=== PATIENT | female | born 1945 | race Caucasian/White ===

== ENCOUNTER → 2017-06-11 09:31 | Outpatient (CLI) | payer MEDICARE, MEDICAID, SELFPAY ==
--- NOTE | 2017-06-11 09:42 | MM_ITS ---
MM Dig screening mamm BI w/CAD CAD Screening COMPARISON: Digital mammograms 06/07/2016 and 05/14/2015 INDICATION: There is no personal or family history of breast cancer. This been previous biopsy left breast for benign disease. TECHNIQUE: Standard CC and MLO images were obtained. R2 CAD reviewed. FINDINGS: The breasts are composed primarily of fat with minimal scattered fibroglandular densities throughout each breast. There is very minimal stable post biopsy scarring left breast. There is a mole marker right breast and there are couple benign-appearing calcination is in each breast. There is no suspicious lesion and there are no suspicious microcalcifications. IMPRESSION: Fatty type breast parenchyma with no suspicious lesion seen BI-RADS Category: 2 Benign Finding(s) RECOMMENDED FOLLOW-UP: 1YR - 1 YEAR FOLLOW-UP (A letter has been sent to the patient regarding results of the study.)
== END ==
PROVIDERS: Family Provider Family Medicine; PCP Family Medicine; Visit Provider Nurse Practitioner Obstetrics & Gynecology
DX: Z12.31 Encounter for screening mammogram for malignant neoplasm of breast (principal)
CPT/HCPCS: 77067

== ENCOUNTER → 2018-05-10 11:13 | Outpatient (CLI) | payer MEDICARE, MEDICAID, SELFPAY ==
[2018-05-10 11:51] LABS: Basophils % 0.5 % (0.1-2.0); Eosinophils # 0.1 K/mm3 (0.0-0.4); Eosinophils % 1.2 % (0.1-12.0); Hematocrit 40.8 % (37.0-47.0); Hemoglobin 13.5 g/dL (12.2-16.2); Lymphocytes # 2.5 K/mm3 (0.7-4.5); Lymphocytes % 35.5 % (10-50); Mean Corpuscular Hemoglobin 30.2 pg (27.0-31.2); Mean Corpuscular Volume 91.6 fl (81-99); Mean Platelet Volume 8.4 fl (7.4-10.4); Monocytes # 0.5 K/mm3 (0.1-1.0); Monocytes % 6.4 % (1.7-9.3); Neutrophils % 56.4 % (37.0-80.0); Platelet Count 302 K/mm3 (142-424); Red Blood Count 4.45 M/mm3 (4.20-5.40); Red Cell Distribution Width 13.4 % (11.5-17.5); White Blood Count 7.1 K/mm3 (4.8-10.8)
== END ==
PROVIDERS: Visit Provider Otolaryngology
DX: Z01.818 Encounter for other preprocedural examination (principal); D49.2 Neoplasm of unspecified behavior of bone, soft tissue, and skin
CPT/HCPCS: 36415; 85025; 93005

== ENCOUNTER 2018-05-16 09:44 | Day surgery (SDC) | payer MEDICARE, MEDICAID, SELFPAY ==
[2018-05-16 10:22] VITALS: BP 182/59; PULSE 46; RESP 18; TEMP 36.6; O2SAT 100; BMI 39.4
[2018-05-16 12:15] VITALS: BP 134/83; PULSE 48; RESP 18; TEMP 36.1; O2SAT 96
[2018-05-16 12:30] VITALS: BP 141/77; PULSE 45; RESP 18; TEMP 36.1; O2SAT 97
[2018-05-16 12:45] VITALS: BP 137/79; PULSE 44; RESP 18; TEMP 36.1; O2SAT 98
[2018-05-16 12:54] VITALS: BP 154/76; PULSE 46; RESP 18; TEMP 36.1; O2SAT 98
--- NOTE | 2018-05-16 14:27 | P.PN_ITS ---
[facility] Anesthesia Checklist - Patient Identification Patient Identification: Arm Band - Structural Data Admitted From: Home Planned Operative Procedure/s: excision lesion x2 forehead Consent for Planned Operative Procedure(s) Verified: Yes Verified Documents: Surgical Consent, History and Physical - NPO Status Verified Time NPO: 00:00 - Additional verifications Anesthesia Reactions: No - Airway Assessment C-Spine Mobility Assessed: Yes (mp2) TMJ Mobility Assessed: Yes Dentition: Good Dentition - Neurological Assessment Level of Consciousness: Awake, Alert - Anesthesia Plan Anesthesia Risk discussed: Yes Anesthesia Plan: Verified ASA Class: II Anesthesia Type: MAC [facility] History I have reviewed the patient's past medical history: Yes Medical History: Reports:: Hyperlipidemia, Hypertension Denies:: Cancer, Diabetes Mellitus Type 1, Diabetes Mellitus Type 2, Internal Pacemaker, MRSA, Seizures *Have you ever received a pneumonia vaccine?: Yes *Have you received a flu vaccine this season?: Yes Other Medical History: Reports: Hypothyroidism. Denies: Blood Transfusion Reaction Other Surgeries: Yes: No Previous Surgery. No: Pacemaker Amputation: No Fractures: No - *Social History Educational Level: Completed High School Smoking Status: Never smoker Alcohol Intake: never *Occupational Status:: retired Housing: house Household Members: spouse *Travel in the last 8 weeks: None - Psychiatric History Expresses thoughts of harming self/others: None Suicide Plan Description: No Plan Family Hx:: Stroke, Thyroid Disorder, Hypertension
--- NOTE | 2018-05-16 15:39 | HMH.OPNOTE ---
Date of procedure: 05/16/18 Pre-op Diagnosis:: 1. 2.8 cm lesion anterior forehead 2. 1.5 cm lesion posterior forehead Post-op Diagnosis:: same Procedure performed:: 1. Excision 2.8 cm lesion anterior forehead with tissue rearrangement geometric plastic repair 2. Excision of posterior lesion forehead 1.5 cm with simple repair Surgeon:: Chuy Castro MD AWNING ERECTOR:: Reg Nickerson Anesthesia: MAC Estimated blood loss (mL): 4 Operative findings:: same Operative note:: The forehead was prepped and draped the perilesional areas were infiltrated with a total of 6 cc of 2% lidocaine containing epinephrine. The anterior forehead lesion was marked out on the markup measured 2.8 cm. The markup was incised and the lesion was excised and submitted. Bleeding was stopped with bipolar cautery. A superior and inferior incision was made and a tissue rearrangement geometric plastic repair was done with interrupted 4-0 nylon sutures. A Dermabond dressing was applied. The lesion on the posterior forehead was marked out it measured 1.5 cm. The markup was incised and the lesion was excised and submitted. Bleeding was stopped with bipolar cautery and a simple repair was done with interrupted 4-0 nylon sutures. A Dermabond dressing was applied. Pt was sent to recovery in good general condition. Condition: stable Disposition: PACU Complications:: none
--- NOTE | 2018-05-16 15:44 | P.OP_ITS ---
Date of procedure: 05/16/18 Pre-op Diagnosis:: 1. 2.8 cm lesion anterior forehead 2. 1.5 cm lesion posterior forehead Post-op Diagnosis:: same Procedure performed:: 1. Excision 2.8 cm lesion anterior forehead with tissue rearrangement geometric plastic repair 2. Excision of posterior lesion forehead 1.5 cm with simple repair Surgeon:: Chuy Castro MD MEDICAL TECHNOLOGIST PRN:: Reg Nickerson Anesthesia: MAC Estimated blood loss (mL): 4 Operative findings:: same Operative note:: The forehead was prepped and draped the perilesional areas were infiltrated with a total of 6 cc of 2% lidocaine containing epinephrine. The anterior forehead lesion was marked out on the markup measured 2.8 cm. The markup was incised and the lesion was excised and submitted. Bleeding was stopped with bipolar cautery. A superior and inferior incision was made and a tissue rearrangement geometric plastic repair was done with interrupted 4-0 nylon sutures. A Dermabond dressing was applied. The lesion on the posterior forehead was marked out it measured 1.5 cm. The markup was incised and the lesion was excised and submitted. Bleeding was stopped with bipolar cautery and a simple repair was done with interrupted 4-0 nylon sutures. A Dermabond dressing was applied. Pt was sent to recovery in good general condition. Condition: stable Disposition: PACU Complications:: none
== END 2018-05-16 12:54 | disposition home or self-care (01) ==
LOC: OR 09:46
PROVIDERS: PCP Family Medicine; Visit Provider Otolaryngology
DX: L57.0 Actinic keratosis; L98.8 Other specified disorders of the skin and subcutaneous tissue
CPT/HCPCS: 14040 ×2; 88305; 96374; 96375

== ENCOUNTER → 2018-12-12 10:15 | Outpatient (CLI) | payer MEDICARE, MEDICAID, SELFPAY ==
--- NOTE | 2018-12-12 10:19 | MM_ITS ---
PROCEDURE: MM DIG SCREENING MAMM BI W/CAD Patient Age:73Y CLINICAL INDICATION: SCREENING 73-year-old female.. No hormones. No new complaints. Previous benign stereotactic biopsy left breast Family history. Unremarkable COMPARISON: SBWCL STEREOTATIC BX-W/CLIP-LT from 10/05/2010 DMDB DIGITAL MAMM-DX BILATERAL from 03/10/2011 DMDXUL DIG MAMM-DX UNILATERAL-LT from 09/21/2011 DMSB DIGITAL MAMM-SCREEN BILATERAL from 04/03/2012 DMSB DIG MAMM-SCREEN MONICA from 05/02/2013 DMSB DIG MAMM-SCREEN MONICA from 05/07/2014 DMSB DIG MAMM-SCREEN MONICA W/CAD from 05/14/2015 DMSB DIG MAMM-SCREEN MONICA W/CAD from 06/07/2016 [facility] MM Dig screening mamm BI w/CAD from 06/11/2017 TECHNIQUE: Standard CC and MLO images were obtained. R2 CAD reviewed. FINDINGS: The low-density breast with generalized fatty replacement Right breast there is an area of focal density lateral upper outer quadrant which is been seen on previous studies and stable since prior studies dating back to 2014 on CC view; and although it is slightly more evident on today's MLO view I believe it is minimal focal density is variably evident on MLO view from [id number] the.. Therefore follow-up 1 year on the right would be adequate Left breast: Metallic marker from previous percutaneous biopsy noted medial breast with mild residual scarring near this area. Remainder of the left breast stable and unremarkable with no new areas of concern but the IMPRESSION: Stable mild asymmetry.. Stable minimal area density on the right right breast, with No new areas of significant concern Bilateral follow-up 1 year recommended, and should be encouraged/emphasized Thank you for the referral BI-RAD Category: 2 Benign Finding(s) FOLLOW-UP: 1YR 1 Year Follow-up (A letter has been sent to the patient regarding results of the study.) Dictated by: Silas Pinzon MD 12/16/2018 14:49 Electronically signed by Silas Pinzon MD in [place] 12/16/2018 14:54
== END ==
PROVIDERS: PCP Family Medicine; Visit Provider Family Medicine
DX: Z12.31 Encounter for screening mammogram for malignant neoplasm of breast (principal)
CPT/HCPCS: 77067

== ENCOUNTER → 2019-08-20 11:03 | Outpatient (CLI) | payer MEDICARE, SELFPAY ==
--- NOTE | 2019-08-20 11:08 | XR_ITS ---
PROCEDURE: XR FOOT WT BEARING LT 3V CLINICAL INDICATION: foot pain COMPARISON: FTL3 FOOT-LT-3 VIEWS from 06/24/2015 FINDINGS: There is mild hallux valgus with osteoarthritis of the 1st MTP joint and bunion formation. The joint spaces are well-preserved. No significant degenerative/arthritic changes. No erosive changes evident. Other findings:None. IMPRESSION: Hallux valgus with osteoarthritis 1st MTP joint and bunion formation Dictated by: Naman Merrill MD 08/20/2019 12:41 Electronically signed by Naman Merrill MD in [place] 08/20/2019 12:41
--- NOTE | 2019-08-20 11:08 | XR_ITS ---
PROCEDURE: XR FOOT RT MIN 3V CLINICAL INDICATION: foot pain COMPARISON: FTL3 FOOT-LT-3 VIEWS from 06/24/2015 FINDINGS: Moderate hallux valgus with mild osteoarthritis of the 1st MTP joint and bunion formation the . no fracture or dislocation. There are osteoarthritic changes of the 1st metatarsal sesamoid junction. Other findings:None. IMPRESSION: Degenerative changes with hallux valgus Dictated by: Naman Merrill MD 08/20/2019 12:39 Electronically signed by Naman Merrill MD in [place] 08/20/2019 12:39
== END ==
PROVIDERS: PCP Family Medicine; Visit Provider Nurse Practitioner
DX: B35.1 Tinea unguium (principal)
CPT/HCPCS: 73630

== ENCOUNTER → 2019-08-25 09:58 | Outpatient (CLI) | payer MEDICARE, MEDICAID, SELFPAY ==
[2019-08-25 10:30] LABS: Basophils # 0.1 K/mm3 (0-0.2); Basophils % 0.6 % (0.1-2.0); Eosinophils # 0.2 K/mm3 (0.0-0.4); Eosinophils % 2.6 % (0.1-12.0); Hematocrit 41.4 % (37.0-47.0); Hemoglobin 13.7 g/dL (12.2-16.2); Lymphocytes # 2.8 K/mm3 (0.7-4.5); Lymphocytes % 38.9 % (10-50); Mean Corpuscular HGB Conc 33.2 g/dL (31.8-35.4); Mean Corpuscular Hemoglobin 30.4 pg (27.0-31.2); Mean Corpuscular Volume 91.7 fl (81-99); Mean Platelet Volume 8.8 fl (7.4-10.4); Monocytes # 0.4 K/mm3 (0.1-1.0); Monocytes % 5.4 % (1.7-9.3); Neutrophils # 3.8 K/mm3 (1.8-7.8); Neutrophils % 52.5 % (37.0-80.0); Platelet Count 282 K/mm3 (142-424); Red Blood Count 4.51 M/mm3 (4.20-5.40); Red Cell Distribution Width 13.3 % (11.5-17.5); White Blood Count 7.3 K/mm3 (4.8-10.8)
[2019-08-25 10:55] LABS: Erythrocyte Sedimentation Rate 8 mm/hr (0-30)
[2019-08-25 10:59] LABS: Chloride 102 mmol/L (98-107)
[2019-08-25 11:00] LABS: Sodium 140 mmol/L (136-145)
[2019-08-25 11:02] LABS: Alanine Aminotransferase 23 U/L (12-78); Alkaline Phosphatase 33 U/L (38-126); Aspartate Amino Transferase 36 U/L (14-36); Bilirubin,Total 0.5 mg/dl (0.2-1.3); Blood Urea Nitrogen 41 mg/dl (7-17); Estimated Glomerular Filt Rate 40 ml/min (>60); GFR (African American) 49 ML/MIN (>60)
[2019-08-25 11:03] LABS: Albumin/Globulin Ratio 1.5 (1.1-1.8); Calcium 9.9 mg/dl (8.4-10.2); Carbon Dioxide 32 mmol/L (22.0-30.0); Globulin 2.6 g/dL (1.3-3.2); Glucose 85 mg/dl (74-100); Total Protein,Serum 6.6 g/dl (6.3-8.2)
[2019-08-25 11:09] LABS: C-Reactive Protein 0.9 mg/L (0-4)
== END ==
PROVIDERS: Visit Provider Nurse Practitioner
DX: B35.1 Tinea unguium (principal)
CPT/HCPCS: 36415; 80053; 85025; 85651; 86140

== ENCOUNTER → 2019-12-12 08:59 | Outpatient (CLI) | payer MEDICARE, MEDICAID, SELFPAY ==
--- NOTE | 2019-12-12 09:04 | MM_ITS ---
PROCEDURE: MM DIG SCREENING MAMM BI W/CAD Referring Doctor: Toni Verdin Patient Age:74Y CLINICAL INDICATION: SCREENING a 74-year-old. No hormones no new complaints Previous benign stereotactic biopsy left breast Family history. Unremarkable COMPARISON: MG DMSB DIGITAL MAMM-SCREEN BILATERAL from 04/03/2012 MG DMSB DIG MAMM-SCREEN MONICA from 05/02/2013 MG DMSB DIG MAMM-SCREEN MONICA from 05/07/2014 MG DMSB DIG MAMM-SCREEN MONICA W/CAD from 05/14/2015 MG DMSB DIG MAMM-SCREEN MONICA W/CAD from 06/07/2016 MG [facility] MM Dig screening mamm BI w/CAD from 06/11/2017 MG MM DIG SCREENING MAMM BI W/CAD from 12/12/2018 TECHNIQUE: Standard CC and MLO images were obtained. R2 CAD reviewed. Bilateral digital breast tomosynthesis included. FINDINGS: Lower density breast with minimal fibroglandular elements. No new suspicious or dominant mass but no suspicious calcifications either breast but stable architecture. Right breast appear stable. No new areas of concern. Vague area nodularity lateral central breast unchanged on both projections; as the small nodular density at the deep breast seen on CC view Left breast: No new areas of significant concern. Subtle minimal nodularity at the inferior left breast similar to previous studies. Previous metallic micro marker with associated scant scarring from prior stereotactic biopsy unchanged medial left breast again noted a.. A tiny areas of nodularity towards intramammary fold inferiorly again noted and not of significant concern. Can be followed, but would recommend bilateral follow-up 1 year. IMPRESSION: No new areas of concern. Overall stable mammogram. Stable very minor areas of density bilaterally-with no significant change Previous stereotactic biopsy medial left breast Bilateral follow-up in 1 year recommended and should be encouraged BI-RAD Category: 2 Benign Finding(s) FOLLOW-UP: 1YR 1 Year Follow-up (A letter has been sent to the patient regarding results of the study.) Dictated by: Silas Pinzon MD 12/14/2019 09:38 Silas Pinzon MD in [place] 12/14/2019 09:38
== END ==
PROVIDERS: PCP Family Medicine; Visit Provider Family Medicine
DX: Z12.31 Encounter for screening mammogram for malignant neoplasm of breast (principal)
CPT/HCPCS: 77063; 77067

== ENCOUNTER → 2020-02-02 13:28 | Outpatient (CLI) | payer MEDICARE, MEDICAID, SELFPAY | PROVIDERS: PCP Family Medicine; Visit Provider Family Medicine | DX: R06.83 Snoring (principal); I10 Essential (primary) hypertension; E66.9 Obesity, unspecified; G47.30 Sleep apnea, unspecified | CPT/HCPCS: G0399 ==

== ENCOUNTER 2020-04-10 17:24 | Emergency (ER) | payer MEDICARE, MEDICAID, SELFPAY ==
[2020-04-10 17:25] VITALS: BP 185/70; BP 188/81; PULSE 60; PULSE 61; RESP 18; TEMP 36.9; O2SAT 98; BMI 34.2
--- NOTE | 2020-04-10 17:48 | XR_ITS ---
PROCEDURE: XR HIP LT 2-3V W/PELVIS CLINICAL INDICATION: LEFT HIP PAIN W/O INJURY Left hip pain COMPARISON: CR,DX BONE3 BONE DENSITOMETRY(HIP:LT SPINE from 08/31/2016 FINDINGS: No fracture or dislocation. No lytic blastic change. Minimal osteoarthritic changes noted of the hips. Mild osteoarthritic changes of the SI joints IMPRESSION: Degenerative changes otherwise negative Dictated by: Naman Merrill MD 04/11/2020 07:23 Naman Merrill MD in [place] 04/11/2020 07:23
[2020-04-10 18:12] VITALS: BP 196/52; PULSE 50; O2SAT 99
--- NOTE | 2020-04-10 18:15 | HMH.EDGENADL ---
ED Disposition Clinical Impression: Lumbar disc disease Low back pain with sciatica Qualifiers: Chronicity: acute Back pain laterality: left Sciatica laterality: sciatica of left side Qualified Code(s): M54.42 - Lumbago with sciatica, left side Disposition: Home, Self-Care Condition on Discharge: Good Instructions: DI for Back Pain With Sciatica Additional Instructions: Prednisone as prescribed. Randall as needed for pain. Additional instructions for BACK PAIN: See your physician as soon as possible for further evaluation. Return immediately if back pain becomes intolerable, or if fever, numbness or weakness of your legs, loss of control of your bowels or bladder. Additional instructions for CONTROLLED SUBSTANCES: You have been prescribed a medication that is a controlled substance. Controlled substances include pain medications known as opiates and sedative nerve medications known as benzodiazepines. Tramadol, fioricet, and gabapentin are also controlled substances. Some common opiates include: Codeine (such as Tylenol #3) Hydrocodone (Vicodin, Lortab, Lorcet, Randall) Oxycodone (Percocet, Percodan, Oxycodone, Oxy IR) Some common benzodiazepines include: Diazepam (Valium) Lorazepam (Ativan) Alprazolam (Xanax) Clonazepam (Klonopin) Oxazepam (Serax) All of these controlled substances are highly addictive and frequently abused. Misuse can and frequently does lead to addiction as well as overdose and . Medication should be stored in a locked cabinet or other secure storage unit. Do not store the medication in a motor vehicle. Short term supplies, 3 days or less, are prescribed because of the highly addictive nature of the medication. Any of the controlled substance medication NOT taken should be disposed of properly and NOT SAVED. The recommended method of disposing of unused medications is: Place the medicines in a sealable plastic bag. If the medicine is a solid, crush it or add water to dissolve it. Add something undesirable (cat litter, coffee grounds, etc.) Dispose of sealed bag in household trash Do not flush or pour unused medicines down a sink or drain. Controlled substances should not be shared, given away or sold. Because of the addictive nature and frequent abuse, these medications are sometimes stolen. These medications should be kept in a safe place where they cannot be stolen. Do not keep them in your car or purse. Lost or stolen prescriptions for controlled substances WILL NOT BE REFILLED in this emergency department, regardless of whether a police report was filed. Prescriptions: Hydrocod/Acet 5/325 mg [Randall 5/325mg tablet] 1 tab PO Q6HP PRN #10 tab PRN Reason: Pain Transmission Status: Received by [id number] predniSONE [Prednisone 20mg Tab] 20 mg PO BID #10 tab Transmission Status: Pending to [id number] Referrals: Toni Verdin MD [Primary Care Provider] - - Critical Care Critical Care Time: No Attestation: On 04/10/20, the high probability of a clinically significant, sudden or life threatening deterioration of the following system(s) required my full and direct attention, intervention and personal management. The time I documented below is in addition to time spent performing reported procedures but includes the following listed in this critical care notation. Medical Decision Making - Edgardo Inquiry Pt receiving controlled substance: Yes Edgardo was queried for this patient: Yes Risks and benefits of using a controlled substance: were discussed with pt by me Vital Signs: 04/10/20 17:25 04/10/20 18:12 04/10/20 18:30 Temperature 98.4 F Temperature Source Oral Pulse Rate [Left] 61 50 L 63 Respiratory Rate 18 18 Blood Pressure [Left Arm] 188/81 H 196/52 H 172/54 H Blood Pressure Mean [Left Arm] 116 100 93 Blood Pressure Source [Left Arm] Automatic Cuff Blood Pressure Position [Left Arm] Sitting Sitting 02 Sat by Pu
--- NOTE | 2020-04-10 18:20 | XR_ITS ---
PROCEDURE: XR LUMBAR SPINE 2-3V CLINICAL INDICATION: pain, radiculopathy COMPARISON: CR CXR CHEST(2 VIEWS-NOT PORTABLE) from 08/28/2016 FINDINGS: There is normal alignment. There are 6 non rib-bearing lumbar vertebra. Degenerative disc disease is present from L1-S1 at every level most pronounced at L1-L2. no acute fracture or dislocation. No lytic or blastic change. There is generalized vascular calcification. Prominent osteophytes are present along the right and anteriorly at L1-L2. IMPRESSION: Lumbar spondylosis as described above Dictated by: Naman Merrill MD 04/11/2020 07:20 Naman Merrill MD in [place] 04/11/2020 07:20
[2020-04-10 18:30] VITALS: BP 172/54; PULSE 63; RESP 18; O2SAT 99
[2020-04-10 19:00] VITALS: BP 164/59; PULSE 61; RESP 17; O2SAT 97
[2020-04-10 19:27] VITALS: BP 155/86; PULSE 60; RESP 16; TEMP 36.9; O2SAT 97
== END 2020-04-10 19:29 | disposition home or self-care (01) ==
PROVIDERS: Emergency Provider Emergency Medicine; PCP Family Medicine
DX: M51.9 Unspecified thoracic, thoracolumbar and lumbosacral intervertebral disc disorder (principal); M54.42 Lumbago with sciatica, left side; I10 Essential (primary) hypertension; E78.5 Hyperlipidemia, unspecified; E03.9 Hypothyroidism, unspecified; Z79.899 Other long term (current) drug therapy
CPT/HCPCS: 72100; 73502; 99283

== ENCOUNTER 2020-05-24 08:28 | Emergency (ER) | payer MEDICARE, MEDICAID, SELFPAY ==
--- NOTE | 2020-05-24 08:30 | HMH.EDGENADL ---
ED Disposition Clinical Impression: Needle stick injury Cellulitis Qualifiers: Site of cellulitis: extremity Site of cellulitis of extremity: upper extremity Laterality: right Qualified Code(s): L03.113 - Cellulitis of right upper limb Disposition: Home, Self-Care Condition on Discharge: Good Additional Instructions: Take antibiotics as prescribed. Use ice and Tylenol with elevation of your right hand to improve swelling. Follow-up with your primary care doctor within 24 to 48 hours to ensure hand pain is improved as well as the swelling. If there is worsening pain or swelling, numbness/tingling, color changes, decreased range of motion to right hand/fingers, or other new changes please immediately report back to our emergency department. Prescriptions: cephALEXin [cephALEXin 500mg capsule*] 500 mg PO Q6H 7 Days #28 cap Transmission Status: Pending to [id number] Clindamycin HCl 450 mg PO TID 7 Days #63 cap Transmission Status: Pending to [id number] Referrals: Toni Verdin MD [Primary Care Provider] - - Critical Care Critical Care Time: No Attestation: On , the high probability of a clinically significant, sudden or life threatening deterioration of the following system(s) required my full and direct attention, intervention and personal management. The time I documented below is in addition to time spent performing reported procedures but includes the following listed in this critical care notation. Medical Decision Making - Medical Records Medical records reviewed: Yes: I reviewed the patient's medical records. - Edgardo Inquiry Pt receiving controlled substance: No Vital Signs: 05/24/20 08:31 Temperature 97.7 F Temperature Source Oral Pulse Rate [Left Radial] 49 L Respiratory Rate 18 Blood Pressure [Left Arm] 142/54 H Blood Pressure Mean [Left Arm] 83 Blood Pressure Source [Left Arm] Automatic Cuff Blood Pressure Position [Left Arm] Sitting 02 Sat by Pulse Oximetry 100 Oxygen Delivery Method Room Air Orders (Tests/Meds): ED MEDICATIONS Discontinued Medications Generic Name Dose Route Start Last Admin Trade Name Freq PRN Reason Stop Dose Admin Tetanus/Reduced Diphtheria/Acell Pertussis 0.5 ml 05/24/20 08:50 05/24/20 09:17 Tet/Diphth/Pert-Adult 0.5ml Syringe IM 05/24/20 08:51 0.5 ml .ONCE ONE Administration Medical Decision Narrative: Patient presents to the emergency department after autoinoculation with cow vaccine to her right palm. This was not high injection injury. Her compartments are soft and her hand/forearm with full range of motion. No paresthesias. She does have some mild swelling and some tenderness to palpation of the right thenar eminence. Full range of motion of right thumb. She is unsure of her tetanus status so tetanus will be updated. I am concerned as this is a dirty wound so she will need to be placed on antibiotics. She is not allergic to medications. X-ray was also obtained to ensure no bony injury or retained needle underneath the skin. X-ray negative except for some osteoarthritic changes. Patient observed in the ER without any changes in exam. Tdap given. I am concerned this is rather dirty wound the patient needs to be on antibiotics. Clindamycin and Keflex prescribed. Did warn patient on chance of GI upset with clindamycin and instructed to drink plenty of clear fluids. She agrees. She will follow up with her primary care doctor within 24 to 48 hours for recheck to ensure no worsening hand pain/swelling. She will immediately return prior to that time if there is worsening swelling, pain, difficulty ranging her thumb or other digits or wrist, decreased sensation, paresthesias, or other new concerning symptoms. She agrees with the above listed plan. Assessment: Right hand needlestick Disposition: Home with antibiotics and 24 to 40-hour follow-up General Adult HPI - General Stated complaint: AO [id number] nee
[2020-05-24 08:31] VITALS: BP 142/54; PULSE 49; RESP 18; TEMP 36.5; O2SAT 100; BMI 34.2
--- NOTE | 2020-05-24 08:50 | XR_ITS ---
PROCEDURE: XR HAND RT 2V CLINICAL INDICATION: swelling, r/o foreign body COMPARISON: No exams were available for comparison FINDINGS: No fracture or dislocation. No lytic or blastic change. There is normal mineralization. Mild osteoarthritic changes at the 1st metacarpal-carpal joint and the DIP joints of the 2nd and 3rd digits as well as the radial ulnar joint with mild ulnar minus variant. No radiopaque foreign body apparent Other findings:None. IMPRESSION: Osteoarthritic changes Dictated by: Naman Merrill MD 05/24/2020 09:08 Naman Merrill MD in [place] 05/24/2020 09:08
[2020-05-24 09:00] VITALS: BP 139/68; RESP 18; O2SAT 100
[2020-05-24 09:32] VITALS: BP 143/56; PULSE 52; RESP 18; O2SAT 100
[2020-05-24 09:39] VITALS: BP 143/56; PULSE 47; RESP 18; TEMP 36.5; O2SAT 99
== END 2020-05-24 09:44 | disposition home or self-care (01) ==
PROVIDERS: Emergency Provider Emergency Medicine; PCP Family Medicine
DX: L03.113 Cellulitis of right upper limb (principal); S61.431A Puncture wound without foreign body of right hand, initial encounter; W26.8XXA Contact with other sharp object(s), not elsewhere classified, initial encounter; Y92.79 Other farm location as the place of occurrence of the external cause; I10 Essential (primary) hypertension; Z23 Encounter for immunization; E03.9 Hypothyroidism, unspecified; E78.5 Hyperlipidemia, unspecified; Z79.899 Other long term (current) drug therapy
CPT/HCPCS: 73120; 90471; 90715; 99282

== ENCOUNTER → 2020-06-21 11:30 | Outpatient (CLI) | payer MEDICARE, MEDICAID, SELFPAY ==
--- NOTE | 2020-06-21 11:37 | XR_ITS ---
PROCEDURE: XR SHOULDER RT MIN 2V CLINICAL INDICATION: ACUTE PAIN OF RT SHOULDER/IMPINGEMENT SYNDROME OF RT SHOULDE COMPARISON: CR CXR CHEST(2 VIEWS-NOT PORTABLE) from 08/28/2016 FINDINGS: No fracture or dislocation. No lytic or blastic change. There is normal mineralization. Mild osteoarthritic changes with bony hypertrophy is present at the acromioclavicular joint. Mild osteoarthritis also at the glenohumeral joint. No subacromial stenosis. Other findings:None. IMPRESSION: Mild osteoarthritis of the acromioclavicular and glenohumeral joint. Dictated by: Naman Merrill MD 06/21/2020 12:10 Naman Merrill MD in [place] 06/21/2020 12:10
== END ==
PROVIDERS: PCP Family Medicine; Visit Provider Family Medicine
DX: M25.511 Pain in right shoulder (principal); M75.41 Impingement syndrome of right shoulder
CPT/HCPCS: 73030

== ENCOUNTER → 2020-08-06 13:10 | Outpatient (CLI) | payer MEDICARE, MEDICAID, SELFPAY ==
--- NOTE | 2020-08-06 13:14 | XR_ITS ---
PROCEDURE: XR SHOULDER RT MIN 2V CLINICAL INDICATION: RT shoulder pain COMPARISON: CR XR SHOULDER RT MIN 2V from 06/21/2020 FINDINGS: There are osteoarthritic changes of the acromioclavicular and glenohumeral joint similar to the previous exam no significant subacromial stenosis or high-riding humeral head. No acute fracture or dislocation Other findings:None. IMPRESSION: Osteoarthritis of the AC joint and glenohumeral Dictated by: Naman Merrill MD 08/06/2020 13:26 Naman Merrill MD in [place] 08/06/2020 13:26
== END ==
PROVIDERS: PCP Family Medicine; Visit Provider Orthopaedic Surgery
DX: M25.511 Pain in right shoulder (principal)
CPT/HCPCS: 73030

== ENCOUNTER → 2020-12-02 14:39 | Outpatient (CLI) | payer MEDICARE, MEDICAID, SELFPAY ==
[2020-12-02 16:16] LABS: Anion Gap 11.7 mEq/L (5-15); Blood Urea Nitrogen 29 mg/dl (7-17); Calcium 9.6 mg/dl (8.4-10.2); Carbon Dioxide 31 mmol/L (22.0-30.0); Chloride 103 mmol/L (98-107); Estimated Glomerular Filt Rate 49 ml/min (>60); GFR (African American) 59 ML/MIN (>60); Glucose 93 mg/dl (74-100); Potassium 4.7 mmoL/L (3.5-5.1); Sodium 141 mmol/L (136-145)
== END ==
PROVIDERS: Visit Provider Family Medicine
DX: N18.31 Chronic kidney disease, stage 3a (principal)
CPT/HCPCS: 36415; 80048; 83970

== ENCOUNTER → 2020-12-31 13:54 | Outpatient (CLI) | payer MEDICARE, MEDICAID, SELFPAY ==
--- NOTE | 2020-12-31 13:57 | MM_ITS ---
PROCEDURE INFORMATION: Exam: MG Bilateral Screening 3D Mammography Exam date and time: 12/31/2020 1:57 PM Age: 75 years old Clinical indication: Screening mammogram. No personal or family HX of breast cancer TECHNIQUE: Imaging protocol: Bilateral screening tomosynthesis and 2D mammography including computer-aided detection (CAD) when performed. COMPARISON: 1. MG MM DIG SCREENING MAMM BI W/CAD 12/12/2019 9:21 AM 2. MG MM DIG SCREENING MAMM BI W/CAD 12/12/2018 10:34 AM 3. MG [facility] MM Dig screening mamm BI w/CAD 06/11/2017 9:51 AM 4. MG DMSB DIG MAMM-SCREEN MONICA W/CAD 06/07/2016 4:06 PM FINDINGS: MAMMOGRAPHY: Breast composition: There are scattered areas of fibroglandular density. Mass: Stable benign-appearing subcentimeter nodules are present in the right breast. No new or morphologically suspicious nodule has developed to suggest malignancy. Architectural distortion: No new or suspicious architectural distortion. Calcifications: No new or suspicious calcifications are present Asymmetric density: No new or suspicious asymmetric density is present Skin thickening: None. Axillary adenopathy: None. IMPRESSION: No mammographic evidence of malignancy. Recommend annual screening mammography unless otherwise clinically indicated. ASSESSMENT: BI-RADS category 2: Benign
== END ==
PROVIDERS: PCP Family Medicine; Visit Provider Family Medicine
DX: Z12.31 Encounter for screening mammogram for malignant neoplasm of breast (principal)
CPT/HCPCS: 77063; 77067

== ENCOUNTER → 2021-04-12 20:01 | Outpatient (CLI) | payer MEDICARE, MEDICAID, SELFPAY | PROVIDERS: PCP Family Medicine; Visit Provider Family Medicine | DX: I10 Essential (primary) hypertension (principal); R06.83 Snoring; E66.9 Obesity, unspecified; G47.30 Sleep apnea, unspecified; Z68.35 Body mass index [BMI] 35.0-35.9, adult | CPT/HCPCS: 95810 ==

== ENCOUNTER → 2021-07-27 14:25 | Outpatient (CLI) | payer MEDICARE, MEDICAID, SELFPAY ==
[2021-07-27 18:36] LABS: Vitamin B12 445 pg/mL (239-931)
== END ==
PROVIDERS: PCP Family Medicine; Visit Provider Specialist
DX: D51.0 Vitamin B12 deficiency anemia due to intrinsic factor deficiency (principal)
CPT/HCPCS: 36415; 82607

== ENCOUNTER → 2022-01-16 10:44 | Outpatient (CLI) | payer MEDICARE, MEDICAID, SELFPAY ==
--- NOTE | 2022-01-16 10:47 | MM_ITS ---
PROCEDURE INFORMATION: Exam: MG Bilateral Screening 3D Mammography Exam date and time: 01/16/2022 10:46 AM Age: 76 years old Clinical indication: Screening examination; No personal or family history of breast cancer TECHNIQUE: Imaging protocol: Bilateral Screening tomosynthesis and 2D mammography including computer-aided detection (CAD) when performed. COMPARISON: 1. MG MM DIG SCREENING MAMM BI W/CAD 12/31/2020 2:10 PM 2. MG MM DIG SCREENING MAMM BI W/CAD 12/12/2019 9:21 AM FINDINGS: MAMMOGRAPHY: Breast composition: There are scattered areas of fibroglandular density. Mass: None. Architectural distortion: None. Calcifications: No suspicious calcifications. Asymmetric density: None. Skin thickening: None. Axillary adenopathy: None. IMPRESSION: No mammographic evidence of malignancy. Annual screening is recommended unless otherwise clinically indicated. ASSESSMENT: BI-RADS Category 1: Negative
== END ==
PROVIDERS: PCP Family Medicine; Visit Provider Family Medicine
DX: Z12.31 Encounter for screening mammogram for malignant neoplasm of breast (principal)
CPT/HCPCS: 77063; 77067

== ENCOUNTER → 2022-09-26 14:04 | Outpatient (POV) | payer MEDICARE, MEDICAID, SELFPAY | PROVIDERS: Visit Provider Specialist/Technologist | DX: Z00.00 Encounter for general adult medical examination without abnormal findings (principal) ==

== ENCOUNTER → 2022-10-11 14:12 | Outpatient (CLI) | payer MEDICARE, MEDICAID, SELFPAY ==
--- NOTE | 2022-10-11 14:18 | XR_ITS ---
FINAL REPORT CLINICAL HISTORY: MONICA FOOT PAIN COMPARISON: 08/20/2019 FINDINGS: Right foot Three views were obtained. There is no acute fracture or dislocation. There is hallux valgus deformity. Mild and moderate degenerative changes are present. No soft tissue abnormality is identified. IMPRESSION: Degenerative changes without acute bony abnormality. Reviewed, Interpreted and Dictated by Luc North III, MD Transcribed by Evelyn Pearce Authenticated and [facility]
--- NOTE | 2022-10-11 14:18 | XR_ITS ---
FINAL REPORT CLINICAL HISTORY: MONICA FOOT PAIN COMPARISON: 08/20/2019 FINDINGS: Left foot Three views were obtained. There is no acute fracture or dislocation. There is hallux valgus deformity. Mild and moderate degenerative changes are present. No soft tissue abnormality is identified. IMPRESSION: Degenerative changes without acute bony abnormality. Reviewed, Interpreted and Dictated by Luc North III, MD Transcribed by Evelyn Pearce Authenticated and [facility]
== END ==
PROVIDERS: PCP Family Medicine; Visit Provider Family Medicine
DX: M79.671 Pain in right foot (principal); M79.672 Pain in left foot
CPT/HCPCS: 73630

== ENCOUNTER → 2022-11-29 11:20 | Outpatient (CLI) | payer MEDICARE, MEDICAID, SELFPAY ==
--- NOTE | 2022-11-29 11:31 | ECG_ITS ---
APPROVED REPORT Exam: Resting ECG HR:41 bpm ECG Measurements Heart Rate 41 AXES VA 143 P 62 QRSd 130 QRS -20 QT 471 T -23 QTc 406 Conclusion SINUS BRADYCARDIA RIGHT BUNDLE BRANCH BLOCK [120+ ms QRS DURATION, UPRIGHT V1, 40+ ms S IN I/aVL/V4/V5/V6] POSSIBLE LEFT VENTRICULAR HYPERTROPHY [VOLTAGE CRITERIA PLUS LAE OR QRS WIDENING] PROBABLE LATERAL MYOCARDIAL INFARCTION , OF INDETERMINATE AGE [35 ms Q WAVE IN I/aVL/V5/V6] MODERATE T-WAVE ABNORMALITY, CONSIDER INFERIOR ISCHEMIA [-0.1+ mV T-WAVE IN II/aVF] ABNORMAL ECG UNCONFIRMED REPORT Electronically signed by : Jasper Fernandez MD 11/30/2022 21:28:14
--- NOTE | 2022-11-29 11:40 | XR_ITS ---
FINAL REPORT CLINICAL HISTORY: pre-op testing sx on left foot pt has hypertension nonsmoker FINDINGS: Two views of the chest were obtained. The heart size and pulmonary vascularity are within normal limits. The mediastinum is normal. No acute pulmonary abnormality is identified. There is no pneumothorax. The bony thorax is intact. IMPRESSION: No active cardiopulmonary disease. Reviewed, Interpreted and Dictated by Luc North III, MD Transcribed by Evelyn Pearce Authenticated and [facility]
[2022-11-29 13:13] LABS: Alanine Aminotransferase 25 U/L (12-78); Albumin Level 4.4 g/dl (3.5-5.0); Albumin/Globulin Ratio 1.7 (1.1-1.8); Alkaline Phosphatase 46 U/L (38-126); Anion Gap 13.6 mEq/L (5-15); Aspartate Amino Transferase 43 U/L (14-36); Bilirubin,Total 0.2 mg/dl (0.2-1.3); Blood Urea Nitrogen 32 mg/dl (7-17); Calcium 9.7 mg/dl (8.4-10.2); Carbon Dioxide 27 mmol/L (22.0-30.0); Chloride 103 mmol/L (98-107); Estimated Glomerular Filt Rate 48 ml/min (>60); GFR (African American) 59 ML/MIN (>60); Globulin 2.6 g/dL (1.3-3.2); Glucose 86 mg/dl (74-100); Potassium 4.6 mmoL/L (3.5-5.1); Sodium 139 mmol/L (136-145)
[2022-11-29 13:21] LABS: Basophils % 0.4 % (0.1-2.0); Eosinophils # 0.1 K/mm3 (0.0-0.4); Eosinophils % 1.1 % (0.1-12.0); Hematocrit 44.6 % (37.0-47.0); Hemoglobin 14.7 g/dL (12.2-16.2); Lymphocytes # 2.4 K/mm3 (0.7-4.5); Lymphocytes % 38.7 % (10-50); Mean Corpuscular HGB Conc 32.9 g/dL (31.8-35.4); Mean Corpuscular Hemoglobin 30.1 pg (27.0-31.2); Mean Corpuscular Volume 91.4 fl (81-99); Mean Platelet Volume 8.2 fl (7.4-10.4); Monocytes # 0.4 K/mm3 (0.1-1.0); Monocytes % 6.8 % (1.7-9.3); Neutrophils # 3.3 K/mm3 (1.8-7.8); Neutrophils % 52.9 % (37.0-80.0); Platelet Count 253 K/mm3 (142-424); Red Blood Count 4.88 M/mm3 (4.20-5.40); Red Cell Distribution Width 13.5 % (11.5-17.5); White Blood Count 6.2 K/mm3 (4.8-10.8)
== END ==
PROVIDERS: PCP Family Medicine; Visit Provider Podiatrist
DX: M79.672 Pain in left foot; Z01.818 Encounter for other preprocedural examination
CPT/HCPCS: 36415; 71046; 80053; 85025; 93005

== ENCOUNTER → 2022-12-06 08:51 | Outpatient (CLI) | payer MEDICARE, MEDICAID, SELFPAY ==
--- NOTE | 2022-12-06 08:57 | XR_ITS ---
FINAL REPORT CLINICAL HISTORY: Osteoporosis screening, post menopausal COMPARISON: None FINDINGS: Using L1-4, the bone mineral density of the spine is 1.100 g/cm2, corresponding to T-score of 0.5, within normal limits. However, this is likely falsely elevated secondary to hypertrophic changes Using the left hip, the bone mineral density of the femoral neck is 0.736 g/cm2, corresponding to a T-score of -1.0, within normal limits. Using the right hip, the bone mineral density of the femoral neck is 0.712 g/cm2, corresponding to a T-score of -1.2, consistent with low bone density. FRAX 10 year fracture risk is 1.7% for a hip fracture and 10% for a major osteoporotic fracture. NOTE: T-score: Standard deviation compared with peak bone mass of young adult mean. *Following the recommendations of the International Society of Bone densitometry, classification of hip BMD is based on the lower of two T-scores; total hip or femoral neck. IMPRESSION: Diminished bone mineral density consistent with low bone density. Reviewed, Interpreted and Dictated by Luc North III, MD Transcribed by Hillary Costello Authenticated and [facility]
== END ==
PROVIDERS: PCP Family Medicine; Visit Provider Family Medicine
DX: Z78.0 Asymptomatic menopausal state (principal); Z13.820 Encounter for screening for osteoporosis
CPT/HCPCS: 77080

== ENCOUNTER 2022-12-15 06:05 | Day surgery (SDC) | payer MEDICARE, MEDICAID, SELFPAY ==
[2022-12-13 08:44] VITALS: BMI 33.2
[2022-12-15] VITALS (13 sets, daily range): BP systolic 153–176; BP diastolic 53–83; PULSE 43–61; RESP 12–18; TEMP 36.2–43; O2SAT 90–98
[2022-12-15] MEDS: LACTATED RINGERS 1000ML 1,000 ML 100 ML IV (06:19)
[2022-12-15] MEDS: CEFAZOLIN SODIUM 1 GM in 0.9 % SODIUM CHLORIDE 50 ML IV (07:37)
--- NOTE | 2022-12-15 07:59 | P.PNANES_ITS ---
[facility] Disclaimer: The information contained in this section may have been updated after the patient was seen, as this information can be updated by other users. Medical History Diverticulosis Hearing loss Hyperlipidemia Hypertension Hypertriglyceridemia Hypothyroidism Surgical History H/O colonoscopy H/O left breast biopsy History of right oophorectomy Family History Other No significant family history Social History Smoking Status: Never smoker second hand exposure: No alcohol intake: never substance use type: denies use current occupational status: retired Travel in the last 8 weeks: None household members: spouse housing: house current occupational exposures/hazards: No caffeine: No [facility] Anesthesia Checklist Patient Identification Patient Identification: Verbal (Name & ) Structural Data Planned Operative Procedure/s: orif l foot Consent for Planned Operative Procedure(s) Verified: Yes NPO Status Verified Time NPO: 00:00 Additional verifications Anesthesia Reactions: No (nausea) Hx Blood Transfusions: No Blood Transfusion Reaction: No Airway Assessment Mallampati Score:: Class II C-Spine Mobility Assessed: Yes TMJ Mobility Assessed: Yes Dentition: Good Dentition Neurological Assessment Level of Consciousness: Awake, Alert and Appropriate Anesthesia Plan Anesthesia Risk discussed: Yes Anesthesia Plan: Verified ASA Class: II Anesthesia Type: General w/block Preoperative Comments Pre-Operative Comments: pop block exp to pt incl risks,pt agrees to proceed
--- NOTE | 2022-12-15 09:04 | XR_ITS ---
FINAL REPORT CLINICAL HISTORY: HAMMERTOE IN OR FINDINGS: FLUORO TIME PROCEDURE: Fluoroscopy in the operating room. FINDINGS: Fluoroscopy time was provided by the radiology department for the clinical service. 1 film was obtained. Fluoroscopy exposure time: 0 seconds DAP: 0.07 mGy IMPRESSION: See operative report Reviewed, Interpreted and Dictated by Norma Christian MD Transcribed by Sujata Meléndez Authenticated and [facility]
--- NOTE | 2022-12-15 10:06 | EXP.ANES.I ---
[facility] Anesthesia Record Part I Anesthesia Record I Intake, IV Amount: 1,500 Hydration: Adequate Estimated blood loss (mL): 0 Urine output (mL): 0 Blood Pressure: 157/82 SaO2: 94 Pulse Rate: 48 Airway Patency: Patent Respiratory Rate: 12 Temperature: 97.5 F Patient is:: Awake and Stable Stable to PACU at:: 10:02
--- NOTE | 2022-12-15 10:15 | P.OP_ITS ---
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 Post-op Diagnosis:: Same Procedure performed:: Arthrodesis of left foot first metatarsophalangeal joint; hammertoe correction toes 2,3,4 left foot; fifth metatarsal head resection left foot. Surgeon:: Cali Diana DPM UNDER WATER ASSISTANT:: Juan Johnson Anesthesia: GETA and other (popliteal/saphenous block) Estimated blood loss (mL): 2 Operative findings:: expected Operative note:: On this date and time patient was deemed an appropriate surgical candidate. Discussed the procedures planned with patient and her in preoperative holding area; signed the foot. Answered all questions to patient satisfaction. With informed consent signed, the patient was taken to the operating room. The patient was positioned supine. General anesthesia was induced. Tourniquet was applied to the left ankle, above the malleoli. Left First Metatarsal Phalangeal Joint Arthrodesis: The left lower extremity was prepped and draped in normal sterile fashion. Attention was directed to the 1st metatarsophalangeal joint (MPJ), where a dorsal linear incision was mapped out extending proximal from the HIPJ to proximal on the met shaft. The tourniquet was inflated at 225 mmHg. Dissection was carried thru skin and subcutaneous tissue with care taken to maintain surgical hemostasis and safely retract neurovascular structures. Dissection was then carried through deep fascia linearly over the 1st MPJ, exposing the met head. There was severe arthritic changes noted with wearing down of the cartilage on both the metatarsal head and proximal phalanx. And there was a large joint osteophyte noted which was removed. Dorsal as well as medial, l ateral spurring noted. Sesamoids were also noted to be arthritic. Soft tissue surrounding the first MPJ was released. A McGlamry elevator was used to pass underneath the metatarsal heads releasing more of the contracture. Next utilizing reamers the base of the proximal phalanx and the metatarsal head were prepared. The remaining portion of the cartilage was removed. The subchondral plate was broken and then utilizing bone fenestration mold dumper down to the level of good healthy cancellous bleeding bone. At this point, the joint was reduced and temporary fixation inserted. Position was checked under intra-op fluoroscopy. Neosho system for arthrodesis, with compression screw across distal medial to proximal lateral fusion of first MPJ; plate fixation and screws for plate in rectus position. Good apposition and position was noted. X-ray confirmed position and hardware stable. The wound was flushed. Bone matrix across fusion site for arthrodesis. Screws: cannulated 3x22mm; Locking screws: 2.7x10mm, 2.7x11mm, 2.7x12mm, 2.7x14mm,; Non-locking screw 2.7x14mm. Bone matrix utilized to facilitate the fusion. 2-0 Vicryl was used to close deep tissue in a simple fashion. Subcutaneous tissues closed with 3-0 vicryl. Closure of skin with 3-0 Nylon in running interlocking suture technique. Hammertoe Corrections 2nd, 3rd, 4th toes, left foot. Left second Digit PIPJ: Attention was directed to the left second toe, where a dorsal linear incision was mapped out over the PIPJ extending distally over the DIPJ. Dissection was carried thru skin and sub q tissue, with care to maintain surgical hemostasis. Transverse tenotomy performed at the PIPJ, with release of the medial and lateral collateral ligaments. Freed collaterals at the second metatarsophalangeal joint level as well. The head of the proximal and base of the middle phalanx was removed, exposing good cancellous bone. Utilizing standard technique, the left second digit was fixed with a .045 smooth K-wire due to poor bone quality. The was flushed with copious amounts of normal sterile saline. The tendon was repaired with 3-0 Vicryl and 3-0 Nylon was used to close skin in an interrupted mattress and simple suture fashion. Left third Digit PIPJ: Attention was directed to the left second toe, where a dorsal linear incision was mapped out over the PIPJ extending distally over the DIPJ. Dissection was carried thru skin and sub q tissue, with care to maintain surgical hemostasis. Transverse tenotomy performed at the PIPJ, with release of the medial and lateral collateral ligaments. The head of the proximal and base of the middle phalanx was removed, exposing good cancellous bone. Utilizing standard technique, the left third digit was fixed with a .045 smooth K-wire due to poor bone quality. The was flushed with copious amounts of normal sterile saline. The tendon was repaired with 3-0 Vicryl and 3-0 Nylon was used to close skin in an interrupted mattress and simple suture fashion. Left fourth Digit PIPJ: Attention was directed to the left fourth toe, where a dorsal linear incision was mapped out over the PIPJ extending distally over the DIPJ. Dissection was carried thru skin and sub q tissue, with care to maintain surgical hemostasis. Transverse tenotomy performed at the PIPJ, with release of the medial and lateral collateral ligaments. The head of the proximal and base of the middle phalanx was removed, exposing good cancellous bone. Utilizing standard technique, the left second digit was fixed with a .045 smooth K-wire due to poor bone quality. The was flushed with copious amounts of normal sterile saline. The tendon was repaired with 3-0 Vicryl and 3-0 Nylon was used to close skin in an interrupted mattress and simple suture fashion. Attention directed to the left fifth metatarsal phalangeal joint where a dorsal linear longitudinal incision was made lateral and parallel with the extensor digitorum longus tendon. Subtenons tissues dissected and careful preservation of neurovascular structures was considered. Cautery with Bovie for bleeders. A capsulotomy was then performed and dissected down to the fifth metatarsal head. Resected with sagittal bone saw and removed in toto. Irrigated with saline and closed in layers with 2-0 Vicryl 3-0 Vicryl and 3-0 nylon. Good alignment was noted. The tourniquet was deflated after 111 minutes and immediate hyperemic response was noted to the digits. Xeroform, dry sterile dressing was then applied to the left foot. The patient was awoken from anesthesia and transferred to recovery with vital signs stable and neurovascular status intact. Specimen: None Discharge/Plan: D/C home today when ready and vital signs stable. Patient is to maintain dressing clean dry and intact. Ice medial/back of left ankle and elevate on two pillows. NWB to the left lower extremity with knee scooter or wheelchair (already has knee scooter and received some physical therapy training). Follow up with me in 1 week. Tourniquet time (min): 111 Condition: stable Disposition: PACU Specimens:: none Complications:: negative
[2022-12-15] MEDS: ONDANSETRON 4MG/2ML VIAL 4 MG IV (10:22)
[2022-12-15] MEDS: ALBUTEROL 0.083% 2.5 MG/3 ML NEB IH (10:25)
--- NOTE | 2022-12-20 10:33 | P.PNANES_ITS ---
[facility] Anesthesia Record Part II Anesthesia Record Part II Discharge Time: 10:52 Destination: Surgical Day Care (OP Surgery) PACU nurse assessment reviewed?: Yes Patient Condition:: Good Anesthesia Complications:: None Swallowing reflex intact?: Yes Airway Patency: Patent Cyanosis?: No Blood Pressure: 155/56 SaO2: 96 Respiratory Rate: 14 Pulse Rate: 49 Temperature: 97.2 F Mental Status: Alert & Oriented Pain level:: 0 Nausea and/or vomitting:: None Intake, IV Amount: 0 Hydration: Adequate
[2022-12-20 10:34] VITALS: BP 155/56; PULSE 49; RESP 14; TEMP 36.2; O2SAT 96
== END 2022-12-15 11:30 | disposition home or self-care (01) ==
PROVIDERS: PCP Family Medicine; Visit Provider Podiatrist
PROC: (CPT 28113; principal; 2022-12-15 07:30)
DX: M20.42 Other hammer toe(s) (acquired), left foot (principal); M20.12 Hallux valgus (acquired), left foot; M21.622 Bunionette of left foot; M79.672 Pain in left foot
CPT/HCPCS: 28113; 28285 ×3; 28750; 73620; 76000; 94640; 96374; C1713; C1776; J2405

== ENCOUNTER → 2022-12-27 08:33 | Outpatient (CLI) | payer MEDICARE, MEDICAID, SELFPAY ==
--- NOTE | 2022-12-27 08:37 | XR_ITS ---
FINAL REPORT CLINICAL HISTORY: Post Op COMPARISON: 10/11/2022 FINDINGS: LEFT FOOT: Three views of the left foot were obtained. Postoperative changes are present in the left foot when compared to the prior exam. There is been resection of the distal aspect of the fifth metatarsal and the distal aspects of the second third and fourth proximal phalanges. There are K wires extending through the second third and fourth toe phalanges. There is a plate and multiple orthopedic screws bridging the first metatarsal phalangeal joint. There is no acute fracture or dislocation. IMPRESSION: Postoperative changes are now present in the left foot as described. Reviewed, Interpreted and Dictated by Luc North III, MD Transcribed by Raine Luther Authenticated and [facility]
== END ==
PROVIDERS: PCP Family Medicine; Visit Provider Podiatrist
DX: M79.672 Pain in left foot (principal)
CPT/HCPCS: 73630

== ENCOUNTER → 2023-01-30 15:46 | Outpatient (CLI) | payer MEDICARE, MEDICAID, SELFPAY ==
--- NOTE | 2023-01-30 15:51 | MM_ITS ---
PROCEDURE INFORMATION: Exam: MG Bilateral Screening 3D Mammography Exam date and time: 01/30/2023 3:47 PM Age: 77 years old Clinical indication: Screening examination TECHNIQUE: Imaging protocol: Bilateral Screening tomosynthesis and 2D mammography including computer-aided detection (CAD) when performed. COMPARISON: 1. MG MM DIG SCREENING MAMM BI W/CAD 01/16/2022 10:46 AM 2. MG MM DIG SCREENING MAMM BI W/CAD 12/31/2020 2:10 PM FINDINGS: MAMMOGRAPHY: Breast composition: There are scattered areas of fibroglandular density. Mass: None. Architectural distortion: None. Calcifications: No suspicious calcifications. Asymmetric density: None. Skin thickening: None. Axillary adenopathy: None. IMPRESSION: No mammographic evidence of malignancy. Annual screening is recommended unless otherwise clinically indicated. ASSESSMENT: BI-RADS Category 1: Negative
== END ==
PROVIDERS: PCP Family Medicine; Visit Provider Family Medicine
DX: Z12.31 Encounter for screening mammogram for malignant neoplasm of breast (principal)
CPT/HCPCS: 77063; 77067

== ENCOUNTER 2023-06-04 12:52 | Outpatient (CLI) | payer MEDICARE, MEDICAID, SELFPAY ==
[2023-06-04 13:45] LABS: Chloride 107 mmol/L (98-107); Sodium 140 mmol/L (136-145)
[2023-06-04 13:48] LABS: Alanine Aminotransferase 23 U/L (12-78); Albumin/Globulin Ratio 1.6 (1.1-1.8); Alkaline Phosphatase 51 U/L (38-126); Aspartate Amino Transferase 37 U/L (14-36); Bilirubin,Total 0.5 mg/dl (0.2-1.3); Blood Urea Nitrogen 28 mg/dl (7-17); Carbon Dioxide 30 mmol/L (22.0-30.0); Chol/HDL Ratio 4.2 (1-3.5); Cholesterol 173 mg/dl (140-200); Estimated Glomerular Filt Rate 54 ml/min (>60); GFR (African American) 65 ML/MIN (>60); Globulin 2.5 g/dL (1.3-3.2); Glucose 82 mg/dl (74-100); HDL Cholesterol 41 mg/dl (40-60); Total Protein,Serum 6.5 g/dl (6.3-8.2); Triglycerides 116 mg/dl (30-150); VLDL Cholesterol 23 mg/dL (0-40)
[2023-06-04 14:16] LABS: Direct LDL Cholesterol 86.44 mg/dL (100-129)
[2023-06-04 14:36] LABS: Thyroid Stimulating Hormone 3.32 uIU/mL (0.465-4.68)
== END 2023-06-04 23:59 | disposition home or self-care (01) ==
LOC: LAB.DROPOF 12:53
PROVIDERS: PCP Nurse Practitioner Family; Visit Provider Nurse Practitioner Family
DX: I10 Essential (primary) hypertension (principal); E03.9 Hypothyroidism, unspecified; E78.5 Hyperlipidemia, unspecified
CPT/HCPCS: 80053; 80061; 84443

== ENCOUNTER 2023-09-11 13:38 | Outpatient (CLI) | payer MEDICARE, MEDICAID, SELFPAY ==
[2023-09-11 13:53] LABS: Alanine Aminotransferase 19 U/L (12-78); Albumin/Globulin Ratio 1.4 (1.1-1.8); Alkaline Phosphatase 47 U/L (38-126); Anion Gap 9.7 mEq/L (5-15); Aspartate Amino Transferase 30 U/L (14-36); Bilirubin,Total 0.5 mg/dl (0.2-1.3); Blood Urea Nitrogen 25 mg/dl (7-17); Calcium 9.7 mg/dl (8.4-10.2); Carbon Dioxide 30 mmol/L (22.0-30.0); Chloride 105 mmol/L (98-107); Chol/HDL Ratio 3.7 (1-3.5); Cholesterol 182 mg/dl (140-200); Estimated Glomerular Filt Rate 48 ml/min (>60); GFR (African American) 58 ML/MIN (>60); Globulin 2.8 g/dL (1.3-3.2); Glucose 79 mg/dl (74-100); HDL Cholesterol 49 mg/dl (40-60); Potassium 4.7 mmoL/L (3.5-5.1); Sodium 140 mmol/L (136-145); Total Protein,Serum 6.8 g/dl (6.3-8.2); Triglycerides 114 mg/dl (30-150); VLDL Cholesterol 23 mg/dL (0-40)
[2023-09-11 14:04] LABS: Direct LDL Cholesterol 98.66 mg/dL (100-129)
[2023-09-11 14:23] LABS: Thyroid Stimulating Hormone 2.53 uIU/mL (0.465-4.68)
[2023-09-13 07:30] LABS: Triiodothyronine (T3) Free 2.3 pg/mL (2.0-4.4)
== END 2023-09-11 23:59 | disposition home or self-care (01) ==
LOC: LAB.DROPOF 13:39
PROVIDERS: PCP Nurse Practitioner Family; Visit Provider Nurse Practitioner Family
DX: E78.5 Hyperlipidemia, unspecified (principal); E78.2 Mixed hyperlipidemia; I10 Essential (primary) hypertension; N18.31 Chronic kidney disease, stage 3a; E03.9 Hypothyroidism, unspecified
CPT/HCPCS: 80053; 80061; 84443; 84481

== ENCOUNTER 2023-12-11 15:07 | Outpatient (CLI) | payer MEDICARE, MEDICAID, SELFPAY ==
[2023-12-11 15:34] LABS: Basophils # 0.1 K/mm3 (0-0.2); Eosinophils # 0.1 K/mm3 (0.0-0.4); Eosinophils % 1.1 % (0.1-12.0); Hematocrit 44.6 % (37.0-47.0); Hemoglobin 14.4 g/dL (12.2-16.2); Lymphocytes # 2.7 K/mm3 (0.7-4.5); Lymphocytes % 33.8 % (10-50); Mean Corpuscular HGB Conc 32.4 g/dL (31.8-35.4); Mean Corpuscular Hemoglobin 29.1 pg (27.0-31.2); Mean Corpuscular Volume 89.8 fl (81-99); Mean Platelet Volume 8.4 fl (7.4-10.4); Monocytes # 0.5 K/mm3 (0.1-1.0); Monocytes % 5.9 % (1.7-9.3); Neutrophils # 4.6 K/mm3 (1.8-7.8); Neutrophils % 58.2 % (37.0-80.0); Platelet Count 290 K/mm3 (142-424); Red Blood Count 4.97 M/mm3 (4.20-5.40); Red Cell Distribution Width 13.9 % (11.5-17.5); White Blood Count 7.9 K/mm3 (4.8-10.8)
[2023-12-11 16:01] LABS: Alanine Aminotransferase 24 U/L (12-78); Albumin Level 4.3 g/dl (3.5-5.0); Albumin/Globulin Ratio 1.8 (1.1-1.8); Alkaline Phosphatase 44 U/L (38-126); Anion Gap 11.3 mEq/L (5-15); Aspartate Amino Transferase 44 U/L (14-36); Bilirubin,Total 0.5 mg/dl (0.2-1.3); Blood Urea Nitrogen 26 mg/dl (7-17); Calcium 9.9 mg/dl (8.4-10.2); Carbon Dioxide 29 mmol/L (22.0-30.0); Chloride 107 mmol/L (98-107); Chol/HDL Ratio 3.5 (1-3.5); Cholesterol 173 mg/dl (140-200); Estimated Glomerular Filt Rate 48 ml/min (>60); GFR (African American) 58 ML/MIN (>60); Globulin 2.4 g/dL (1.3-3.2); Glucose 81 mg/dl (74-100); HDL Cholesterol 49 mg/dl (40-60); Magnesium 2.1 mg/dl (1.6-2.3); Potassium 4.3 mmoL/L (3.5-5.1); Sodium 143 mmol/L (136-145); Total Protein,Serum 6.7 g/dl (6.3-8.2); Triglycerides 172 mg/dl (30-150); VLDL Cholesterol 34 mg/dL (0-40)
[2023-12-11 16:12] LABS: Direct LDL Cholesterol 88.76 mg/dL (100-129)
[2023-12-11 16:19] LABS: 25-OH Vitamin D, Total 35.1 ng/mL (30-100)
[2023-12-11 17:22] LABS: Thyroid Stimulating Hormone 5.35 uIU/mL (0.465-4.68)
[2023-12-11 17:27] LABS: Ferritin 31.1 ng/ml (11.1-264)
== END 2023-12-11 23:59 | disposition home or self-care (01) ==
LOC: LAB 15:08
PROVIDERS: PCP Internal Medicine; Visit Provider Nurse Practitioner Family
DX: N18.31 Chronic kidney disease, stage 3a (principal); E03.9 Hypothyroidism, unspecified; I10 Essential (primary) hypertension; E78.2 Mixed hyperlipidemia; E55.9 Vitamin D deficiency, unspecified; R25.1 Tremor, unspecified
CPT/HCPCS: 36415; 80053; 80061; 82306; 82728; 83735; 84425; 84443; 85025

== ENCOUNTER 2024-01-11 07:22 | Day surgery (SDC) | payer MEDICARE, MEDICAID, SELFPAY ==
[2024-01-11 07:40] VITALS: BP 170/67; PULSE 50; RESP 16; TEMP 36.6; O2SAT 98
[2024-01-11 07:45] VITALS: BMI 34.2
[2024-01-11] MEDS: LIDOCAINE 1% 20ML MDV 20 ML (08:40)
--- NOTE | 2024-01-11 08:46 | EXP.OP.NOTE ---
Date of procedure: 01/11/24 Pre-op Diagnosis:: Left lateral neck sebaceous cyst (1 cm) Post-op Diagnosis:: Same Procedure performed:: Excision of 1 cm left lateral neck sebaceous cyst Surgeon:: Mejia Rodriges MD Anesthesia: local Estimated blood loss (mL): 5 Operative findings:: Lesion excised in toto Operative note:: After informed consent was obtained the patient was taken to the procedure room. Her left lateral neck was prepped and draped in a sterile fashion. After infiltration with local anesthetic an elliptical incision was made around the lesion. The lesion was sharply excised in toto and passed off for pathologic evaluation. A combination of interrupted Vicryl suture and thermal cautery was utilized to achieve hemostasis. Skin was reapproximated with interrupted 6-0 nylon. Dressings were applied and the patient was discharged home in stable condition. Condition: stable Disposition: no change Specimens:: Left lateral neck cyst Complications:: No immediate
[2024-01-11 08:50] VITALS: BP 185/73; PULSE 46; RESP 18; TEMP 37; O2SAT 97
== END 2024-01-11 09:00 | disposition home or self-care (01) ==
PROVIDERS: PCP Internal Medicine; Visit Provider Surgery
PROC: (CPT 11421; principal; 2024-01-11 08:20)
DX: L72.3 Sebaceous cyst (principal); R20.8 Other disturbances of skin sensation
CPT/HCPCS: 11421; 88304

== ENCOUNTER 2024-02-13 12:46 | Outpatient (CLI) | payer MEDICARE, MEDICAID, SELFPAY ==
--- NOTE | 2024-02-13 12:46 | MM_ITS ---
PROCEDURE INFORMATION: Exam: MG Bilateral Screening 3D Mammography Exam date and time: 02/13/2024 12:49 PM Age: 79 years old Clinical indication: Screening examination TECHNIQUE: Imaging protocol: Bilateral Screening tomosynthesis and 2D mammography including computer-aided detection (CAD) when performed. COMPARISON: 1. MG MM DIG SCREENING MAMM BI W/CAD 01/30/2023 3:47 PM 2. MG MM DIG SCREENING MAMM BI W/CAD 01/16/2022 10:46 AM FINDINGS: MAMMOGRAPHY: Breast composition: There are scattered areas of fibroglandular density. Mass: None. Architectural distortion: None. Calcifications: No suspicious calcifications. Asymmetric density: None. Skin thickening: None. Axillary adenopathy: None. IMPRESSION: No mammographic evidence of malignancy. Annual screening is recommended unless otherwise clinically indicated. ASSESSMENT: BI-RADS Category 1: Negative.
== END 2024-02-13 23:59 | disposition home or self-care (01) ==
LOC: RAD 12:46
PROVIDERS: PCP Nurse Practitioner Family; Visit Provider Nurse Practitioner Family
DX: Z12.31 Encounter for screening mammogram for malignant neoplasm of breast (principal)
CPT/HCPCS: 77063; 77067

== ENCOUNTER 2024-03-10 14:26 | Outpatient (CLI) | payer MEDICARE, MEDICAID, SELFPAY ==
[2024-03-10 13:39] LABS: Free T4 (Free Thyroxine) 0.88 ng/dl (0.78-2.19)
[2024-03-10 18:05] LABS: T4 (Thyroxine) 6.1 ug/dl (5.53-11.0)
[2024-03-10 18:18] LABS: Thyroid Stimulating Hormone 7.55 uIU/mL (0.465-4.68)
== END 2024-03-10 23:59 | disposition home or self-care (01) ==
LOC: LAB.DROPOF 14:27
PROVIDERS: PCP Nurse Practitioner Family; Visit Provider Nurse Practitioner Family
DX: E03.9 Hypothyroidism, unspecified (principal)
CPT/HCPCS: 84436; 84439; 84443; 84481

== ENCOUNTER 2024-03-19 11:54 | Outpatient (CLI) | payer MEDICARE, MEDICAID, SELFPAY | END 2024-03-19 23:59 | disposition home or self-care (01) | LOC: RT 11:55 | PROVIDERS: PCP Internal Medicine; Visit Provider Physician Assistant | DX: R00.1 Bradycardia, unspecified (principal); R94.31 Abnormal electrocardiogram [ECG] [EKG]; R06.09 Other forms of dyspnea | CPT/HCPCS: 93225; 93227 ==

== ENCOUNTER 2024-03-27 08:32 | Outpatient (CLI) | payer MEDICARE, MEDICAID, SELFPAY ==
--- NOTE | 2024-03-27 08:34 | CA_ITS ---
APPROVED REPORT EXAM: Comprehensive 2D, Doppler, and color-flow Echocardiogram Appeals Court Associate Justice: Renetta Carrillo, RCS, RVS Ht: 5 ft 6 in Wt: 187lbs BSA: 1.94 BP: 176/60 mmHg Rhythm: Bradycardia Indications: Abn EKG, HOPPER, Bradycardia, HTN, HLD 2D Dimensions IVSd 1.35 cm F: 0.6-1.0 LVEF (Visual) 65.90 % PWd 1.06 cm F: 0.6 - 1.0 LA Volume 85.50 mL LVDd 4.82 cm F: 3.9 - 5.3 LA Volume Index 43.894113 mL/m2 (M/F) 16-34 LVDs 3.07 cm F: 2.2 - 3.5 EF AP4 68.20 % Aortic Root 2.56 cm F: 2.7 - 3.3 GL Strain -32.0 % Left Atrium 4.08 cm F: 2.7 - 3.8 RVID Base (AP4) 3.15 cm (M/F) 2.5-4.1 LVOT 1.71 cm (M/F) 1.5-2.5 M-Mode Dimensions LVDd 4.82 cm (3.5-5.7) Ao Diam 2.83 cm (2.0-3.7) LVDs 3.07 cm (3.5-5.7) IVSd 1.35 cm (0.6-1.1) PWd 1.06 cm (0.6-1.1) EPSs 0.86 cm FS 36.30% TAPSE 2.30 (<1.7) LV Diastology E Decel Time 137 (160-240 msec) E/A Ratio 2.67 MED E' 11.1 (>= 7 cm/sec) MED A' 5.10 cm/s E'/MED E' Ratio 9.33 (<= 14) LAT E' 11.8 (>= 10 cm/sec) LAT A' 5.20 cm/s E/LAT E' Ratio 8.78 (<= 14) Aortic Valve LVOT Max 92.0 (70-110 cm/s) VICKY Index 0.80 cm2/m2 LVOT VTI 22.32 cm AoV Peak Dimitri. 140.0 (50-130 cm/s) AO Peak GR. 8.10 mmHg AO Mean GR. 3.90 (<5 mmHg) AO VTI 33.1 (18-25 cm) VICKY (VTI) 1.55 (2.5-4.5 cm2) Mitral Valve MV E Max Dimitri. 104.0 (40-130 cm/s) MV A Velocity 39.0 (40-130 cm/s) E/A Ratio 2.67 MV Decel. Time 137 (160-240 ms) Tricuspid Valve TR P. Velocity 273.00 cm/s RAP Estimate 10.00 mmHg RVSP 39.80 mmHg Left Ventricle The left ventricle is normal size. The left ventricular systolic function is normal. The left ventricular ejection fraction is within the normal range. There is increased LV wall thickness. Diastolic function is indeterminate. There is normal LV segmental wall motion. LVEF is 60%. Right Ventricle Right ventricle is mildly dilated. The right ventricular systolic function is normal. Atria Left atrium is moderately dilated. Right atrium is mildly dilated. Aortic Valve The aortic valve is mildly thickened. There is no aortic valvular stenosis. Trace aortic regurgitation. Mitral Valve The mitral valve is normal in structure. No evidence of mitral valve stenosis. Mild mitral regurgitation. Tricuspid Valve Tricuspid valve is grossly normal in structure and function. Mild tricuspid regurgitation. RVSP is 20-25 mmHg. Pulmonic Valve The pulmonary valve is normal in structure. Mild pulmonic regurgitation. Great Vessels The aortic root is normal in size. IVC is normal in size and collapses >50% with inspiration. Pericardium There is no pericardial effusion. Other Information Study Quality: Fair Conclusion Normal biventricular systolic function. Mild RV dilation. Biatrial dilation. Mild MR, mild PI, mild TR. Electronically signed by : Farida Siddiqui MD 04/05/2024 23:45:29
== END 2024-03-27 23:59 | disposition home or self-care (01) ==
LOC: RT 08:33
PROVIDERS: PCP Internal Medicine; Visit Provider Physician Assistant
DX: I51.7 Cardiomegaly (principal); R94.31 Abnormal electrocardiogram [ECG] [EKG]; R06.09 Other forms of dyspnea
CPT/HCPCS: 93306

== ENCOUNTER 2024-04-22 11:40 | Outpatient (CLI) | payer MEDICARE, MEDICAID, SELFPAY ==
[2024-04-22 13:04] LABS: Anion Gap 9.5 mEq/L (5-15); Blood Urea Nitrogen 30 mg/dl (7-17); Calcium 10.2 mg/dl (8.4-10.2); Carbon Dioxide 31 mmol/L (22.0-30.0); Chloride 102 mmol/L (98-107); Estimated Glomerular Filt Rate 44 ml/min (>60); GFR (African American) 53 ML/MIN (>60); Glucose 85 mg/dl (74-100); Potassium 4.5 mmoL/L (3.5-5.1); Sodium 138 mmol/L (136-145)
== END 2024-04-22 23:59 | disposition home or self-care (01) ==
LOC: LAB 11:41
PROVIDERS: PCP Internal Medicine; Visit Provider Physician Assistant
DX: R06.09 Other forms of dyspnea (principal); I10 Essential (primary) hypertension; E78.1 Pure hyperglyceridemia; E03.9 Hypothyroidism, unspecified; E78.2 Mixed hyperlipidemia
CPT/HCPCS: 36415; 80048

== ENCOUNTER 2024-08-21 11:38 | Outpatient (CLI) | payer MEDICARE, MEDICAID, SELFPAY ==
[2024-08-21 13:17] LABS: Hematocrit 44.5 % (37.0-47.0); Hemoglobin 14.4 g/dL (12.2-16.2); Immature Granulocytes % 0.5 %; Mean Corpuscular HGB Conc 32.4 g/dL (31.8-35.4); Mean Corpuscular Hemoglobin 30.3 pg (27.0-31.2); Mean Corpuscular Volume 93.5 fl (81-99); Nucleated Red Blood Cells % 0 %; Platelet Count 302 K/mm3 (142-424); Red Blood Count 4.76 M/mm3 (4.20-5.40); Red Cell Distribution Width-SD 44.8 fL; White Blood Count 8.5 K/mm3 (4.8-10.8)
[2024-08-21 13:45] LABS: Albumin Level 4.6 g/dl (3.5-5.0); Chloride 101 mmol/L (98-107); Potassium 5.0 mmoL/L (3.5-5.1); Sodium 128 mmol/L (136-145)
[2024-08-21 13:48] LABS: Alanine Aminotransferase 19 U/L (12-78); Albumin/Globulin Ratio 1.7 (1.1-1.8); Alkaline Phosphatase 46 U/L (38-126); Anion Gap 3.0 mEq/L (5-15); Aspartate Amino Transferase 33 U/L (14-36); Bilirubin,Total 0.5 mg/dl (0.2-1.3); Blood Urea Nitrogen 41 mg/dl (7-17); Carbon Dioxide 29 mmol/L (22.0-30.0); Cholesterol 214 mg/dl (140-200); Creatinine,Serum 1.30 mg/dl (0.52-1.04); Estimated Glomerular Filt Rate 40 ml/min (>60); GFR (African American) 48 ML/MIN (>60); Globulin 2.7 g/dL (1.3-3.2); Total Protein,Serum 7.3 g/dl (6.3-8.2); Triglycerides 231 mg/dl (30-150)
[2024-08-21 13:49] LABS: Calcium 10.2 mg/dl (8.4-10.2); Glucose 84 mg/dl (74-100); HDL Cholesterol 46 mg/dl (40-60)
[2024-08-21 14:18] LABS: Thyroid Stimulating Hormone 5.17 uIU/mL (0.465-4.68)
== END 2024-08-21 23:59 | disposition home or self-care (01) ==
LOC: LAB.DROPOF 08-25 09:24
PROVIDERS: PCP Internal Medicine; Visit Provider Internal Medicine
DX: I12.9 Hypertensive chronic kidney disease with stage 1 through stage 4 chronic kidney disease, or unspecified chronic kidney disease (principal); E78.2 Mixed hyperlipidemia; N18.31 Chronic kidney disease, stage 3a; E03.9 Hypothyroidism, unspecified
CPT/HCPCS: 80053; 80061; 84443; 85025

== ENCOUNTER 2024-10-20 08:53 | Outpatient (CLI) | payer MEDICARE, MEDICAID, SELFPAY ==
--- OUTSIDE RECORDS SUMMARY | 2023-05-29 05:00 | XMS_ITS ---
Author Organization [facility] Address [address] [place] [id number] Care Team Providers Care Director Of Hotel Name Role Phone Toni Verdin Primary Care Provider [phone] REASON FOR VISIT 6 Month Check Up Encounters Encounter Location Date Provider Diagnosis [facility] [address] [place] [id number] 05/29/2023 Toni Verdin Plan Of Treatment No Information Progress Notes * Corinne LOMAXDOB: [birth year] (79 yo F)Acc No.[id number]:05/29/2023 Progress Notes Patient: Corinne HUNTER Provider: Kayley Verdin M.D. :1945 A ge:78 Y S ex:Female Date:05/29/2023 Address:[address], [id number] Subjective: * Chief Complaints: * 1 . 6 Month Check Up. * Medical History: Objective: * Vitals: Assessment: Plan: * Treatment: * Images: Billing Information: * Visit Code: * Procedure Codes: * Electronic signature of Sravani Verdin MD on 10/20/2024 at 09:22 AM EDT Sign off status: Pending * Provider: Kayley Vredin M.D. Date: 05/29/2023 Generated for Marva reyes/Iram/eTransmjamshid on: 0 10/20/2024 09:22 AM EDT
[2024-10-20 09:03] VITALS: BMI 28.2
[2024-10-20 09:10] VITALS: BP 153/64; PULSE 48; RESP 18; TEMP 36.2; O2SAT 100
--- OUTSIDE RECORDS SUMMARY | 2024-10-20 09:23 | XMS_ITS | Patient Health Record ---
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 Name Role Phone Toni Verdin Primary Care Provider Allergies No Known Allergies Medications Medication SIG (Take, Route, Frequency, Duration) Notes Start Date End Date Status Euthyrox 112 MCG 1 tablet in the morn ing on an empty stomach Orally Once a day; Duration: 90 days Active Pravastatin Sodium 40 MG 1 tab(s) orally once a day (at bedtime); Duration: 90 Active Multiple Vitamin - 1 cap(s) orally once a day; Duration: 30 day(s) Active Fenofibrate 160 MG 1 tab(s) orally once a day; Duration: 90 days Active amLODIPine Besylate 5 MG 1 tablet Orally Once a day; Duration: 90 days 04/04/2023 Active Farxiga 10 MG 1 tablet Orally Once a day; Duration: 90 days Active Mysoline 50 MG 2 tab(s) orally once daily; Duration: 90 days Active Lisinopril 30 MG 1 tablet Orally Once a day; Duration: 90 days Active Caltrate 600+D Plus Minerals 600-800 MG-UNIT 1 tab(s) orally once a day Active Zinc 50 MG 1 tab(s) orally once a day; Duration: 30 day(s) Active Immunizations Vaccine Route Administration Date Status Comme nts COVID 19 Moderna IM Intramuscular 03/17/2020 Administered COVID 19 Moderna IM Intramuscular 04/14/2020 Administered DT, 7 YEARS OR OLDER Unknown 12/29/2003 Administered Fluzone High Dose (65yr and older) IM Intramuscular 02/15/2012 Administered Fluzone High Dose (65yr and older) IM Intramuscular 10/24/2012 Administered Fluzone High Dose (65yr and older) IM Intramuscular 11/23/2014 Administered Fluzone High Dose (65yr and older) IM Intramuscular 11/02/2015 Administered Fluzone High Dose (65yr and older) IM Intramuscular 11/27/2016 Administered Fluzone High Dose (65yr and older) IM Intramuscular 10/11/2017 Administered Fluzone High Dose (65yr and older) IM Intramuscular 11/07/2018 Administered Fluzone High Dose (65yr and older) IM Intramuscular 11/13/2019 Administered Fluzone High Dose (65yr and older) IM Intramuscular 11/26/2020 Administered Fluzone High Dose (65yr and older) IM Intramuscular 11/28/2021 Administered Fluzone High Dose (65yr and older) IM Intramuscular 11/27/2022 Administered PNEUMOVAX 23 VACCINE IM Intramuscular 12/20/2015 Administe red PNEUMOVAX 23 VACCINE IM Intramuscular 11/26/2020 Administe red Prevnar (PCV13) IM Intramuscular 12/11/2013 Administered Prevnar (PCV20) IM Intramuscular 11/28/2021 Administered Tetanus Tdap-Adacel (over 7yrs) IM Intramuscular 04/22/2013 Administered Tetanus Tdap-Adacel (over 7yrs) Unknown 05/24/2020 Administered xFluzone High Dose-private (65yr&older) IM Intramuscular 12/11/2013 Administered xFluzone High Dose-private (65yr&older) Unknown 11/13/2019 Administered Problems Problem Type SNOMED Code ICD Code Onset Dates Problem Status W/U Status Risk Notes Problem Polyp of colon (disorder) (93960183) colon polyps (211.3) Active confirmed Problem Essential hypertension (38905218) Essential hypertension (I10) Active confirmed Problem Hypertriglyceridemia (730912406) Hypertriglyceridemia (E78.1) Active confirmed Problem Hyperlipidemia (75049279) Other hyperlipidemia (E78.4) Active confirmed Problem Degeneration of lumbar intervertebral disc (13002594) Lumbar degenerative disc disease (M51.36) Active confirmed Problem History of polyp of colon (situation) (948651193) History of colon polyps (Z86.010) Active confirmed Problem Gastroesophageal reflux disease without esophagitis (550529125) Gastroesophageal reflux disease without esophagitis (K21.9) Active confirmed Problem Hypothyroidism (50056221) Hypothyroidism (E03.9) Active confirmed Problem Hypothyroidism (95443626) Hypothyroidism, unspecified hypothyroidism type (E03.9) Active confirmed Problem Hyperlipidaemia (31756570) Hyperlipidemia, unspecified hyperlipidemia type (E78.5) Active confirmed Problem Atopic dermatitis (88121428) Atopic dermatitis, unspecified type (L20.9) Active confirmed Problem Cervical spondylosis without myelopathy (346049071) Osteoarthritis of spine with radiculopathy, cervical region (M47.22) Active confirmed Problem Essential hypertension (38800755) Essential hypertension, hypertension with unspecified goal (I10) Active confirmed Problem Sciatica (33854439) Acute right- sided low back pain with right-sided sciatica (M54.41) Active confirmed Problem Sciatica (81159433) Acute left-s ided low back pain with left-sided sciatica (M54.42) Active confirmed Problem Arthropathy of cervical spine facet joint (disorder) (682061671) Facet arthropathy, cervical (M12.88) Active confirmed Problem Hearing loss (03872090) Hearing loss, unspecified hearing loss type, unspecified laterality (H91.90) Active confirmed Problem Obesity (489321040) Non morbid o besity (E66.9) Active confirmed Problem Allergic rhinitis (69191924) Allergic rhinitis, unspecified seasonality, unspecified trigger (J30.9) Active confirmed Problem Chronic kidney disease stage 3 (disorder) (071352325) CKD (chronic kidney disease) stage 3, GFR 30-59 ml/min (N18.3) Active confirmed Problem Chronic kidney disease stage 3A (173125680) Stage 3a chronic kidney disease (N18.31) Active confirmed Problem Essential tremor (313367322) Benign head tremor (G25.0) Active confirmed Plan Of Treatment No Information Insurance Providers Payer Name Payer Address Payer Phone Subscriber Number Group Number Insured Name Patient Relationship to Insured Coverage Start Date Coverage End Date [employer] (MEDICARE) [address] [address] [place] [phone] [id number] Corinne Martin Self - patient is the insured [employer] [address] [place] [id number] Corinne Martin Self - patient is the insured Medical (General) History Medical History History ICD Code Hypertension Hyperlipidemia Hypertriglyceridemia Hypothyroidism 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
[2024-10-20 09:30] LABS: Anion Gap 7.4 mEq/L (5-15); Blood Urea Nitrogen 32 mg/dl (7-17); Calcium 9.3 mg/dl (8.4-10.2); Carbon Dioxide 30 mmol/L (22.0-30.0); Chloride 105 mmol/L (98-107); Creatinine Clearance Estimated 54 mL/min (50-200); Creatinine,Serum 1.10 mg/dl (0.52-1.04); Estimated Glomerular Filt Rate 48 ml/min (>60); GFR (African American) 58 ML/MIN (>60); Glucose 94 mg/dl (74-100); Potassium 4.4 mmoL/L (3.5-5.1); Sodium 138 mmol/L (136-145)
--- NOTE | 2024-10-20 10:00 | CT_ITS ---
APPROVED REPORT Nutrition Helper: CLINICAL INDICATION Chest Pain TECHNIQUE Image Acquisition: A 128 slice MDCT scanner ([employer] Discoursea View) was used for data acquisition. A noncontrast coronary calcium scan was performed. A CT attenuation threshold of 130 Hounsfield units (HU) was used for the detection of calcium in contiguous voxels of 1 sq mm in area to be counted as individual lesions. Bolus tracking in the ascending aorta with a threshold of 180 HU was performed. Immediately afterwards, ECG synchronized cardiac CT was then performed from the cardiac base to apex using retrospective gating with ECG tube current modulation. A total of 85 mL of Isovue 370 mg/mL contrast medium was administered at 5 mL/sec followed by a saline flush using a biphasic injection protocol. A tube voltage of 120 KVp was used. The average heart rate at the time of acquisition was 48 bpm and regular. Image Reconstruction Transaxial images were reconstructed at 0.67 mm slide thickness. Data was reviewed interactively on an advanced workstation capable of 2 and 3-dimensional displays in all conventional reconstruction formats, including multiplanar reformations, maximum intensity projections, curved multiplanar reformations, and volume rendered reconstructions. When applicable, selected routine images describing the relevant coronary anatomy and pathology were saved and sent to PACS. Complications None Technical Quality Overall image quality was good. Coronary artery opacification was adequate. Total DLP (Dose-Length Product) is 2031.1 mGy-cm. The reported value represents the total of one or more individual components during the CT acquisition of this date and at this time, and as such, the same value may appear in more than one CT report depending on the interpreting/reporting physicians. COMPARISON None FINDINGS CT Coronary Calcium Scoring LMA (Left Main Artery) = 28 LAD (Left Anterior Descending) = 882 LCX (Left Coronary Circumflex) = 16 RCA (Right Coronary Artery) = 746 Total Calcium Score = 1671 using the AJ-130 method. The observed calcium score of 1671 is at 96th percentile for subjects of the same age, sex, and race/ethnicity. The interpretation of the calcium heart score is based on the following continuum*: 0 = no calcified plaque detected (risk of coronary artery disease is very low ??? less than 5%) 1-10 = calcium detected in extremely minimal levels (risk of coronary diseases is still low ??? less than 10%) 11-100 = mild levels of plaque detected with certainty (mild or minimal narrowing of heart arteries is likely) 101-400 = definite,at least moderate levels of plaque detected (relatively high risk of a heart attack within 3-5 years) >401-999 = extensive levels of plaque detected (high risk of heart attack, high levels of vascular disease are present, high likelihood of at least one significant coronary narrowing) *The calcium heart score quantifies the burden of coronary calcification/plaque in the coronary arteries. The calcium heart score is not able to evaluate the presence or burden of non-calcified (i.e. soft) plaque. There is moderate calcification in the ascending and descending thoracic aorta. Coronary CT Angiography The coronary arterial system is right dominant. Quantitative Stenosis Grading: Left Main (LM): The left main originates normally from the left sinus of Valsalva. The LM bifurcates into the left anterior descending artery and left circumflex artery. The LM is patent with no evidence of atherosclerosis. Left Anterior Descending (LAD) and Diagonal Branches: The LAD gives off 3 diagonal branch(es). There is mixed calcified/noncalcified plaque in the proximal and mid LAD segments, with up to 70-90% luminal stenosis. There is no evidence of LAD-myocardial bridge. Left Circumflex (LCX) and Obtuse Marginals (OM): The LCX gives off 1 Obtuse Marginal (OM) branch(es). There is mixed calcified/noncalcified plaque in the proximal and mid LCx segments with up to 50-70% luminal stenosis. Right Coronary Artery (RCA): The RCA originates normally from the right sinus of Valsalva. The RCA gives off a posterior descending artery (PDA) and posterolateral (PL) branches. There is mixed calcified/noncalcified plaque in the proximal, mid, and distal RCA segments with up to 70-90% luminal stenosis. Non-Coronary Cardiac Findings: Analysis of the left ventricular (LV) structure and function was performed after 3-D reconstruction of the LV from axial images, with user-corrected automatic contouring for assessment of LV volumes and user-defined reconstruction from oblique planes for measurement of 3-D cardiac structure and function. -The left ventricle systolic function is normal. -There is no left atrial appendage filling defect. Two right pulmonary veins and two left pulmonary veins drain normally into the left atrium. -No pericardial thickening or calcification. -Central and branch pulmonary arteries in the [id number]-ml-ryew are unremarkable. -Thoracic aorta within the visualized thoracic aortic-branches in the [id number] is unremarkable. Extracardiac Structures No significant extra-cardiac findings. Note, however, that this study is focused on the cardiac findings. IMPRESSION -Presence of coronary calcification with an Agatston score = 1671 using the AJ-130 method. -The observed calcium score of 1671 is at 96th percentile for subjects of the same age, sex, and race/ethnicity. -Multivessel atherosclerotic coronary disease, with likely evidence of significant flow-limiting atherosclerosis of the LAD, RCA, and possibly the LCX. -CAD-RADS 4A. Management recommendations per ACC/AHA guidelines*, as clinically appropriate. -Moderate calcification in the ascending and descending thoracic aorta. *Recommendations: CAD RADS 0: Reassurance. Consider non-atherosclerotic causes of chest pain. CAD RADS 1: Consider non-atherosclerotic causes of chest pain. Consider preventive therapy and risk factor modification. CAD RADS 2: Consider non-atherosclerotic causes of chest pain. Consider preventive therapy and risk factor modification, particularly for patients with nonobstructive plaque in multiple segments. CAD RADS 3: Consider further functional testing. Consider symptom-guided anti-ischemic and preventive pharmacotherapy as well as risk factor modification per published guideline statements. CAD RADS 4A: Consider further functional testing or invasive coronary angiography with revascularization per published guideline statements. Consider symptom-guided anti-ischemic and preventive pharmacotherapy as well as risk factor modification per published guideline statements. CAD RADS 4B: Invasive coronary angiography recommended with revascularization per published guideline statements. Consider symptom-guided anti-ischemic and preventive pharmacotherapy as well as risk factor modification per published guideline statements. CAD RADS 5: Consider invasive angiography and/or viability assessment with revascularization per published guideline statements. Consider symptom-guided anti-ischemic and preventive pharmacotherapy as well as risk factor modification per published guideline statements. CRITICAL RESULT None COMMUNICATION Per this written report The coronary and cardiac findings of this CCTA were reviewed, reported, and signed by Antony Siddiqui MD (Systems Engineer) Conclusion Electronically signed by : Farida Siddiqui MD 10/21/2024 11:59:37
[2024-10-20 10:05] VITALS: BP 188/73; PULSE 53; RESP 18; O2SAT 97
[2024-10-20 10:10] VITALS: BP 135/61; PULSE 51; RESP 18; O2SAT 99
[2024-10-20] MEDS: SODIUM CHLORIDE 0.9% 10ML SYR (RAD ONLY) 10 ML IV (10:13)
[2024-10-20] MEDS: IOPAMIDOL-370 (76%);100ML BOTTLE 85 ML IV (10:13)
[2024-10-20] MEDS: 0.9 % SODIUM CHLORIDE 50 ML VIAL IV (10:13)
[2024-10-20 10:15] VITALS: BP 141/46; PULSE 54; RESP 18; TEMP 36.3; O2SAT 95
== END 2024-10-20 10:32 | disposition home or self-care (01) ==
PROVIDERS: PCP Internal Medicine; Visit Provider Physician Assistant
DX: I25.118 Atherosclerotic heart disease of native coronary artery with other forms of angina pectoris (principal); I70.0 Atherosclerosis of aorta; E78.5 Hyperlipidemia, unspecified; I12.9 Hypertensive chronic kidney disease with stage 1 through stage 4 chronic kidney disease, or unspecified chronic kidney disease; N18.30 Chronic kidney disease, stage 3 unspecified
CPT/HCPCS: 75574; 80048; Q9967

== ENCOUNTER 2024-11-14 07:54 | Day surgery (SDC) | payer MEDICARE, MEDICAID, SELFPAY ==
[2024-11-14] VITALS (13 sets, daily range): BP systolic 121–202; BP diastolic 45–82; PULSE 35–60; RESP 16–20; TEMP 36.9; O2SAT 91–100; BMI 28.2
--- NOTE | 2024-11-14 07:07 | IR_ITS ---
APPROVED REPORT Patient Location: Outpatient Manager Storage: NADIYA Figueroa RT (R) PROCEDURES Left heart catheterization Left ventriculogram Selective coronary angiogram Drug-eluting stent deployment to the proximal and mid LAD Drug-eluting stent deployment to the proximal circumflex artery INDICATION Coronary artery disease, Angina pectoris, Abnormal CCTA Informed consent was obtained prior to the procedure. COMPLICATIONS NONE Estimated Blood Loss: LESS THAN 10 ML TECHNIQUE One percent lidocaine used to anesthetize the right anterior aspect of the wrist. The right radial artery was accessed via the Seldinger technique. A 6 Hebrew sheath was placed in the right radial artery. 2.5 mg of Verapamil, 800 mcg of nitroglycerin, 1mg Lidocaine and 5000 U Heparin were given through the arterial sheath. The JL3 catheter was also used to perform left heart catheterization, left ventriculogram and selective coronary angiogram. At the end the diagnostic angiogram I broke scrub and talk to the patient's and her son and [id number]. There was a consensus amongst all 3 the patient would prefer stenting over her bypass surgery. This seems reasonable and given the focality of the LAD and circumflex lesions I felt stenting would be entirely appropriate. At this point I reprepped and therapeutic heparin was administered giving a therapeutic ACT. The JL 3 guide catheter was placed in left main artery followed by choice floppy wire placed distally into the LAD. A guide liner was required in order to deliver a 2 mm balloon which could only make it to the proximal lesion. This was deployed at 15 maddie. Following this an additional 1.5 x 15 mm compliant balloon was then delivered to the mid LAD and deployed at 18 maddie. This allowed placement of a 2.5 x 26 mm Azam frontier stent deployed in the mid LAD and deployed at 18 maddie. An additional 3 mm x 15 mm [place] frontier stent was placed proximal to the for stent yet still overlapping and deployed at 20 maddie to reduce the proximal LAD stenosis. Excellent angiograph results were obtained with GALEN-3 flow being present before and after the procedure. The same wire was placed in the circumflex artery where a 3 mm x 15 mm Azam frontier stent was deployed at 20 maddie in the proximal circumflex artery reducing the severe stenosis to 0%. GALEN-3 flow was present before and after the procedure. At the end the procedure the apparatus was removed the sheath was removed and hemostasis was achieved using TR banding patient was transferred to the postop putting in stable condition ANGIOGRAPHIC RESULTS The left main artery Normal The left anterior descending artery Has a proximal concentric 70% stenosis followed by mid vessel greater than 90% heavily calcified stenosis The circumflex artery Nondominant it still large with a proximal concentric 70% calcified stenosis The right coronary artery Dominant has proximal 60% with additional 50% and mid vessel concentric calcified 70% long stenoses. Distally there is additional 70% stenosis The LIVE ventriculogram reveals Normal 60% The left ventricular end-diastolic pressure 10 mmHg IMPRESSION Three-vessel coronary disease as described above Successful stenting of the proximal to mid LAD severe disease reduced to 0% with 2 contiguous drug-eluting stents Successful stenting the proximal circumflex artery severe disease reduced to 0% with 1 drug-eluting stent Persistent severe disease throughout the dominant right coronary as described above Normal ejection fraction Normal LVEDP Sick sinus syndrome accompanied by bradycardia PLAN 1. Dual antiplatelet therapy 2. Patient will be brought back to the [facility] in 2 to 3 weeks and will undergo stenting of the proximal mid and distal dominant right coronary 3. LDL less than 55 to be achieved with high intensity statin 4. Avoidance of tobacco products 5. Risk factor modification 6. Cardiac rehabilitation 7. Patient has a known diagnosis of sick sinus syndrome and during the cardiac catheterization and in recovery she bradycardia down into the 30s. It was recommended previously patient have a pacemaker placed however she had refused. A Holter monitor will again be placed today to monitor the degree of bradycardia and hopefully encourage patient to proceed with permanent pacemaker placement Electronically signed by : Del Chatterjee MD 11/14/2024 12:32:47
[2024-11-14 08:24] LABS: Hematocrit 48.5 % (37.0-47.0); Hemoglobin 15.9 g/dL (12.2-16.2); Immature Granulocytes % 0.6 %; Mean Corpuscular HGB Conc 32.8 g/dL (31.8-35.4); Mean Corpuscular Hemoglobin 30.2 pg (27.0-31.2); Mean Corpuscular Volume 92.0 fl (81-99); Nucleated Red Blood Cells % 0 %; Platelet Count 293 K/mm3 (142-424); Red Blood Count 5.27 M/mm3 (4.20-5.40); Red Cell Distribution Width-SD 45.5 fL; White Blood Count 7.3 K/mm3 (4.8-10.8)
[2024-11-14 08:57] LABS: Calcium 10.1 mg/dl (8.4-10.2); Carbon Dioxide 29 mmol/L (22.0-30.0); Glucose 97 mg/dl (74-100)
[2024-11-14 09:04] LABS: Anion Gap 16.3 mEq/L (5-15); Blood Urea Nitrogen 32 mg/dl (7-17); Chloride 100 mmol/L (98-107); Creatinine Clearance Estimated 54 mL/min (50-200); Creatinine,Serum 1.10 mg/dl (0.52-1.04); Estimated Glomerular Filt Rate 48 ml/min (>60); GFR (African American) 58 ML/MIN (>60); Potassium 4.3 mmoL/L (3.5-5.1); Sodium 139 mmol/L (136-145)
[2024-11-14] MEDS: ONDANSETRON 4MG/2ML VIAL 4 MG IV (09:35)
[2024-11-14] MEDS: HEPARIN 1,000 UNITS/500ML NS (CATH LAB) 3000 UNIT IV (09:36)
[2024-11-14] MEDS: VERAPAMIL 2.5MG/ML 2ML VIAL 2.5 MG IV (09:36)
[2024-11-14] MEDS: HEPARIN 1,000 UNITS/ML 10ML VIAL (CATH LAB) 5000 UNIT IV ×2 (09:36→10:47)
[2024-11-14] MEDS: NITROGLYCERIN 800MCG/8ML SYR (CATH LAB) 800 MCG IA (09:36)
[2024-11-14] MEDS: LIDOCAINE 1% 10ML MDV 10 ML IJ (09:36)
[2024-11-14] MEDS: 0.9 % SODIUM CHLORIDE 500 ML 25 ML IV (09:37)
[2024-11-14] MEDS: FENTANYL 100MCG/2ML VIAL 50 MCG IV (10:42)
[2024-11-14] MEDS: MIDAZOLAM HCL 1MG/ML 5ML VIAL 1 MG IV (10:42)
[2024-11-14] MEDS: ASPIRIN EC 325MG TABLET 325 MG PO (10:55)
[2024-11-14] MEDS: IOPAMIDOL-370 (76%);100ML BOTTLE 120 ML IV (13:01)
[2024-11-14 13:06] LABS: CATHL Activated Clotting Time 276 SEC (74-125)
== END 2024-11-14 14:07 | disposition home or self-care (01) ==
PROVIDERS: PCP Internal Medicine; Visit Provider Internal Medicine
PROC: 4A023N7 Measurement of Cardiac Sampling and Pressure, Left Heart, Percutaneous Approach (ICD-10-PCS; CPT 93452; principal; 2024-11-14 07:15)
DX: I25.118 Atherosclerotic heart disease of native coronary artery with other forms of angina pectoris (principal); R93.1 Abnormal findings on diagnostic imaging of heart and coronary circulation; R06.09 Other forms of dyspnea; I47.10 Supraventricular tachycardia, unspecified; I49.5 Sick sinus syndrome; R00.1 Bradycardia, unspecified; I12.9 Hypertensive chronic kidney disease with stage 1 through stage 4 chronic kidney disease, or unspecified chronic kidney disease; N18.30 Chronic kidney disease, stage 3 unspecified; E78.2 Mixed hyperlipidemia; E03.9 Hypothyroidism, unspecified; H91.90 Unspecified hearing loss, unspecified ear; Z79.82 Long term (current) use of aspirin; Z79.02 Long term (current) use of antithrombotics/antiplatelets; Z79.890 Hormone replacement therapy; Z79.899 Other long term (current) drug therapy; Z79.84 Long term (current) use of oral hypoglycemic drugs
CPT/HCPCS: 80048; 85025; 85347; 92928; 93225; 93227; 93458; 99152; 99153; C1725; C1769; C1874; C9600; J1200; J1644; J2003; J2405; J3010; J7040; Q9967

== ENCOUNTER 2024-11-17 09:09 | Outpatient (CLI) | payer MEDICARE, MEDICAID, SELFPAY ==
[2024-11-17 09:39] LABS: Hematocrit 42.1 % (37.0-47.0); Hemoglobin 13.6 g/dL (12.2-16.2); Immature Granulocytes % 0.4 %; Mean Corpuscular HGB Conc 32.3 g/dL (31.8-35.4); Mean Corpuscular Hemoglobin 30.3 pg (27.0-31.2); Mean Corpuscular Volume 93.8 fl (81-99); Nucleated Red Blood Cells % 0 %; Platelet Count 275 K/mm3 (142-424); Red Blood Count 4.49 M/mm3 (4.20-5.40); Red Cell Distribution Width-SD 46.3 fL; White Blood Count 6.9 K/mm3 (4.8-10.8)
[2024-11-17 10:13] LABS: Chloride 102 mmol/L (98-107); Potassium 4.2 mmoL/L (3.5-5.1); Sodium 141 mmol/L (136-145)
[2024-11-17 10:16] LABS: Anion Gap 13.2 mEq/L (5-15); Blood Urea Nitrogen 29 mg/dl (7-17); Calcium 9.3 mg/dl (8.4-10.2); Carbon Dioxide 30 mmol/L (22.0-30.0); Creatinine,Serum 1.00 mg/dl (0.52-1.04); Estimated Glomerular Filt Rate 54 ml/min (>60); GFR (African American) 65 ML/MIN (>60); Glucose 79 mg/dl (74-100)
== END 2024-11-17 23:59 | disposition home or self-care (01) ==
LOC: LAB 09:10
PROVIDERS: PCP Internal Medicine; Visit Provider Internal Medicine
DX: I25.10 Atherosclerotic heart disease of native coronary artery without angina pectoris (principal)
CPT/HCPCS: 36415; 80048; 85025

== ENCOUNTER 2024-12-05 12:56 | Inpatient (IN) | payer MEDICARE, MEDICAID, SELFPAY ==
--- NOTE | 2024-12-02 10:13 | PC.NURSE ---
CARDIAC REHAB NOTE: PT CONTACTED 11/18/2024 REGARDING CARDIAC REHAB AND SHE IS NOT INTERESTED AT THIS TIME.
[2024-12-05] VITALS (56 sets, daily range): BP systolic 84–164; BP diastolic 32–77; PULSE 17–100; RESP 14–24; TEMP 36.6–37; O2SAT 89–100; BMI 28.4; BMI 34.1
--- NOTE | 2024-12-05 | CA_ITS ---
APPROVED REPORT EXAM: Limited 2D Echocardiogram Business Database Analyst: RT Consuelo(R) Ht: 5 ft 6 in Wt: 176lbs BSA: 1.89 BP: 134/84 mmHg Indications: Heart cath today check for effusion Other Information Study Quality: Fair Conclusion This is a limited TTE to evaluate for pericardial effusion post-LHC. Limited windows are obtained. There is no evidence of pericardial effusion in the available images. Electronically signed by : Farida Siddiqui MD 12/05/2024 23:31:05
--- NOTE | 2024-12-05 07:17 | IR_ITS ---
APPROVED REPORT Patient Location: Outpatient PROCEDURES Attempted angioplasty of right coronary artery INDICATION Coronary artery disease, Angina pectoris, Plan staged intervention Informed consent was obtained prior to the procedure. COMPLICATIONS NONE Estimated Blood Loss: LESS THAN 10 ML TECHNIQUE One percent lidocaine used to anesthetize the right anterior aspect of the wrist. The right radial artery was accessed via the Seldinger technique. A 6 Polish sheath was placed in the right radial artery. 2.5 mg of Verapamil, 800 mcg of nitroglycerin, 1mg Lidocaine and 5000 U Heparin were given through the arterial sheath. The JR4 guide catheter was placed in the right coronary artery. Therapeutic heparin was administered giving a therapeutic ACT. A Choice PT extra-support wire was used to traverse the critical calcified stenosis in the right coronary artery. Immediately the wire went subintimal only and could not be redirected back into the true lumen. Another Choice PT floppy wire was placed also trying to cannulate the true lumen which was unsuccessful. The dissection was identified and GALEN-3 flow decreased to GALEN II flow. Patient transitive became bradycardic which responded quickly to dopamine. No chest compressions were obtained. At the end of the procedure there was presybeterian of flow in the right coronary artery. At this point it was decided to place patient on a heparin drip and dopamine drip and admit and observe. It is anticipated the dissection will heal and flow will be completely restored. IMPRESSION Unsuccessful attempt at angioplasty of the critically diseased right coronary PLAN 1. Admit to intensive care unit and continue on heparin drip and dopamine drip 2. Continue to wean dopamine starting tomorrow morning and continue with dual antiplatelet therapy 3. Supportive care Electronically signed by : Del Chatterjee MD 12/05/2024 14:11:39
[2024-12-05 10:15] LABS: Hematocrit 44.8 % (37.0-47.0); Hemoglobin 14.4 g/dL (12.2-16.2); Immature Granulocytes % 0.6 %; Mean Corpuscular HGB Conc 32.1 g/dL (31.8-35.4); Mean Corpuscular Hemoglobin 29.6 pg (27.0-31.2); Mean Corpuscular Volume 92.2 fl (81-99); Nucleated Red Blood Cells % 0 %; Platelet Count 332 K/mm3 (142-424); Red Blood Count 4.86 M/mm3 (4.20-5.40); Red Cell Distribution Width-SD 44.7 fL; White Blood Count 7.3 K/mm3 (4.8-10.8)
[2024-12-05 10:24] LABS: Chloride 100 mmol/L (98-107); Sodium 134 mmol/L (136-145)
[2024-12-05 10:25] LABS: Potassium 5.3 mmoL/L (3.5-5.1)
[2024-12-05 10:28] LABS: Anion Gap 13.3 mEq/L (5-15); Calcium 9.1 mg/dl (8.4-10.2); Carbon Dioxide 26 mmol/L (22.0-30.0); Glucose 94 mg/dl (74-100)
[2024-12-05] MEDS: HEPARIN 1,000 UNITS/500ML NS (CATH LAB) 3000 UNIT IV (10:39)
[2024-12-05] MEDS: LIDOCAINE 1% 10ML MDV 10 ML IJ (10:39)
[2024-12-05] MEDS: HEPARIN 1,000 UNITS/ML 10ML VIAL (CATH LAB) 5000 UNIT IV (10:39)
[2024-12-05] MEDS: NITROGLYCERIN 800MCG/8ML SYR (CATH LAB) 800 MCG IA (10:40)
[2024-12-05] MEDS: VERAPAMIL 2.5MG/ML 2ML VIAL 2.5 MG IV (10:40)
[2024-12-05] MEDS: MIDAZOLAM HCL 1MG/ML 5ML VIAL 1 MG IV (10:41)
[2024-12-05] MEDS: FENTANYL 100MCG/2ML VIAL 50 MCG IV (10:41)
[2024-12-05] MEDS: 0.9 % SODIUM CHLORIDE 500 ML 25 ML IV (10:41)
[2024-12-05 11:50] LABS: Blood Urea Nitrogen 40 mg/dl (7-17); Creatinine Clearance Estimated 54 mL/min (50-200); Creatinine,Serum 1.10 mg/dl (0.52-1.04); Estimated Glomerular Filt Rate 48 ml/min (>60); GFR (African American) 58 ML/MIN (>60)
[2024-12-05] MEDS: IOPAMIDOL-370 (76%);100ML BOTTLE 90 ML IV (12:23)
[2024-12-05] MEDS: DOPAMINE HCL/D5W 250 ML 5.99 MG IV (12:31)
[2024-12-05] MEDS: HEPARIN SODIUM,PORCINE/D5W 500 ML 20 UNIT IV (12:31)
--- NOTE | 2024-12-05 12:33 | SUR.OPER ---
Faimly at bedside
--- NOTE | 2024-12-05 12:42 | P.CONPHA_ITS ---
[facility] Pharmacy Heparin Dosing Demographic Data Admission date:: 12/05/24 Date: 12/05/24 Time: 12:43 Allergies Allergy/AdvReac Type Severity Reaction Status Date / Time No Known Allergies Allergy Verified 11/24/24 09:57 Height: 1.68 m Weight: 79.83 kg Indication Medication therapy:: Heparin Current Active Problems (Updated 12/06/24 @ 10:12 by Yvon Munoz MD) CLAUDIA (acute kidney injury) (Acute) NSTEMI (non-ST elevated myocardial infarction) (Acute) Coronary artery dissection (Acute) Cardiogenic shock (Acute) Coronary artery disease (Acute) Bradycardia (Acute) CKD (chronic kidney disease) stage 3, GFR 30-59 ml/min (Chronic) Hypertension (Chronic) Hypertriglyceridemia (Acute) Hypothyroidism (Chronic) Hyperlipidemia (Chronic) Obesity (BMI 30-39.9) (Acute) CVA?: No Bleeding problem?: No Kidney disease?: No [place]?: No Additional History:: CAD, POST HEART CATH Desired PTT range:: 50-75 seconds Labs Anticoagulation Lab Results:: 12/05/24 10:10 Hgb 14.4 Hct 44.8 Plt Count 332 Monitoring Dose Monitor 1: Date: 12/05/24 Time: 12:43 PTT Result:: NO BASE LINE DRAWN BEFORE DRIP STARTED. 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 Infusion Rate:: HEPARIN 1000 UNITS/HR (20 ML/HR) Dose Monitor 2: Date: 12/05/24 Time: 18:20 PTT Result:: 114.0 Infusion Rate:: HEPARIN 760 UNIT/HR (15.2 ML/HR) Dose Monitor 3: Date: 12/06/24 Time: 02:17 PTT Result:: 53.9 Infusion Rate:: HEPARIN 760 UNITS/HR (15.2 ML/HR) Dose Monitor 4: Date: 12/06/24 Time: 08:35 PTT Result:: 47.9 Infusion Rate:: HEPARIN 900 UNITS/HR (18 ML/HR) AND 3000 UNIT BOLUS Comment:: PLT 332K Core Measures Is INR > or = 2 at discharge?: No Most Recent Labs:: Laboratory Results - last 24 hr 12/05/24 10:10: WBC 7.3, RBC 4.86, Hgb 14.4, Hct 44.8, MCV 92.2, MCH 29.6, MCHC 32.1, RDW 13.2, Plt Count 332, MPV 10.1, Neut % (Auto) 58.0, Lymph % (Auto) 29.8, [place] % (Auto) 8.0, Eos % (Auto) 3.0, Baso % (Auto) 0.6, Neut # (Auto) 4.2, Lymph # (Auto) 2.2, [place] # (Auto) 0.6, Eos # (Auto) 0.2, Baso # (Auto) 0.0, Sodium 134 L, Potassium 5.3 H, Chloride 100, Carbon Dioxide 26, Anion Gap 13.3, BUN 40 H, Creatinine 1.10 H, Estimated Creat Clear 54, Estimated GFR 48 L, Est GFR ( Amer) 58 L, Glucose 94, Calcium 9.1 If INR was < than 2.0 why was therapy stopped?: HEPARIN SWITCHED TO LOVENOX Were Heparin and Warfarin started on the same day?: No If not, why?: LOVENOX STARTED
--- NOTE | 2024-12-05 13:05 | HMH.PHAINT1 ---
Pharmacy Intervention Comments: MEDICATION RECONCILIATION COMPLETED ON PATIENT USING EXTERNAL FILL HISTORY FROM PHARMACY AND LIST FROM CARDIOLOGY OFFICE. -STEPHEN BAILEY, NAEEMD
--- NOTE | 2024-12-05 13:12 | PC.NURSE ---
PT ARRIVED TO THE UNIT PER LIFE SCIENCES MANAGER SAFF AT THIS TIME
[2024-12-05 14:45] LABS: CATHL Activated Clotting Time > 400 SEC (74-125)
--- NOTE | 2024-12-05 15:51 | EXP.HP ---
History of Present Illness *Admission Date: 12/05/24 *Reason for visit:: Coronary dissection *History of present illness: Corinne Martin is a 79-year-old female with a history of triple-vessel coronary disease, hypothyroidism, bifascicular block with tachybradycardia syndrome, hypertension presented for an outpatient [facility]. Patient and family previously did not want to undergo CABG for triple-vessel coronary disease, and had been planned for outpatient staged PCI. Patient was undergoing revascularization of the RCA today, had severe calcification and guidewire went subintimal creating coronary dissection. Patient became bradycardic, hypotensive but responded really well to dopamine drip. Discussed case with Dr. Chatterjee, will admit to the ICU on dopamine drip for further monitoring. He did advise that patient will have focal infarction, ST wave changes, and will become intermittently bradycardic. On my evaluation of the patient, she was having an episode of bradycardia to 20s, hypotension, with emesis. No chest pain, shortness of breath. Increased dopamine drip rate to 10 with resolution of symptoms. EKG showed sinus bradycardia with mild acute ischemia not concerning for STEMI. Initial CBC, CMP relatively unremarkable. [facility] Disclaimer: The information contained in this section may have been updated after the patient was seen, as this information can be updated by other users. Medical History Impacted cerumen of both ears Abnormal ECG Sebaceous cyst 1 cm left lateral neck sebaceous cyst Hypothyroidism Diverticulosis Hypertriglyceridemia Hyperlipidemia Hypertension Hearing loss Surgical History History of right oophorectomy H/O colonoscopy H/O left breast biopsy Family History Other No significant family history Social History Smoking Status: Never smoker second hand exposure: No alcohol intake: never substance use type: denies use current occupational status: retired Travel in the last 8 weeks?: None household members: spouse housing: house current occupational exposures/hazards: No caffeine: No Have you lived/traveled outside [place] in past 30 days?: No Contact w/someone who lives/traveled outside [place] past 30 days?: No Exposure to someone with infectious disease in past 14 days?: No Do you have a fever (greater than 100.4 F or 38 C)?: No Have you tested positive for COVID-19?: No Exposed to someone with COVID-19 in past 14 days?: No Do you have a sore throat?: No Do you have a cough?: No Do you have any weakness?: No Do you have any diarrhea?: No Are you experiencing any unusual bleeding?: No Do you have any muscle aches/pain?: No Do you have any abdominal pain?: No Are you experiencing loss of taste or smell?: No Other Medical History Have you received the Flu Vaccine for this season: No Have you received the Pneumonia Vaccine: Yes Meds Home Medications and Allergies Home Medications ?Medication ?Instructions ?Recorded ?Confirmed ?Type hydrochlorothiazide 25 mg tablet 25 mg PO DAILY #30 tabs 04/08/24 12/05/24 Rx amlodipine 10 mg tablet 10 mg PO DAILY #90 tabs 07/15/24 12/05/24 Rx lisinopril 40 mg tablet 40 mg PO DAILY 30 days #30 tabs 09/04/24 12/05/24 Rx aspirin 81 mg tablet 81 mg PO DAILY 30 days #30 tabs 11/14/24 12/05/24 Rx clopidogrel 75 mg tablet (Plavix) 75 mg PO DAILY 30 days #30 tabs 11/14/24 12/05/24 Rx levothyroxine 137 mcg tablet 137 mcg PO DAILY #30 tabs 11/28/24 12/05/24 Rx (Levoxyl) dapagliflozin propanediol 10 mg 10 mg PO DAILY 12/05/24 12/05/24 History tablet (Farxiga) fenofibrate 160 mg tablet 160 mg PO DAILY 12/05/24 12/05/24 History pravastatin 40 mg tablet 40 mg PO DAILY 12/05/24 12/05/24 History primidone 50 mg tablet 100 mg PO DAILY 12/05/24 12/05/24 History New Prescriptions to Start Prescriptions: Allergies Allergy/AdvReac Type Severity Reaction Status Date / Time No Known Allergies Allergy Verified 11/24/24 09:57 Exam Data for Last 24 hours Vital signs and Labs for Last 24 Hours: Temp Pulse Resp BP Pulse Ox O2 Del Method O2 Flow Rate 97.9 F 43 L 18 99/48 L 92 L Room Air 4 12/05/24 13:39 12/05/24 13:39 12/05/24 13:39 12/05/24 13:39 12/05/24 13:39 12/05/24 13:39 12/05/24 13:05 Laboratory Results - last 24 hr 12/05/24 10:10: WBC 7.3, RBC 4.86, Hgb 14.4, Hct 44.8, MCV 92.2, MCH 29.6, MCHC 32.1, RDW 13.2, Plt Count 332, MPV 10.1, Neut % (Auto) 58.0, Lymph % (Auto) 29.8, Snyder % (Auto) 8.0, Eos % (Auto) 3.0, Baso % (Auto) 0.6, Neut # (Auto) 4.2, Lymph # (Auto) 2.2, Snyder # (Auto) 0.6, Eos # (Auto) 0.2, Baso # (Auto) 0.0, Sodium 134 L, Potassium 5.3 H, Chloride 100, Carbon Dioxide 26, Anion Gap 13.3, BUN 40 H, Creatinine 1.10 H, Estimated Creat Clear 54, Estimated GFR 48 L, Est GFR ( Amer) 58 L, Glucose 94, Calcium 9.1 12/05/24 11:15: Activated Clotting Time > 400 H* I & O for Last 24 hours: Intake & Output 12/02/24 12/03/24 12/04/24 12/05/24 23:59 23:59 23:59 23:59 Intake Total 500.1 / 500.1 Balance 500.1 / 500.1 Weight 79.3 kg Constitutional Constitutional: no acute distress *Routine HEENT Exam Head: Present normocephalic Eye: Present EOMI and PERRL ENT: Present mucous membranes moist *Routine Neck Exam Neck: Present supple; Absent lymphadenopathy *Routine Respiratory Exam Respiratory: Present CTA bilaterally *Routine Cardiovascular Exam Cardiovascular: Present RRR *Routine Abdominal Exam Abdominal: Present soft and normoactive bowel sounds; Absent tenderness *Routine Rectal Exam Rectal:: deferred *Routine Genitalia Exam Genitalia:: deferred *Routine Extremities Exam Extremities: Absent cyanosis, clubbing or edema *Routine Skin Exam Skin: Present warm; Absent rash *Routine Neurological Exam Neurological: Present alert and oriented X3 Assessment and Plan *Assessment and plan (1) Cardiogenic shock: Status: Acute Category: Medical Code(s): R57.0 - Cardiogenic shock (2) Coronary artery dissection: Status: Acute Category: Medical Code(s): I25.42 - Coronary artery dissection Plan Corinne Martin is a 79-year-old female with a history of triple-vessel coronary disease, hypothyroidism, bifascicular block with tachybradycardia syndrome, hypertension presented for an outpatient [facility]. Patient and family previously did not want to undergo CABG for triple-vessel coronary disease, and had been planned for outpatient staged PCI. Patient was undergoing revascularization of the RCA today, had severe calcification and guidewire went subintimal creating coronary dissection. Patient became bradycardic, hypotensive but responded really well to dopamine drip. Discussed case with Dr. Chatterjee, will admit to the ICU on dopamine drip for further monitoring. He did advise that patient will have focal infarction, ST wave changes, and will become intermittently bradycardic. On my evaluation of the patient, she was having an episode of bradycardia to 20s, hypotension, with emesis. No chest pain, shortness of breath. Increased dopamine drip rate to 10 with resolution of symptoms. EKG showed sinus bradycardia with mild acute ischemia not concerning for STEMI. Initial CBC, CMP relatively unremarkable. #Severe CAD, coronary calcification #Coronary dissection #Cardiogenic shock #Sinus bradycardia #Hypotension #NSTEMI type I ? History of triple coronary artery disease, patient is not agreeable to CABG. Plan for staged outpatient PCI. ? Patient was undergoing revascularization of the RCA on weight downstairs waiting for focality there is no valvular 5, had severe calcification and guidewire went subintimal creating coronary dissection. Patient became bradycardic, hypotensive but responded really well to dopamine drip. ? He did advise that patient will have focal infarction around dissection, ST wave changes, and will become intermittently bradycardic. ? Continue dopamine drip at 8 mcgs. Continue to wean as tolerated. Dr. Chatterjee recommends 48-hour monitoring. ? Continue heparin drip due to severe CAD, coronary dissection, focal infarction/NSTEMI. ? Continue home aspirin 81 mg, Plavix 75 mg, atorvastatin 40 mg. ? Follow-up TSH, A1c, lipid panel. ? Continuous cardiac telemetry. #Hypertension ? Hold home lisinopril, hydrochlorothiazide, amlodipine due to cardiogenic shock. Resume when appropriate. #Hypothyroidism ? Continue home levothyroxine 137 mcg. Follow-up TFTs. Full code DVT prophylaxis: Heparin drip Home medications: Reconciled. Hold home Farxiga due to cardiogenic shock.
[2024-12-05] MEDS: ONDANSETRON 4MG/2ML VIAL 4 MG IV (17:00)
--- NOTE | 2024-12-05 17:06 | ECG_ITS ---
APPROVED REPORT Exam: Resting ECG HR:86 bpm ECG Measurements Heart Rate 86 AXES CA 164 P 148 QRSd 132 QRS -29 QT 380 T -29 QTc 423 Conclusion ECTOPIC ATRIAL RHYTHM RIGHT BUNDLE BRANCH BLOCK [120+ ms QRS DURATION, UPRIGHT V1, 40+ ms S IN I/aVL/V4/V5/V6] VOLTAGE CRITERIA FOR LVH [MEETS CRITERIA IN ONE OF: R(aVL), S(V1), R(V5), R(V5/V6)+S(V1)] ANTEROLATERAL MYOCARDIAL INFARCTION , OF INDETERMINATE AGE [40+ ms Q WAVE IN I/aVL/V3-V6] ABNORMAL ECG UNCONFIRMED REPORT Electronically signed by : Jasper Fernandez MD 12/08/2024 08:42:30
--- NOTE | 2024-12-05 17:31 | PC.NURSE ---
AT APPROX. 1657 PATIENT'S HEART RATE DROPPED TO ZERO ON TELEMETRY, THIS RN AND CORRIE EDDY WENT TO BEDSIDE. MD MAO NOTIFIED TO COME TO BEDSIDE. PT STATED THAT SHE WAS NAUSEAS AND STARTED TO VOMIT. CRASH CART WAS TAKEN TO BEDSIDE AND PATIENT WAS PLACED ON THE ZOLL. WHEN MD GOT TO BEDSIDE AN EKG WAS OBTAINED. PATIENT REMAINED ALERT AND ORIENTED THROUGH THE EVENT.
[2024-12-05 20:02] LABS: PTT Heparin (inpatient only) 114.0 Seconds (50-75)
--- NOTE | 2024-12-05 20:19 | PC.NURSE ---
at 2014 Alfredito from [facility] pharmacy called to report a critical APPT for the heparin drip. The new titration level is 760 units, or 15.2 ml/hr, with a repeat lab draw at 0200. He informed me that the orders have been put in at this time.
--- NOTE | 2024-12-05 20:45 | PC.NURSE ---
1330 pt hr has remained in the 30's since arrival on unit. pt remains on dopamine @ 5mcg. [facility] spoke with Dr Valera who will be on unit to see pt 1350 Dr Valera on unit. reviewed pt hr r/t rhythm and art line reading on central monitor with RN at md side. pt interviewed by md with RN at md side. pt denies any soa, cp or discomfort and feels ok . md states that he is ok with pt hr as it is as long as she is stable with no complaints. 1410 tele strip appears different than what was reported by clinical laboratory aides teacher. [facility] also at bedside and reviewed strips. Chuck Hoskins took tele strips to Dr Valera for review. no new orders from md per clinical laboratory aides teacher rn [id number] called and reported to dr valera that pt hrhas frequently fluctuated from 60's to 28. pt did not maintain 28 for more that 5 seconds. vitals reviewed with md. pt denies any complaints or feeling bad. per dr valera call md back in 10minutes. if hr is still in 30's md would like drip increased to 10mcg 1646 -1650 pt hr began to fall into the upper to low 20's. Nursing staff reported to bedside, pt monitor showed extremely verena rate of 17. SRNA was at bedside when pt hr dropped to 17. SRNA noted that pt briefly appeared to pass out, but then awoke with verbal stimuli. monitor still showed verena rhythm. Dr Heaton was contacted and asked to come to pt beside as well. per dr heaton telephone order drip was increased to 10mcg. Dr heaton contacted Dr valera for recommendations as well. orders carried out by staff at bedside.
[2024-12-05] MEDS: DOPAMINE HCL/D5W 250 ML 23.95 MG IV (23:27)
[2024-12-06] VITALS (37 sets, daily range): BP systolic 92–155; BP diastolic 39–94; PULSE 38–90; RESP 11–24; TEMP 36.6–36.9; O2SAT 91–99; BMI 35.4
--- NOTE | 2024-12-06 01:03 | PC.NURSE ---
0100- Dr. Chatterjee called the unit, wanted to know the current titration rate for pt. I informed him that it is 10mcg, that she was turned up around 2330 because of sustaining heart rate of 35-45. He informed me that he wants the titration to be at 8mcg with a goal of 6mcg. Titration completed at 0105 to 8mcg, charted in the MAR. Pt stated that she has no discomfort, call light in reach.
--- NOTE | 2024-12-06 01:15 | PC.NURSE ---
0110- Called Dr. Chatterjee to let him know that within minutes of titrating to 8mcg heart rate dropped to 36. Dr. Chatterjee informed me that we are not going to titrate any lower than 10mcg overnight. Dr. Chatterjee asked if the pt was having any discomfort, or pain. Pt denies any pain other than the R wrist where the Art Line is. Dr. Chatterjee informed myself and Lupe ROBERTS that he wants the Art Line removed and a TR band placed over the site. 0115- Titration is now currently at 10mcg. Pt heart rate is currently 67.
--- NOTE | 2024-12-06 01:44 | PC.NURSE ---
Per Dr. Chatterjee verbal orders patient right radial arterial line was removed at 0140 and TR band was placed over insertion site. 15mL of air placed into band. Will continue to monitor site.
[2024-12-06 02:43] LABS: PTT Heparin (inpatient only) 53.9 Seconds (50-75)
[2024-12-06 06:46] LABS: Hematocrit 39.3 % (37.0-47.0); Immature Granulocytes % 0.5 %; Mean Corpuscular HGB Conc 32.1 g/dL (31.8-35.4); Mean Corpuscular Hemoglobin 29.1 pg (27.0-31.2); Mean Corpuscular Volume 90.8 fl (81-99); Nucleated Red Blood Cells % 0 %; Platelet Count 332 K/mm3 (142-424); Red Blood Count 4.33 M/mm3 (4.20-5.40); Red Cell Distribution Width-SD 42.6 fL; White Blood Count 13.3 K/mm3 (4.8-10.8)
[2024-12-06 06:51] LABS: Alanine Aminotransferase 35 U/L (12-78); Albumin Level 3.4 g/dl (3.5-5.0); Albumin/Globulin Ratio 0.9 (1.1-1.8); Alkaline Phosphatase 47 U/L (38-126); Anion Gap 11.3 mEq/L (5-15); Aspartate Amino Transferase 201 U/L (14-36); Bilirubin,Total 0.6 mg/dl (0.2-1.3); Blood Urea Nitrogen 43 mg/dl (7-17); Calcium 9.0 mg/dl (8.4-10.2); Carbon Dioxide 25 mmol/L (22.0-30.0); Chloride 101 mmol/L (98-107); Creatinine Clearance Estimated 38 mL/min (50-200); Creatinine,Serum 1.60 mg/dl (0.52-1.04); Estimated Glomerular Filt Rate 31 ml/min (>60); GFR (African American) 38 ML/MIN (>60); Globulin 3.9 g/dL (1.3-3.2); Glucose 151 mg/dl (74-100); Magnesium 1.8 mg/dl (1.6-2.3); Phosphorous 5.0 mg/dl (2.5-4.5); Potassium 4.3 mmoL/L (3.5-5.1); Sodium 133 mmol/L (136-145); Total Protein,Serum 7.3 g/dl (6.3-8.2)
[2024-12-06] MEDS: DOPAMINE HCL/D5W 250 ML 35.92 MG IV ×2 (07:15→12:57)
[2024-12-06 07:20] LABS: Thyroid Stimulating Hormone 0.35 uIU/mL (0.465-4.68)
[2024-12-06 07:26] LABS: Hemoglobin 13.0 g/dL (12.2-16.2)
--- NOTE | 2024-12-06 07:40 | P.PN_ITS ---
Subjective *Date: 12/06/24 *Time: 10:04 Interval history: Patient denies any chest pain. Stable on 2 L oxygen which is her baseline. No nausea or vomiting today. Alert and oriented x 3. Heart rate in the 40s during evaluation. Denies any symptoms from it at this time Medical Exam Vital signs and Labs for Last 24 Hours: Vital Signs Temp Pulse Pulse Resp BP BP Pulse Ox 12/06/24 07:28 12/06/24 06:00 75 21 135/60 97 12/06/24 05:00 49 L 16 125/57 L 97 12/06/24 05:00 12/06/24 04:18 95 12/06/24 04:15 51 L 18 109/49 L 12/06/24 04:01 46 L 21 108/48 L 95 12/06/24 04:00 54 L 12/06/24 03:30 75 17 143/64 H 96 12/06/24 03:15 77 17 138/67 96 12/06/24 03:00 41 L 20 114/53 L 96 12/06/24 03:00 12/06/24 02:30 49 L 21 120/49 L 94 L 12/06/24 02:00 79 21 117/60 96 12/06/24 01:30 80 22 115/58 L 96 12/06/24 01:13 38 L 20 92/42 L 94 L 12/06/24 01:00 76 20 116/58 L 94 L 12/06/24 01:00 12/06/24 00:00 72 12/06/24 00:00 98.4 F 70 21 125/60 95 12/05/24 23:00 64 20 108/53 L 96 12/05/24 23:00 12/05/24 22:01 82 24 129/61 94 L 12/05/24 22:00 80 24 110/59 L 96 12/05/24 21:00 12/05/24 21:00 75 19 109/56 L 92 L 12/05/24 20:45 75 19 110/56 L 92 L 12/05/24 20:00 72 12/05/24 20:00 98.6 F 81 21 111/55 L 92 L 12/05/24 19:55 91 L 12/05/24 19:45 76 19 103/55 L 92 L 12/05/24 19:15 81 18 91 L 10/31/25 19:00 110/56 L 12/05/24 19:00 12/05/24 18:30 83 19 116/56 L 92 L 12/05/24 18:15 85 21 112/55 L 91 L 12/05/24 18:00 101/50 L 12/05/24 18:00 86 16 111/57 L 93 L 12/05/24 17:59 88 16 114/59 L 93 L 12/05/24 17:58 88 17 95/56 L 12/05/24 17:45 89 20 121/59 L 93 L 12/05/24 17:30 89 22 119/60 91 L 12/05/24 17:15 100 H 20 128/64 95 12/05/24 17:05 65 20 121/59 L 92 L 12/05/24 17:00 30 L 21 95/47 L 94 L 12/05/24 17:00 12/05/24 16:58 17 L 14 88/41 L 100 12/05/24 16:57 29 L 18 84/38 L 98 12/05/24 16:50 40 L 14 92/42 L 89 L 12/05/24 16:48 34 L 16 97/40 L 94 L 12/05/24 16:45 43 L 20 108/46 L 95 12/05/24 16:30 58 L 18 114/51 L 93 L 12/05/24 16:15 40 L 22 103/44 L 91 L 12/05/24 16:00 40 L 12/05/24 15:45 43 L 16 109/47 L 93 L 12/05/24 15:30 54 L 19 120/50 L 91 L 12/05/24 15:05 12/05/24 15:00 57 L 20 107/53 L 12/05/24 15:00 57 L 20 129/54 L 91 L 12/05/24 14:45 46 L 19 118/49 L 94 L 12/05/24 14:25 59 L 17 136/54 L 91 L 12/05/24 14:20 64 16 139/55 L 93 L 12/05/24 14:05 129/51 L 12/05/24 14:05 51 L 17 108/56 L 91 L 12/05/24 13:55 58 L 18 128/52 L 90 L 12/05/24 13:40 119/49 L 12/05/24 13:40 43 L 21 99/48 L 91 L 12/05/24 13:40 12/05/24 13:39 97.9 F 43 L 18 99/48 L 92 L 12/05/24 13:30 43 L 20 108/46 L 93 L 12/05/24 13:25 51 L 93 L 12/05/24 13:05 56 L 18 111/53 L 100 12/05/24 12:55 55 L 18 112/53 L 100 12/05/24 12:50 59 L 18 112/53 L 100 12/05/24 12:45 55 L 18 113/53 L 100 12/05/24 12:40 55 L 18 113/53 L 100 12/05/24 12:35 56 L 18 108/55 L 99 12/05/24 12:30 62 18 110/49 L 100 12/05/24 12:25 59 L 18 107/51 L 100 12/05/24 12:20 60 18 102/47 L 98 12/05/24 12:15 57 L 18 102/43 L 100 12/05/24 12:10 43 L 18 109/38 L 95 12/05/24 12:05 42 L 18 94/41 L 95 12/05/24 12:00 43 L 18 87/32 L 94 L 12/05/24 11:55 50 L 18 90/39 L 95 12/05/24 11:45 50 L 54 L 18 91/39 L 92 L 12/05/24 10:07 50 L 20 164/77 H 100 12/05/24 10:07 66 O2 Del Method O2 Flow Rate 12/06/24 07:28 Nasal Cannula 2 12/06/24 06:00 Nasal Cannula 2 12/06/24 05:00 12/06/24 05:00 Nasal Cannula 2 12/06/24 04:18 Nasal Cannula 2 12/06/24 04:15 12/06/24 04:01 12/06/24 04:00 12/06/24 03:30 12/06/24 03:15 12/06/24 03:00 12/06/24 03:00 Nasal Cannula 2 12/06/24 02:30 12/06/24 02:00 Nasal Cannula 2 12/06/24 01:30 12/06/24 01:13 12/06/24 01:00 12/06/24 01:00 Nasal Cannula 2 12/06/24 00:00 12/06/24 00:00 Nasal Cannula 2 12/05/24 23:00 2 12/05/24 23:00 Nasal Cannula 2 12/05/24 22:01 Nasal Cannula 2 12/05/24 22:00 Nasal Cannula 2 12/05/24 21:00 Nasal Cannula 2 12/05/24 21:00 Room Air 12/05/24 20:45 Room Air 12/05/24 20:00 12/05/24 20:00 Room Air 12/05/24 19:55 Room Air 12/05/24 19:45 Room Air 12/05/24 19:15 12/05/24 19:00 12/05/24 19:00 Room Air 12/05/24 18:30 12/05/24 18:15 Room Air 12/05/24 18:00 12/05/24 18:00 Room Air 12/05/24 17:59 Room Air 12/05/24 17:58 12/05/24 17:45 Room Air 12/05/24 17:30 Room Air 12/05/24 17:15 Room Air 12/05/24 17:05 Room Air 12/05/24 17:00 Room Air 12/05/24 17:00 Room Air 12/05/24 16:58 Room Air 12/05/24 16:57 Room Air 12/05/24 16:50 Room Air 12/05/24 16:48 Room Air 12/05/24 16:45 Room Air 12/05/24 16:30 Room Air 12/05/24 16:15 Room Air 12/05/24 16:00 12/05/24 15:45 12/05/24 15:30 12/05/24 15:05 Room Air 12/05/24 15:00 12/05/24 15:00 12/05/24 14:45 12/05/24 14:25 12/05/24 14:20 Room Air 12/05/24 14:05 12/05/24 14:05 Room Air 12/05/24 13:55 Room Air 12/05/24 13:40 12/05/24 13:40 Room Air 12/05/24 13:40 Room Air 12/05/24 13:39 Room Air 12/05/24 13:30 Room Air 12/05/24 13:25 Room Air 12/05/24 13:05 Nasal Cannula 4 12/05/24 12:55 Nasal Cannula 4 12/05/24 12:50 Nasal Cannula 4 12/05/24 12:45 Nasal Cannula 4 12/05/24 12:40 Nasal Cannula 4 12/05/24 12:35 Nasal Cannula 4 12/05/24 12:30 Nasal Cannula 4 12/05/24 12:25 Nasal Cannula 4 12/05/24 12:20 Nasal Cannula 4 12/05/24 12:15 Nasal Cannula 4 12/05/24 12:10 Nasal Cannula 4 12/05/24 12:05 Nasal Cannula 4 12/05/24 12:00 Nasal Cannula 4 12/05/24 11:55 Nasal Cannula 4 12/05/24 11:45 Nasal Cannula 4 12/05/24 10:07 12/05/24 10:07 Intake and Output 12/05/24 12/05/24 12/06/24 15:59 23:59 07:59 Intake Total 500.1 / 989.045 488.945 / 989.045 246.807 / 246.807 Output Total 100 / 100 100 / 100 Balance 500.1 / 889.045 388.945 / 889.045 146.807 / 146.807 Intake: Intake, Oral Amount 105 / 105 Intake, Total IV Amount 500.1 / 884.045 383.945 / 884.045 246.807 / 246.807 0.9 % Sodium Chloride 500 ml @ 500 / 500 25 mls/hr IV .Q20H MELISSA Rx#: [id number] Dopamine HCl/D5w 250 ml @ 5 MCG 0.1 / 229.378 229.278 / 229.378 246.807 / 246.807 /KG/MIN 14.969 mls/hr IV . [id number] MELISSA Rx#:[id number] Heparin Sodium,Porcine/D5w 500 154.667 / 154.667 ml @ 1,000 UNITS/HR 20 mls/hr IV .Q25H MELISSA Rx#:[id number] Output: Output, Urine Amount 100 / 100 Output, Emesis Amount 100 / 100 Other: Number of Unmeasured Voids 0 Weight 79.3 kg 82 kg Patient Weight 12/06/24 23:59 Weight 82 kg Laboratory Results - last 24 hr 12/05/24 10:10: WBC 7.3, RBC 4.86, Hgb 14.4, Hct 44.8, MCV 92.2, MCH 29.6, MCHC 32.1, RDW 13.2, Plt Count 332, MPV 10.1, Neut % (Auto) 58.0, Lymph % (Auto) 29.8, [place] % (Auto) 8.0, Eos % (Auto) 3.0, Baso % (Auto) 0.6, Neut # (Auto) 4.2, Lymph # (Auto) 2.2, [place] # (Auto) 0.6, Eos # (Auto) 0.2, Baso # (Auto) 0.0, Sodium 134 L, Potassium 5.3 H, Chloride 100, Carbon Dioxide 26, Anion Gap 13.3, BUN 40 H, Creatinine 1.10 H, Estimated Creat Clear 54, Estimated GFR 48 L, Est GFR ( Amer) 58 L, Glucose 94, Calcium 9.1 12/05/24 11:15: Activated Clotting Time > 400 H* 12/05/24 18:20: APTT 114.0 H* 12/06/24 02:17: APTT 53.9 12/06/24 06:25: WBC 13.3 H D, RBC 4.33, Hgb 13.0, Hct 39.3, MCV 90.8, MCH 29.1, MCHC 32.1, RDW 13.0, Plt Count 332, MPV 10.0, Neut % (Auto) 78.6, Lymph % (Auto) 12.4, [place] % (Auto) 7.9, Eos % (Auto) 0.2, Baso % (Auto) 0.4, Neut # (Auto) 10.4 H, Lymph # (Auto) 1.7, [place] # (Auto) 1.1 H, Eos # (Auto) 0.0, Baso # (Auto) 0.1, Sodium 133 L, Potassium 4.3, Chloride 101, Carbon Dioxide 25, Anion Gap 11.3, BUN 43 H, Creatinine 1.60 H D, Estimated Creat Clear 38, Estimated GFR 31 L, Est GFR ( Amer) 38 L D, Glucose 151 H D, Calcium 9.0, Phosphorus 5.0 H, Magnesium 1.8, Total Bilirubin 0.6, AST 201 H, ALT 35, Alkaline Phosphatase 47, Total Protein 7.3, Albumin 3.4 L, Globulin 3.9 H, Albumin/Globulin Ratio 0.9 L, TSH 0.35 L I & O for Labs for Last 24 Hours: Intake & Output 12/03/24 12/04/24 12/05/24 12/06/24 23:59 23:59 23:59 23:59 Intake Total 989.045 / 989.045 246.807 / 246.807 Output Total 100 / 100 100 / 100 Balance 889.045 / 889.045 146.807 / 146.807 Weight 79.3 kg 82 kg Constitutional: Present no acute distress, obese and chronically ill appearing Head: Present atraumatic and normocephalic ENT: Present normal exam Respiratory: Present normal respiratory effort; Absent respiratory distress, stridor, wheezes or crackles Cardiac: Present Regular Rhythm and Bradycardia GI: Present soft and normal bowel sounds; Absent distention or tenderness Extremities: Present normal inspection and full ROM Comment:: Right wrist radial insertion site clean dry and intact. Skin: Present intact; Absent erythema Neuro: Present Grossly Intact, alert, awake, oriented x 3 and moves all extremities Assessment and Plan *Assessment and plan (1) Bradycardia: Status: Acute Category: Medical Code(s): R00.1 - Bradycardia, unspecified (2) Cardiogenic shock: Status: Acute Category: Medical Code(s): R57.0 - Cardiogenic shock (3) Coronary artery dissection: Status: Acute Category: Medical Code(s): I25.42 - Coronary artery dissection (4) Coronary artery disease: Status: Acute Qualifiers: Coronary Disease-Associated Artery/Lesion type: [place] artery [place] vs. transplanted heart: [place] heart Associated angina: without angina Qualified Code(s): I25.10 - Atherosclerotic heart disease of [place] coronary artery without angina pectoris Category: Medical Code(s): I25.10 - Atherosclerotic heart disease of [place] coronary artery without angina pectoris (5) CKD (chronic kidney disease) stage 3, GFR 30-59 ml/min: Status: Chronic Qualifiers: Chronic kidney disease stage 3 subtype: stage 3a (GFR 45-59) Qualified Code(s): N18.31 - Chronic kidney disease, stage 3a Category: Medical Code(s): N18.30 - Chronic kidney disease, stage 3 unspecified (6) Hypertension: Status: Chronic Qualifiers: Hypertension type: primary hypertension Qualified Code(s): I10 - Essential (primary) hypertension Category: Medical Code(s): I10 - Essential (primary) hypertension (7) Hypertriglyceridemia: Status: Acute Category: Medical Code(s): E78.1 - Pure hyperglyceridemia (8) Hypothyroidism: Status: Chronic Qualifiers: Hypothyroidism type: acquired Qualified Code(s): E03.9 - Hypothyroidism, unspecified Category: Medical Code(s): E03.9 - Hypothyroidism, unspecified (9) Hyperlipidemia: Status: Chronic Qualifiers: Hyperlipidemia type: mixed hyperlipidemia Qualified Code(s): E78.2 - Mixed hyperlipidemia Category: Medical Code(s): E78.5 - Hyperlipidemia, unspecified (10) Obesity (BMI 30-39.9): Status: Acute Category: Medical Code(s): E66.9 - Obesity, unspecified (11) NSTEMI (non-ST elevated myocardial infarction): Status: Acute Category: Medical Code(s): I21.4 - Non-ST elevation (NSTEMI) myocardial infarction (12) CLAUDIA (acute kidney injury): Status: Acute Category: Medical Code(s): N17.9 - Acute kidney failure, unspecified Plan Corinne Martin is a 79-year-old female with a history of triple-vessel coronary disease, hypothyroidism, bifascicular block with tachybradycardia syndrome, hypertension presented for an outpatient [facility]. Patient and family previously did not want to undergo CABG for triple-vessel coronary disease, and had been planned for outpatient staged PCI. Patient was undergoing revascularization of the RCA today, had severe calcification and guidewire went subintimal creating coronary dissection. Patient became bradycardic, hypotensive but responded really well to dopamine drip. Discussed case with Dr. Chatterjee, will admit to the ICU on dopamine drip for further monitoring. He did advise that patient will have focal infarction, ST wave changes, and will become intermittently bradycardic. On my evaluation of the patient, she was having an episode of bradycardia to 20s, hypotension, with emesis. No chest pain, shortness of breath. Dopamine increased to 12 zaire/kg/min. Heart rate goal above 50. Denies chest pain. Continues to require ICU level care due to drip. Problems addressed as follows: #Severe CAD, coronary calcification #Coronary dissection #Cardiogenic shock #Sinus bradycardia #Hypotension #NSTEMI type I ? History of triple coronary artery disease, patient is not agreeable to CABG. Plan for staged outpatient PCI. ? Patient was undergoing revascularization of the RCA on weight downstairs waiting for focality there is no valvular 5, had severe calcification and guidewire went subintimal creating coronary dissection. Patient became bradycardic, hypotensive but responded really well to dopamine drip. ? Continuing dopamine, goal heart rate greater than 50. Currently on 12 mcg/kg/min. Titrate as needed. Will hold on down titrating today. Reevaluate in the morning. Will need to be off dopamine for at least 24 hours prior to discharge home. - Cardiology consulted and assisting with care. Recommend at least 48 hours of monitoring. ? Continue heparin drip due to severe CAD, coronary dissection, focal infarction/NSTEMI. ? Continue home aspirin 81 mg, Plavix 75 mg, atorvastatin 40 mg. ? A1c obtained and pending. Lipid panel ordered for the morning. Repeat CBC, CMP, magnesium ordered for the morning. ? Continuous cardiac telemetry. - White count elevated at 13, suspect secondary to stress. CLAUDIA on CKD 3. Baseline creatinine 1-1.1. Elevated 1.6 this morning after contrast yesterday. BUN elevated at 43. Caution with nephrotoxins. #Hypertension ? Hold home lisinopril, hydrochlorothiazide, amlodipine due to cardiogenic shock. Resume when appropriate. Blood pressure still soft on dopamine drip. Showing improvement however. 121/47 this morning #Hypothyroidism ? Continue home levothyroxine 137 mcg. TSH 0.35 this morning. Full code DVT prophylaxis: Heparin drip Home medications: Reconciled. Hold home Farxiga due to cardiogenic shock. ICU/Critical care attestation This patient is critically ill with 35 minutes devoted solely to this patient managing life/organ supporting interventions that required physician assessment. This includes time spent making adjustments in ventilator settings, IV fluid administration, titration of pressors, adjustments of medications, discussion of patient with consultants and other care providers as well as updating patient and/or family (if patient by virtue of his/her condition is unable to partic ipate in decision making). This does not include time spent performing separately billed procedures. Time is not concurrent with that of other providers.
[2024-12-06] MEDS: ASPIRIN EC 81MG TABLET 81 MG PO (08:52)
[2024-12-06] MEDS: CLOPIDOGREL 75MG TAB 75 MG PO (08:52)
[2024-12-06] MEDS: LEVOTHYROXINE 137MCG (0.137MG) TAB 137 MCG PO (08:52)
[2024-12-06] MEDS: PRIMIDONE 50MG TABLET 100 MG PO (08:53)
[2024-12-06 09:00] LABS: PTT Heparin (inpatient only) 47.9 Seconds (50-75)
--- NOTE | 2024-12-06 09:01 | PC.NURSE ---
critical ptt called to pharmacist, pharmacy to make adjustment to heparin drip
[2024-12-06] MEDS: HEPARIN SODIUM 5,000 UNIT/ML VIAL 3000 UNIT IV (09:14)
[2024-12-06 09:43] LABS: Free T4 (Free Thyroxine) 1.08 ng/dl (0.78-2.19)
--- NOTE | 2024-12-06 11:00 | PC.NURSE ---
spoke to Dr. Sen MD ok with HR 47-48, only titrate if patient sustaining low heart rates or symptomatic
[2024-12-06 12:47] LABS: Hemoglobin A1C 5.6 % (4.0-6.0)
--- OUTSIDE RECORDS SUMMARY | 2024-12-06 14:26 | XMS_ITS | Patient Health Record ---
Author Organization [facility] Address [address] [facility] [address] [place] [id number] Care Team Providers Care Gynecologist Name Role Phone Toni Verdin Primary Care [...] Vaccine Route Administration Date Status Comme nts xFluzone High Dose-private (65yr&older) IM Intramuscular 12/11/2013 Administered xFluzone High Dose-private (65yr&older) Unknown 11/13/2019 Administered Tetanus Tdap-Adacel (over 7yrs) IM Intramuscular 04/22/2013 Administered Tetanus Tdap-Adacel (over 7yrs) Unknown 05/24/2020 Administered Prevnar (PCV20) IM Intramuscular 11/28/2021 Administered Prevnar (PCV13) IM Intramuscular 12/11/2013 Administered PNEUMOVAX 23 VACCINE IM Intramuscular 12/20/2015 Administe red PNEUMOVAX 23 VACCINE IM Intramuscular 11/26/2020 Administe red Fluzone High Dose (65yr and older) IM [...] (65yr and older) IM Intramuscular 11/27/2022 Administered DT, 7 YEARS OR OLDER Unknown 12/29/2003 Administered COVID 19 Moderna IM Intramuscular 03/17/2020 Administered COVID 19 Moderna IM Intramuscular 04/14/2020 Administered Problems Problem Type SNOMED Code ICD Code Onset Dates Problem Status W/U Status Risk Notes Problem Polyp of colon (disorder) (28260339) colon polyps (211.3) Active confirmed Problem Essential hypertension (61181961) Essential hypertension (I10) Active confirmed Problem Hypertriglyceridemia (360632772) Hypertriglyceridemia (E78.1) Active confirmed Problem Hyperlipidemia (95194151) Other hyperlipidemia (E78.4) Active confirmed Problem Degeneration of lumbar intervertebral disc (54420722) Lumbar degenerative disc disease (M51.36) Active confirmed Problem History of polyp of colon (situation) (887201030) History of colon polyps (Z86.010) Active confirmed Problem Gastroesophageal reflux disease without esophagitis (237130158) Gastroesophageal reflux disease without esophagitis (K21.9) Active confirmed Problem Hypothyroidism (69969209) Hypothyroidism (E03.9) Active confirmed Problem Hypothyroidism (19420263) Hypothyroidism, unspecified hypothyroidism type (E03.9) Active confirmed Problem Hyperlipidaemia (25334639) Hyperlipidemia, unspecified hyperlipidemia type (E78.5) Active confirmed Problem Atopic dermatitis (09329272) Atopic dermatitis, unspecified type (L20.9) Active confirmed Problem Cervical spondylosis without myelopathy (571606653) Osteoarthritis of spine with radiculopathy, cervical region (M47.22) Active confirmed Problem Essential hypertension (70204038) Essential hypertension, hypertension with unspecified goal (I10) Active confirmed Problem Sciatica (11221662) Acute right- sided low back pain with right-sided sciatica (M54.41) Active confirmed Problem Sciatica (80024808) Acute left-s ided low back pain with left-sided sciatica (M54.42) Active confirmed Problem Arthropathy of cervical spine facet joint (disorder) (593529308) Facet arthropathy, cervical (M12.88) Active confirmed Problem Hearing loss (78581863) Hearing loss, unspecified hearing loss type, unspecified laterality (H91.90) Active confirmed Problem Obesity (558119227) Non morbid o besity (E66.9) Active confirmed Problem Allergic rhinitis (65468067) Allergic rhinitis, unspecified seasonality, unspecified trigger (J30.9) Active confirmed Problem Chronic kidney disease stage 3 (disorder) (157508919) CKD (chronic kidney disease) stage 3, GFR 30-59 ml/min (N18.3) Active confirmed Problem Chronic kidney disease stage 3A (076452544) Stage 3a chronic kidney disease (N18.31) Active confirmed Problem Essential tremor (741918753) Benign head tremor (G25.0) Active confirmed Plan Of Treatment No Information Insurance Providers Payer Name Payer Address Payer Phone Subscriber Number Group Number Insured Name Patient Relationship to Insured Coverage Start Date Coverage End Date [employer] (MEDICARE) [address] [address] [place] [address] [id number] Corinne Martin Self - patient is the insured [employer] [address] [place] [address] [id number] Corinne Martin Self - patient is the insured Medical (General) History Medical History History ICD Code Hypertension Hyperlipidemia Hypertriglyceridemia Hypothyroidism [employer] - [facility] Diverticulosis Colon Polyps Surgical History Surgery Date(Month/Year) RT Oophorectomy 1996 LT Breast Biopsy 10/2010 Colon Biopsy 03/23/2012 Hospitalization History Reason Date(Month/Year) Hip and Leg Pain- [facility] 04/10/2020 RT Hand Needle Stick- [facility]
--- NOTE | 2024-12-06 14:51 | ECG_ITS ---
APPROVED REPORT Exam: Resting ECG HR:99 bpm ECG Measurements Heart Rate 99 AXES DE 156 P 68 QRSd 136 QRS -26 QT 304 T 0 QTc 360 Conclusion SINUS RHYTHM WITH FREQUENT VENTRICULAR PREMATURE COMPLEXES IN A BIGEMINAL PATTERN RIGHT BUNDLE BRANCH BLOCK [120+ ms QRS DURATION, UPRIGHT V1, 40+ ms S IN I/aVL/V4/V5/V6] LEFT VENTRICULAR HYPERTROPHY AND ST-T CHANGE [VOLTAGE CRITERIA PLUS ST/T ABNORMALITY] PROBABLE LATERAL MYOCARDIAL INFARCTION , PROBABLY OLD [35 ms Q WAVE IN I/aVL/V5/V6] ABNORMAL ECG UNCONFIRMED REPORT Electronically signed by : Jasper Fernandez MD 12/08/2024 08:42:24
[2024-12-06] MEDS: ONDANSETRON 4MG/2ML VIAL 4 MG IV (14:59)
--- NOTE | 2024-12-06 15:28 | PC.NURSE ---
Addendum entered by Brionna Triplett RN 12/06/24 15:36: Patient became unresponsive at 1430. Original Note: Patient became unresponsive, not responsive to sternal rubs and pulse not detected. Chest compressions started and code keaton called. 15 chest compressions completed and patient able to move her arms and answer questions correctly. Code blue cancelled. MD at bedside and dopamine titrated per md orders based on heart rate.
--- NOTE | 2024-12-06 15:38 | PC.NURSE ---
Per Dr. Munoz, Dr. Chatterjee recommended that if patient were to become bradycardic again and go unresponsive with no pulse, then we need to externally pace instead of chest compressions.
--- NOTE | 2024-12-06 18:14 | PC.NURSE ---
Measured right forearm, 35 cm. Measured left forearm, 33 cm. No pain reported by patient, pulses present, extremity warm. MD aware, ordered to elevate arms
[2024-12-06] MEDS: DOPAMINE HCL/D5W 250 ML 41.91 MG IV (19:19)
--- NOTE | 2024-12-06 20:35 | PC.NURSE ---
Dr. Chatterjee at bedside updated patient and family on pt condition and plan of care. During conversation Dr. Chatterjee encouraged myself to start titrate Dopamine gtt down 1mcg every 10 min. Patient currently on 14mcg at present. Gtt decreased to 13 mcg. HR remains at 82. 2044 Dopamine gtt titrated to 12mcg. HR 80 bpm. Patient denies nausea and does not voice any concern at present. [address] Chatterjee present, MD verbal order to decrease gtt to 10mcg. HR 72. Dr. Chatterjee informs myself to attempt to titrate gtt overnight down to 4-6mcg as patient heart rate tolerates and to not decrease further once at specified mcg. 2051 Patient HR decreased to 38, patient complains of nausea. Zoll in room at patient bedside. Pads currently on patient, and connected to Zoll. Dopamine gtt increased to 13mcg at this time. Dr. Chatterjee notified of event and verbal order was given to titrate patient back up to 13mcg and to leave at rate overnight to which day shift can attempt titrating medication down at that time. Patient remains alert and oriented at present. 2115 Patient HR increased to 77bpm. Patient remains alert and oriented but states that she is tired and would like to rest. Denies needs, and patient repositioned to comfort. states that he is going to remain at pt bedside overnight.
[2024-12-06] MEDS: PRAVASTATIN 40MG TAB 40 MG PO (20:45)
[2024-12-07] VITALS (31 sets, daily range): BP systolic 126–166; BP diastolic 45–80; PULSE 50–84; RESP 12–25; TEMP 36.6–37.2; O2SAT 2–100; BMI 35.6
[2024-12-07] MEDS: DOPAMINE HCL/D5W 250 ML 38.92 MG IV (01:57)
[2024-12-07 06:23] LABS: Hematocrit 39.2 % (37.0-47.0); Hemoglobin 13.0 g/dL (12.2-16.2); Immature Granulocytes % 0.4 %; Mean Corpuscular HGB Conc 33.2 g/dL (31.8-35.4); Mean Corpuscular Hemoglobin 29.8 pg (27.0-31.2); Mean Corpuscular Volume 89.9 fl (81-99); Nucleated Red Blood Cells % 0 %; Platelet Count 335 K/mm3 (142-424); Red Blood Count 4.36 M/mm3 (4.20-5.40); Red Cell Distribution Width-SD 41.1 fL; White Blood Count 9.8 K/mm3 (4.8-10.8)
[2024-12-07 06:39] LABS: Cholesterol 173 mg/dl (140-200); HDL Cholesterol 42 mg/dl (40-60); Triglycerides 287 mg/dl (30-150)
[2024-12-07 06:45] LABS: Alanine Aminotransferase 38 U/L (12-78); Albumin Level 3.5 g/dl (3.5-5.0); Albumin/Globulin Ratio 0.9 (1.1-1.8); Alkaline Phosphatase 49 U/L (38-126); Anion Gap 10.2 mEq/L (5-15); Aspartate Amino Transferase 184 U/L (14-36); Bilirubin,Total 0.5 mg/dl (0.2-1.3); Blood Urea Nitrogen 31 mg/dl (7-17); Calcium 9.0 mg/dl (8.4-10.2); Carbon Dioxide 26 mmol/L (22.0-30.0); Chloride 102 mmol/L (98-107); Creatinine Clearance Estimated 56 mL/min (50-200); Creatinine,Serum 1.10 mg/dl (0.52-1.04); Estimated Glomerular Filt Rate 48 ml/min (>60); GFR (African American) 58 ML/MIN (>60); Globulin 3.8 g/dL (1.3-3.2); Glucose 139 mg/dl (74-100); Magnesium 2.0 mg/dl (1.6-2.3); Potassium 4.2 mmoL/L (3.5-5.1); Sodium 134 mmol/L (136-145); Total Protein,Serum 7.3 g/dl (6.3-8.2)
[2024-12-07] MEDS: DOPAMINE HCL/D5W 250 ML 47.9 MG IV ×4 (06:58→22:36)
[2024-12-07] MEDS: LEVOTHYROXINE 137MCG (0.137MG) TAB 137 MCG PO (08:41)
[2024-12-07] MEDS: CLOPIDOGREL 75MG TAB 75 MG PO (08:41)
[2024-12-07] MEDS: ASPIRIN EC 81MG TABLET 81 MG PO (08:41)
[2024-12-07] MEDS: PRIMIDONE 50MG TABLET 100 MG PO (08:41)
--- NOTE | 2024-12-07 10:24 | PC.NURSE ---
right forearm 35 cm circumference , left forearm circumference 31 cm
[2024-12-07] MEDS: ONDANSETRON 4MG/2ML VIAL 4 MG IV ×2 (14:13→22:41)
--- NOTE | 2024-12-07 14:30 | P.PN_ITS ---
Subjective *Date: 12/07/24 *Time: 15:43 Interval history: No further events of bradycardia overnight. No further asystole. Did have an episode in the afternoon yesterday where she became asystolic briefly after bath. Had resumption of bradycardia within 20 to 30 seconds of CODE BLUE being called. Tolerating 16 mcg/kg/min of dopamine. Still having some intermittent vomiting but feeling better today. Stable on 2 L oxygen. No fevers overnight. Medical Exam Vital signs and Labs for Last 24 Hours: Vital Signs Temp Pulse Resp BP Pulse Ox O2 Del Method O2 Flow Rate 12/07/24 14:00 132/60 12/07/24 14:00 81 17 92 L Room Air 12/07/24 13:01 127/50 L 12/07/24 13:00 80 25 H 97 Nasal Cannula 2 12/07/24 13:00 Nasal Cannula 2 12/07/24 12:07 78 12/07/24 12:00 135/69 12/07/24 12:00 78 21 98 Nasal Cannula 2 12/07/24 11:00 140/45 L 12/07/24 11:00 51 L 17 100 Nasal Cannula 2 12/07/24 11:00 Nasal Cannula 2 12/07/24 10:00 140/46 L 12/07/24 10:00 53 L 21 99 Nasal Cannula 2 12/07/24 09:00 Nasal Cannula 2 12/07/24 09:00 71 22 135/55 L 97 Nasal Cannula 2 12/07/24 08:30 76 16 138/62 92 L Room Air 12/07/24 08:21 Nasal Cannula 2 12/07/24 08:00 98.8 F 80 16 128/59 L 92 L Room Air 12/07/24 08:00 79 12/07/24 07:00 74 17 150/60 H 98 Room Air 12/07/24 07:00 Nasal Cannula 2 12/07/24 06:00 50 L 19 130/48 L 97 Nasal Cannula 2 12/07/24 05:00 73 15 140/60 93 L Nasal Cannula 2 12/07/24 05:00 Nasal Cannula 2 12/07/24 04:00 98.7 F 12/07/24 04:00 73 18 139/62 96 Nasal Cannula 2 12/07/24 04:00 54 L 12/07/24 03:30 81 18 140/60 97 Nasal Cannula 2 12/07/24 03:00 77 16 145/67 H 97 Nasal Cannula 2 12/07/24 03:00 Nasal Cannula 12/07/24 02:00 82 16 134/63 97 Nasal Cannula 2 12/07/24 01:00 EST 78 18 126/60 97 Nasal Cannula 2 12/07/24 01:00 EST Nasal Cannula 2 12/07/24 00:30 83 21 131/67 97 Nasal Cannula 2 12/07/24 00:00 2 L Nasal Cannula 12/07/24 00:00 84 12/07/24 00:00 98.6 F 80 17 129/56 L 97 Nasal Cannula 2 12/06/24 23:00 78 20 130/63 97 Nasal Cannula 2 12/06/24 23:00 Nasal Cannula 2 12/06/24 22:00 80 18 148/69 H 97 Nasal Cannula 2 12/06/24 21:00 46 L 23 121/48 L 97 Nasal Cannula 2 12/06/24 21:00 Nasal Cannula 2 12/06/24 20:00 98.4 F 79 17 148/66 H 99 Nasal Cannula 2 12/06/24 20:00 Nasal Cannula 2 12/06/24 20:00 84 12/06/24 19:21 Nasal Cannula 2 12/06/24 19:00 150/67 H 12/06/24 19:00 82 21 98 Nasal Cannula 2 12/06/24 18:45 Nasal Cannula 2 12/06/24 18:00 143/60 H 12/06/24 18:00 97.9 F 81 11 L 98 Nasal Cannula 2 12/06/24 17:00 155/71 H 12/06/24 17:00 81 20 98 Nasal Cannula 2 12/06/24 17:00 Nasal Cannula 2 12/06/24 16:00 Nasal Cannula 2 12/06/24 16:00 153/74 H 12/06/24 16:00 80 17 98 Nasal Cannula 2 12/06/24 16:00 80 Intake and Output 12/06/24 12/07/24 12/07/24 23:59 06:59 15:59 Intake Total 238.528 / 1499.639 676.436 / 1129.583 453.147 / 1129.583 Output Total 1150 / 1750 600 / 1250 650 / 1250 Balance -911.472 / -250.361 76.436 / -120.417 -196.853 / -120.417 Intake: Intake, Oral Amount 240 / 476 236 / 476 Intake, Total IV Amount 238.528 / 1083.639 436.436 / 653.583 217.147 / 653.583 Dopamine HCl/D5w 250 ml @ 14 238.528 / 770.306 436.436 / 653.583 217.147 / 653.583 MCG/KG/MIN 41.912 mls/hr IV . Q5H58M [facility] Rx#:[id number] Output: Output, Urine Amount 1150 / 1450 600 / 1250 650 / 1250 Other: Weight 82.2 kg Patient Weight 12/07/24 22:59 Weight 82.2 kg Laboratory Results - last 24 hr 12/07/24 05:40: WBC 9.8 D, RBC 4.36, Hgb 13.0, Hct 39.2, MCV 89.9, MCH 29.8, MCHC 33.2, RDW 12.5, Plt Count 335, MPV 9.9, Neut % (Auto) 73.3, Lymph % (Auto) 16.9, [place] % (Auto) 8.5, Eos % (Auto) 0.6, Baso % (Auto) 0.3, Neut # (Auto) 7.2, Lymph # (Auto) 1.7, [place] # (Auto) 0.8, Eos # (Auto) 0.1, Baso # (Auto) 0.0, Sodium 134 L, Potassium 4.2, Chloride 102, Carbon Dioxide 26, Anion Gap 10.2, BUN 31 H D, Creatinine 1.10 H D, Estimated Creat Clear 56, Estimated GFR 48 L, Est GFR ( Amer) 58 L D, Glucose 139 H, Calcium 9.0, Magnesium 2.0 D, Total Bilirubin 0.5, AST 184 H, ALT 38, Alkaline Phosphatase 49, Total Protein 7.3, Albumin 3.5, Globulin 3.8 H, Albumin/Globulin Ratio 0.9 L, Triglycerides 287 H, Cholesterol 173, LDL Cholesterol Direct 84.51 L, VLDL Cholesterol 57 H, HDL Cholesterol 42, Cholesterol/HDL Ratio 4.1 H I & O for Labs for Last 24 Hours: Intake & Output 10/30/12/05/24 12/06/24 12/07/24 23:59 23:59 23:59 22:59 Intake Total 989.045 / 585.129 0749.639 / 5029.851 7412.583 / 1129.583 Output Total 100 / 100 1750 / 1750 1250 / 1250 Balance 889.045 / 889.045 -490.361 / -250.361 -120.417 / -120.417 Weight 79.3 kg 82 kg 82.2 kg Constitutional: Present no acute distress, obese and chronically ill appearing Head: Present atraumatic and normocephalic ENT: Present normal exam Respiratory: Present normal respiratory effort; Absent respiratory distress, stridor, wheezes or crackles Cardiac: Present Regular Rhythm and Bradycardia GI: Present soft and normal bowel sounds; Absent distention or tenderness Extremities: Present normal inspection and full ROM Comment:: Right wrist radial insertion site clean dry and intact. Skin: Present intact; Absent erythema Neuro: Present Grossly Intact, alert, awake, oriented x 3 and moves all extremities Assessment and Plan *Assessment and plan (1) Bradycardia: Status: Acute Category: Medical Code(s): R00.1 - Bradycardia, unspecified (2) Cardiogenic shock: Status: Acute Category: Medical Code(s): R57.0 - Cardiogenic shock (3) Coronary artery dissection: Status: Acute Category: Medical Code(s): I25.42 - Coronary artery dissection (4) Coronary artery disease: Status: Acute Qualifiers: Coronary Disease-Associated Artery/Lesion type: [place] artery [place] vs. transplanted heart: [place] heart Associated angina: without angina Qualified Code(s): I25.10 - Atherosclerotic heart disease of [place] coronary artery without angina pectoris Category: Medical Code(s): I25.10 - Atherosclerotic heart disease of [place] coronary artery without angina pectoris (5) CKD (chronic kidney disease) stage 3, GFR 30-59 ml/min: Status: Chronic Qualifiers: Chronic kidney disease stage 3 subtype: stage 3a (GFR 45-59) Qualified Code(s): N18.31 - Chronic kidney disease, stage 3a Category: Medical Code(s): N18.30 - Chronic kidney disease, stage 3 unspecified (6) Hypertension: Status: Chronic Qualifiers: Hypertension type: primary hypertension Qualified Code(s): I10 - Essential (primary) hypertension Category: Medical Code(s): I10 - Essential (primary) hypertension (7) Hypertriglyceridemia: Status: Acute Category: Medical Code(s): E78.1 - Pure hyperglyceridemia (8) Hypothyroidism: Status: Chronic Qualifiers: Hypothyroidism type: acquired Qualified Code(s): E03.9 - Hypothyroidism, unspecified Category: Medical Code(s): E03.9 - Hypothyroidism, unspecified (9) Hyperlipidemia: Status: Chronic Qualifiers: Hyperlipidemia type: mixed hyperlipidemia Qualified Code(s): E78.2 - Mixed hyperlipidemia Category: Medical Code(s): E78.5 - Hyperlipidemia, unspecified (10) Obesity (BMI 30-39.9): Status: Acute Category: Medical Code(s): E66.9 - Obesity, unspecified (11) NSTEMI (non-ST elevated myocardial infarction): Status: Acute Category: Medical Code(s): I21.4 - Non-ST elevation (NSTEMI) myocardial infarction (12) CLAUDIA (acute kidney injury): Status: Acute Category: Medical Code(s): N17.9 - Acute kidney failure, unspecified Plan Corinne Martin is a 79-year-old female with a history of triple-vessel coronary disease, hypothyroidism, bifascicular block with tachybradycardia syndrome, hypertension presented for an outpatient [facility]. Patient and family previously did not want to undergo CABG for triple-vessel coronary disease, and had been planned for outpatient staged PCI. Patient was undergoing revascularization of the RCA today, had severe calcification and guidewire went subintimal creating coronary dissection. Patient became bradycardic, hypotensive but responded really well to dopamine drip. Discussed case with Dr. Chatterjee, will admit to the ICU on dopamine drip for further monitoring. He did advise that patient will have focal infarction, ST wave changes, and will become intermittently bradycardic. On my evaluation of the patient, she was having an episode of bradycardia to 20s, hypotension, with emesis. No chest pain, shortness of breath. Dopamine increased to 16 mcg/kg/min. Heart rate goal above 50. Denies chest pain. Continues to require ICU level care due to drip. Problems addressed as follows: #Severe CAD, coronary calcification #Coronary dissection #Cardiogenic shock #Sinus bradycardia #Hypotension #NSTEMI type I ? History of triple coronary artery disease, patient is not agreeable to CABG. Plan for staged outpatient PCI. ? Patient was undergoing revascularization of the RCA on weight downstairs waiting for focality there is no valvular 5, had severe calcification and guidewire went subintimal creating coronary dissection. Patient became bradycardic, hypotensive but responded really well to dopamine drip. ? Continuing dopamine, goal heart rate greater than 50. Currently on 16 mcg/kg/min. Will hold at this rate today. Will not titrate down. Cardiology to reevaluate in the morning. - Will need to be off dopamine for at least 24 hours prior to discharge home. - Transitioned to Lovenox 1 mg/kg twice daily. - LDL 84, total cholesterol 173, triglycerides 287 ? Continue home aspirin 81 mg, Plavix 75 mg, atorvastatin 40 mg. ? A1c 5.6 Repeat CBC, CMP, magnesium ordered for the morning. ? Continuous cardiac telemetry. - white count improved to 9.8, hemoglobin stable at 13. CLAUDIA on CKD 3. Baseline creatinine 1-1.1. Baseline with creatinine 1.1, BUN 31. Caution with nephrotoxins. #Hypertension: Hold home lisinopril, hydrochlorothiazide, amlodipine due to cardiogenic shock. Resume when appropriate. Blood pressure still soft on dopamine drip. Showing improvement however. #Hypothyroidism: Continue home levothyroxine 137 mcg. TSH 0.35 this morning. Full code DVT prophylaxis: Heparin drip Home medications: Reconciled. Hold home Farxiga due to cardiogenic shock. ICU/Critical care attestation This patient is critically ill with 35 minutes devoted solely to this patient managing life/organ supporting interventions that required physician assessment. This includes time spent making adjustments in ventilator settings, IV fluid administration, titration of pressors, adjustments of medications, discussion of patient with consultants and other care providers as well as updating patient and/or family (if patient by virtue of his/her condition is unable to participate in decision making). This does not include time spent performing separately billed procedures. Time is not concurrent with that of other providers.
[2024-12-07] MEDS: PRAVASTATIN 40MG TAB 40 MG PO (20:00)
--- NOTE | 2024-12-07 22:44 | PC.NURSE ---
This RN went into patients room at 22:44 because patients monitor was reading 0 for heart rate. Upon entering patients room patient was sitting up in bed vomiting. patients heart rate was then at 32 on the monitor. patient states she started to feel nauseous and then started vomiting. Zofran was administered per PRN orders. patient states the nausea was starting to pass. Will continue to monitor.
[2024-12-08] VITALS (57 sets, daily range): BP systolic 73–201; BP diastolic 35–97; PULSE 43–90; RESP 12–33; TEMP 36.4–36.9; O2SAT 90–100; BMI 35.9
[2024-12-08] MEDS: DOPAMINE HCL/D5W 250 ML 47.9 MG IV ×2 (03:21→09:18)
[2024-12-08 06:37] LABS: Albumin Level 4.6 g/dl (3.5-5.0); Chloride 99 mmol/L (98-107)
[2024-12-08 06:38] LABS: Potassium 4.4 mmoL/L (3.5-5.1); Sodium 135 mmol/L (136-145)
[2024-12-08 06:39] LABS: Hematocrit 39.8 % (37.0-47.0); Hemoglobin 12.9 g/dL (12.2-16.2); Immature Granulocytes % 0.5 %; Mean Corpuscular HGB Conc 32.4 g/dL (31.8-35.4); Mean Corpuscular Hemoglobin 29.3 pg (27.0-31.2); Mean Corpuscular Volume 90.2 fl (81-99); Nucleated Red Blood Cells % 0 %; Platelet Count 339 K/mm3 (142-424); Red Blood Count 4.41 M/mm3 (4.20-5.40); Red Cell Distribution Width-SD 40.7 fL; White Blood Count 10.5 K/mm3 (4.8-10.8)
[2024-12-08 06:40] LABS: Alanine Aminotransferase 30 U/L (12-78); Alkaline Phosphatase 50 U/L (38-126); Anion Gap 12.4 mEq/L (5-15); Aspartate Amino Transferase 93 U/L (14-36); Bilirubin,Total 0.5 mg/dl (0.2-1.3); Carbon Dioxide 28 mmol/L (22.0-30.0)
[2024-12-08 06:41] LABS: Albumin/Globulin Ratio 1.9 (1.1-1.8); Calcium 8.8 mg/dl (8.4-10.2); Globulin 2.4 g/dL (1.3-3.2); Glucose 134 mg/dl (74-100); Magnesium 2.0 mg/dl (1.6-2.3); Total Protein,Serum 7.0 g/dl (6.3-8.2)
[2024-12-08] MEDS: LEVOTHYROXINE 137MCG (0.137MG) TAB 137 MCG PO (06:49)
--- NOTE | 2024-12-08 07:50 | PC.WOUNDNOTE ---
Addendum entered by Radha Yang RN 12/08/24 07:55: MD [facility] Original Note: Patient has significant new bruising to right forearm up to approx. 2 inches above the elbow. Area is soft. Saline locked IV was removed. Patient report it is only tender when fully extended.
[2024-12-08] MEDS: ASPIRIN EC 81MG TABLET 81 MG PO (08:41)
[2024-12-08] MEDS: CLOPIDOGREL 75MG TAB 75 MG PO (08:41)
[2024-12-08] MEDS: PRIMIDONE 50MG TABLET 100 MG PO (08:44)
[2024-12-08 09:03] LABS: Blood Urea Nitrogen 24 mg/dl (7-17); Creatinine Clearance Estimated 62 mL/min (50-200); Creatinine,Serum 1.00 mg/dl (0.52-1.04); Estimated Glomerular Filt Rate 54 ml/min (>60); GFR (African American) 65 ML/MIN (>60)
--- NOTE | 2024-12-08 09:08 | P.PN_ITS ---
Subjective *Date: 12/08/24 *Time: 11:53 Interval history: Had some brief episodes bradycardia overnight but did not require titration of dopamine. Feeling better this morning. Heart rate 80 on rounds. Tolerating p.o. intake. Noted bruising of right arm that appears to have progressed over the past 24 hours. Stable on 2 L. Medical Exam Vital signs and Labs for Last 24 Hours: Vital Signs Temp Pulse Resp BP Pulse Ox O2 Del Method O2 Flow Rate 12/08/24 08:54 97 Nasal Cannula 2 12/08/24 08:02 97.9 F 74 15 123/97 H 97 Nasal Cannula 2 12/08/24 08:00 50 L 12/08/24 07:00 58 L 19 130/46 L 97 Nasal Cannula 2 12/08/24 06:52 Nasal Cannula 2 12/08/24 06:30 53 L 16 131/48 L 99 12/08/24 05:30 82 21 134/70 98 12/08/24 05:00 Nasal Cannula 2 12/08/24 04:30 78 14 126/67 99 12/08/24 04:00 98 Nasal Cannula 2 12/08/24 04:00 79 12/08/24 04:00 98.5 F 76 14 144/67 H 98 Nasal Cannula 2 12/08/24 03:00 55 L 17 138/56 L 97 12/08/24 03:00 Nasal Cannula 2 12/08/24 02:00 52 L 14 127/50 L 98 Nasal Cannula 2 12/08/24 01:31 82 15 110/50 L 96 12/08/24 01:01 14 121/45 L 12/08/24 01:00 Nasal Cannula 2 12/08/24 00:30 80 21 146/60 H 99 12/08/24 00:00 78 12/08/24 00:00 99 Nasal Cannula 2 12/08/24 00:00 98.2 F 75 14 152/72 H 99 Nasal Cannula 2 12/07/24 23:00 Nasal Cannula 2 12/07/24 23:00 97.8 F 78 12 166/71 H 98 Nasal Cannula 2 12/07/24 22:00 54 L 20 142/57 H 98 12/07/24 21:31 71 19 133/64 97 12/07/24 21:00 Nasal Cannula 2 12/07/24 21:00 81 19 164/74 H 99 Nasal Cannula 2 12/07/24 20:00 98.3 F 81 20 166/74 H 98 Room Air 12/07/24 20:00 81 12/07/24 20:00 98 Nasal Cannula 2 12/07/24 19:01 83 19 97 Nasal Cannula 2 12/07/24 19:01 137/62 12/07/24 18:42 Nasal Cannula 2 12/07/24 17:56 82 17 97 Nasal Cannula 2 12/07/24 17:56 152/69 H 12/07/24 17:00 80 16 98 Nasal Cannula 2 12/07/24 17:00 157/80 H 12/07/24 17:00 Nasal Cannula 2 12/07/24 16:16 99.0 F 12/07/24 16:00 162/53 H 12/07/24 16:00 82 17 98 Nasal Cannula 2 12/07/24 16:00 81 12/07/24 15:59 Nasal Cannula 2 12/07/24 15:00 136/61 12/07/24 15:00 79 20 96 Nasal Cannula 2 12/07/24 15:00 Nasal Cannula 2 12/07/24 14:00 132/60 12/07/24 14:00 81 17 92 L Room Air 12/07/24 13:01 127/50 L 12/07/24 13:00 80 25 H 97 Nasal Cannula 2 12/07/24 13:00 Nasal Cannula 2 12/07/24 12:07 78 12/07/24 12:00 135/69 12/07/24 12:00 78 21 98 Nasal Cannula 2 12/07/24 11:00 140/45 L 12/07/24 11:00 51 L 17 100 Nasal Cannula 2 12/07/24 11:00 Nasal Cannula 2 12/07/24 10:00 140/46 L 12/07/24 10:00 53 L 21 99 Nasal Cannula 2 Intake and Output 12/07/24 12/08/24 12/08/24 23:59 07:59 15:59 Intake Total 500 / 1629.583 227.525 / 227.525 Output Total 1000 / 2550 1400 / 1400 Balance -500 / -920.417 -1172.475 / -1172.475 Intake: Intake, Total IV Amount 500 / 1153.583 227.525 / 227.525 Dopamine HCl/D5w 250 ml @ 16 500 / 1153.583 227.525 / 227.525 MCG/KG/MIN 47.899 mls/hr IV . Q5H14M [facility] Rx#:[id number] Output: Output, Urine Amount 1000 / 2250 1400 / 1400 Other: Number of Unmeasured Voids 1 0 0 Weight 82.9 kg Patient Weight 12/08/24 23:59 Weight 82.9 kg Laboratory Results - last 24 hr 12/08/24 06:19: WBC 10.5, RBC 4.41, Hgb 12.9, Hct 39.8, MCV 90.2, MCH 29.3, MCHC 32.4, RDW 12.3, Plt Count 339, MPV 9.8, Neut % (Auto) 70.7, Lymph % (Auto) 18.6, [place] % (Auto) 8.6, Eos % (Auto) 1.3, Baso % (Auto) 0.3, Neut # (Auto) 7.4, Lymph # (Auto) 2.0, [place] # (Auto) 0.9, Eos # (Auto) 0.1, Baso # (Auto) 0.0, Sodium 135 L, Potassium 4.4, Chloride 99, Carbon Dioxide 28, Anion Gap 12.4, BUN 24 H, Creatinine 1.00, Estimated Creat Clear 62, Estimated GFR 54 L, Est GFR ( Amer) 65, Glucose 134 H, Calcium 8.8, Magnesium 2.0, Total Bilirubin 0.5, AST 93 H D, ALT 30, Alkaline Phosphatase 50, Total Protein 7.0, Albumin 4.6 D, Globulin 2.4, Albumin/Globulin Ratio 1.9 H I & O for Labs for Last 24 Hours: Intake & Output 12/05/24 12/06/24 12/07/24 12/08/24 23:59 23:59 22:59 23:59 Intake Total 989.045 / 621.759 5095.639 / 4384.434 5628.583 / 1629.583 227.525 / 227.525 Output Total 100 / 100 1750 / 1750 2550 / 2550 1400 / 1400 Balance 889.045 / 889.045 -490.361 / -250.361 -920.417 / -920.417 -1172.475 / -1172.475 Weight 79.3 kg 82 kg 82.2 kg 82.9 kg Constitutional: Present no acute distress, obese and chronically ill appearing Head: Present atraumatic and normocephalic ENT: Present normal exam Respiratory: Present normal respiratory effort; Absent respiratory distress, stridor, wheezes or crackles Cardiac: Present Reg Rate and Rhythm and Bradycardia GI: Present soft and normal bowel sounds; Absent distention or tenderness Extremities: Present normal inspection and full ROM Comment:: Right wrist radial insertion site clean dry and intact. Does have bruising along right forearm up to her AC. Arm less swollen today than yesterday however. Skin: Present intact; Absent erythema Neuro: Present Grossly Intact, alert, awake, oriented x 3 and moves all extremities Assessment and Plan *Assessment and plan (1) Bradycardia: Status: Acute Category: Medical Code(s): R00.1 - Bradycardia, unspecified (2) Cardiogenic shock: Status: Acute Category: Medical Code(s): R57.0 - Cardiogenic shock (3) Coronary artery dissection: Status: Acute Category: Medical Code(s): I25.42 - Coronary artery dissection (4) Coronary artery disease: Status: Acute Qualifiers: Associated angina: without angina Coronary Disease-Associated Artery/Lesion type: [place] artery [place] vs. transplanted heart: [place] heart Qualified Code(s): I25.10 - Atherosclerotic heart disease of [place] coronary artery without angina pectoris Category: Medical Code(s): I25.10 - Atherosclerotic heart disease of [place] coronary artery without angina pectoris (5) CKD (chronic kidney disease) stage 3, GFR 30-59 ml/min: Status: Chronic Qualifiers: Chronic kidney disease stage 3 subtype: stage 3a (GFR 45-59) Qualified Code(s): N18.31 - Chronic kidney disease, stage 3a Category: Medical Code(s): N18.30 - Chronic kidney disease, stage 3 unspecified (6) Hypertension: Status: Chronic Qualifiers: Hypertension type: primary hypertension Qualified Code(s): I10 - Essential (primary) hypertension Category: Medical Code(s): I10 - Essential (primary) hypertension (7) Hypertriglyceridemia: Status: Acute Category: Medical Code(s): E78.1 - Pure hyperglyceridemia (8) Hypothyroidism: Status: Chronic Qualifiers: Hypothyroidism type: acquired Qualified Code(s): E03.9 - Hypothyroidi sm, unspecified Category: Medical Code(s): E03.9 - Hypothyroidism, unspecified (9) Hyperlipidemia: Status: Chronic Qualifiers: Hyperlipidemia type: mixed hyperlipidemia Qualified Code(s): E78.2 - Mixed hyperlipidemia Category: Medical Code(s): E78.5 - Hyperlipidemia, unspecified (10) Obesity (BMI 30-39.9): Status: Acute Category: Medical Code(s): E66.9 - Obesity, unspecified (11) NSTEMI (non-ST elevated myocardial infarction): Status: Acute Category: Medical Code(s): I21.4 - Non-ST elevation (NSTEMI) myocardial infarction (12) CLAUDIA (acute kidney injury): Status: Acute Category: Medical Code(s): N17.9 - Acute kidney failure, unspecified Plan Corinne Martin is a 79-year-old female with a history of triple-vessel coronary disease, hypothyroidism, bifascicular block with tachybradycardia syndrome, hypertension presented for an outpatient [facility]. Patient and family previously did not want to undergo CABG for triple-vessel coronary disease, and had been planned for outpatient staged PCI. Patient was undergoing revascularization of the RCA today, had severe calcification and guidewire went subintimal creating coronary dissection. Patient became bradycardic, hypotensive but responded really well to dopamine drip. Discussed case with Dr. Chatterjee, will admit to the ICU on dopamine drip for further monitoring. He did advise that patient will have focal infarction, ST wave changes, and will become intermittently bradycardic. On my evaluation of the patient, she was having an episode of bradycardia to 20s, hypotension, with emesis. No chest pain, shortness of breath. Attempting to wean dopamine today. Heart rate goal above 50. Denies chest pain. Continues to require ICU level care due to drip. Problems addressed as follows: #Severe CAD, coronary calcification #Coronary dissection #Cardiogenic shock #Sinus bradycardia #Hypotension #NSTEMI type I ? History of triple coronary artery disease, patient is not agreeable to CABG. Plan for staged outpatient PCI. ? Patient was undergoing revascularization of the RCA on 12/05/24, had severe calcification and guidewire went subintimal creating coronary dissection. Patient became bradycardic, hypotensive but responded really well to dopamine drip. ? Continuing dopamine, goal heart rate greater than 50. Currently on 16 mcg/kg/min. Weaning dopamine today, discussed case with cardiology, if continues to have bradycardia in the setting of bifascicular block, may necessitate pacemaker. Further management pending tolerance of weaning dopamine. - Has had negative volume status over the past 24 hours. Down at least 2 L. Wean oxygen as tolerated. Goal sats greater 90%, currently on 2 L, will wean to room air as she is not on oxygen at baseline. - White count normal at 10.5, hemoglobin 12.9. Kidney function stable with BUN 24, creatinine 1.0. - continue Lovenox 1 mg/kg twice daily. - Continue home aspirin 81 mg, Plavix 75 mg, atorvastatin 40 mg. ? A1c 5.6 Repeat CBC, CMP, magnesium ordered for the morning. ? Continuous cardiac telemetry. CLAUDIA on CKD 3. CLAUDIA resolved. Kidney function at baseline with creatinine 1.0, BUN 24. Caution with nephrotoxins. #Hypertension: Hold home lisinopril, hydrochlorothiazide, amlodipine due to cardiogenic shock. Resume when appropriate. Blood pressure still soft on dopamine drip. Showing improvement however. #Hypothyroidism: Continue home levothyroxine 137 mcg. TSH 0.35 this morning. Full code DVT prophylaxis: Lovenox 1 mg/kg twice daily Home medications: Reconciled. Hold home Farxiga due to cardiogenic shock. ICU/Critical care attestation This patient is critically ill with 35 minutes devoted solely to this patient managing life/organ supporting interventions that required physician assessment. This includes time spent making adjustments in ventilator settings, IV fluid administration, titration of pressors, adjustments of medications, discussion of patient with consultants and other care providers as well as updating patient and/or family (if patient by virtue of his/her condition is unable to participate in decision making). This does not include time spent performing separately billed procedures. Time is not concurrent with that of other providers.
--- NOTE | 2024-12-08 10:11 | PC.NURSE ---
SPOKE WITH MICHAEL FROM CARDIOLOGY, HE STATED TO TRIAL WEANING DOPAMINE GTT 1MCG EVERY 15 MINUTES TO TRY TO GET HER OFF AND IF SHE FAILS POSSIBLE PACEMAKER.
--- NOTE | 2024-12-08 10:28 | EXP.CARD.CON ---
History of Present Illness History of Present Illness Consult date: 12/08/24 Requesting physician: Yvon Munoz Chief complaint: Bradycardia, hypotension postprocedure Additional Medical History:: 1. CAD (offered CABG but patient declined) A. 2 SHANNON to proximal to mid LAD, 1 SHANNON to proximal circumflex with persistent severe RCA disease, 11/14/2024 B. Cardiac cath, 12/05/2024, attempted RCA stenting with subsequent dissection, bradycardia and hypotension 2. Hypothyroidism A. TSH 0.35, December 06, 2024 B. On levothyroxine 3. History of bifascicular block with tachybradycardia syndrome A. Holter monitor 03/2024, average heart rate 44 bpm with frequent SVT B. Bradycardia dating back to 2019 4. Hypertension A. Echocardiogram, normal BiV systolic function, mild RV dilation, biatrial dilation, mild MR/PI/TR 5. Hyperlipidemia with statin therapy A. LDL, 84, December 2024 6. CKD, stage III A. Baseline creatinine around 1.1-1.3 with GFR around 40-44 History of present illness: 79-year-old white female who underwent outpatient cardiac cath on 12/05/2024 for anticipated RCA stenting had subsequent complication of RCA dissection, bradycardia and hypotension requiring dopamine for support. Patient subsequently admitted with additional trial of weaning off of dopamine over the weekend that resulted in recurrent bradycardia and hypotension. She has been stable on current dose of dopamine at 16 mcg/kg/min. She denies any chest pain, pressure or tightness this a.m. [facility] Disclaimer: The information contained in this section may have been updated after the patient was seen, as this information can be updated by other users. Medical History Impacted cerumen of both ears Abnormal ECG Sebaceous cyst 1 cm left lateral neck sebaceous cyst Hypothyroidism Diverticulosis Hypertriglyceridemia Hyperlipidemia Hypertension Hearing loss Surgical History History of right oophorectomy H/O colonoscopy H/O left breast biopsy Family History Other No significant family history Social History Smoking Status: Never smoker second hand exposure: No alcohol intake: never substance use type: denies use current occupational status: retired Travel in the last 8 weeks?: None household members: spouse housing: house current occupational exposures/hazards: No caffeine: No Have you lived/traveled outside US in past 30 days?: No Contact w/someone who lives/traveled outside US past 30 days?: No Exposure to someone with infectious disease in past 14 days?: No Do you have a fever (greater than 100.4 F or 38 C)?: No Have you tested positive for COVID-19?: No Exposed to someone with COVID-19 in past 14 days?: No Do you have a sore throat?: No Do you have a cough?: No Do you have any weakness?: No Do you have any diarrhea?: No Are you experiencing any unusual bleeding?: No Do you have any muscle aches/pain?: No Do you have any abdominal pain?: No Are you experiencing loss of taste or smell?: No Review of Systems Review of Systems Review of systems:: pertinent systems reviewed and negative unless documented below *Cardiovascular Cardiovascular: Denies chest pain and Denies dyspnea *Respiratory Respiratory: Denies dyspnea Exam Data for Last 24 hours Vital signs and Labs for Last 24 Hours: Temp Pulse Resp BP Pulse Ox O2 Del Method O2 Flow Rate 97.9 F 56 L 18 114/52 L 97 Nasal Cannula 2 12/08/24 08:02 12/08/24 10:05 12/08/24 10:05 12/08/24 10:05 12/08/24 10:05 12/08/24 10:05 12/08/24 10:05 Laboratory Results - last 24 hr 12/08/24 06:19: WBC 10.5, RBC 4.41, Hgb 12.9, Hct 39.8, MCV 90.2, MCH 29.3, MCHC 32.4, RDW 12.3, Plt Count 339, MPV 9.8, Neut % (Auto) 70.7, Lymph % (Auto) 18.6, [place] % (Auto) 8.6, Eos % (Auto) 1.3, Baso % (Auto) 0.3, Neut # (Auto) 7.4, Lymph # (Auto) 2.0, [place] # (Auto) 0.9, Eos # (Auto) 0.1, Baso # (Auto) 0.0, Sodium 135 L, Potassium 4.4, Chloride 99, Carbon Dioxide 28, Anion Gap 12.4, BUN 24 H, Creatinine 1.00, Estimated Creat Clear 62, Estimated GFR 54 L, Est GFR ( Amer) 65, Glucose 134 H, Calcium 8.8, Magnesium 2.0, Total Bilirubin 0.5, AST 93 H D, ALT 30, Alkaline Phosphatase 50, Total Protein 7.0, Albumin 4.6 D, Globulin 2.4, Albumin/Globulin Ratio 1.9 H I & O for Last 24 hours: Intake & Output 12/05/24 12/06/24 12/07/24 12/08/24 11:59 11:59 10:59 11:59 Intake Total 1671.383 / 6461.169 6524.884 / 5334.694 5124.433 / 1141.433 Output Total 400 / 400 2049 / 2049 3350 / 3350 Balance 1271.383 / 1271.383 -463.116 / -463.116 -2208.567 / -2208.567 Weight 176 lb 180 lb 12.465 oz 181 lb 3.52 oz 182 lb 12.211 oz Constitutional Constitutional: no acute distress *Routine Respiratory Exam Respiratory: Present CTA bilaterally; Absent wheezes or crackles *Routine Cardiovascular Exam Cardiovascular: Present RRR; Absent murmur, gallop or rubs *Routine Neurological Exam Neurological: Present alert, oriented X3 and CN II-XII intact Meds Home Medications and Allergies Home Medications ?Medication ?Instructions ?Recorded ?Confirmed ?Type hydrochlorothiazide 25 mg tablet 25 mg PO DAILY #30 tabs 04/08/24 12/05/24 Rx amlodipine 10 mg tablet 10 mg PO DAILY #90 tabs 07/15/24 12/05/24 Rx lisinopril 40 mg tablet 40 mg PO DAILY 30 days #30 tabs 09/04/24 12/05/24 Rx aspirin 81 mg tablet 81 mg PO DAILY 30 days #30 tabs 11/14/24 12/05/24 Rx clopidogrel 75 mg tablet (Plavix) 75 mg PO DAILY 30 days #30 tabs 11/14/24 12/05/24 Rx levothyroxine 137 mcg tablet 137 mcg PO DAILY #30 tabs 11/28/24 12/05/24 Rx (Levoxyl) dapagliflozin propanediol 10 mg 10 mg PO DAILY 12/05/24 12/05/24 History tablet (Farxiga) fenofibrate 160 mg tablet 160 mg PO DAILY 12/05/24 12/05/24 History pravastatin 40 mg tablet 40 mg PO DAILY 12/05/24 12/05/24 History primidone 50 mg tablet 100 mg PO DAILY 12/05/24 12/05/24 History New Prescriptions to Start Prescriptions: Allergies Allergy/AdvReac Type Severity Reaction Status Date / Time No Known Allergies Allergy Verified 11/24/24 09:57 Assessment and Plan *Assessment and plan (1) Coronary artery dissection: Status: Acute Category: Medical Code(s): I25.42 - Coronary artery dissection (2) Cardiogenic shock: Status: Acute Category: Medical Code(s): R57.0 - Cardiogenic shock (3) Coronary artery disease: Status: Acute Qualifiers: Associated angina: without angina Coronary Disease-Associated Artery/Lesion type: [place] artery [place] vs. transplanted heart: [place] heart Qualified Code(s): I25.10 - Atherosclerotic heart disease of [place] coronary artery without angina pectoris Category: Medical Code(s): I25.10 - Atherosclerotic heart disease of [place] coronary artery without angina pectoris (4) CKD (chronic kidney disease) stage 3, GFR 30-59 ml/min: Status: Chronic Qualifiers: Chronic kidney disease stage 3 subtype: stage 3a (GFR 45-59) Qualified Code(s): N18.31 - Chronic kidney disease, stage 3a Category: Medical Code(s): N18.30 - Chronic kidney disease, stage 3 unspecified (5) Hypertension: Status: Chronic Qualifiers: Hypertension type: primary hypertension Qualified Code(s): I10 - Essential (primary) hypertension Category: Medical Code(s): I10 - Essential (primary) hypertension (6) Hypothyroidism: Status: Chronic Qualifiers: Hypothyroidism type: acquired Qualified Code(s): E03.9 - Hypothyroidism, unspecified Category: Medical Code(s): E03.9 - Hypothyroidism, unspecified Plan 1. 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 Bifascicular block on EKG with asystole/bradycardia -history of tachybradycardia syndrome -May need a pacemaker 3. CAD with recent LAD and circumflex stenting, 11/2024 -Continue DAPT with aspirin and Plavix 4. Hypothyroidism -On replacement there 5. History of hypertension -Previously controlled on lisinopril and amlodipine 6. Hyperlipidemia -On statin therapy with LDL 84 this admission 7. CKD, stage III -Baseline creatinine 1.1-1.3 with GFR 40-44 Attempt to wean off dopamine today and if the patient again becomes bradycardic with hypotension we will proceed with pacemaker insertion today. Pt had another episode of bradycardia and then asystole with vomiting that responded to increase in dopamine. Telemetry now appears to be complete heart block with ventricular rates now in the 50's. Plan to proceed with LEATHER LACER-P due to anticipation that she will pace all the time.
--- NOTE | 2024-12-08 14:21 | CA_ITS ---
APPROVED REPORT EXAM: Limited 2D and color flow Echocardiogram Freezer Operator: Hannah Silva RT(R) Ht: 4 ft 11 in Wt: 182lbs BSA: 1.77 BP: 185/92 mmHg Indications: post rapid response, awaiting pacemaker placement, recent echo and cath. Echo Enhancing Agent Indication: Endocardial border delineation Agent(s) / Amount(s) Used: Definity 2 cc 2D Dimensions EF AP4 40.00 % GL Strain -9.9 % M-Mode Dimensions RVDd 2.78 cm (0.9-2.6) LVDd 5.19 cm (3.5-5.7) LVDs 3.94 cm (3.5-5.7) IVSd 1.29 cm (0.6-1.1) PWd 1.09 cm (0.6-1.1) EF (Teich) 47.60% FS 24.10% EDV (Teich) 128.90 mL ESV (Teich) 67.50 mL LV Diastology E Decel Time 114 (160-240 msec) E/A Ratio 0.6 MED E' 3.9 (>= 7 cm/sec) E'/MED E' Ratio 18.03 (<= 14) LAT E' 6.8 (>= 10 cm/sec) E/LAT E' Ratio 10.34 (<= 14) Mitral Valve MV E Max Dimitri. 70.0 (40-130 cm/s) MV A Velocity 109.0 (40-130 cm/s) E/A Ratio 0.64 MV Decel. Time 114 (160-240 ms) Other Information Study Quality: Fair Conclusion This is a limited TTE to evaluate for LV systolic function and pericardial effusion in the setting of recent profound bradycardia. The left ventricle is normal in size. There is increased LV wall thickness. There is normal global LV systolic function. LVEF is 60%. There is no pericardial effusion. Electronically signed by : Farida Siddiqui MD 12/08/2024 15:56:32
[2024-12-08] MEDS: ONDANSETRON 4MG/2ML VIAL 4 MG IV (14:25)
--- NOTE | 2024-12-08 15:04 | IR_ITS ---
APPROVED REPORT Patient Location: Inpatient Neuroradiologist: RT María (R) PROCEDURES 1. Pocket formation for Permanent Pacemaker Placement. 2. Placement of an atrial sensing and pacing coil into the right atrial appendage. 3. Placement of a ventricular sensing and pacing coil in the right ventricular apex. 4. Permanent Pacemaker Placement. INDICATION Sick Sinus Syndrome, Symptomatic bradycardia Informed consent was obtained prior to the procedure. COMPLICATIONS NONE Estimated Blood Loss: LESS THAN 10 ML TECHNIQUE 1% Lidocaine with epinephrine used to anesthetized the left anterior aspect of the chest. Scalpel was used to make the initial cutaneous incision while electrocautery was used to dissect down tinto the fascia. The fascia was lifted off the pectoralis muscle and digitally manipulated creating a pocket for the pacemaker. The patient was then placed in Trendelenburg position and the subclavian vein was accessed twice via the Selinger technique, there are two wires in the vein. A 6 Romanian sheath was placed under fluoroscopic guidance into the subclavian vein over one of the wires while keeping the other wire in place within the subclavian vein. The dilator was removed from the sheath. Using fluoroscopic guidance, the ventricular lead was placed into the right ventricular apex, screwed and secured into place. Electronic interrogation proved acceptable thresholds and voltage within the lead. Using 3-0 silk, the ventricular lead was then secured into place. Lead was secured to the facia using the 3-0 silk. Following this, the sheath was pealed away. An additional 6 Romanian fresh sheath and dilator was placed over the existing wire. Using fluoroscopic guidance, the atrial lead was the placed into the right atrial appendage and screwed and secured in place. Electrical interrogation demonstrated acceptable thresholds and voltage number. The atrial lead was then secured into place using 3-0 silk. 1 gram of Ancef was used to flush the pocket. Following the pacemaker generator being secured to the fascia and in place, Monocryl was used to close the subcutaneous layers while nirmala were used to close the cutaneous layer. A pressure dressing was placed and the patient was transferred to the postop holding area in stable condition for postoperative care. INTERROGATION Generator Model number: [id number] Generator Serial number: [id number] Atrial lead model number: [id number] Atrial lead serial number: [id number] P-wave: 2.5-3.0mV Impedance: 540ohms Threshold: 1.0V@4ms Right Ventricular lead model number: [id number] Right Ventricular lead serial number: [id number] R-wave: 9mV Impedance: 553ohms Threshold: 1.0V@4ms Pacing Parameters: Mode: DDDR Base/Max Track:60 ppm / 130 ppm No diaphragmatic stimulation at 10 volts. IMPRESSION 1. Successful pocket formation for Permanent Pacemaker Placement. 2. Successful placement of an atrial sensing and pacing coil into the right atrial appendage. 3. Successful placement of a ventricular sensing and pacing coil in the right ventricular apex. 4. Successful permanent Pacemaker Placement. PLAN 1. Post op wound care Electronically signed by : Del Chatterjee MD 12/10/2024 10:08:05
--- NOTE | 2024-12-08 15:26 | PC.NURSE ---
1412- PT ASYSTOLE ON SHOP AND ALTERATION TAILOR, PRIMARY NURSE IN ROOM 1414- RAPID PAGED OVERHEAD, PATIENT PLACED ON ZOLL, DOPAMINE TITRATED UP TO 15MCG (SEE MAR) 1415 'S MARIBEL AND HECTOR WELL RAPID RESPONSE TEAM AT BEDSIDE 1416- MANUAL BP OF 110/70, PULSES PALPATED AND DOPPLERED CAROTID AND GROIN 1418-MD LÓPEZ CALLED COURTNEY THE PACEMAKER REP 1421- ECHO CALLED, AND REACHED OUT TO ANESTHESIA 1424- ECHO AT BEDSIDE, DOPAMINE TITRATED UP TO 20MCG PER MARIBEL (SEE MAR)
[2024-12-08] MEDS: DEFINITY US ECHO CONTRAST 2ML INJ 2 MG IV (15:37)
[2024-12-08] MEDS: DOPAMINE HCL/D5W 250 ML 59.87 MG IV (15:49)
--- NOTE | 2024-12-08 16:12 | ECG_ITS ---
APPROVED REPORT Exam: Resting ECG HR:87 bpm ECG Measurements Heart Rate 87 AXES RI 119 P 62 QRSd 122 QRS -33 QT 351 T -71 QTc 396 Conclusion SINUS RHYTHM WITH SHORT RI INTERVAL LEFT AXIS DEVIATION [QRS AXIS < -30] RIGHT BUNDLE BRANCH BLOCK [120+ ms QRS DURATION, UPRIGHT V1, 40+ ms S IN I/aVL/V4/V5/V6] LEFT VENTRICULAR HYPERTROPHY AND ST-T CHANGE [VOLTAGE CRITERIA PLUS ST/T ABNORMALITY] LATERAL MYOCARDIAL INFARCTION , OF INDETERMINATE AGE [40+ ms Q WAVE AND/OR ST/T ABNORMALITY IN I/aVL/V5/V6] ABNORMAL ECG UNCONFIRMED REPORT Electronically signed by : Jasper Fernandez MD 12/09/2024 08:47:59
--- NOTE | 2024-12-08 16:28 | P.PNANES_ITS ---
[facility] Disclaimer: The information contained in this section may have been updated after the patient was seen, as this information can be updated by other users. Medical History Impacted cerumen of both ears Abnormal ECG Sebaceous cyst Hypothyroidism Diverticulosis Hypertriglyceridemia Hyperlipidemia Hypertension Hearing loss Surgical History History of right oophorectomy H/O colonoscopy H/O left breast biopsy Family History Other No significant family history Social History Smoking Status: Never smoker second hand exposure: No alcohol intake: never substance use type: denies use current occupational status: retired Travel in the last 8 weeks?: None household members: spouse housing: house current occupational exposures/hazards: No caffeine: No Have you lived/traveled outside US in past 30 days?: No Contact w/someone who lives/traveled outside US past 30 days?: No Exposure to someone with infectious disease in past 14 days?: No Do you have a fever (greater than 100.4 F or 38 C)?: No Have you tested positive for COVID-19?: No Exposed to someone with COVID-19 in past 14 days?: No Do you have a sore throat?: No Do you have a cough?: No Do you have any weakness?: No Do you have any diarrhea?: No Are you experiencing any unusual bleeding?: No Do you have any muscle aches/pain?: No Do you have any abdominal pain?: No Are you experiencing loss of taste or smell?: No [facility] Anesthesia Checklist Patient Identification Patient Identification: Arm Band and Verbal (Name & ) Structural Data Admitted From: Home Planned Operative Procedure/s: Pacemaker Consent for Planned Operative Procedure(s) Verified: Yes Verified Documents: Surgical Consent, History and Physical and Cardiac Clearance NPO Status Verified Time NPO: 00:00 Additional verifications Anesthesia Reactions: No (nausea) Hx Blood Transfusions: No Blood Transfusion Reaction: No Airway Assessment Mallampati Score:: Class II Dentition: Good Dentition Neurological Assessment Level of Consciousness: Awake, Alert and Appropriate Hx Seizures: No Numbness or tingling in extremities: No Anesthesia Plan Anesthesia Risk discussed: Yes Anesthesia Plan: Verified ASA Class: III Anesthesia Type: General
[2024-12-08] MEDS: LIDOCAINE 1% W/EPI 1:100,000 20ML VIAL 20 ML SQ (17:52)
[2024-12-08] MEDS: 0.9 % SODIUM CHLORIDE 500 ML 999 ML IV (17:53)
--- NOTE | 2024-12-08 19:25 | XR_ITS ---
PROCEDURE INFORMATION: Exam: XR Chest Exam date and time: 12/08/2024 7:35 PM Age: 79 years old Clinical indication: Device placement; Cardiac pacemaker lead placement or adjustment; Prior surgery; Surgery date: Post-operative (0-2 days); Surgery type: Pacemaker today; Additional info: Post pacemaker insertion TECHNIQUE: Imaging protocol: Radiologic exam of the chest. Views: 1 view. Total images: 1 COMPARISON: CR XR CHEST 2V 11/29/2022 11:42 AM FINDINGS: Tubes, catheters and devices: Left subclavian cardiac pacemaker. Appropriately positioning. EKG leads and extrinsic cardiac pacer pads. Lungs: Poor lung expansion with crowding. No airspace consolidation, vascular congestion, or pulmonary edema. Densely calcified right basilar granuloma. Pleural spaces: Unremarkable. No pleural effusion. No pneumothorax. Heart/Mediastinum: Unremarkable. No cardiomegaly. No mediastinal widening or hilar enlargement. Vasculature: Atherosclerotic aortic arch. Bones/joints: Osteopenia. Stable chest wall structures. IMPRESSION: 1. No radiographically acute cardiopulmonary process. 2. Status post left subclavian cardiac pacer. Appropriately positioned. 3. No pneumothorax. 4. Poor lung expansion with bibasilar crowding.
[2024-12-08] MEDS: LACTATED RINGERS 1000ML 1,000 ML 999 ML IV (19:30)
[2024-12-08] MEDS: DOPAMINE HCL/D5W 250 ML 29.94 MG IV (20:25)
--- NOTE | 2024-12-08 20:34 | PC.NURSE ---
Patient arrived back from clinical laboratory service teacher to ICU unit via clinical laboratory service teacher stretcher @19:56
--- NOTE | 2024-12-08 21:18 | PC.NURSE ---
Addendum entered by Lupe Ingram RN 12/08/24 21:27: Dr. Chatterjee also stated to titrate dopamine drip if possible. Original Note: Dr. Chatterjee called the unit to ask status of patient at 21:19. Patient has remained stable since coming back to unit from pacemaker procedure. received orders from Dr. Chatterjee for morning labs and IV fluids.
[2024-12-08] MEDS: 0.9 % SODIUM CHLORIDE 1000ML 1,000 ML 150 ML IV (22:38)
[2024-12-09] VITALS (93 sets, daily range): BP systolic 59–200; BP diastolic 31–165; PULSE 70–104; RESP 11–36; TEMP 36.3–37; O2SAT 91–100; BMI 36.0
[2024-12-09] MEDS: DOPAMINE HCL/D5W 250 ML 29.94 MG IV (04:49)
[2024-12-09] MEDS: 0.9 % SODIUM CHLORIDE 1000ML 1,000 ML 150 ML IV ×2 (05:03→16:52)
[2024-12-09 06:08] LABS: Hematocrit 28.6 % (37.0-47.0); Immature Granulocytes % 0.6 %; Mean Corpuscular HGB Conc 32.5 g/dL (31.8-35.4); Mean Corpuscular Hemoglobin 29.7 pg (27.0-31.2); Mean Corpuscular Volume 91.4 fl (81-99); Nucleated Red Blood Cells % 0 %; Platelet Count 268 K/mm3 (142-424); Red Blood Count 3.13 M/mm3 (4.20-5.40); Red Cell Distribution Width-SD 41.9 fL; White Blood Count 15.6 K/mm3 (4.8-10.8)
[2024-12-09 06:17] LABS: Albumin Level 3.3 g/dl (3.5-5.0); Chloride 101 mmol/L (98-107); Potassium 4.6 mmoL/L (3.5-5.1); Sodium 132 mmol/L (136-145)
[2024-12-09 06:19] LABS: Hemoglobin 9.2 g/dL (12.2-16.2)
[2024-12-09 06:20] LABS: Alanine Aminotransferase 22 U/L (12-78); Albumin/Globulin Ratio 1.6 (1.1-1.8); Alkaline Phosphatase 45 U/L (38-126); Anion Gap 8.6 mEq/L (5-15); Aspartate Amino Transferase 47 U/L (14-36); Bilirubin,Total 0.4 mg/dl (0.2-1.3); Blood Urea Nitrogen 20 mg/dl (7-17); Calcium 7.5 mg/dl (8.4-10.2); Carbon Dioxide 27 mmol/L (22.0-30.0); Creatinine Clearance Estimated 62 mL/min (50-200); Creatinine,Serum 1.00 mg/dl (0.52-1.04); Estimated Glomerular Filt Rate 54 ml/min (>60); GFR (African American) 65 ML/MIN (>60); Globulin 2.1 g/dL (1.3-3.2); Glucose 131 mg/dl (74-100); Total Protein,Serum 5.4 g/dl (6.3-8.2)
[2024-12-09 06:21] LABS: Magnesium 1.7 mg/dl (1.6-2.3)
[2024-12-09] MEDS: LEVOTHYROXINE 137MCG (0.137MG) TAB 137 MCG PO (06:41)
[2024-12-09 07:20] LABS: POC Glucose,Bedside 163 gm/dL (70-110)
--- NOTE | 2024-12-09 07:37 | PC.NURSE ---
patient blood pressure had declined and this nurse went into patients room to check on her at 0655. When entering the room patient had agonal respirations and was not responsive to nurse. This nurse then called for a second nurse to come into the room with her and a rapid response was intiated at 0658. After the rapid response was called it was discovered that the patients IV in her wrist where the dopamine drip was running had been pulled out. Dopamine drip was then connected to a different IV site. Manual blood pressure was checked as well and was 80/42. At 0710 the dopamine drip was increased to 20mcg/kg/min. Patient was slightly diaphoretic at this time but had become more responsive. Blood sugar was checked as a precaution and was 163. Carine WATSON called Dr. Chatterjee and spoke to him about patients condition and received orders from him for blood transfusion and placement of central line. Bonnie ROBERTS called patients but was unable to reach him but did make contact with patients daughter to update her on patient status and receive consent for blood transfusion and central line. Daughter said she would make contact with patients to update him as well.
--- NOTE | 2024-12-09 07:39 | EXP.PHA.CONS ---
Pharmacy Consult Date: 12/09/24 Time: 07:39 Referring provider: DR. MAO Reason for Consult:: VANCOMYCIN DOSING Allergies Allergy/AdvReac Type Severity Reaction Status Date / Time No Known Allergies Allergy Verified 11/24/24 09:57 Home Medications ?Medication ?Instructions ?Recorded ?Confirmed ?Type hydrochlorothiazide 25 mg tablet 25 mg PO DAILY #30 tabs 04/08/24 12/05/24 Rx amlodipine 10 mg tablet 10 mg PO DAILY #90 tabs 07/15/24 12/05/24 Rx lisinopril 40 mg tablet 40 mg PO DAILY 30 days #30 tabs 09/04/24 12/05/24 Rx aspirin 81 mg tablet 81 mg PO DAILY 30 days #30 tabs 11/14/24 12/05/24 Rx clopidogrel 75 mg tablet (Plavix) 75 mg PO DAILY 30 days #30 tabs 11/14/24 12/05/24 Rx levothyroxine 137 mcg tablet 137 mcg PO DAILY #30 tabs 11/28/24 12/05/24 Rx (Levoxyl) dapagliflozin propanediol 10 mg 10 mg PO DAILY 12/05/24 12/05/24 History tablet (Farxiga) fenofibrate 160 mg tablet 160 mg PO DAILY 12/05/24 12/05/24 History pravastatin 40 mg tablet 40 mg PO DAILY 12/05/24 12/05/24 History primidone 50 mg tablet 100 mg PO DAILY 12/05/24 12/05/24 History New Prescriptions to Start Prescriptions: Height: 1.52 m Weight: 83.24 kg Laboratory Results:: Laboratory Results - last 24 hr 12/08/24 06:19: BUN 24 H, Creatinine 1.00, Estimated Creat Clear 62, Estimated GFR 54 L, Est GFR ( Amer) 65 12/09/24 05:23: WBC 15.6 H D, RBC 3.13 L D, Hgb 9.2 L D, Hct 28.6 L, MCV 91.4, MCH 29.7, MCHC 32.5, RDW 12.6, Plt Count 268, MPV 10.1, Neut % (Auto) 85.6 H, Lymph % (Auto) 7.9 L, [place] % (Auto) 5.7, Eos % (Auto) 0.0 L, Baso % (Auto) 0.2, Neut # (Auto) 13.4 H, Lymph # (Auto) 1.2, [place] # (Auto) 0.9, Eos # (Auto) 0.0, Baso # (Auto) 0.0, Sodium 132 L, Potassium 4.6, Chloride 101, Carbon Dioxide 27, Anion Gap 8.6, BUN 20 H, Creatinine 1.00, Estimated Creat Clear 62, Estimated GFR 54 L, Est GFR ( Amer) 65, Glucose 131 H, Calcium 7.5 L, Magnesium 1.7 D, Total Bilirubin 0.4, AST 47 H D, ALT 22 D, Alkaline Phosphatase 45, Total Protein 5.4 L, Albumin 3.3 L D, Globulin 2.1, Albumin/Globulin Ratio 1.6 12/09/24 07:10: POC Glucose 163 H 12/09/24 07:30: Crossmatch (AHG) See Detail Medical History: Medical History (Updated 12/06/24 @ 10:12 by Yvon Munoz MD) Impacted cerumen of both ears Abnormal ECG Sebaceous cyst Hypothyroidism Diverticulosis Hypertriglyceridemia Hyperlipidemia Hypertension Hearing loss Assessment and Plan Assessment and plan all Dx Assessment and Plan for all problems:: Pharmacokinetic dosing service Patient: Floor: Age: 79 yo Serum creatinine: 1 mg/dL Height: 59.8 Inches Weight (kg): 83.24 Assessment: IBW (kg): 45.35 Dosing wt(kg): 83.24 Estimated Creatinine clearance (ml/min): 33.7 CRCL method: Cockcroft and Gault using ibw(default). Drug selected: Vancomycin Loading dose (mg): 0 Vd (liters): 66.6 (factor used: 0.8 L/kg) Adilson (hr-1): 0.032 Half life (hrs): 21.66 Recommended dose: 1250 mg Interval: 24 hrs Infusion time (hrs): 2.0 Predicted peak (mcg/mL): 33.9 Predicted trough (mcg/mL): 16.77 Total body weight is being used for vancomycin dosing. Recommendations: Give Vancomycin 1250 mg q 24 hrs with an expected Cpeak of 33.9 mcg/ml and an expected Ctrough of 16.77 mcg/ml ----Flaviao only - ignore for aminoglycosides----- CLvanco= 2.13 L/hr AUC 0-24 /TESFAYE Data: TESFAYE 0.5 mcg/mL: AUC/TESFAYE: 1173.7 TESFAYE 1.0 mcg/mL: AUC/TESFAYE: 586.9 --------- TESFAYE 1.5 mcg/mL: AUC/TESFAYE: 391.2 TESFAYE 2.0 mcg/mL: AUC/TESFAYE: 293.4
[2024-12-09 08:08] LABS: Procalcitonin 0.118 ng/mL (0.0-2.0)
[2024-12-09 08:13] LABS: Phosphorous 3.6 mg/dl (2.5-4.5)
--- NOTE | 2024-12-09 08:52 | XR_ITS ---
FINAL REPORT CLINICAL HISTORY: PICC line placement COMPARISON: 12/08/2024 FINDINGS: A portable view of the chest was obtained. There has been interval placement of a left sided PICC line with the tip partially obscured by pacer wires but appears to terminate in the SVC. Left-sided pacer is unchanged. The heart is normal in size. There has been interval development of left lung opacity and moderate to large left pleural effusion. Etiology is unclear particularly given development in 1 day's time. There is no pleural effusion or pneumothorax. IMPRESSION: PICC line in appropriate position. New left lung opacity and left pleural effusion, etiology unclear. Recommend close follow-up. Reviewed, Interpreted and Dictated by Norma Christian MD Transcribed by Hillary Costello Authenticated and . [facility]
[2024-12-09 08:59] LABS: C-Reactive Protein 31.2 mg/L (0-4)
--- NOTE | 2024-12-09 09:06 | ECG_ITS ---
APPROVED REPORT Exam: Resting ECG HR:77 bpm ECG Measurements Heart Rate 77 AXES NC 141 P 69 QRSd 119 QRS -39 QT 371 T -22 QTc 402 Conclusion ELECTRONIC ATRIAL PACEMAKER RBBB Diffuse STTW changes - unchanged from yesterday's tracing ABNORMAL ECG UNCONFIRMED REPORT Electronically signed by : Jasper Fernandez MD 12/10/2024 08:01:01
--- NOTE | 2024-12-09 09:21 | CA_ITS ---
APPROVED REPORT EXAM: Comprehensive 2D, Doppler, and color-flow Echocardiogram Architectural Project Captain: DORENE Pruitt, RVS Ht: 4 ft 11 in Wt: 183lbs BSA: 1.78 BP: 115/60 mmHg Indications: CAD, Post pacer with EF=40%, RV infarct, Left pleural effusion Echo Enhancing Agent Comments: Extremely limited windows patient scanned supine while receiving treatmennt and Blood 2D Dimensions IVSd 1.25 cm LVEF (Visual) 50.60 % PWd 0.99 cm LVEF (Jose's) 49.00 % LVDd 4.57 cm LV Volume 53.50 mL LVDs 3.40 cm LV Volume Index 30.459903 mL/m2 F: 29 - 61 Aortic Root 3.35 cm LA Volume 57.50 mL Left Atrium 4.01 cm LA Volume Index 32.905362 mL/m2 (M/F) 16-34 LVOT 1.94 cm (M/F) 1.5-2.5 EF AP4 47.00 % EF AP2 51.2 % EF BP 49.0 % GL Strain -18.7 % M-Mode Dimensions LVDd 4.57 cm (3.5-5.7) Ao Diam 2.80 cm (2.0-3.7) LVDs 4.45 cm (3.5-5.7) IVSd 1.26 cm (0.6-1.1) PWd 1.26 cm (0.6-1.1) EF (Teich) 48.40% FS 25.07% EDV (Teich) 174.60 mL ESV (Teich) 90.10 mL LV Diastology E Decel Time 247 (160-240 msec) E/A Ratio 0.62 MED E' 3.9 (>= 7 cm/sec) MED A' 6.10 cm/s E'/MED E' Ratio 11.51 (<= 14) LAT E' 4.6 (>= 10 cm/sec) LAT A' 6.60 cm/s E/LAT E' Ratio 9.76 (<= 14) Aortic Valve LVOT Max 127.0 (70-110 cm/s) VICKY Index 1.05 cm2/m2 LVOT VTI 17.68 cm AoV Peak Dimitri. 165.0 (50-130 cm/s) AO Mean GR. 5.30 (<5 mmHg) AO VTI 27.9 (18-25 cm) VICKY (VTI) 1.87 (2.5-4.5 cm2) Mitral Valve MV E Max Dimitri. 45.0 (40-130 cm/s) MV A Velocity 73.0 (40-130 cm/s) E/A Ratio 0.62 MV Decel. Time 247 (160-240 ms) MV Mean Gr. 0.90 (<2mmHg) MV PHT 117.0 ms Left Ventricle The left ventricle is normal size. Left ventricular systolic function is normal. The left ventricular ejection fraction is within the normal range. There is increased left ventricular wall thickness. There is normal LV segmental wall motion. The left ventricular diastolic function is indeterminate. LVEF is 55% Right Ventricle The right ventricle is not very well visualized, but grossly appears normal in size and function. Atria The left atrium is mildly dilated. The right atrium is mildly dilated. There is no color Doppler evidence of interatrial shunt. Aortic Valve The aortic valve is mildly thickened. There is no hemodynamically significant aortic valvular stenosis. Trace aortic regurgitation is present. Mitral Valve The mitral valve is normal in structure. No evidence of mitral valve stenosis. Trace mitral regurgitation is present. Tricuspid Valve The tricuspid valve leaflets are thin and pliable. Trace tricuspid regurgitation. There is insufficient TR jet to estimate RVSP. Pulmonic Valve The pulmonary valve is grossly normal in structure. Trace pulmonic valve regurgitation is present. Great Vessels The aortic root is normal in size. IVC is normal in size and collapses >50% with inspiration. Pericardium There is no pericardial effusion. Large pleural effusion is present. Other Information Study Quality: Technically Difficult Conclusion Technically difficult study. Grossly, normal biventricular systolic function. Mild biatrial dilation. No significant valvular stenosis or regurgitation. Large pleural effusion. Electronically signed by : Farida Siddiqui MD 12/09/2024 13:33:53
[2024-12-09] MEDS: ONDANSETRON 4MG/2ML VIAL 4 MG IV ×2 (09:22→16:13)
[2024-12-09] MEDS: PIPERCILLIN/TAZO 3.375 GM in 0.9 % SODIUM CHLORIDE 50 ML IV ×3 (09:29→21:03)
[2024-12-09] MEDS: 0.9 % SODIUM CHLORIDE 250 ML 25 ML IV ×2 (09:54→18:05)
--- NOTE | 2024-12-09 09:59 | PC.NURSE ---
0830 - First attempt made for PICC line in right upper arm r/t recent pacemaker placement on left side. Access was gained successfully, but PICC was unable to be threaded past 15 cm. Pt was repositioned and multiple attempts made to get catheter to thread. Spoke w/ Dr. Chatterjee via phone and was made aware of difficulty threading PICC. Dr. Chatterjee states to attempt placement on left side. MD is okay w/ going on the same side that pacemaker was recently placed. Sterile technique used on left upper arm to gain access for dual lumen PICC usign US guidance - catheter was successfully threaded. Blood return noted. CXR obtained per protocol. Dr. Chatterjee @ bedside - CXR personally reviewed by him. Awaiting official read - pt left in stable condition, call morris w/in reach, bed alarm in pkace. Spoke w/ primary nurse and updated on POC.
[2024-12-09] MEDS: DOPAMINE HCL/D5W 250 ML 59.87 MG IV (10:14)
--- NOTE | 2024-12-09 10:26 | XR_ITS ---
FINAL REPORT CLINICAL HISTORY: lack of bm today FINDINGS: A single supine view the abdomen was obtained. The bowel gas pattern is nonspecific but nonobstructive. There is a moderate amount of stool in the proximal colon. There are no pathologic calcifications. Osseous structures are within normal limits. IMPRESSION: Moderate stool burden. Reviewed, Interpreted and Dictated by Norma Christian MD Transcribed by Evelyn Pearce Authenticated and [facility]
--- NOTE | 2024-12-09 10:29 | PC.NURSE ---
Primary staff made aware that pt's PICC line is in good position and is okay to use.
[2024-12-09] MEDS: VANCOMYCIN/WATER FOR INJ (PEG) 1.25 GM/250 ML PIGGYBACK IV (11:09)
[2024-12-09] MEDS: ASPIRIN EC 81MG TABLET 81 MG PO (11:26)
[2024-12-09] MEDS: PRIMIDONE 50MG TABLET 100 MG PO (11:26)
[2024-12-09] MEDS: CLOPIDOGREL 75MG TAB 75 MG PO (11:27)
--- NOTE | 2024-12-09 11:48 | US_ITS ---
FINAL REPORT TECHNIQUE: Sonographic images of the right upper quadrant were obtained. CLINICAL HISTORY: recurrent nausea/vomiting FINDINGS: PANCREAS: Unremarkable. LIVER: Homogeneous. No focal hepatic lesion. No intrahepatic biliary ductal dilatation. The portal vein is normal. GALLBLADDER: No gallstones. No gallbladder wall thickening or pericholecystic fluid. COMMON DUCT: 3 mm. Normal for age. RIGHT KIDNEY: The right kidney measures 9.3 cm. There is no hydronephrosis, mass, or stone. FREE FLUID: None. In the mid abdomen is a cystic lesion measuring 7 cm of uncertain origin near the pancreas, could represent a pseudocyst. IMPRESSION: No gallstones. Cystic lesion near the pancreas about an etiology, could represent a pseudocyst. Consider CT Reviewed, Interpreted and Dictated by Norma Christian MD Transcribed by Evelyn Pearce Authenticated and [facility]
[2024-12-09 12:05] LABS: Adenovirus,PCR Not Detected (NotDetected); Chlamydophila Pneumoniae, PCR Not Detected (NotDetected); Coronavirus 19, PCR Not Detected (NotDetected); Coronovirus HKU1,PCR Not Detected (NotDetected); Influenza A, PCR Not Detected (NotDetected); Influenza AH1, 2009 Not Detected (NotDetected); Influenza AH1, PCR Not Detected (NotDetected); Influenza AH3,PCR Not Detected (NotDetected); Influenza B, PCR Not Detected (NotDetected); Mycoplasma Pneumoniae, PCR Not Detected (NotDetected); Parainfluenza 1, PCR Not Detected (NotDetected); Parainfluenza 2, PCR Not Detected (NotDetected); Parainfluenza 3, PCR Not Detected (NotDetected); Parainfluenza 4, PCR Not Detected (NotDetected)
[2024-12-09 12:17] LABS: Amylase 206 U/L (30-110); Lipase 153 U/L (23-300)
[2024-12-09] MEDS: MAGNESIUM SULFATE IN WATER 2 GM/50 ML PIGGYBACK IV ×2 (12:59→13:45)
[2024-12-09] MEDS: PROMETHAZINE HCL 25MG/ML 1ML VIAL 25 MG IV (13:23)
[2024-12-09] MEDS: SODIUM CHLORIDE 0.9% 25ML BAG 25 ML IV (13:24)
[2024-12-09] MEDS: PANTOPRAZOLE 40MG VIAL 40 MG IV (13:49)
--- NOTE | 2024-12-09 13:57 | EXP.CARD.PN ---
Subjective Subjective Date: 12/09/24 Time: 13:58 Principal diagnosis: bradycardia, hypotension Interval history: 79 yo WF in bed Appears worn out and exhausted after rapid response this AM and again later in the morning. Denies chest pain, pressure or tightness. No complaints of abdominal pain. Concern for RV infarct related to RCA dissection but echo this AM shows normal biventricular size and function. DIRECTOR OF LABOR RELATIONS-P implanted yesterday with rate set at 75 bpm. But still having episodes of nausea/vomiting and hypotension that seemingly responds to higher doses of dopamine. Hemoglobin has decreased to 9.2 with plans for transfusion today. Amylase mildly elevated at 206 with lipase normal. Procalcitonin normal at 0.118 Bowel sounds are hyperactive but KUB shows evidence of moderate stool burden. Exam Data for Last 24 hours Vital signs and Labs for Last 24 Hours: Temp Pulse Resp BP Pulse Ox O2 Del Method O2 Flow Rate 97.9 F 75 18 125/50 L 98 Nasal Cannula 3 12/09/24 12:51 12/09/24 12:51 12/09/24 12:51 12/09/24 12:51 12/09/24 12:51 12/09/24 13:00 12/09/24 11:00 Laboratory Results - last 24 hr 12/09/24 05:23: WBC 15.6 H D, RBC 3.13 L D, Hgb 9.2 L D, Hct 28.6 L, MCV 91.4, MCH 29.7, MCHC 32.5, RDW 12.6, Plt Count 268, MPV 10.1, Neut % (Auto) 85.6 H, Lymph % (Auto) 7.9 L, [place] % (Auto) 5.7, Eos % (Auto) 0.0 L, Baso % (Auto) 0.2, Neut # (Auto) 13.4 H, Lymph # (Auto) 1.2, [place] # (Auto) 0.9, Eos # (Auto) 0.0, Baso # (Auto) 0.0, Sodium 132 L, Potassium 4.6, Chloride 101, Carbon Dioxide 27, Anion Gap 8.6, BUN 20 H, Creatinine 1.00, Estimated Creat Clear 62, Estimated GFR 54 L, Est GFR ( Amer) 65, Glucose 131 H, Calcium 7.5 L, Phosphorus 3.6 D, Magnesium 1.7 D, Total Bilirubin 0.4, AST 47 H D, ALT 22 D, Alkaline Phosphatase 45, C-Reactive Protein 31.2 H, Total Protein 5.4 L, Albumin 3.3 L D, Globulin 2.1, Albumin/Globulin Ratio 1.6, Amylase 206 H, Lipase 153, Procalcitonin 0.118, Blood Type Confirm O Positive 12/09/24 07:10: POC Glucose 163 H 12/09/24 07:30: Blood Type O Positive, Antibody Screen Negative, Crossmatch (AHG) See Detail I & O for Last 24 hours: Intake & Output 12/07/24 12/08/24 12/09/24 12/10/24 10:59 11:59 11:59 11:59 Intake Total 1586.884 / 2313.297 9341.044 / 6028.212 4631.659 / 2561.659 635.000 / 635.000 Output Total 2049 / 2049 3625 / 3625 600 / 600 200 / 200 Balance -463.116 / -463.116 -2396.956 / -2396.956 1961.659 / 1961.659 435.000 / 435.000 Weight 181 lb 3.52 oz 182 lb 12.211 oz 183 lb 8.204 oz Constitutional Constitutional: mild distress and moderate distress *Routine Respiratory Exam Respiratory: Present decreased breath sounds and diminished air movement; Absent wheezes *Routine Cardiovascular Exam Cardiovascular: Absent murmur, gallop or rubs Comments: Paced rhythm *Routine Extremities Exam Extremities: Present edema Comments: Bruising of the right upper extremity again noted today slightly more swelling. PICC line has been placed in the left upper extremity Progress Note: A&P Assessment and plan (1) Coronary artery dissection: Status: Acute (2) Cardiogenic shock: Status: Acute (3) Coronary artery disease: Status: Acute (4) CKD (chronic kidney disease) stage 3, GFR 30-59 ml/min: Status: Chronic (5) Hypertension: Status: Chronic (6) Hypothyroidism: Status: Chronic Assessment and Plan Assessment and Plan for All Diagnoses:: 1. 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 Bifascicular block on EKG with asystole/bradycardia -history of tachybradycardia syndrome - DIRECTOR OF LABOR RELATIONS-P implantation on 12/08/2024 3. CAD with recent LAD and circumflex stenting, 11/2024 -Continue DAPT with aspirin and Plavix 4. Hypothyroidism -On replacement there 5. History of hypertension, now with intermittent nausea/vomiting/hypotensive episodes requiring vasopressor support -Previously controlled on lisinopril and amlodipine 6. Hyperlipidemia -On statin therapy with LDL 84 this admission 7. CKD, stage III -Baseline creatinine 1.1-1.3 with GFR 40-44 8. Anemia with hemoglobin 9.2 this a.m. -Transfuse to greater than 10 due to recent coronary issues 7. New left pleural effusion post pacemaker implantation -concern for hemothorax due to subclavian artery stick in attempt to find the vein, per Dr. Chatterjee -will get CT of chest -consult Dr. Juarez for possible thoracentesis Unable to find the etiology for the patient's nausea/vomiting/hypotension (possibly due to dopamine) Will try to wean off dopamine and use phenylephrine for vasopressor support if needed Will ask GI to consult for possible abdominal issues causing hypotension Pulmonary consult for possible hemothorax/thoracentesis
[2024-12-09 14:10] LABS: Hematocrit 28.8 % (37.0-47.0); Hemoglobin 9.6 g/dL (12.2-16.2)
[2024-12-09] MEDS: PHENYLEPHRINE HCL 10 MG in 0.9 % SODIUM CHLORIDE 250 ML 15.06 MG IV (14:10)
--- NOTE | 2024-12-09 14:44 | CT_ITS ---
FINAL REPORT TECHNIQUE: Thin section axial images were obtained from the lung apices through the upper abdomen without contrast. This study was performed with techniques to keep radiation doses as low as reasonably achievable (ALARA). Individualized dose reduction techniques using automated exposure control or adjustment of mA and/or kV according to the patient's size were employed. CLINICAL HISTORY: Concern for left hemothorax COMPARISON: None FINDINGS: Left pacemaker with subcutaneous air and surrounding abnormal attenuation, presumed very recent placement. No axillary, mediastinal, or right hilar lymphadenopathy. Left hilar lymphadenopathy not excluded.. Large left pleural collection with high density most consistent with large hemothorax. Shift of the mediastinal structures to the right. There is significant collapse of both the left upper and left lower lobes. Small left anterior pneumothorax. Nodular opacities in the right lung favored to be infectious or inflammatory. Aspiration not excluded. There is no acute osseous abnormality. IMPRESSION: Large left hemothorax, essentially developed since chest x-ray yesterday. Active hemorrhage difficult to exclude. This is associated with shift of the mediastinal structures to the right. Subcutaneous air and abnormal attenuation surrounding pacemaker in the left chest wall, presumed recently placed. Small left apical pneumothorax. Right lung opacities, aspiration not excluded. Reviewed, Interpreted and Dictated by Norma Christian MD Transcribed by Hillary Costello Authenticated and [facility]
--- NOTE | 2024-12-09 14:46 | CT_ITS ---
FINAL REPORT TECHNIQUE: Thin section axial images are obtained through the abdomen and pelvis after intravenous contrast. Reconstruction images were obtained from the axial data. Exam was performed using dose reduction techniques. CLINICAL HISTORY: intractable N/V COMPARISON: None FINDINGS: LIVER: Small hypodense lesion medial left lobe of the liver is likely a cyst. The remainder of the liver is homogeneous. GALLBLADDER/BILIARY SYSTEM: Gallbladder is present. No gallstones. No biliary dilatation. SPLEEN: Unremarkable. PANCREAS: Unremarkable. ADRENALS: Unremarkable. KIDNEYS/URETERS/BLADDER: Bilateral renal cysts. No hydronephrosis. Unremarkable urinary bladder. GI TRACT: No small bowel obstruction or dilatation. Normal appendix. No acute colon abnormality. Diverticulosis without diverticulitis. PELVIC ORGANS: Uterus is present. LYMPH NODES/RETROPERITONEUM/MESENTERY: No lymphadenopathy. No abdominal aortic aneurysm. ABDOMINAL WALL: Right paramidline hernia along the lower anterior abdominal wall containing small bowel.. FREE FLUID: No ascites. BONES: No acute osseous abnormality. IMPRESSION: No evidence bowel obstruction or acute GI tract abnormality. Ventral hernia lower anterior abdominal wall. Reviewed, Interpreted and Dictated by Norma Christian MD Transcribed by Hillary Costello Authenticated and [facility]
--- NOTE | 2024-12-09 14:52 | HMH.ITSTN ---
I spoke with nurse Edward and she will call radiology when patient is ready to come down for CT. One tech will need to help transport patient to CT.
--- NOTE | 2024-12-09 15:02 | PC.NURSE ---
to radiology with Boo ROBERTS and Tricia Hoskins RN
[2024-12-09] MEDS: DOPAMINE HCL/D5W 250 ML 56.88 MG IV (15:10)
[2024-12-09 15:25] LABS: Microscopic, Urine URINE MICROSCOPIC (MICROSCOPIC)
[2024-12-09 15:28] LABS: Bilirubin,Urine Negative (Negative); Color,Urine YELLOW (Yellow); Glucose,Urine (UA) 1+ (Negative); Ketones,Urine Negative (Negative); Leukocyte Esterase,Urine Negative (Negative); PH,Urine 6.0 (5.0-8.5); Protein,Urine Negative (Negative); Specific Gravity, Urine 1.020 (1.005-1.030); Urobilinogen,Urine 0.2 EU/dl (0.2)
[2024-12-09] MEDS: IOPAMIDOL-370 (76%);100ML BOTTLE 75 ML IV (15:28)
--- NOTE | 2024-12-09 15:37 | P.CONS_ITS ---
History of Present Illness History of present illness: Ms. Martin is a 79-year-old female with complicated medical history severe CAD however refused bypass status post SHANNON to LAD, RCA stenting status post dissection resulting in bradycardia hypotension followed by pacemaker placement now noted to have worsening left-sided pleural effusion concerning for left- sided hemothorax and pulmonary was called for further evaluation and management. [facility] Disclaimer: The information contained in this section may have been updated after the patient was seen, as this information can be updated by other users. Medical History (Updated 12/09/24 @ 16:50 by Candie Juarez MD) Acute respiratory failure with hypoxia Pleural effusion, left Impacted cerumen of both ears Abnormal ECG Sebaceous cyst Hypothyroidism Diverticulosis Hypertriglyceridemia Hyperlipidemia Hypertension Hearing loss Surgical History History of right oophorectomy H/O colonoscopy H/O left breast biopsy Family History Other No significant family history Social History Smoking Status: Never smoker second hand exposure: No alcohol intake: never substance use type: denies use current occupational status: retired Travel in the last 8 weeks?: None household members: spouse housing: house current occupational exposures/hazards: No caffeine: No Have you lived/traveled outside [place] in past 30 days?: No Contact w/someone who lives/traveled outside US past 30 days?: No Exposure to someone with infectious disease in past 14 days?: No Do you have a fever (greater than 100.4 F or 38 C)?: No Have you tested positive for COVID-19?: No Exposed to someone with COVID-19 in past 14 days?: No Do you have a sore throat?: No Do you have a cough?: No Do you have any weakness?: No Do you have any diarrhea?: No Are you experiencing any unusual bleeding?: No Do you have any muscle aches/pain?: No Do you have any abdominal pain?: No Are you experiencing loss of taste or smell?: No Review of Systems Review of Systems Review of systems:: unable to obtain Review of systems (narrative): Patient currently is lethargic, barely responding to verbal command Pulmonology Exam Inpatient Vital signs and Labs for Last 24 Hours: Temp Pulse Resp BP Pulse Ox O2 Del Method O2 Flow Rate 97.6 F 75 14 112/40 L 100 Nasal Cannula 3 12/09/24 13:51 12/09/24 13:51 12/09/24 13:51 12/09/24 13:51 12/09/24 13:51 12/09/24 13:00 12/09/24 11:00 Laboratory Results - last 24 hr 12/09/24 05:23: WBC 15.6 H D, RBC 3.13 L D, Hgb 9.2 L D, Hct 28.6 L, MCV 91.4, MCH 29.7, MCHC 32.5, RDW 12.6, Plt Count 268, MPV 10.1, Neut % (Auto) 85.6 H, L ymph % (Auto) 7.9 L, [place] % (Auto) 5.7, Eos % (Auto) 0.0 L, Baso % (Auto) 0.2, N eut # (Auto) 13.4 H, Lymph # (Auto) 1.2, [place] # (Auto) 0.9, Eos # (Auto) 0.0, Baso # (Auto) 0.0, Sodium 132 L, Potassium 4.6, Chloride 101, Carbon Dioxide 27, Anion Gap 8.6, BUN 20 H, Creatinine 1.00, Estimated Creat Clear 62, Estimated GFR 54 L, Est GFR ( Amer) 65, Glucose 131 H, Calcium 7.5 L, Phosphorus 3.6 D, Magnesium 1.7 D, Total Bilirubin 0.4, AST 47 H D, ALT 22 D, Alkaline Phosphatase 45, C-Reactive Protein 31.2 H, Total Protein 5.4 L, Albumin 3.3 L D, Globulin 2.1, Albumin/Globulin Ratio 1.6, Amylase 206 H, Lipase 153, Procalcitonin 0.118, Blood Type Confirm O Positive 12/09/24 07:10: POC Glucose 163 H 12/09/24 07:30: Blood Type O Positive, Antibody Screen Negative, Crossmatch (AHG) See Detail 12/09/24 11:58: Chlamy pneumoniae PCR Not detected, Adenovirus (PCR) Not detected, B. pertussis DNA (PCR) Not detected, Coronavirus OC43 (PCR) Not detected, Coronavirus HKU1 (PCR) Not detected, Coronavirus 229E (PCR) Not detected, SARS-CoV-2 (PCR) Not detected, Coronavirus NL63 (PCR) Not detected, Human Metapneumovir PCR Not detected, Influenza A (H1) PCR Not detected, Influ A (H1N1/09) PCR Not detected, Influenza A (H3) PCR Not detected, Influenza Type A (PCR) Not detected, Influenza Type B (PCR) Not detected, M. pneumoniae (PCR) Not detected, Parainfluenza 1 (PCR) Not detected, Parainfluenza 2 (PCR) Not detected, Parainfluenza 3 (PCR) Not detected, Parainfluenza 4 (PCR) Not detected, RSV (PCR) Not detected, Entero/Rhino (PCR) Not detected 12/09/24 13:58: Hgb 9.6 L, Hct 28.8 L 12/09/24 15:07: Urine Color Yellow, Urine Appearance Clear, Urine pH 6.0, Ur Specific [place] 1.020, Urine Protein Negative, Urine Glucose (UA) 1+, Urine Ketones Negative, Urine Blood Negative, Urine Nitrate Negative, Urine Bilirubin Negative, Urine Urobilinogen 0.2, Ur Leukocyte Esterase Negative I & O for Labs for Last 24 Hours: Intake & Output 12/06/24 12/07/24 12/08/24 12/09/24 23:59 22:59 23:59 23:59 Intake Total 1259.639 / 3304.595 2105.583 / 1398.798 9520.444 / 6574.239 9067.283 / 2323.283 Output Total 1750 / 1750 2550 / 2550 1675 / 1675 800 / 800 Balance -490.361 / -250.361 -920.417 / -920.417 112.444 / 862.161 7132.283 / 1523.283 Weight 180 lb 12.465 oz 181 lb 3.52 oz 182 lb 12.211 oz 183 lb 8.204 oz Constitutional: Present severe distress Head: Present normocephalic and atraumatic ENT: Present normal exam, normal oropharynx and mucous membranes moist Neck: Present full ROM Respiratory: Present respiratory distress, distant breath sounds and diminished air movement; Absent normal respiratory effort or able to speak in complete sentences Cardiac: Present Tachycardia; Absent S1/S2 GI: Present soft and distention; Absent tenderness or guarding Rectal (female): Present deferred (female): Present deferred Skin: Present intact; Absent cyanosis or jaundice Neuro: Absent alert, awake or oriented x 3 Extremities: Present normal inspection; Absent clubbing or cyanosis Psychiatric: Present unable to assess Meds Home Medications and Allergies Home Medications ?Medication ?Instructions ?Recorded ?Confirmed ?Type hydrochlorothiazide 25 mg tablet 25 mg PO DAILY #30 ta bs 04/08/24 12/05/24 Rx amlodipine 10 mg tablet 10 mg PO DAILY #90 tabs 07/0612/05/24 Rx lisinopril 40 mg tablet 40 mg PO DAILY 30 days #30 t abs 09/04/24 12/05/24 Rx aspirin 81 mg tablet 81 mg PO DAILY 30 days #30 t abs 11/14/24 12/05/24 Rx clopidogrel 75 mg tablet (Plavix) 75 mg PO DAILY 30 da ys #30 tabs 11/14/24 12/05/24 Rx levothyroxine 137 mcg tablet 137 mcg PO DAILY #30 tabs 11/28/24 12/05/24 Rx (Levoxyl) dapagliflozin propanediol 10 mg 10 mg PO DAILY 5 12/05/24 History tablet (Farxiga) fenofibrate 160 mg tablet 160 mg PO DAILY 12/05/24 History pravastatin 40 mg tablet 40 mg PO DAILY 12/05/2411/07 History primidone 50 mg tablet 100 mg PO DAILY 12/05/24 History New Prescriptions to Start Prescriptions: Allergies Allergy/AdvReac Type Severity Reaction Status Date / Time No Known Allergies Allergy Verified 11/24/24 09:57 Results Laboratory Findings 12/09/24 13:58 12/09/24 05:23 Abnormal lab findings: Abnormal Labs 12/05/24 12/05/24 12/05/24 10:10 11:15 18:20 WBC RBC Hgb Hct Neut % (Auto) Lymph % (Auto) Eos % (Auto) Neut # (Auto) [place] # (Auto) APTT 114.0 H* Activated Clotting Time > 400 H* Sodium 134 L Potassium 5.3 H BUN 40 H Creatinine 1.10 H Estimated GFR 48 L Est GFR ( Amer) 58 L Glucose POC Glucose Calcium Phosphorus AST C-Reactive Protein Total Protein Albumin Globulin Albumin/Globulin Ratio Triglycerides LDL Cholesterol Direct VLDL Cholesterol Cholesterol/HDL Ratio Amylase TSH Crossmatch ([facility]) 12/06/24 12/06/24 12/07/24 06:25 08:35 05:40 WBC 13.3 H D RBC Hgb Hct Neut % (Auto) Lymph % (Auto) Eos % (Auto) Neut # (Auto) 10.4 H [place] # (Auto) 1.1 H APTT 47.9 L Activated Clotting Time Sodium 133 L 134 L Potassium BUN 43 H 31 H D Creatinine 1.60 H D 1.10 H D Estimated GFR 31 L 48 L Est GFR ( Amer) 38 L D 58 L D Glucose 151 H D 139 H POC Glucose Calcium Phosphorus 5.0 H AST 201 H 184 H C-Reactive Protein Total Protein Albumin 3.4 L Globulin 3.9 H 3.8 H Albumin/Globulin Ratio 0.9 L 0.9 L Triglycerides 287 H LDL Cholesterol Direct 84.51 L VLDL Cholesterol 57 H Cholesterol/HDL Ratio 4.1 H Amylase TSH 0.35 L Crossmatch ([facility]) 12/08/24 12/09/24 12/09/24 06:19 05:23 07:10 WBC 15.6 H D RBC 3.13 L D Hgb 9.2 L D Hct 28.6 L Neut % (Auto) 85.6 H Lymph % (Auto) 7.9 L Eos % (Auto) 0.0 L Neut # (Auto) 13.4 H [place] # (Auto) APTT Activated Clotting Time Sodium 135 L 132 L Potassium BUN 24 H 20 H Creatinine Estimated GFR 54 L 54 L Est GFR ( Amer) Glucose 134 H 131 H POC Glucose 163 H Calcium 7.5 L Phosphorus AST 93 H D 47 H D C-Reactive Protein 31.2 H Total Protein 5.4 L Albumin 3.3 L D Globulin Albumin/Globulin Ratio 1.9 H Triglycerides LDL Cholesterol Direct VLDL Cholesterol Cholesterol/HDL Ratio Amylase 206 H TSH Crossmatch ([facility]) 12/09/24 12/09/24 07:30 13:58 WBC RBC Hgb 9.6 L Hct 28.8 L Neut % (Auto) Lymph % (Auto) Eos % (Auto) Neut # (Auto) [place] # (Auto) APTT Activated Clotting Time Sodium Potassium BUN Creatinine Estimated GFR Est GFR ( Amer) Glucose POC Glucose Calcium Phosphorus AST C-Reactive Protein Total Protein Albumin Globulin Albumin/Globulin Ratio Triglycerides LDL Cholesterol Direct VLDL Cholesterol Cholesterol/HDL Ratio Amylase TSH Crossmatch (AHG) See Detail Assessment and Plan *Assessment and plan (1) Pleural effusion, left: Status: Acute Category: Medical Code(s): J90 - Pleural effusion, not elsewhere classified (2) Acute respiratory failure with hypoxia: Status: Acute Category: Medical Code(s): J96.01 - Acute respiratory failure with hypoxia Plan Ms. Martin is a 79-year-old female with complicated medical history severe CAD however refused bypass status post SHANNON to LAD, RCA stenting status post dissection resulting in bradycardia hypotension followed by pacemaker placement now noted to have worsening left-sided pleural effusion concerning for left- sided hemothorax and pulmonary was called for further evaluation and management. CT chest reviewed, the noted left effusion is concerning for hemothorax at this point of time. She continue to receive full dose Lovenox along with Plavix and aspirin 81 mg. She continued to receive vancomycin and Zosyn. Blood cultures pending so far. Plan: Status post thoracentesis and 16 Martiniquais chest tube placement. Blood-tinged pleural fluid output. Results pending. Chest tube to suction, will change to waterseal pending output. Continue oxygen supplementation to maintain O2 saturation goal of 90% and above Follow-up with chest x-ray to evaluate for possible continued bleeding as highly concerning for hemothorax # Thank you for involving pulmonary in this patient care. Will continue to follow.
--- NOTE | 2024-12-09 15:56 | US_ITS ---
FINAL REPORT CLINICAL HISTORY: lt plural effusion -- 50 ml removed -- dr. spence FINDINGS: ULTRASOUND GUIDANCE FOR THORACENTESIS: Ultrasound guidance was performed prior to thoracentesis. A region of pleural fluid identified as being located in the left chest was localized under ultrasound guidance. The thoracentesis was performed by Dr. Juarez, and 50 mL of pleural fluid was withdrawn. IMPRESSION: Region of pleural fluid localized under ultrasound guidance prior to Dr. Juarez performing thoracentesis. Reviewed, Interpreted and Dictated by Norma Christian MD Transcribed by Hillary Costello Authenticated and [facility]
--- NOTE | 2024-12-09 16:51 | XR_ITS ---
PROCEDURE INFORMATION: Exam: XR Chest Exam date and time: 12/09/2024 4:58 PM Age: 79 years old Clinical indication: Other: Effusion TECHNIQUE: Imaging protocol: Radiologic exam of the chest. Views: 1 view. COMPARISON: CT CHEST WO CON 12/09/2024 3:16 PM FINDINGS: Tubes, catheters and devices: Left chest tube in place with loculated left pleural effusion. Left subclavian pacemaker leads overlie the right atrium and right ventricle. Lungs: Unremarkable. No consolidation. Pleural spaces: Unremarkable. No pleural effusion. No pneumothorax. Heart/Mediastinum: Mediastinal shift from left to right. Bones/joints: Unremarkable. IMPRESSION: 1. Left chest tube in place with loculated left pleural effusion. Mediastinal shift from left to right. 2. Left subclavian pacemaker leads overlie the right atrium and right ventricle.
--- NOTE | 2024-12-09 16:54 | HMH.PROCNOTE ---
[facility] Procedure Note Date: 12/09/24 Time: 16:55 Procedure Note:: Procedure: Left chest Tube Plscement Indication for procedure: Pleural effusion/concerning Hemothorax A time out was performed, and the chest x-ray was reviewed, the appropriate side was confirmed and marked. My hands were washed immediately prior to the procedure. I wore a surgical cap, mask with protective eyewear, sterile gown, and sterile gloves throughout the procedure. The patient was prepped and draped in a sterile manner using chlorhexidine scrub after the appropriate level was percussed and confirmed by ultrasound. 1% lidocaine was used to anesthetize the skin, subcutaneous tissue, superior aspect of the rib periosteum and parietal pleura. A finder needle was then introduced at the seventh intercoastal space posteriorly to locate the pleural fluid and blood-tinged fluid was aspirated. The syringe was removed and a guidewire was advanced into the introducer needle. A small incision was made at the skin surface with a scalpel and the introducer needle was exchanged for a dilator over the guidewire. After appropriate dilation was obtained, the dilator was exchanged over the wire for chest tube. Total of 60 ml of fluid was removed without difficulty was sent for routine pleural studies, cultures along with cytopathology. Chest tube in a sterile fashion was connected to atrium and suction at negative 20 cm water No immediate complications were noted during the procedure. A post-procedure chest X-ray is pending at the time of this note. Patient tolerated the procedure well Estimated blood loss is 2cc.
--- NOTE | 2024-12-09 17:19 | PC.NURSE ---
pt tolerated chest tube placement well
[2024-12-09 18:14] LABS: Appearance,Body Fld. Bloody; Source, Body Fld. Thoracentesis Fluid; Volume,Body Fld. 67 mL
[2024-12-09] MEDS: GLYCERIN ADULT 3GM SUPP 3 GM RC (18:15)
[2024-12-09 18:20] LABS: RBC,Body Fluid 2336 cells/uL (< 10 X 10^3); TNC,Body Fluid 4856 cells/uL (< 1000)
--- NOTE | 2024-12-09 18:52 | EXP.PN ---
Subjective *Date: 12/09/24 *Time: 18:52 Interval history: Patient continues to have intermittent nausea/vomiting, weaning off dopamine as possible culprit and starting phenylephrine. Chest tube in place for left-sided hemothorax, follow-up output. Follow-up CXR in the morning. Exam Data for Last 24 hours Vital signs and Labs for Last 24 Hours: Temp Pulse Resp BP Pulse Ox O2 Del Method O2 Flow Rate 97.4 F L 78 18 152/62 H 95 Nasal Cannula 3 12/09/24 18:35 12/09/24 18:35 12/09/24 18:35 12/09/24 18:35 12/09/24 18:35 12/09/24 17:00 12/09/24 17:00 Laboratory Results - last 24 hr 12/09/24 05:23: WBC 15.6 H D, RBC 3.13 L D, Hgb 9.2 L D, Hct 28.6 L, MCV 91.4, MCH 29.7, MCHC 32.5, RDW 12.6, Plt Count 268, MPV 10.1, Neut % (Auto) 85.6 H, Lymph % (Auto) 7.9 L, [place] % (Auto) 5.7, Eos % (Auto) 0.0 L, Baso % (Auto) 0.2, Neut # (Auto) 13.4 H, Lymph # (Auto) 1.2, [place] # (Auto) 0.9, Eos # (Auto) 0.0, Baso # (Auto) 0.0, Sodium 132 L, Potassium 4.6, Chloride 101, Carbon Dioxide 27, Anion Gap 8.6, BUN 20 H, Creatinine 1.00, Estimated Creat Clear 62, Estimated GFR 54 L, Est GFR ( Amer) 65, Glucose 131 H, Calcium 7.5 L, Phosphorus 3.6 D, Magnesium 1.7 D, Total Bilirubin 0.4, AST 47 H D, ALT 22 D, Alkaline Phosphatase 45, C-Reactive Protein 31.2 H, Total Protein 5.4 L, Albumin 3.3 L D, Globulin 2.1, Albumin/Globulin Ratio 1.6, Amylase 206 H, Lipase 153, Procalcitonin 0.118, Blood Type Confirm O Positive 12/09/24 07:10: POC Glucose 163 H 12/09/24 07:30: Blood Type O Positive, Antibody Screen Negative, Crossmatch (AHG) See Detail 12/09/24 11:58: Chlamy pneumoniae PCR Not detected, Adenovirus (PCR) Not detected, B. pertussis DNA (PCR) Not detected, Coronavirus OC43 (PCR) Not detected, Coronavirus HKU1 (PCR) Not detected, Coronavirus 229E (PCR) Not detected, SARS-CoV-2 (PCR) Not detected, Coronavirus NL63 (PCR) Not detected, Human Metapneumovir PCR Not detected, Influenza A (H1) PCR Not detected, Influ A (H1N1/09) PCR Not detected, Influenza A (H3) PCR Not detected, Influenza Type A (PCR) Not detected, Influenza Type B (PCR) Not detected, M. pneumoniae (PCR) Not detected, Parainfluenza 1 (PCR) Not detected, Parainfluenza 2 (PCR) Not detected, Parainfluenza 3 (PCR) Not detected, Parainfluenza 4 (PCR) Not detected, RSV (PCR) Not detected, Entero/Rhino (PCR) Not detected 12/09/24 13:58: Hgb 9.6 L, Hct 28.8 L 12/09/24 15:07: Urine Color Yellow, Urine Appearance Clear, Urine pH 6.0, Ur Specific [place] 1.020, Urine Protein Negative, Urine Glucose (UA) 1+, Urine Ketones Negative, Urine Blood Negative, Urine Nitrate Negative, Urine Bilirubin Negative, Urine Urobilinogen 0.2, Ur Leukocyte Esterase Negative 12/09/24 16:28: Fluid Source Thoracentesis fluid, Fluid Volume 67, Fluid Appearance Bloody I & O for Last 24 hours: Intake & Output 12/06/24 12/07/24 12/08/24 12/09/24 23:59 22:59 23:59 23:59 Intake Total 1259.639 / 3784.746 6633.583 / 1061.279 6087.444 / 3980.518 5299.159 / 3698.159 Output Total 1750 / 1750 2550 / 2550 1675 / 1675 800 / 800 Balance -490.361 / -250.361 -920.417 / -920.417 112.444 / 230.167 5151.159 / 2898.159 Weight 82 kg 82.2 kg 82.9 kg 83.24 kg Constitutional Constitutional: mild distress and chronically ill appearing *Routine HEENT Exam Head: Present normocephalic Eye: Present EOMI and PERRL ENT: Present mucous membranes moist *Routine Neck Exam Neck: Present supple; Absent lymphadenopathy *Routine Respiratory Exam Respiratory: Present CTA bilaterally *Routine Cardiovascular Exam Cardiovascular: Present RRR *Routine Abdominal Exam Abdominal: Present soft and normoactive bowel sounds; Absent tenderness *Routine Extremities Exam Extremities: Present edema; Absent cyanosis or clubbing *Routine Skin Exam Skin: Present warm; Absent rash *Routine Neurological Exam Neurological: Present alert and oriented X3 Assessment and Plan *Assessment and plan (1) Bradycardia: Status: Acute Category: Medical Code(s): R00.1 - Bradycardia, unspecified (2) Cardiogenic shock: Status: Acute Category: Medical Code(s): R57.0 - Cardiogenic shock (3) Coronary artery dissection: Status: Acute Category: Medical Code(s): I25.42 - Coronary artery dissection (4) Coronary artery disease: Status: Acute Qualifiers: Coronary Disease-Associated Artery/Lesion type: pala artery [place] vs. transplanted heart: pala heart Associated angina: without angina Qualified Code(s): I25.10 - Atherosclerotic heart disease of pala coronary artery without angina pectoris Category: Medical Code(s): I25.10 - Atherosclerotic heart disease of pala coronary artery without angina pectoris (5) CKD (chronic kidney disease) stage 3, GFR 30-59 ml/min: Status: Chronic Qualifiers: Chronic kidney disease stage 3 subtype: stage 3a (GFR 45-59) Qualified Code(s): N18.31 - Chronic kidney disease, stage 3a Category: Medical Code(s): N18.30 - Chronic kidney disease, stage 3 unspecified (6) Hypertension: Status: Chronic Qualifiers: Hypertension type: primary hypertension Qualified Code(s): I10 - Essential (primary) hypertension Category: Medical Code(s): I10 - Essential (primary) hypertension (7) Hypertriglyceridemia: Status: Acute Category: Medical Code(s): E78.1 - Pure hyperglyceridemia (8) Hypothyroidism: Status: Chronic Qualifiers: Hypothyroidism type: acquired Qualified Code(s): E03.9 - Hypothyroidism, unspecified Category: Medical Code(s): E03.9 - Hypothyroidism, unspecified (9) Hyperlipidemia: Status: Chronic Qualifiers: Hyperlipidemia type: mixed hyperlipidemia Qualified Code(s): E78.2 - Mixed hyperlipidemia Category: Medical Code(s): E78.5 - Hyperlipidemia, unspecified (10) Obesity (BMI 30-39.9): Status: Acute Category: Medical Code(s): E66.9 - Obesity, unspecified (11) NSTEMI (non-ST elevated myocardial infarction): Status: Acute Category: Medical Code(s): I21.4 - Non-ST elevation (NSTEMI) myocardial infarction (12) CLAUDIA (acute kidney injury): Status: Acute Category: Medical Code(s): N17.9 - Acute kidney failure, unspecified Plan Corinne Martin is a 79-year-old female with a history of triple-vessel coronary disease, hypothyroidism, bifascicular block with tachybradycardia syndrome, hypertension presented for an outpatient [facility]. Patient and family previously did not want to undergo CABG for triple-vessel coronary disease, and had been planned for outpatient staged PCI. Patient was undergoing revascularization of the RCA today, had severe calcification and guidewire went subintimal creating coronary dissection. Patient became bradycardic, hypotensive but responded really well to dopamine drip. Discussed case with Dr. Chatterjee, will admit to the ICU on dopamine drip for further monitoring. He did advise that patient will have focal infarction, ST wave changes, and will become intermittently bradycardic. On my evaluation of the patient, she was having an episode of bradycardia to 20s, hypotension, with emesis. No chest pain, shortness of breath. Admitted to ICU for further care. #Severe CAD, coronary calcification #Coronary dissection #Cardiogenic shock #Sinus bradycardia, bifascicular block, resolved #Hypotension #NSTEMI type I ? History of triple coronary artery disease, patient is not agreeable to CABG. Plan for staged outpatient PCI. ? Patient was undergoing revascularization of the RCA on 12/05/24, had severe calcification and guidewire went subintimal creating coronary dissection. Patient became bradycardic, hypotensive but responded really well to dopamine drip. ? For persistent intermittent bradycardia and bifascicular block/asystole, s/p [employer]-P implantation on 12/08/2024. Bradycardia resolved. ? Patient has been having intractable nausea/vomiting, possibly from high doses of dopamine. Weaning off dopamine, transitioning to phenylephrine drip for afterload support. CT abdomen/pelvis shows moderate stool burden, but otherwise no acute findings. ? Currently seems to be fluid overloaded, in the setting of IV fluids. Discontinue maintenance fluids. Will hold off on diuresis in the setting of intermittent hypotension. - WBC bumped to 15.6 today, hemoglobin down to 9.2. ? Started vancomycin, Zosyn 3.375 g every 6 hours due to intermittent hypotension. Follow-up blood cultures. - Continue home aspirin 81 mg, Plavix 75 mg, atorvastatin 40 mg. ? A1c 5.6 Repeat CBC, CMP, magnesium ordered for the morning. ? Continuous cardiac telemetry. #Large left hemothorax ? Patient was noticed to have a left-sided pleural effusion today, and acute on chronic anemia. Hemoglobin 9.2, improved to 9.6 after 1 unit PRBC transfusion. ? Possible subclavian artery puncture during pacemaker placement, CT chest shows large left-sided hemothorax. ? Pulmonology consulted, s/p chest tube with bloody output, on continuous suction for now. Hemodynamically stable at this time. ? Ordered second unit PRBC in the setting of blood loss. ? Follow-up morning CXR. CLAUDIA on CKD 3. CLAUDIA resolved. Kidney function at baseline with creatinine 1.0, BUN 24. Caution with nephrotoxins. #Hypertension: Hold home lisinopril, hydrochlorothiazide, amlodipine due to cardiogenic shock. Resume when appropriate. Blood pressure still soft on dopamine drip. Showing improvement however. #Hypothyroidism: Continue home levothyroxine 137 mcg. TSH 0.35 this morning. Full code DVT prophylaxis: IPC's Home medications: Reconciled. Hold home Farxiga due to cardiogenic shock. ICU/Critical care attestation This patient is critically ill with 40 minutes devoted solely to this patient managing life/organ supporting interventions that required physician assessment. This includes time spent making adjustments in ventilator settings, IV fluid administration, titration of pressors, adjustments of medications, discussion of patient with consultants and other care providers as well as updating patient and/or family (if patient by virtue of his/her condition is unable to participate in decision making). This does not include time spent performing separately billed procedures. Time is not concurrent with that of other providers.
--- NOTE | 2024-12-09 19:00 | XR_ITS ---
PROCEDURE INFORMATION: Exam: XR Chest Exam date and time: 12/09/2024 7:37 PM Age: 79 years old Clinical indication: Other: Effusion; Prior surgery; Surgery date: Post-operative (0-2 days); Surgery type: Pacemaker TECHNIQUE: Imaging protocol: Radiologic exam of the chest. Views: 1 view. COMPARISON: CR XR CHEST PORTABLE 12/09/2024 4:58 PM FINDINGS: Tubes, catheters and devices: Left-sided PICC catheter over the SVC. Pacemaker in place. Lungs: Unremarkable. No consolidation. Pleural spaces: Hemothorax with left chest tube in place. No significant interval change since comparison. Heart/Mediastinum: Unremarkable. No cardiomegaly. Bones/joints: Unremarkable. IMPRESSION: Hemothorax with left chest tube in place. No significant interval change since comparison.
[2024-12-09] MEDS: DOPAMINE HCL/D5W 250 ML 50.89 MG IV (19:17)
[2024-12-09] MEDS: PHENYLEPHRINE HCL 10 MG in 0.9 % SODIUM CHLORIDE 250 ML 60.24 MG IV (19:42)
--- NOTE | 2024-12-09 20:00 | PC.NURSE ---
Spoke with Dr. Chatterjee who gives verbal order to dc patient maintenance fluids at this time.
[2024-12-09 20:05] LABS: RBC,Urine Occasional #/hpf (0-3); Squamous Epithelial Cell,Urine Occasional #/hpf (0-5)
--- NOTE | 2024-12-09 21:14 | PC.NURSE ---
During assessment, it was noted that patient chest tube output was approx 900ml in. Phone call made to Dr. Juarez to provide patient update. Verbal orders to turn suction off to atrium/chest tube, and to flush tube at this time. Orders repeated back and confirmed. Patient remain lethargic, resting with eyes closed. Lungs sounds severely diminished on left side, patient taking shallow even breaths. Clear yet diminished lungs sounds on right.
--- NOTE | 2024-12-09 21:32 | PC.NURSE ---
Spoke with Dr. Juarez and provided patient update per provider request. Informed that patient had 100ml out in past hour into atrium. New verbal orders to flush chest tube catheter at 0000 and 0600 and to keep low wall suction off until new orders are received. Orders repeated back to provider and verified.
[2024-12-09] MEDS: PHENYLEPHRINE HCL 10 MG in 0.9 % SODIUM CHLORIDE 250 ML 120.48 MG IV (22:16)
[2024-12-09 22:43] LABS: Mononuclear WBCs,Body Fluid 33 %; Polynuclear WBC,Body Fluid 67 %
[2024-12-09 23:58] LABS: Hematocrit 23.5 % (37.0-47.0)
[2024-12-10] VITALS (101 sets, daily range): BP systolic 86–162; BP diastolic 38–68; PULSE 71–82; RESP 15–30; TEMP 36.4–37.2; O2SAT 76–100
[2024-12-10 00:07] LABS: Hemoglobin 8.0 g/dL (12.2-16.2)
[2024-12-10 00:13] LABS: Chloride 105 mmol/L (98-107)
[2024-12-10 00:14] LABS: Albumin Level 2.3 g/dl (3.5-5.0); Potassium 4.1 mmoL/L (3.5-5.1); Sodium 131 mmol/L (136-145)
[2024-12-10 00:16] LABS: Alanine Aminotransferase 17 U/L (12-78); Anion Gap 8.1 mEq/L (5-15); Aspartate Amino Transferase 33 U/L (14-36); Blood Urea Nitrogen 26 mg/dl (7-17); Carbon Dioxide 22 mmol/L (22.0-30.0); Creatinine Clearance Estimated 62 mL/min (50-200); Creatinine,Serum 1.00 mg/dl (0.52-1.04); Estimated Glomerular Filt Rate 54 ml/min (>60); GFR (African American) 65 ML/MIN (>60)
[2024-12-10 00:17] LABS: Albumin/Globulin Ratio 1.2 (1.1-1.8); Alkaline Phosphatase 38 U/L (38-126); Bilirubin,Total 0.8 mg/dl (0.2-1.3); Calcium 6.4 mg/dl (8.4-10.2); Globulin 1.9 g/dL (1.3-3.2); Glucose 167 mg/dl (74-100); Total Protein,Serum 4.2 g/dl (6.3-8.2)
--- NOTE | 2024-12-10 00:30 | PC.NURSE ---
Spoke with Dr. Valera to update on cirilo administration, and edema. Requested double concentration Cirilo due to increased amount currently infusing. Patient is edematous and has anasarca at present. verbal order to obtain h/h and cmp. keep cirilo concentration at current concentration at this time. [address] Valera and updated on patient lab values. H/H dropped to 8. Verbal order received to transfuse [address] valera informed as well that patient is not tolerating dopamine titration to off. Patient with significant hypotension when attempt made to decrease dopamine rate even after increasing cirilo rate. He verbalized to attempt to turn dopamine off as soon as possible, informed that I would try to do so safely with patient unstable blood pressure.
[2024-12-10] MEDS: PHENYLEPHRINE HCL 10 MG in 0.9 % SODIUM CHLORIDE 250 ML 135.54 MG IV (00:40)
[2024-12-10] MEDS: PHENYLEPHRINE HCL 10 MG in 0.9 % SODIUM CHLORIDE 250 ML 180.72 MG IV ×3 (02:04→11:49)
[2024-12-10] MEDS: PROMETHAZINE HCL 25MG/ML 1ML VIAL 25 MG IV (02:12)
[2024-12-10] MEDS: SODIUM CHLORIDE 0.9% 25ML BAG 25 ML IV (02:17)
[2024-12-10] MEDS: PIPERCILLIN/TAZO 3.375 GM in 0.9 % SODIUM CHLORIDE 50 ML IV ×4 (02:38→20:43)
[2024-12-10] MEDS: DOPAMINE HCL/D5W 250 ML 23.95 MG IV (04:37)
[2024-12-10] MEDS: PHENYLEPHRINE HCL 10 MG in 0.9 % SODIUM CHLORIDE 250 ML 225.9 MG IV ×3 (05:56→09:28)
--- NOTE | 2024-12-10 07:00 | XR_ITS ---
FINAL REPORT TECHNIQUE: Single view chest CLINICAL HISTORY: Effusion COMPARISON: 12/10/2024 FINDINGS: A single view of the chest was obtained. Support devices are unchanged. Heart size is stable. Again seen is a large left pleural effusion (hemothorax) with shift of the mediastinal structures to the right. There is significant collapse of the left lung. There is worsening right base opacity, likely atelectasis. There is no pneumothorax. IMPRESSION: Large left hemothorax with shift of the mediastinal structures to the right. Collapse of the left lung. Worsening right base opacity, likely atelectasis. No pneumothorax. Reviewed, Interpreted and Dictated by Norma Christian MD Transcribed by Jordyn Forrester Authenticated and . [facility]
[2024-12-10] MEDS: VANCOMYCIN/WATER FOR INJ (PEG) 1.25 GM/250 ML PIGGYBACK IV (08:46)
--- NOTE | 2024-12-10 09:11 | EXP.CARD.PN ---
Subjective Subjective Date: 12/10/24 Time: 09:11 Principal diagnosis: bradycardia, hypotension Interval history: 79-year-old white female in ICU still looks exhausted. Chest tube placed yesterday with 1.5 L of serosanguineous fluid drained since placement. Dopamine has now been weaned off with no apparent sudden vomiting/hypotensive episodes overnight Cirilo-Synephrine is currently going at near max level with blood pressures in the 90-115 mmHg range systolic Heart rate on telemetry is paced at 75 bpm Patient received 4 units of blood in the last 24 hours with posttransfusion hemoglobin pending this morning Creatinine stable at 1.0 with BUN of 26 Exam Data for Last 24 hours Vital signs and Labs for Last 24 Hours: Temp Pulse Resp BP Pulse Ox O2 Del Method O2 Flow Rate 98.1 F 78 16 97/52 L 93 L Nasal Cannula 2 12/10/24 08:24 12/10/24 08:24 12/10/24 08:24 12/10/24 08:24 12/10/24 08:24 12/10/24 07:30 12/10/24 07:30 Laboratory Results - last 24 hr 12/09/24 05:23: Amylase 206 H, Lipase 153 12/09/24 07:30: Blood Type O Positive, Antibody Screen Negative, Crossmatch (AHG) See Detail 12/09/24 11:58: Chlamy pneumoniae PCR Not detected, Adenovirus (PCR) Not detected, B. pertussis DNA (PCR) Not detected, Coronavirus OC43 (PCR) Not detected, Coronavirus HKU1 (PCR) Not detected, Coronavirus 229E (PCR) Not detected, SARS-CoV-2 (PCR) Not detected, Coronavirus NL63 (PCR) Not detected, Human Metapneumovir PCR Not detected, Influenza A (H1) PCR Not detected, Influ A (H1N1/09) PCR Not detected, Influenza A (H3) PCR Not detected, Influenza Type A (PCR) Not detected, Influenza Type B (PCR) Not detected, M. pneumoniae (PCR) Not detected, Parainfluenza 1 (PCR) Not detected, Parainfluenza 2 (PCR) Not detected, Parainfluenza 3 (PCR) Not detected, Parainfluenza 4 (PCR) Not detected, RSV (PCR) Not detected, Entero/Rhino (PCR) Not detected 12/09/24 13:58: Hgb 9.6 L, Hct 28.8 L 12/09/24 15:07: Urine Color Yellow, Urine Appearance Clear, Urine pH 6.0, Ur Specific [place] 1.020, Urine Protein Negative, Urine Glucose (UA) 1+, Urine Ketones Negative, Urine Blood Negative, Urine Nitrate Negative, Urine Bilirubin Negative, Urine Urobilinogen 0.2, Ur Leukocyte Esterase Negative, Urine RBC Occasional, Urine WBC 3-5, Ur Squamous Epith Cells Occasional 12/09/24 16:28: Fluid Source Thoracentesis fluid, Fluid Volume 67, Fluid Appearance Bloody, Fluid RBC (Auto) 2336, Fld Tot Nucleated Cell 4856, Fld Polynuclear WBCs % 67, Fld Mononuclear WBCs % 33 12/09/24 23:46: Hgb 8.0 L D, Hct 23.5 L, Sodium 131 L, Potassium 4.1, Chloride 105, Carbon Dioxide 22, Anion Gap 8.1, BUN 26 H D, Creatinine 1.00, Estimated Creat Clear 62, Estimated GFR 54 L, Est GFR ( Amer) 65, Glucose 167 H D, Calcium 6.4 L, Total Bilirubin 0.8, AST 33 D, ALT 17, Alkaline Phosphatase 38, Total Protein 4.2 L, Albumin 2.3 L D, Globulin 1.9, Albumin/Globulin Ratio 1.2 I & O for Last 24 hours: Intake & Output 12/07/24 12/08/24 12/09/24 12/10/24 10:59 11:59 11:59 11:59 Intake Total 1586.884 / 9123.422 1641.044 / 8230.585 0252.659 / 3561.659 4401.782 / 4401.782 Output Total 2049 / 2049 3625 / 3625 600 / 600 2150 / 2150 Balance -463.116 / -463.116 -2396.956 / -2396.956 2961.659 / 2961.659 2251.782 / 2251.782 Weight 181 lb 3.52 oz 182 lb 12.211 oz 183 lb 8.204 oz Microbiology Reports for the Last 24 Hours: Microbiology 12/09/24 16:28 Thoracic Fluid Gram Stain - Final Constitutional Constitutional: no acute distress *Routine Respiratory Exam Respiratory: Present rhonchi and diminished air movement *Routine Cardiovascular Exam Cardiovascular: Present RRR; Absent murmur, gallop or rubs *Routine Extremities Exam Extremities: Present edema Progress Note: A&P Assessment and plan (1) Bradycardia: Status: Acute (2) Cardiogenic shock: Status: Acute (3) Coronary artery dissection: Status: Acute (4) Coronary artery disease: Status: Acute (5) CKD (chronic kidney disease) stage 3, GFR 30-59 ml/min: Status: Chronic (6) Hypertension: Status: Chronic (7) Hypertriglyceridemia: Status: Acute (8) Hypothyroidism: Status: Chronic (9) Hyperlipidemia: Status: Chronic (10) Obesity (BMI 30-39.9): Status: Acute (11) NSTEMI (non-ST elevated myocardial infarction): Status: Acute (12) CLAUDIA (acute kidney injury): Status: Acute Assessment and Plan Assessment and Plan for All Diagnoses:: 1. 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 Bifascicular block on EKG with asystole/bradycardia -[employer]MENT [employer]ST[employer]ER-P implantation on 12/08/2024 3. CAD with recent LAD and circumflex stenting, 11/2024 -Continue Plavix -stop aspirin due to recent subclavian artery bleed 4. Hypothyroidism -On replacement 5. History of hypertension, now with intermittent nausea/vomiting/hypotensive episodes requiring vasopressor support -Previously controlled on lisinopril and amlodipine 6. Hyperlipidemia -On statin therapy with LDL 84 this admission 7. CKD, stage III -Baseline creatinine 1.1-1.3 with GFR 40-44 8. Anemia with hemoglobin 9.2 this a.m. -Transfuse to greater than 10 due to recent coronary issues 7. New left pleural effusion post pacemaker implantation -concern for hemothorax due to subclavian artery stick in attempt to find the vein for pacer implantation, per Dr. Chatterjee -Dr. Juarez placed thoracentesis/chest tube Now off dopamine continue Cirilo for BP support Sen to place arterial line for better evaluation of BP to try and reduce pressor use stop aspirin continue plavix Hgb 8.3, will transfuse 2 more units with goal of Hgb >10 If still having significant output from chest tube in AM then will consider covered stenting of left subclavian artery
[2024-12-10 10:00] LABS: Hematocrit 25.2 % (37.0-47.0); Hemoglobin 8.3 g/dL (12.2-16.2); Immature Granulocytes % 3.3 %; Mean Corpuscular HGB Conc 32.9 g/dL (31.8-35.4); Mean Corpuscular Hemoglobin 29.3 pg (27.0-31.2); Mean Corpuscular Volume 89.0 fl (81-99); Nucleated Red Blood Cells % 0 %; Platelet Count 149 K/mm3 (142-424); Red Blood Count 2.83 M/mm3 (4.20-5.40); Red Cell Distribution Width-SD 44.4 fL; White Blood Count 14.1 K/mm3 (4.8-10.8)
[2024-12-10 10:24] LABS: Alanine Aminotransferase 48 U/L (12-78); Albumin Level 1.5 g/dl (3.5-5.0); Albumin/Globulin Ratio 0.7 (1.1-1.8); Alkaline Phosphatase 29 U/L (38-126); Anion Gap 6.2 mEq/L (5-15); Aspartate Amino Transferase 82 U/L (14-36); Bilirubin,Total 0.7 mg/dl (0.2-1.3); Blood Urea Nitrogen 26 mg/dl (7-17); Carbon Dioxide 16 mmol/L (22.0-30.0); Chloride 114 mmol/L (98-107); Creatinine Clearance Estimated 48 mL/min (50-200); Creatinine,Serum 1.30 mg/dl (0.52-1.04); Estimated Glomerular Filt Rate 40 ml/min (>60); GFR (African American) 48 ML/MIN (>60); Globulin 2.1 g/dL (1.3-3.2); Glucose 95 mg/dl (74-100); Magnesium 2.0 mg/dl (1.6-2.3); Potassium 3.2 mmoL/L (3.5-5.1); Sodium 133 mmol/L (136-145); Total Protein,Serum 3.6 g/dl (6.3-8.2)
[2024-12-10 10:33] LABS: Calcium 5.4 mg/dl (8.4-10.2)
[2024-12-10] MEDS: PHENYLEPHRINE HCL 10 MG in 0.9 % SODIUM CHLORIDE 250 ML 210.84 MG IV (10:34)
--- NOTE | 2024-12-10 11:00 | PC.NURSE ---
flushed pigtail on chest tube at 1100 with 10cc of saline
--- NOTE | 2024-12-10 11:09 | PC.NURSE ---
1055 - Spoke w/ Everardo Long RN and updated on POC. Dr Chatterjee wishes for pt to receive 2 units of PRBC's now and hae 2 units on hold. Verbalized understanding. 1105 - Spoke w/ Gavi in blood bank about need for 2 units of PRBC's for transfusion and that pt will need an additional 2 units on hold. States that she currently has 3 to cross match and will reach out to [facility] for additional unit.
[2024-12-10] MEDS: CALCIUM GLUC IN NACL, ISO-OSM 2 GM/100 ML BAG IV (11:49)
[2024-12-10] MEDS: 0.9 % SODIUM CHLORIDE 250 ML 25 ML IV (12:50)
--- NOTE | 2024-12-10 13:05 | P.CONS_ITS ---
History of Present Illness *Admission Date: 12/05/24 *History of present illness: Corinne Martin is a 79-year-old female with a history of triple-vessel coronary disease, hypothyroidism, bifascicular block with tachybradycardia syndrome, hypertension presented for an outpatient [facility]. Patient and family previously did not want to undergo CABG for triple-vessel coronary disease, and had been planned for outpatient staged PCI. Patient was undergoing revascularization of the RCA today, had severe calcification and guidewire went subintimal creating coronary dissection. Patient became bradycardic, hypotensive but responded really well to dopamine drip. Discussed case with Dr. Chatterjee, will admit to the ICU on dopamine drip for further monitoring. He did advise that patient will have focal infarction, ST wave changes, and will become intermittently bradycardic. On my evaluation of the patient, she was having an episode of bradycardia to 20s, hypotension, with emesis. No chest pain, shortness of breath. Increased dopamine drip rate to 10 with resolution of symptoms. EKG showed sinus bradycardia with mild acute ischemia not concerning for STEMI. Initial CBC, CMP relatively unremarkable. - per H&P This is a 79-year-old acutely ill-appearing patient resting in bed but awake. She is oriented x 3. Family is at bedside. NEON TUBE BENDER-P implanted with rate set at 75 bpm. Patient developed large left hemothorax with mediastinal shift to the right. She is anemic status post multiple units PRBCs infused. She was struggling with bradycardia, low blood pressure and emesis that seemed to respond to dopamine dosing. Patient was weaned off dopamine this morning but remains on Cirilo-Synephrine. She also had a KUB which showed moderate amount of stool burden in the proximal bowel concerning for chronic constipation. Nursing reports patient had a large bowel movement last night and she has not had any nausea or vomiting today. Gastroenterology was consulted due to the ongoing vomiting, bradycardia and hypotensive episodes. Patient is getting MiraLAX every morning but she was unable to tolerate it this morning. She reports at home she normally has a daily bowel movement and most of the time feels like she empties. Occasionally she will have straining to have a bowel movement. She denies any nausea vomiting at home abdominal pain, bloating belching or gassiness. She believes her last colonoscopy was at 72 years old and she was told she did not need any further screenings. She denies melena hematochezia or mucus in her stool at home. On a side note she did have a mild elevation of amylase at 206. Lipase was normal. Possible cystic lesion noted near the pancreas on ultrasound but that did not bear out on CT scan. [facility] Disclaimer: The information contained in this section may have been updated after the patient was seen, as this information can be updated by other users. Medical History (Updated 12/10/24 @ 13:12 by Shikha Arreola APRN) Acute respiratory failure with hypoxia Pleural effusion, left Impacted cerumen of both ears Abnormal ECG Sebaceous cyst Hypothyroidism Diverticulosis Hypertriglyceridemia Hyperlipidemia Hypertension Hearing loss Surgical History History of right oophorectomy H/O colonoscopy H/O left breast biopsy Family History Other No significant family history Social History Smoking Status: Never smoker second hand exposure: No alcohol intake: never substance use type: denies use current occupational status: retired Travel in the last 8 weeks?: None household members: spouse housing: house current occupational exposures/hazards: No caffeine: No Have you lived/traveled outside [place] in past 30 days?: No Contact w/someone who lives/traveled outside US past 30 days?: No Exposure to someone with infectious disease in past 14 days?: No Do you have a fever (greater than 100.4 F or 38 C)?: No Have you tested positive for COVID-19?: No Exposed to someone with COVID-19 in past 14 days?: No Do you have a sore throat?: No Do you have a cough?: No Do you have any weakness?: No Do you have any diarrhea?: No Are you experiencing any unusual bleeding?: No Do you have any muscle aches/pain?: No Do you have any abdominal pain?: No Are you experiencing loss of taste or smell?: No Meds Home Medications and Allergies Home Medications ?Medication ?Instructions ?Recorded ?Confirmed ?Type hydrochlorothiazide 25 mg tablet 25 mg PO DAILY #30 ta bs 04/08/24 12/05/24 Rx amlodipine 10 mg tablet 10 mg PO DAILY #90 tabs 07/0612/05/24 Rx lisinopril 40 mg tablet 40 mg PO DAILY 30 days #30 t abs 09/04/24 12/05/24 Rx aspirin 81 mg tablet 81 mg PO DAILY 30 days #30 t abs 11/14/24 12/05/24 Rx clopidogrel 75 mg tablet (Plavix) 75 mg PO DAILY 30 da ys #30 tabs 11/14/24 12/05/24 Rx levothyroxine 137 mcg tablet 137 mcg PO DAILY #30 tabs 11/28/24 12/05/24 Rx (Levoxyl) dapagliflozin propanediol 10 mg 10 mg PO DAILY 5 12/05/24 History tablet (Farxiga) fenofibrate 160 mg tablet 160 mg PO DAILY 12/05/24 History pravastatin 40 mg tablet 40 mg PO DAILY 12/05/2411/07 History primidone 50 mg tablet 100 mg PO DAILY 12/05/24 History New Prescriptions to Start Prescriptions: Allergies Allergy/AdvReac Type Severity Reaction Status Date / Time No Known Allergies Allergy Verified 11/24/24 09:57 Exam (Inpt) Vital signs and Labs for Last 24 Hours: Temp Pulse Resp BP Pulse Ox O2 Del Method O2 Flow Rate 98.0 F 75 20 127/54 L 97 Nasal Cannula 2 12/10/24 13:00 12/10/24 13:00 12/10/24 13:00 12/10/24 13:00 12/10/24 13:00 12/10/24 12:00 12/10/24 12:00 Laboratory Results - last 24 hr 12/09/24 07:30: Blood Type O Positive, Antibody Screen Negative, Crossmatch (AHG) See Detail 12/09/24 11:58: Chlamy pneumoniae PCR Not detected, Adenovirus (PCR) Not detected, B. pertussis DNA (PCR) Not detected, Coronavirus OC43 (PCR) Not detected, Coronavirus HKU1 (PCR) Not detected, Coronavirus 229E (PCR) Not detected, SARS-CoV-2 (PCR) Not detected, Coronavirus NL63 (PCR) Not detected, Human Metapneumovir PCR Not detected, Influenza A (H1) PCR Not detected, Influ A (H1N1/09) PCR Not detected, Influenza A (H3) PCR Not detected, Influenza Type A (PCR) Not detected, Influenza Type B (PCR) Not detected, M. pneumoniae (PCR) Not detected, Parainfluenza 1 (PCR) Not detected, Parainfluenza 2 (PCR) Not detected, Parainfluenza 3 (PCR) Not detected, Parainfluenza 4 (PCR) Not detected, RSV (PCR) Not detected, Entero/Rhino (PCR) Not detected 12/09/24 13:58: Hgb 9.6 L, Hct 28.8 L 12/09/24 15:07: Urine Color Yellow, Urine Appearance Clear, Urine pH 6.0, Ur Specific [place] 1.020, Urine Protein Negative, Urine Glucose (UA) 1+, Urine Ketones Negative, Urine Blood Negative, Urine Nitrate Negative, Urine Bilirubin Negative, Urine Urobilinogen 0.2, Ur Leukocyte Esterase Negative, Urine RBC Occasional, Urine WBC 3-5, Ur Squamous Epith Cells Occasional 12/09/24 16:28: Fluid Source Thoracentesis fluid, Fluid Volume 67, Fluid Appearance Bloody, Fluid RBC (Auto) 2336, Fld Tot Nucleated Cell 4856, Fld Polynuclear WBCs % 67, Fld Mononuclear WBCs % 33 12/09/24 23:46: Hgb 8.0 L D, Hct 23.5 L, Sodium 131 L, Potassium 4.1, Chloride 105, Carbon Dioxide 22, Anion Gap 8.1, BUN 26 H D, Creatinine 1.00, Estimated Creat Clear 62, Estimated GFR 54 L, Est GFR ( Amer) 65, Glucose 167 H D, Calcium 6.4 L, Total Bilirubin 0.8, AST 33 D, ALT 17, Alkaline Phosphatase 38, Total Protein 4.2 L, Albumin 2.3 L D, Globulin 1.9, Albumin/Globulin Ratio 1.2 12/10/24 09:26: WBC 14.1 H, RBC 2.83 L, Hgb 8.3 L, Hct 25.2 L, MCV 89.0, MCH 29.3, MCHC 32.9, RDW 13.7, Plt Count 149 D, MPV 11.1 H, Neut % (Auto) 72.9, Lymph % (Auto) 13.5, [place] % (Auto) 10.0 H, Eos % (Auto) 0.0 L, Baso % (Auto) 0.3, Neut # (Auto) 10.3 H, Lymph # (Auto) 1.9, [place] # (Auto) 1.4 H, Eos # (Auto) 0.0, Baso # (Auto) 0.0, Sodium 133 L, Potassium 3.2 L D, Chloride 114 H, Carbon Dioxide 16 L, Anion Gap 6.2, BUN 26 H, Creatinine 1.30 H D, Estimated Creat Clear 48, Estimated GFR 40 L, Est GFR ( Amer) 48 L D, Glucose 95 D, C alcium 5.4 L D, Magnesium 2.0 D, Total Bilirubin 0.7, AST 82 H D, ALT 48 D, A lkaline Phosphatase 29 L, Total Protein 3.6 L, Albumin 1.5 L D, Globulin 2.1, A lbumin/Globulin Ratio 0.7 L I & O for Labs for Last 24 Hours: Intake & Output 12/08/24 12/09/24 12/10/24 12/11/24 11:59 11:59 11:59 11:59 Intake Total 1821.652 8246.659 5404.782 100 Output Total 3625 600 2150 Balance -2396.956 2961.659 3254.782 100 Weight 82.9 kg 83.24 kg Microbiology Reports for the Last 24 Hours: Microbiology 12/09/24 11:52 Blood Blood Culture - Preliminary NO GROWTH AFTER 24 HOURS 12/09/24 16:28 Thoracic Fluid Gram Stain - Final Constitutional: mild distress, obese and cooperative Head: Present normocephalic and atraumatic Respiratory: Present decreased breath sounds (mild bilat) GI: Present distention (Moderate distention with gas) and normal bowel sounds; Absent tenderness or ascites Extremities: Present full ROM Skin: Present dry and warm Neuro: Present awake and oriented x 3 Results Labs 12/10/24 09:26 12/10/24 09:26 Labs: Laboratory Results - last 24 hr 12/09/24 07:30: Blood Type O Positive, Antibody Screen Negative, Crossmatch (AHG) See Detail 12/09/24 11:58: Chlamy pneumoniae PCR Not detected, Adenovirus (PCR) Not detected, B. pertussis DNA (PCR) Not detected, Coronavirus OC43 (PCR) Not detected, Coronavirus HKU1 (PCR) Not detected, Coronavirus 229E (PCR) Not detected, SARS-CoV-2 (PCR) Not detected, Coronavirus NL63 (PCR) Not detected, Human Metapneumovir PCR Not detected, Influenza A (H1) PCR Not detected, Influ A (H1N1/09) PCR Not detected, Influenza A (H3) PCR Not detected, Influenza Type A (PCR) Not detected, Influenza Type B (PCR) Not detected, M. pneumoniae (PCR) Not detected, Parainfluenza 1 (PCR) Not detected, Parainfluenza 2 (PCR) Not detected, Parainfluenza 3 (PCR) Not detected, Parainfluenza 4 (PCR) Not detected, RSV (PCR) Not detected, Entero/Rhino (PCR) Not detected 12/09/24 13:58: Hgb 9.6 L, Hct 28.8 L 12/09/24 15:07: Urine Color Yellow, Urine Appearance Clear, Urine pH 6.0, Ur Specific [place] 1.020, Urine Protein Negative, Urine Glucose (UA) 1+, Urine Ketones Negative, Urine Blood Negative, Urine Nitrate Negative, Urine Bilirubin Negative, Urine Urobilinogen 0.2, Ur Leukocyte Esterase Negative, Urine RBC Occasional, Urine WBC 3-5, Ur Squamous Epith Cells Occasional 12/09/24 16:28: Fluid Source Thoracentesis fluid, Fluid Volume 67, Fluid Appearance Bloody, Fluid RBC (Auto) 2336, Fld Tot Nucleated Cell 4856, Fld Polynuclear WBCs % 67, Fld Mononuclear WBCs % 33 12/09/24 23:46: Hgb 8.0 L D, Hct 23.5 L, Sodium 131 L, Potassium 4.1, Chloride 105, Carbon Dioxide 22, Anion Gap 8.1, BUN 26 H D, Creatinine 1.00, Estimated Creat Clear 62, Estimated GFR 54 L, Est GFR ( Amer) 65, Glucose 167 H D, Calcium 6.4 L, Total Bilirubin 0.8, AST 33 D, ALT 17, Alkaline Phosphatase 38, Total Protein 4.2 L, Albumin 2.3 L D, Globulin 1.9, Albumin/Globulin Ratio 1.2 12/10/24 09:26: WBC 14.1 H, RBC 2.83 L, Hgb 8.3 L, Hct 25.2 L, MCV 89.0, MCH 29.3, MCHC 32.9, RDW 13.7, Plt Count 149 D, MPV 11.1 H, Neut % (Auto) 72.9, Lymph % (Auto) 13.5, [place] % (Auto) 10.0 H, Eos % (Auto) 0.0 L, Baso % (Auto) 0.3, Neut # (Auto) 10.3 H, Lymph # (Auto) 1.9, [place] # (Auto) 1.4 H, Eos # (Auto) 0.0, Baso # (Auto) 0.0, Sodium 133 L, Potassium 3.2 L D, Chloride 114 H, Carbon Dioxide 16 L, Anion Gap 6.2, BUN 26 H, Creatinine 1.30 H D, Estimated Creat Clear 48, Estimated GFR 40 L, Est GFR ( Amer) 48 L D, Glucose 95 D, C alcium 5.4 L D, Magnesium 2.0 D, Total Bilirubin 0.7, AST 82 H D, ALT 48 D, A lkaline Phosphatase 29 L, Total Protein 3.6 L, Albumin 1.5 L D, Globulin 2.1, A lbumin/Globulin Ratio 0.7 L Assessment and Plan *Assessment and plan (1) Nausea & vomiting: Status: Acute Category: Medical Code(s): R11.2 - Nausea with vomiting, unspecified (2) Obstipation: Status: Acute Category: Medical Code(s): K59.00 - Constipation, unspecified (3) Vaso-vagal reaction: Status: Acute Category: Medical Code(s): R55 - Syncope and collapse Plan 1. nausea/vomiting/obstipation/vasovagal reaction/hypotension/bradycardia/ Symptoms appear to be multifactorial. Initially, some bradycardia hypotensive episodes and vomiting expected after procedure. Seemingly more problematic with dosing changes of dopamine. They have been able to wean her off of it today and she continues on Cirilo-Synephrine. KUB did show moderate stool burden in the proximal colon. Patient has been on MiraLAX daily. Unable to tolerate it this morning. She did have a large bowel movement last night and has not had any nausea vomiting today. She reports normal daily bowel movement and denies bloating belching or gassiness, nausea or vomiting at home. She does report some intermittent episodes of straining to have a bowel movement at home. Distal or left-sided stool burden seen on imaging can be a normal finding. Proximal right sided stool burden seen on imaging, as it was with this KUB, can be associated with some chronic underlying constipation/obstipation. Possible that there is also some vagal nerve stimulation with obstipation related nausea and vomiting contributing to symptoms. Possible some vagal nerve stimulation with the ongoing left hemothorax with a right shift contributing to symptoms. Keeping her bowels moving regularly is important. I recommend MiraLAX in the morning. If she is unable to tolerate that, then I would recommend utilizing stimulant laxative at night.
[2024-12-10] MEDS: PHENYLEPHRINE HCL 10 MG in 0.9 % SODIUM CHLORIDE 250 ML 165.66 MG IV (13:13)
[2024-12-10 15:12] LABS: Albumin, Body Fluid 3.1 g/dL (Not Estab.); Glucose, Body Fluid 102 mg/dL (.); LD, Body Fluid 393 IU/L (.)
--- NOTE | 2024-12-10 15:13 | PC.NURSE ---
Dr. Chatterjee called to see how patient was doing. Patient just started on 1st unit of blood. He wants to try and wean patient off of the phenylephrine. And continue to monitor output from patients chest tube
[2024-12-10] MEDS: PHENYLEPHRINE HCL 10 MG in 0.9 % SODIUM CHLORIDE 250 ML 90.36 MG IV (15:15)
[2024-12-10 16:13] LABS: Cortisol,AM 15.5 ug/dL (6.2-19.4)
--- NOTE | 2024-12-10 18:27 | PC.NURSE ---
Talked to Dr. Chatterjee, phenylephrine is paused at this time. Patients blood pressure is 118/53 map 70. Patients 2nd unit of blood is finishing up at this time. Dr. Chatterjee wants patient started on D5 1/2 normal saline with 40 of KCL at 125 ml/hr
[2024-12-10] MEDS: D5W/0.45% NaCl w/40mEq KCl 1,000 ML 125 ML IV (18:48)
[2024-12-10 19:48] LABS: Hematocrit 34.8 % (37.0-47.0)
[2024-12-10 19:52] LABS: Hemoglobin 11.9 g/dL (12.2-16.2)
[2024-12-10] MEDS: PANTOPRAZOLE 40MG VIAL 40 MG IV (20:43)
--- NOTE | 2024-12-10 21:42 | XR_ITS ---
PROCEDURE INFORMATION: Exam: XR Chest Exam date and time: 12/10/2024 9:51 PM Age: 79 years old Clinical indication: Other: F/u hemothorax TECHNIQUE: Imaging protocol: Radiologic exam of the chest. Views: 1 view. COMPARISON: CR XR CHEST PORTABLE 12/10/2024 7:09 AM FINDINGS: Tubes, catheters and devices: Dual lead left-sided cardiac pacemaker. Left-sided chest tube Lungs: There is compressive atelectasis in the left lung Pleural spaces: Large left pleural effusion Heart/Mediastinum: Unremarkable. No cardiomegaly. Bones/joints: Unremarkable. IMPRESSION: 1. Large left pleural effusion 2. There is compressive atelectasis in the left lung 3. Left-sided chest tube
--- NOTE | 2024-12-10 21:42 | P.PN_ITS ---
Subjective *Date: 12/10/24 *Time: 21:42 Interval history: Patient feeling better this afternoon, improved from this morning. Hemoglobin improved to 11.9, at the expected range after 2 additional PRBC transfusion this afternoon. Weaning phenylephrine. Exam Data for Last 24 hours Vital signs and Labs for Last 24 Hours: Temp Pulse Resp BP Pulse Ox O2 Del Method O2 Flow Rate 98.4 F 76 17 124/49 L 93 L Nasal Cannula 2 12/10/24 20:00 12/10/24 21:00 12/10/24 21:00 12/10/24 21:00 12/10/24 21:00 12/10/24 21:00 12/10/24 21:00 Laboratory Results - last 24 hr 12/09/24 05:23: Cortisol AM Sample 15.5 12/09/24 07:30: Blood Type O Positive, Antibody Screen Negative, Crossmatch (AHG) See Detail 12/09/24 16:28: Fluid RBC (Auto) 2336, Fld Tot Nucleated Cell 4856, Fld Polynuclear WBCs % 67, Fld Mononuclear WBCs % 33, Fluid Glucose 102, Fluid Total Protein 5.0, Fluid Albumin 3.1, Fluid LDH 393, Miscellaneous Test Comment 12/09/24 23:46: Hgb 8.0 L D, Hct 23.5 L, Sodium 131 L, Potassium 4.1, Chloride 105, Carbon Dioxide 22, Anion Gap 8.1, BUN 26 H D, Creatinine 1.00, Estimated Creat Clear 62, Estimated GFR 54 L, Est GFR ( Amer) 65, Glucose 167 H D, Calcium 6.4 L, Total Bilirubin 0.8, AST 33 D, ALT 17, Alkaline Phosphatase 38, Total Protein 4.2 L, Albumin 2.3 L D, Globulin 1.9, Albumin/Globulin Ratio 1.2 12/10/24 09:26: WBC 14.1 H, RBC 2.83 L, Hgb 8.3 L, Hct 25.2 L, MCV 89.0, MCH 29.3, MCHC 32.9, RDW 13.7, Plt Count 149 D, MPV 11.1 H, Neut % (Auto) 72.9, Lymph % (Auto) 13.5, [place] % (Auto) 10.0 H, Eos % (Auto) 0.0 L, Baso % (Auto) 0.3, Neut # (Auto) 10.3 H, Lymph # (Auto) 1.9, [place] # (Auto) 1.4 H, Eos # (Auto) 0.0, Baso # (Auto) 0.0, Sodium 133 L, Potassium 3.2 L D, Chloride 114 H, Carbon Dioxide 16 L, Anion Gap 6.2, BUN 26 H, Creatinine 1.30 H D, Estimated Creat Clear 48, Estimated GFR 40 L, Est GFR ( Amer) 48 L D, Glucose 95 D, Calcium 5.4 L D, Magnesium 2.0 D, Total Bilirubin 0.7, AST 82 H D, ALT 48 D, Alkaline Phosphatase 29 L, Total Protein 3.6 L, Albumin 1.5 L D, Globulin 2.1, Albumin/Globulin Ratio 0.7 L 12/10/24 19:42: Hgb 11.9 L D, Hct 34.8 L I & O for Last 24 hours: Intake & Output 12/07/24 12/08/24 12/09/24 12/10/24 22:59 23:59 23:59 23:59 Intake Total 1629.583 / 6177.490 2509.444 / 8290.060 0738.341 / 5054.341 4647.599 / 4647.599 Output Total 2550 / 2550 1675 / 1675 1950 / 1950 1400 / 1400 Balance -920.417 / -920.417 112.444 / 551.460 8655.341 / 3104.341 3247.599 / 3247.599 Weight 82.2 kg 82.9 kg 83.24 kg Microbiology Reports for the Last 24 Hours: Microbiology 12/09/24 16:28 Thoracic Fluid Gram Stain - Final 12/09/24 16:28 Thoracic Fluid Body Fluid Culture - Preliminary NO GROWTH AFTER 24 HOURS 12/09/24 13:58 Blood Blood Culture - Preliminary NO GROWTH AFTER 24 HOURS 12/09/24 11:52 Blood Blood Culture - Preliminary NO GROWTH AFTER 24 HOURS Constitutional Constitutional: mild distress and chronically ill appearing *Routine HEENT Exam Head: Present normocephalic Eye: Present EOMI and PERRL ENT: Present mucous membranes moist *Routine Neck Exam Neck: Present supple; Absent lymphadenopathy *Routine Respiratory Exam Respiratory: Present CTA bilaterally *Routine Cardiovascular Exam Cardiovascular: Present RRR *Routine Abdominal Exam Abdominal: Present soft and normoactive bowel sounds; Absent tenderness *Routine Extremities Exam Extremities: Present edema; Absent cyanosis or clubbing *Routine Skin Exam Skin: Present warm; Absent rash *Routine Neurological Exam Neurological: Present alert and oriented X3 Assessment and Plan *Assessment and plan (1) Bradycardia: Status: Acute Category: Medical Code(s): R00.1 - Bradycardia, unspecified (2) Cardiogenic shock: Status: Acute Category: Medical Code(s): R57.0 - Cardiogenic shock (3) Coronary artery dissection: Status: Acute Category: Medical Code(s): I25.42 - Coronary artery dissection (4) Coronary artery disease: Status: Acute Qualifiers: Coronary Disease-Associated Artery/Lesion type: [place] artery [place] vs. transplanted heart: [place] heart Associated angina: without angina Qualified Code(s): I25.10 - Atherosclerotic heart disease of [place] coronary artery without angina pectoris Category: Medical Code(s): I25.10 - Atherosclerotic heart disease of [place] coronary artery without angina pectoris (5) CKD (chronic kidney disease) stage 3, GFR 30-59 ml/min: Status: Chronic Qualifiers: Chronic kidney disease stage 3 subtype: stage 3a (GFR 45-59) Qualified Code(s): N18.31 - Chronic kidney disease, stage 3a Category: Medical Code(s): N18.30 - Chronic kidney disease, stage 3 unspecified (6) Hypertension: Status: Chronic Qualifiers: Hypertension type: primary hypertension Qualified Code(s): I10 - Essential (primary) hypertension Category: Medical Code(s): I10 - Essential (primary) hypertension (7) Hypertriglyceridemia: Status: Acute Category: Medical Code(s): E78.1 - Pure hyperglyceridemia (8) Hypothyroidism: Status: Chronic Qualifiers: Hypothyroidism type: acquired Qualified Code(s): E03.9 - Hypothyroidism, unspecified Category: Medical Code(s): E03.9 - Hypothyroidism, unspecified (9) Hyperlipidemia: Status: Chronic Qualifiers: Hyperlipidemia type: mixed hyperlipidemia Qualified Code(s): E78.2 - Mixed hyperlipidemia Category: Medical Code(s): E78.5 - Hyperlipidemia, unspecified (10) Obesity (BMI 30-39.9): Status: Acute Category: Medical Code(s): E66.9 - Obesity, unspecified (11) NSTEMI (non-ST elevated myocardial infarction): Status: Acute Category: Medical Code(s): I21.4 - Non-ST elevation (NSTEMI) myocardial infarction (12) CLAUDIA (acute kidney injury): Status: Acute Category: Medical Code(s): N17.9 - Acute kidney failure, unspecified Plan Corinne Martin is a 79-year-old female with a history of triple-vessel coronary disease, hypothyroidism, bifascicular block with tachybradycardia syndrome, hypertension presented for an outpatient [facility]. Patient and family previously did not want to undergo CABG for triple-vessel coronary disease, and had been planned for outpatient staged PCI. Patient was undergoing revascularization of the RCA today, had severe calcification and guidewire went subintimal creating coronary dissection. Patient became bradycardic, hypotensive but responded really well to dopamine drip. Discussed case with Dr. Chatterjee, will admit to the ICU on dopamine drip for further monitoring. He did advise that patient will have focal infarction, ST wave changes, and will become intermittently bradycardic. On my evaluation of the patient, she was having an episode of bradycardia to 20s, hypotension, with emesis. No chest pain, shortness of breath. Admitted to ICU for further care. #Severe CAD, coronary calcification #Coronary dissection #Cardiogenic shock, resolved #Hemorrhagic shock #Left hemothorax #Sinus bradycardia, bifascicular block, resolved #Hypotension #NSTEMI type I ? History of triple coronary artery disease, patient is not agreeable to CABG. Plan for staged outpatient PCI. ? Patient was undergoing revascularization of the RCA on 12/05/24, had severe calcification and guidewire went subintimal creating coronary dissection. Patient became bradycardic, hypotensive but responded really well to dopamine drip. ? For persistent intermittent bradycardia and bifascicular block/asystole, s/p MANAGER LINUX-P implantation on 12/08/2024. Bradycardia resolved. ?Nausea improved today after weaning off dopamine overnight. Currently requiring phenylephrine in the setting of hemorrhagic shock weaning to 10 mics this afternoon. ? Possible subclavian artery puncture during pacemaker placement, CT chest shows large left-sided hemothorax. ? Pulmonology consulted, s/p chest tube with bloody output, stable currently is drained 1850 cc sanguinous fluid. ? Hemoglobin improved from 8.2-8.3 after 2 units PRBC, and improved to 11.9 after additional 2 units PRBC. ? Overall, patient states she is feeling better today. ? Continue vancomycin, Zosyn 3.375 g every 6 hours due to intermittent hypotension. Follow-up blood cultures. - Hold aspirin, continue Plavix 75 mg per cardiology. ? A1c 5.6 Repeat CBC, CMP, magnesium ordered for the morning. ? Continuous cardiac telemetry. CLAUDIA on CKD 3. Creatinine 1.3, GFR 40. Stable. #Hypertension: Hold home lisinopril, hydrochlorothiazide, amlodipine due to cardiogenic shock. Resume when appropriate. #Hypothyroidism: Continue home levothyroxine 137 mcg. TSH 0.35 this morning. Full code DVT prophylaxis: IPC's Home medications: Reconciled. Hold home Farxiga due to cardiogenic shock. ICU/Critical care attestation This patient is critically ill with 40 minutes devoted solely to this patient managing life/organ supporting interventions that required physician assessment. This includes time spent making adjustments in ventilator settings, IV fluid administration, titration of pressors, adjustments of medications, discussion of patient with consultants and other care providers as well as updating patient and/or family (if patient by virtue of his/her condition is unable to participate in decision making). This does not include time spent performing separately billed procedures. Time is not concurrent with that of other providers.
--- NOTE | 2024-12-10 22:51 | PC.NURSE ---
2240 - Changed patients PICC line dressing. Used sterile procedure. patient denied pain or discomfort during process.
[2024-12-10 23:03] LABS: Chloride 111 mmol/L (98-107); Potassium 4.7 mmoL/L (3.5-5.1); Sodium 132 mmol/L (136-145)
[2024-12-10 23:06] LABS: Blood Urea Nitrogen 32 mg/dl (7-17); Creatinine Clearance Estimated 52 mL/min (50-200); Creatinine,Serum 1.20 mg/dl (0.52-1.04); Estimated Glomerular Filt Rate 44 ml/min (>60); GFR (African American) 53 ML/MIN (>60)
[2024-12-10 23:07] LABS: Anion Gap 6.7 mEq/L (5-15); Calcium 7.2 mg/dl (8.4-10.2); Carbon Dioxide 19 mmol/L (22.0-30.0); Glucose 121 mg/dl (74-100)
[2024-12-11] VITALS (27 sets, daily range): BP systolic 115–155; BP diastolic 48–66; PULSE 72–81; RESP 17–29; TEMP 36.9–37.4; O2SAT 91–98; BMI 35.9
[2024-12-11] MEDS: D5W/0.45% NaCl w/40mEq KCl 1,000 ML 125 ML IV (02:56)
[2024-12-11] MEDS: PIPERCILLIN/TAZO 3.375 GM in 0.9 % SODIUM CHLORIDE 50 ML IV ×4 (02:57→20:00)
[2024-12-11] MEDS: LEVOTHYROXINE 137MCG (0.137MG) TAB 137 MCG PO (06:22)
--- NOTE | 2024-12-11 07:49 | XR_ITS ---
FINAL REPORT CLINICAL HISTORY: Follow-up hemothorax COMPARISON: 12/10/2024 FINDINGS: A portable view of the chest was obtained. Support lines and tubes are unchanged. The heart is enlarged, stable from prior. The mediastinum is unremarkable. There is a left lung opacity and loculated left pleural effusion, unchanged from prior. There is no pneumothorax. IMPRESSION: No significant interval change. Reviewed, Interpreted and Dictated by Norma Christian MD Transcribed by Evelyn Pearce Authenticated and [facility]
--- NOTE | 2024-12-11 07:59 | PC.NURSE ---
No morning labs were ordered on patient this am. Called Dr. Cast about the orders for morning labs. He placed the order and labs were drawn from patients picc line in her left arm.
[2024-12-11] MEDS: PRIMIDONE 50MG TABLET 100 MG PO (08:12)
[2024-12-11] MEDS: CLOPIDOGREL 75MG TAB 75 MG PO (08:12)
[2024-12-11 08:13] LABS: Hematocrit 28.5 % (37.0-47.0); Immature Granulocytes % 2.9 %; Mean Corpuscular HGB Conc 34.0 g/dL (31.8-35.4); Mean Corpuscular Hemoglobin 31.1 pg (27.0-31.2); Mean Corpuscular Volume 91.3 fl (81-99); Nucleated Red Blood Cells % 0 %; Platelet Count 101 K/mm3 (142-424); Red Blood Count 3.12 M/mm3 (4.20-5.40); Red Cell Distribution Width-SD 53.9 fL; White Blood Count 13.0 K/mm3 (4.8-10.8)
[2024-12-11] MEDS: POLYETHYLENE GLYCOL 3350 17 GM PACKET PO (08:13)
[2024-12-11 08:51] LABS: Hemoglobin 9.7 g/dL (12.2-16.2)
[2024-12-11 09:05] LABS: Alanine Aminotransferase 56 U/L (12-78); Albumin Level 2.2 g/dl (3.5-5.0); Albumin/Globulin Ratio 0.8 (1.1-1.8); Alkaline Phosphatase 39 U/L (38-126); Anion Gap 4.5 mEq/L (5-15); Aspartate Amino Transferase 62 U/L (14-36); Bilirubin,Total 0.6 mg/dl (0.2-1.3); Blood Urea Nitrogen 25 mg/dl (7-17); Calcium 7.3 mg/dl (8.4-10.2); Carbon Dioxide 18 mmol/L (22.0-30.0); Chloride 109 mmol/L (98-107); Creatinine Clearance Estimated 62 mL/min (50-200); Creatinine,Serum 1.00 mg/dl (0.52-1.04); Estimated Glomerular Filt Rate 54 ml/min (>60); GFR (African American) 65 ML/MIN (>60); Globulin 2.6 g/dL (1.3-3.2); Glucose 139 mg/dl (74-100); Magnesium 2.1 mg/dl (1.6-2.3); Potassium 4.5 mmoL/L (3.5-5.1); Sodium 127 mmol/L (136-145); Total Protein,Serum 4.8 g/dl (6.3-8.2)
--- NOTE | 2024-12-11 09:56 | EXP.PULM.PN ---
Subjective *Date: 12/11/24 *Time: 12:06 Interval history: No acute respiratory vents overnight. Patient admits improving respiratory symptoms. Appeared more awake and alert this morning. Pulmonology Exam Inpatient Vital signs and Labs for Last 24 Hours: Temp Pulse Resp BP Pulse Ox O2 Del Method O2 Flow Rate 99.4 F 74 26 H 146/57 H 96 Nasal Cannula 2 12/11/24 08:00 12/11/24 09:00 12/11/24 09:00 12/11/24 09:00 12/11/24 09:00 12/11/24 09:00 12/11/24 09:00 Laboratory Results - last 24 hr 12/09/24 05:23: Cortisol AM Sample 15.5 12/09/24 07:30: Blood Type O Positive, Antibody Screen Negative, Crossmatch (AHG) See Detail 12/09/24 16:28: Fluid Glucose 102, Fluid Total Protein 5.0, Fluid Albumin 3.1, Fluid LDH 393, Miscellaneous Test Comment 12/10/24 09:26: WBC 14.1 H, RBC 2.83 L, Hgb 8.3 L, Hct 25.2 L, MCV 89.0, MCH 29.3, MCHC 32.9, RDW 13.7, Plt Count 149 D, MPV 11.1 H, Neut % (Auto) 72.9, Lymph % (Auto) 13.5, [place] % (Auto) 10.0 H, Eos % (Auto) 0.0 L, Baso % (Auto) 0.3, Neut # (Auto) 10.3 H, Lymph # (Auto) 1.9, [place] # (Auto) 1.4 H, Eos # (Auto) 0.0, Baso # (Auto) 0.0, Sodium 133 L, Potassium 3.2 L D, Chloride 114 H, Carbon Dioxide 16 L, Anion Gap 6.2, BUN 26 H, Creatinine 1.30 H D, Estimated Creat Clear 48, Estimated GFR 40 L, Est GFR ( Amer) 48 L D, Glucose 95 D, Calcium 5.4 L D, Magnesium 2.0 D, Total Bilirubin 0.7, AST 82 H D, ALT 48 D, Alkaline Phosphatase 29 L, Total Protein 3.6 L, Albumin 1.5 L D, Globulin 2.1, Albumin/Globulin Ratio 0.7 L 12/10/24 19:42: Hgb 11.9 L D, Hct 34.8 L 12/10/24 22:50: Sodium 132 L, Potassium 4.7 D, Chloride 111 H, Carbon Dioxide 19 L, Anion Gap 6.7, BUN 32 H, Creatinine 1.20 H, Estimated Creat Clear 52, Estimated GFR 44 L, Est GFR ( Amer) 53 L, Glucose 121 H D, Calcium 7.2 L 12/11/24 07:50: WBC 13.0 H, RBC 3.12 L, Hgb 9.7 L D, Hct 28.5 L, MCV 91.3, MCH 31.1, MCHC 34.0, RDW 16.2, Plt Count 101 L D, MPV 11.2 H, Neut % (Auto) 75.9, Lymph % (Auto) 13.2, [place] % (Auto) 6.4, Eos % (Auto) 1.1, Baso % (Auto) 0.5, Neut # (Auto) 9.8 H, Lymph # (Auto) 1.7, [place] # (Auto) 0.8, Eos # (Auto) 0.1, Baso # (Auto) 0.1, Sodium 127 L, Potassium 4.5, Chloride 109 H, Carbon Dioxide 18 L, Anion Gap 4.5 L, BUN 25 H, Creatinine 1.00, Estimated Creat Clear 62, Estimated GFR 54 L, Est GFR ( Amer) 65 D, Glucose 139 H, Calcium 7.3 L, Magnesium 2.1, Total Bilirubin 0.6, AST 62 H, ALT 56, Alkaline Phosphatase 39, Total Protein 4.8 L D, Albumin 2.2 L D, Globulin 2.6, Albumin/Globulin Ratio 0.8 L Temp Pulse Resp BP Pulse Ox O2 Del Method O2 Flow Rate 97.6 F 75 14 112/40 L 100 Nasal Cannula 3 12/09/24 13:51 12/09/24 13:51 12/09/24 13:51 12/09/24 13:51 12/09/24 13:51 12/09/24 13:00 12/09/24 11:00 Laboratory Results - last 24 hr 12/09/24 05:23: WBC 15.6 H D, RBC 3.13 L D, Hgb 9.2 L D, Hct 28.6 L, MCV 91.4, MCH 29.7, MCHC 32.5, RDW 12.6, Plt Count 268, MPV 10.1, Neut % (Auto) 85.6 H, Lymph % (Auto) 7.9 L, [place] % (Auto) 5.7, Eos % (Auto) 0.0 L, Baso % (Auto) 0.2, Neut # (Auto) 13.4 H, Lymph # (Auto) 1.2, [place] # (Auto) 0.9, Eos # (Auto) 0.0, Baso # (Auto) 0.0, Sodium 132 L, Potassium 4.6, Chloride 101, Carbon Dioxide 27, Anion Gap 8.6, BUN 20 H, Creatinine 1.00, Estimated Creat Clear 62, Estimated GFR 54 L, Est GFR ( Amer) 65, Glucose 131 H, Calcium 7.5 L, Phosphorus 3.6 D, Magnesium 1.7 D, Total Bilirubin 0.4, AST 47 H D, ALT 22 D, Alkaline Phosphatase 45, C-Reactive Protein 31.2 H, Total Protein 5.4 L, Albumin 3.3 L D, Globulin 2.1, Albumin/Globulin Ratio 1.6, Amylase 206 H, Lipase 153, Procalcitonin 0.118, Blood Type Confirm O Positive 12/09/24 07:10: POC Glucose 163 H 12/09/24 07:30: Blood Type O Positive, Antibody Screen Negative, Crossmatch (AHG) See Detail 12/09/24 11:58: Chlamy pneumoniae PCR Not detected, Adenovirus (PCR) Not detected, B. pertussis DNA (PCR) Not detected, Coronavirus OC43 (PCR) Not detected, Coronavirus HKU1 (PCR) Not detected, Coronavirus 229E (PCR) Not detected, SARS-CoV-2 (PCR) Not detected, Coronavirus NL63 (PCR) Not detected, Human Metapneumovir PCR Not detected, Influenza A (H1) PCR Not detected, Influ A (H1N1/09) PCR Not detected, Influenza A (H3) PCR Not detected, Influenza Type A (PCR) Not detected, Influenza Type B (PCR) Not detected, M. pneumoniae (PCR) Not detected, Parainfluenza 1 (PCR) Not detected, Parainfluenza 2 (PCR) Not detected, Parainfluenza 3 (PCR) Not detected, Parainfluenza 4 (PCR) Not detected, RSV (PCR) Not detected, Entero/Rhino (PCR) Not detected 12/09/24 13:58: Hgb 9.6 L, Hct 28.8 L 12/09/24 15:07: Urine Color Yellow, Urine Appearance Clear, Urine pH 6.0, Ur Specific [place] 1.020, Urine Protein Negative, Urine Glucose (UA) 1+, Urine Ketones Negative, Urine Blood Negative, Urine Nitrate Negative, Urine Bilirubin Negative, Urine Urobilinogen 0.2, Ur Leukocyte Esterase Negative I & O for Labs for Last 24 Hours: Intake & Output 12/08/24 12/09/24 12/10/24 12/11/24 23:59 23:59 23:59 23:59 Intake Total 1787.444 / 9090.327 1126.341 / 5054.341 5047.599 / 5047.599 1977.333 / 1977.333 Output Total 1675 / 1675 1950 / 1950 1400 / 1400 1070 / 1070 Balance 112.444 / 297.593 5011.341 / 3104.341 3647.599 / 3647.599 908.333 / 908.333 Weight 182 lb 12.211 oz 183 lb 8.204 oz 182 lb 12.211 oz Intake & Output 12/06/24 12/07/24 12/08/24 12/09/24 23:59 22:59 23:59 23:59 Intake Total 1259.639 / 6411.129 4174.583 / 5354.947 8443.444 / 0808.977 0705.283 / 2323.283 Output Total 1750 / 1750 2550 / 2550 1675 / 1675 800 / 800 Balance -490.361 / -250.361 -920.417 / -920.417 112.444 / 383.357 4932.283 / 1523.283 Weight 180 lb 12.465 oz 181 lb 3.52 oz 182 lb 12.211 oz 183 lb 8.204 oz Microbiology Reports for the Last 24 Hours: Microbiology 12/09/24 16:28 Thoracic Fluid Gram Stain - Final 12/09/24 16:28 Thoracic Fluid Body Fluid Culture - Preliminary NO GROWTH AFTER 24 HOURS 12/09/24 13:58 Blood Blood Culture - Preliminary NO GROWTH AFTER 24 HOURS 12/09/24 11:52 Blood Blood Culture - Preliminary NO GROWTH AFTER 24 HOURS Constitutional: Present severe distress Head: Present normocephalic and atraumatic ENT: Present normal exam, normal oropharynx and mucous membranes moist Neck: Present full ROM Respiratory: Present respiratory distress, distant breath sounds and diminished air movement; Absent normal respiratory effort or able to speak in complete sentences Cardiac: Present Tachycardia; Absent S1/S2 GI: Present soft and distention; Absent tenderness or guarding Rectal (female): Present deferred (female): Present deferred Skin: Present intact; Absent cyanosis or jaundice Neuro: Present alert, awake and oriented x 3 Extremities: Present normal inspection; Absent clubbing or cyanosis Psychiatric: Present normal affect Assessment and Plan *Assessment and plan (1) Pleural effusion, left: Status: Acute Category: Medical Code(s): J90 - Pleural effusion, not elsewhere classified (2) Acute respiratory failure with hypoxia: Status: Acute Category: Medical Code(s): J96.01 - Acute respiratory failure with hypoxia Plan Ms. Martin is a 79-year-old female with complicated medical history severe CAD however refused bypass status post SHANNON to LAD, RCA stenting status post dissection resulting in bradycardia hypotension followed by pacemaker placement now noted to have worsening left-sided pleural effusion concerning for left-sided hemothorax and pulmonary was called for further evaluation and management. CT chest reviewed, the noted left effusion is concerning for hemothorax at this point of time. She continue to receive full dose Lovenox along with Plavix and aspirin 81 mg. She continued to receive vancomycin and Zosyn. Blood cultures pending so far. Interval Update: To have blood-tinged output from the chest tube with declining volume. Chest x-ray relatively stable with only slight improvement from the day the chest tube was placed. Aspirin and full dose Lovenox continued to remain on hold. Continue to receive Plavix Plan: Continue to monitor clinically, chest tube to waterseal. Place the chest tube every 6 hours Follow with repeat chest x-ray in a.m. and will consider tPA ketty # Thank you for involving pulmonary in this patient care. Will continue to follow.
[2024-12-11] MEDS: 0.9 % SODIUM CHLORIDE 1000ML 1,000 ML 250 ML IV (10:10)
--- NOTE | 2024-12-11 10:39 | P.PN_ITS ---
Subjective Subjective Date: 12/11/24 Time: 10:40 Principal diagnosis: bradycardia, hypotension Interval history: 79-year-old white female lying in bed in no acute distress. Color appears better today. She still has a lot of peripheral edema/third spacing She is more interactive and talkative today. She denies any chest pain, pressure or tightness. She is anxious to have the chest tube removed when possible. Discussed with Dr. Juarez and will likely be tomorrow. Hemoglobin has settled at 9.7 this morning with platelet count of 101,000 Sodium has dropped 127, BUN 25, creatinine 1.0 Exam Data for Last 24 hours Vital signs and Labs for Last 24 Hours: Temp Pulse Resp BP Pulse Ox O2 Del Method O2 Flow Rate 99.4 F 76 24 142/58 H 98 Nasal Cannula 2 12/11/24 08:00 12/11/24 10:00 12/11/24 10:00 12/11/24 10:00 12/11/24 10:00 12/11/24 10:00 12/11/24 10:00 Laboratory Results - last 24 hr 12/09/24 05:23: Cortisol AM Sample 15.5 12/09/24 07:30: Blood Type O Positive, Antibody Screen Negative, Crossmatch (AHG) See Detail 12/09/24 16:28: Fluid Glucose 102, Fluid Total Protein 5.0, Fluid Albumin 3.1, Fluid LDH 393, Miscellaneous Test Comment 12/10/24 19:42: Hgb 11.9 L D, Hct 34.8 L 12/10/24 22:50: Sodium 132 L, Potassium 4.7 D, Chloride 111 H, Carbon Dioxide 19 L, Anion Gap 6.7, BUN 32 H, Creatinine 1.20 H, Estimated Creat Clear 52, Estimated GFR 44 L, Est GFR ( Amer) 53 L, Glucose 121 H D, Calcium 7.2 L 12/11/24 07:50: WBC 13.0 H, RBC 3.12 L, Hgb 9.7 L D, Hct 28.5 L, MCV 91.3, MCH 31.1, MCHC 34.0, RDW 16.2, Plt Count 101 L D, MPV 11.2 H, Neut % (Auto) 75.9, Lymph % (Auto) 13.2, [place] % (Auto) 6.4, Eos % (Auto) 1.1, Baso % (Auto) 0.5, Neut # (Auto) 9.8 H, Lymph # (Auto) 1.7, [place] # (Auto) 0.8, Eos # (Auto) 0.1, Baso # (Auto) 0.1, Sodium 127 L, Potassium 4.5, Chloride 109 H, Carbon Dioxide 18 L, Anion Gap 4.5 L, BUN 25 H, Creatinine 1.00, Estimated Creat Clear 62, Estimated GFR 54 L, Est GFR ( Amer) 65 D, Glucose 139 H, Calcium 7.3 L, Magnesium 2.1, Total Bilirubin 0.6, AST 62 H, ALT 56, Alkaline Phosphatase 39, Total Protein 4.8 L D, Albumin 2.2 L D, Globulin 2.6, Albumin/Globulin Ratio 0.8 L I & O for Last 24 hours: Intake & Output 12/08/24 12/09/24 12/10/24 12/11/24 11:59 11:59 11:59 11:59 Intake Total 1228.044 / 6799.374 9843.659 / 3561.659 5404.782 / 5404.782 4293.232 / 4293.232 Output Total 3625 / 3625 600 / 600 2150 / 2150 1670 / 1670 Balance -2396.956 / -2396.956 2961.659 / 2961.659 3254.782 / 3254.782 2623.232 / 2623.232 Weight 182 lb 12.211 oz 183 lb 8.204 oz 182 lb 12.211 oz Microbiology Reports for the Last 24 Hours: Microbiology 12/09/24 16:28 Thoracic Fluid Gram Stain - Final 12/09/24 16:28 Thoracic Fluid Body Fluid Culture - Preliminary NO GROWTH AFTER 24 HOURS 12/09/24 13:58 Blood Blood Culture - Preliminary NO GROWTH AFTER 24 HOURS 12/09/24 11:52 Blood Blood Culture - Preliminary NO GROWTH AFTER 24 HOURS Constitutional Constitutional: no acute distress *Routine Respiratory Exam Respiratory: Present decreased breath sounds and rhonchi; Absent wheezes *Routine Cardiovascular Exam Cardiovascular: Present RRR; Absent murmur, gallop or rubs *Routine Extremities Exam Extremities: Present edema Progress Note: A&P Assessment and plan (1) Pleural effusion, left: Status: Acute (2) Acute respiratory failure with hypoxia: Status: Acute (3) Coronary artery dissection: Status: Acute (4) Coronary artery disease: Status: Acute (5) CKD (chronic kidney disease) stage 3, GFR 30-59 ml/min: Status: Chronic (6) Hypertension: Status: Chronic (7) Hypothyroidism: Status: Chronic (8) Hyperlipidemia: Status: Chronic (9) Obesity (BMI 30-39.9): Status: Acute (10) NSTEMI (non-ST elevated myocardial infarction): Status: Acute (11) CLAUDIA (acute kidney injury): Status: Acute Assessment and Plan Assessment and Plan for All Diagnoses:: 1. 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 -Currently off Cirilo-Synephrine -BP stabilized since subclavian artery bleed has slowed/stopped 2. 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 CAD with recent LAD and circumflex stenting, 11/2024 -Continue Plavix -stop aspirin due to recent subclavian artery bleed 4. Hypothyroidism -On replacement 5. History of hypertension, now with intermittent nausea/vomiting/hypotensive episodes requiring vasopressor support -Previously controlled on lisinopril and amlodipine -Hypotensive episodes resolved with slowing/stopped subclavian artery bleed 6. Hyperlipidemia -On statin therapy with LDL 84 this admission 7. CKD, stage III -Baseline creatinine 1.1-1.3 with GFR 40-44 8. Anemia with hemoglobin 9.2 this a.m. -Transfuse to greater than 10 due to recent coronary issues 7. New left pleural effusion post pacemaker implantation -concern for hemothorax due to subclavian artery stick in attempt to find the vein for pacer implantation, per Dr. Chatterjee -Dr. Juarez placed thoracentesis/chest tube -drainage has slowed, 12/11/2024, with plans for removal of chest tube tomorrow is continued improvement Off Cirilo since last evening BP stable chest tube drainage slowing down with plans for removal in AM if stable Switch D5W/1/2 NS to NS due to drop in sodium and for continued fluid replacement Edema/third spacing should improve with intravascular volume replacement Overall she is improving.
--- NOTE | 2024-12-11 12:41 | PC.NURSE ---
Dr. Chatterjee into see patient at this time. He wants patient to receive 1 liter of fluids at 250mls an hour and then for the 2nd liter 100 mls/hr. AFter 2 liters are in drop the fluids to kvo.
--- NOTE | 2024-12-11 13:52 | PC.NURSE ---
changed out the patient pleural evac due to the one that was from when the chest tube was initally placed. The main one had 1900 cc of blood and clear fluid in it. Once the new one was hooked back up patient has had 190 cc of blood out.
--- NOTE | 2024-12-11 13:54 | EXP.MED.FU ---
Subjective *Date: 12/11/24 *Time: 14:33 Interval history: Patient resting in bed, appears fatigued. Has been maintaining her blood pressure without vasopressors since this morning. Large bowel movement this morning. No obvious melena or hematochezia. Hemoglobin down to 9.7. Chest tube still pulling grossly bloody fluid from hemothorax. Patient has not had nausea and vomiting for 2 days. Patient denies heartburn reflux dysphagia or epigastric pain. Exam Data for Last 24 hours Vital signs and Labs for Last 24 Hours: Temp Pulse Resp BP Pulse Ox O2 Del Method O2 Flow Rate 99.0 F 78 21 155/65 H 96 Nasal Cannula 2 12/11/24 12:00 12/11/24 12:00 12/11/24 12:00 12/11/24 12:00 12/11/24 12:00 12/11/24 12:00 12/11/24 12:00 Laboratory Results - last 24 hr 12/09/24 05:23: Cortisol AM Sample 15.5 12/09/24 07:30: Blood Type O Positive, Antibody Screen Negative, Crossmatch (AHG) See Detail 12/09/24 16:28: Fluid Glucose 102, Fluid Total Protein 5.0, Fluid Albumin 3.1, Fluid LDH 393, Miscellaneous Test Comment 12/10/24 19:42: Hgb 11.9 L D, Hct 34.8 L 12/10/24 22:50: Sodium 132 L, Potassium 4.7 D, Chloride 111 H, Carbon Dioxide 19 L, Anion Gap 6.7, BUN 32 H, Creatinine 1.20 H, Estimated Creat Clear 52, Estimated GFR 44 L, Est GFR ( Amer) 53 L, Glucose 121 H D, Calcium 7.2 L 12/11/24 07:50: WBC 13.0 H, RBC 3.12 L, Hgb 9.7 L D, Hct 28.5 L, MCV 91.3, MCH 31.1, MCHC 34.0, RDW 16.2, Plt Count 101 L D, MPV 11.2 H, Neut % (Auto) 75.9, Lymph % (Auto) 13.2, [place] % (Auto) 6.4, Eos % (Auto) 1.1, Baso % (Auto) 0.5, Neut # (Auto) 9.8 H, Lymph # (Auto) 1.7, [place] # (Auto) 0.8, Eos # (Auto) 0.1, Baso # (Auto) 0.1, Sodium 127 L, Potassium 4.5, Chloride 109 H, Carbon Dioxide 18 L, Anion Gap 4.5 L, BUN 25 H, Creatinine 1.00, Estimated Creat Clear 62, Estimated GFR 54 L, Est GFR ( Amer) 65 D, Glucose 139 H, Calcium 7.3 L, Magnesium 2.1, Total Bilirubin 0.6, AST 62 H, ALT 56, Alkaline Phosphatase 39, Total Protein 4.8 L D, Albumin 2.2 L D, Globulin 2.6, Albumin/Globulin Ratio 0.8 L I & O for Last 24 hours: Intake & Output 12/09/24 12/10/24 12/11/24 12/12/24 11:59 11:59 11:59 11:59 Intake Total 3561.659 5404.782 4293.232 Output Total 600 2150 1770 Balance 2961.659 3254.782 2523.232 Weight 83.24 kg 82.9 kg Microbiology Reports for the Last 24 Hours: Microbiology 12/09/24 11:52 Blood Blood Culture - Preliminary NO GROWTH AFTER 48 HOURS 12/09/24 16:28 Thoracic Fluid Gram Stain - Final 12/09/24 16:28 Thoracic Fluid Body Fluid Culture - Preliminary NO GROWTH AFTER 24 HOURS 12/09/24 13:58 Blood Blood Culture - Preliminary NO GROWTH AFTER 24 HOURS Constitutional Constitutional: no acute distress, obese and cooperative Comments: Appears fatigued *Routine HEENT Exam Head: Present normocephalic and atraumatic *Routine Respiratory Exam Respiratory: Present able to speak in complete sentences Comments: CTA right lobe, diminished air movement left lobe *Routine Cardiovascular Exam Cardiovascular: Present RRR Comments: paced *Routine Abdominal Exam Abdominal: Present soft, normoactive bowel sounds and distended (Moderately distended); Absent tenderness *Routine Skin Exam Skin: Present intact *Routine Neurological Exam Neurological: Present alert, oriented X3 and normal speech Assessment and Plan *Assessment and plan (1) Vaso-vagal reaction: Status: Acute Category: Medical Code(s): R55 - Syncope and collapse (2) Obstipation: Status: Acute Category: Medical Code(s): K59.00 - Constipation, unspecified (3) Nausea & vomiting: Status: Acute Category: Medical Code(s): R11.2 - Nausea with vomiting, unspecified (4) Anemia: Status: Acute Category: Medical Code(s): D64.9 - Anemia, unspecified Plan 1. Vasovagal reaction/nausea vomiting/obstipation Patient has not had nausea and vomiting in 2 days. No further drops in blood pressure or significant bradycardia. Patient is off all vasopressors. She has had large bowel movements 2 days in a row. Continue bowel regimen 2. Anemia Patient with left hemothorax still draining. No significant change on chest x-ray. Hemoglobin dropped to 9.7. No melena or hematochezia in any bowel movement the past 2 days. May consider Hemoccult testing but patient is high risk for sedation/procedure. No heartburn reflux. No further nausea or vomiting. No epigastric pain or abdominal pain. If she develops obvious melena or hematochezia with continued drop in hemoglobin as hemothorax improves, may reevaluate.
[2024-12-11] MEDS: 0.9 % SODIUM CHLORIDE 1000ML 1,000 ML 100 ML IV (14:22)
[2024-12-11 16:08] LABS: POC Glucose,Bedside 144 gm/dL (70-110)
--- NOTE | 2024-12-11 18:59 | PC.NURSE ---
Pluer-evac marked at 340. Patient has had 150 out since the pleur-evac was changed.
[2024-12-11] MEDS: PANTOPRAZOLE 40MG TABLET 40 MG PO (20:00)
[2024-12-11] MEDS: PRAVASTATIN 40MG TAB 40 MG PO (20:00)
--- NOTE | 2024-12-11 21:40 | EXP.PN ---
Subjective *Date: 12/11/24 *Time: 21:40 Interval history: Patient feeling better, chest tube output slowing down. Hemoglobin also stable. Pulmonology will consider tPA tomorrow depending on CXR. Exam Data for Last 24 hours Vital signs and Labs for Last 24 Hours: Temp Pulse Resp BP Pulse Ox O2 Del Method O2 Flow Rate 98.4 F 75 20 141/55 H 94 L Room Air 2 12/11/24 20:00 12/11/24 21:00 12/11/24 21:00 12/11/24 21:00 12/11/24 21:00 12/11/24 21:00 12/11/24 14:00 Laboratory Results - last 24 hr 12/09/24 06:01: POC Glucose 144 H 12/10/24 22:50: Sodium 132 L, Potassium 4.7 D, Chloride 111 H, Carbon Dioxide 19 L, Anion Gap 6.7, BUN 32 H, Creatinine 1.20 H, Estimated Creat Clear 52, Estimated GFR 44 L, Est GFR ( Amer) 53 L, Glucose 121 H D, Calcium 7.2 L 12/11/24 07:50: WBC 13.0 H, RBC 3.12 L, Hgb 9.7 L D, Hct 28.5 L, MCV 91.3, MCH 31.1, MCHC 34.0, RDW 16.2, Plt Count 101 L D, MPV 11.2 H, Neut % (Auto) 75.9, Lymph % (Auto) 13.2, [place] % (Auto) 6.4, Eos % (Auto) 1.1, Baso % (Auto) 0.5, Neut # (Auto) 9.8 H, Lymph # (Auto) 1.7, [place] # (Auto) 0.8, Eos # (Auto) 0.1, Baso # (Auto) 0.1, Sodium 127 L, Potassium 4.5, Chloride 109 H, Carbon Dioxide 18 L, Anion Gap 4.5 L, BUN 25 H, Creatinine 1.00, Estimated Creat Clear 62, Estimated GFR 54 L, Est GFR ( Amer) 65 D, Glucose 139 H, Calcium 7.3 L, Magnesium 2.1, Total Bilirubin 0.6, AST 62 H, ALT 56, Alkaline Phosphatase 39, Total Protein 4.8 L D, Albumin 2.2 L D, Globulin 2.6, Albumin/Globulin Ratio 0.8 L I & O for Last 24 hours: Intake & Output 12/08/24 12/09/24 12/10/24 12/11/24 23:59 23:59 23:59 23:59 Intake Total 1787.444 / 5153.639 1357.341 / 5054.341 5047.599 / 5047.599 3328.333 / 3328.333 Output Total 1675 / 1675 1950 / 1950 1400 / 1400 2405 / 2405 Balance 112.444 / 373.143 9888.341 / 3104.341 3647.599 / 3647.599 923.333 / 923.333 Weight 82.9 kg 83.24 kg 82.9 kg Microbiology Reports for the Last 24 Hours: Microbiology 12/09/24 16:28 Thoracic Fluid Gram Stain - Final 12/09/24 16:28 Thoracic Fluid Body Fluid Culture - Preliminary NO GROWTH AFTER 48 HOURS 12/09/24 13:58 Blood Blood Culture - Preliminary NO GROWTH AFTER 48 HOURS 12/09/24 11:52 Blood Blood Culture - Preliminary NO GROWTH AFTER 48 HOURS Constitutional Constitutional: no acute distress and chronically ill appearing *Routine HEENT Exam Head: Present normocephalic Eye: Present EOMI and PERRL ENT: Present mucous membranes moist *Routine Neck Exam Neck: Present supple; Absent lymphadenopathy *Routine Respiratory Exam Respiratory: Present CTA bilaterally *Routine Cardiovascular Exam Cardiovascular: Present RRR *Routine Abdominal Exam Abdominal: Present soft and normoactive bowel sounds; Absent tenderness *Routine Extremities Exam Extremities: Present edema; Absent cyanosis or clubbing *Routine Skin Exam Skin: Present warm; Absent rash *Routine Neurological Exam Neurological: Present alert and oriented X3 Assessment and Plan *Assessment and plan (1) Bradycardia: Status: Acute Category: Medical Code(s): R00.1 - Bradycardia, unspecified (2) Cardiogenic shock: Status: Acute Category: Medical Code(s): R57.0 - Cardiogenic shock (3) Coronary artery dissection: Status: Acute Category: Medical Code(s): I25.42 - Coronary artery dissection (4) Coronary artery disease: Status: Acute Qualifiers: Coronary Disease-Associated Artery/Lesion type: [place] artery [place] vs. transplanted heart: [place] heart Associated angina: without angina Qualified Code(s): I25.10 - Atherosclerotic heart disease of [place] coronary artery without angina pectoris Category: Medical Code(s): I25.10 - Atherosclerotic heart disease of [place] coronary artery without angina pectoris (5) CKD (chronic kidney disease) stage 3, GFR 30-59 ml/min: Status: Chronic Qualifiers: Chronic kidney disease stage 3 subtype: stage 3a (GFR 45-59) Qualified Code(s): N18.31 - Chronic kidney disease, stage 3a Category: Medical Code(s): N18.30 - Chronic kidney disease, stage 3 unspecified (6) Hypertension: Status: Chronic Qualifiers: Hypertension type: primary hypertension Qualified Code(s): I10 - Essential (primary) hypertension Category: Medical Code(s): I10 - Essential (primary) hypertension (7) Hypertriglyceridemia: Status: Acute Category: Medical Code(s): E78.1 - Pure hyperglyceridemia (8) Hypothyroidism: Status: Chronic Qualifiers: Hypothyroidism type: acquired Qualified Code(s): E03.9 - Hypothyroidism, unspecified Category: Medical Code(s): E03.9 - Hypothyroidism, unspecified (9) Hyperlipidemia: Status: Chronic Qualifiers: Hyperlipidemia type: mixed hyperlipidemia Qualified Code(s): E78.2 - Mixed hyperlipidemia Category: Medical Code(s): E78.5 - Hyperlipidemia, unspecified (10) Obesity (BMI 30-39.9): Status: Acute Category: Medical Code(s): E66.9 - Obesity, unspecified (11) NSTEMI (non-ST elevated myocardial infarction): Status: Acute Category: Medical Code(s): I21.4 - Non-ST elevation (NSTEMI) myocardial infarction (12) CLAUDIA (acute kidney injury): Status: Acute Category: Medical Code(s): N17.9 - Acute kidney failure, unspecified Plan Corinne Martin is a 79-year-old female with a history of triple-vessel coronary disease, hypothyroidism, bifascicular block with tachybradycardia syndrome, hypertension presented for an outpatient [facility]. Patient and family previously did not want to undergo CABG for triple-vessel coronary disease, and had been planned for outpatient staged PCI. Patient was undergoing revascularization of the RCA today, had severe calcification and guidewire went subintimal creating coronary dissection. Patient became bradycardic, hypotensive but responded really well to dopamine drip. Discussed case with Dr. Chatterjee, will admit to the ICU on dopamine drip for further monitoring. He did advise that patient will have focal infarction, ST wave changes, and will become intermittently bradycardic. On my evaluation of the patient, she was having an episode of bradycardia to 20s, hypotension, with emesis. No chest pain, shortness of breath. Admitted to ICU for further care. #Severe CAD, coronary calcification #Coronary dissection #Cardiogenic shock, resolved #Hemorrhagic shock #Left hemothorax #Sinus bradycardia, bifascicular block, resolved #Hypotension #NSTEMI type I ? History of triple coronary artery disease, patient is not agreeable to CABG. Plan for staged outpatient PCI. ? Patient was undergoing revascularization of the RCA on 12/05/24, had severe calcification and guidewire went subintimal creating coronary dissection. Patient became bradycardic, hypotensive but responded really well to dopamine drip. ? 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 Bradycardia resolved. ? Nausea improved today after weaning off dopamine. Weaned off phenylephrine on 12/10/2024. ? Possible subclavian artery puncture during pacemaker placement, CT chest on 12/09/2024 shows large left-sided hemothorax. ? Pulmonology consulted, s/p chest tube with bloody output, stable currently is drained 2530 cc serosanguineous fluid. ? Hemoglobin improved from 8.2-8.3 after 2 units PRBC, and improved to 11.9 after additional 2 units PRBC. Stable at 9.7 today. ? Overall, patient continues to feel get better. ? Continue Zosyn 3.375 g every 6 hours for now, discontinue vancomycin. Blood cultures NGTD. - Hold aspirin, continue Plavix 75 mg per cardiology. ? A1c 5.6 Repeat CBC, CMP, magnesium ordered for the morning. ? Continuous cardiac telemetry. ? Cardiology will consider tPA in the morning pending CXR. CLAUDIA on CKD 3. Creatinine 1.3, GFR 40. Stable. #Hypertension: Hold home lisinopril, hydrochlorothiazide, amlodipine due to cardiogenic shock. Resume when appropriate. #Hypothyroidism: Continue home levothyroxine 137 mcg. TSH 0.35 this morning. Full code DVT prophylaxis: IPC's Home medications: Reconciled. Hold home Farxiga due to cardiogenic shock.
[2024-12-12] VITALS (20 sets, daily range): BP systolic 141–175; BP diastolic 53–77; PULSE 74–90; RESP 15–37; TEMP 36.4–37.6; O2SAT 93–99; BMI 35.9
[2024-12-12] MEDS: 0.9 % SODIUM CHLORIDE 1000ML 1,000 ML 75 ML IV (00:24)
[2024-12-12] MEDS: PIPERCILLIN/TAZO 3.375 GM in 0.9 % SODIUM CHLORIDE 50 ML IV ×2 (03:43→19:19)
[2024-12-12] MEDS: LEVOTHYROXINE 137MCG (0.137MG) TAB 137 MCG PO (06:32)
[2024-12-12 07:12] LABS: Hematocrit 30.9 % (37.0-47.0); Hemoglobin 10.6 g/dL (12.2-16.2); Immature Granulocytes % 3.8 %; Mean Corpuscular HGB Conc 34.3 g/dL (31.8-35.4); Mean Corpuscular Hemoglobin 31.2 pg (27.0-31.2); Mean Corpuscular Volume 90.9 fl (81-99); Nucleated Red Blood Cells % 0.2 %; Platelet Count 128 K/mm3 (142-424); Red Blood Count 3.40 M/mm3 (4.20-5.40); Red Cell Distribution Width-SD 50.8 fL; White Blood Count 12.9 K/mm3 (4.8-10.8)
--- NOTE | 2024-12-12 08:07 | HMH.PHAAMS2 ---
- Antimicrobial Stewardship Review 48 hour timeout review Stewardship interventions: 48 hour timeout review, culture & sensitivity review, discontinue antimicrobial, de-escalation/chg therapy Comments: REVIEWED CULTURES (NO GROWTH) AND PATIENT CONDITION WITH HOSPITALIST, AGREE TO DC ANTIBIOTIC
[2024-12-12 08:30] LABS: Alanine Aminotransferase 57 U/L (12-78); Albumin Level 2.2 g/dl (3.5-5.0); Albumin/Globulin Ratio 0.8 (1.1-1.8); Alkaline Phosphatase 46 U/L (38-126); Anion Gap 3.8 mEq/L (5-15); Aspartate Amino Transferase 63 U/L (14-36); Bilirubin,Total 0.5 mg/dl (0.2-1.3); Blood Urea Nitrogen 12 mg/dl (7-17); Calcium 7.2 mg/dl (8.4-10.2); Carbon Dioxide 21 mmol/L (22.0-30.0); Chloride 110 mmol/L (98-107); Creatinine Clearance Estimated 62 mL/min (50-200); Creatinine,Serum 0.70 mg/dl (0.52-1.04); Estimated Glomerular Filt Rate 81 ml/min (>60); GFR (African American) 98 ML/MIN (>60); Globulin 2.7 g/dL (1.3-3.2); Glucose 92 mg/dl (74-100); Magnesium 1.8 mg/dl (1.6-2.3); Potassium 3.8 mmoL/L (3.5-5.1); Sodium 131 mmol/L (136-145); Total Protein,Serum 4.9 g/dl (6.3-8.2)
--- NOTE | 2024-12-12 09:20 | XR_ITS ---
FINAL REPORT CLINICAL HISTORY: Chest tube evaluation COMPARISON: 12/11/2024 FINDINGS: The heart size is mildly enlarged. Left-sided pacer is present. There is a left pigtail chest tube. Density in the periphery of the left hemithorax appears to represent loculated fluid measuring up to 4 cm in transverse dimension. The previously noted left pleural effusion has significantly decreased. There is no pneumothorax. There is no osseous abnormality. IMPRESSION: Pigtail chest tube in place. Decrease left pleural effusion. Elliptical density in the periphery of the left hemithorax appears to represent loculated fluid. Reviewed, Interpreted and Dictated by Ousmane Oliver MD Transcribed by Hillary Costello Authenticated and [facility]
--- NOTE | 2024-12-12 09:30 | HMH.PTEV ---
Physical Therapy Evaluation Rehab PT IP Evaluation Start: 12/11/24 08:23 Freq: ONCE Status: Active Protocol: Document 12/12/24 09:24 GUERA (Rec: 12/12/24 09:30 GUERA [id number]) Subjective/History History History Per H&P: Corinne Martin is a 79-year-old female with a history of triple-vessel coronary disease, hypothyroidism, bifascicular block with tachybradycardia syndrome, hypertension presented for an outpatient [facility]. Patient and family previously did not want to undergo CABG for triple-vessel coronary disease, and had been planned for outpatient staged PCI . Patient was undergoing revascularization of the RCA today, had severe calcification and guidewire went subintimal creating coronary dissection. Patient became bradycardic, hypotensive but responded really well to dopamine drip. Discussed case with Dr. Chatterjee, will admit to the ICU on dopamine drip for further monitoring. He did advise that patient will have focal infarction, ST wave changes, and will become intermittently bradycardic. On my evaluation of the patient, she was having an episode of bradycardia to 20s, hypotension, with emesis. No chest pain, shortness of breath. Increased dopamine drip rate to 10 with resolution of symptoms. EKG showed sinus bradycardia with mild acute ischemia not concerning for STEMI. Initial CBC, CMP relatively unremarkable. Subjective Subjective Pt reports she lives with her in a SS home with 5 KENNETH with HRs. Pt reports she is normally IND with all mobility without AD use. Pt does own a RW. No reported falls in past 30 days. [facility] How much help from another person do you currently need... Turning from your A little back to your side while in a flat bed without using bedrails? Moving from lying on A little back to sitting on the side of a flat bed without using bedrails? Moving to and from a A little bed to a chair ( including a wheelchair)? Standing up from a A little chair using your arms? (e.g., wheelchair, bedside chair) Walking in hospital A little room? Climbing 3-5 steps A lot with a railing? Mobility Score 17 Mobility Level [facility] Mobility 5 Stand (1 or more minutes) Mobility Calculator Rehab PT IP Eval Objective Appearance Patient Behavior Appropriate,Cooperative Patient Orientation Person,Place Difficulty following none instructions Speech Pattern Clear Ambulation Patient Able to Yes Ambulate Ambulation Observation IP General Gait Wide Based Gait Pattern Observation Ambulation Distance 3 (feet) Ambulation Ability Minimal x 1 (25% assist) Balance Ability to Arise Able, uses arms to help Sitting Balance Steady, safe Standing Balance Steady, wide stance Dynamic Sitting Good Balance Ability Dynamic Standing Fair Balance Ability Transfers Bed Transfer Ability Moderate x 1 (50% assist) Sit to Stand Bed Minimal x 1 (25% assist) Transfer Ability Rehab PT IP prob,goals,plan Problems Date of Evaluation: 12/12/24 PT IP Problems Bed Mobility,Transfers,Gait,Balance,Self care,Safety Rehab Potential Rehab Potential Good Plan PT Intervention Plan Bed Mobility,Transfers,Gait,Balance,Self care,Safety, Therapeutic Exercise Other Intervention 1-2 times Plan PT Plan Frequency Daily Duration LOS Discharge Goals Bed Transfer Ability Minimal x 1 (25% assist) Sit to Stand Chair Supervision/Stand by Transfer Ability Ambulation Assistive Rolling Walker Device Ambulation Distance 15 (feet) Discharge Plan PT Discharge Plan Pt most appropriate for skilled inpatient rehabilitation upon d/c from [facility] to address deficits and maximize safety with mobility. If pt meets her acute care PT goals, pt may be appropriate to d/c home with 24/ assistance provided by and HH PT services. Pt would benefit from skilled acute care PT while at [facility] to address deficits. Eval Complexity Eval Charge Codes 38282 - Moderate Complexity PHYSICIAN CERTIFICATION: I certify the specified therapy services for Corinne Martin are required, authorized, and reviewed every 30 days.
--- NOTE | 2024-12-12 09:37 | HMH.OTEV ---
OT Evaluation Rehab OT IP Evaluation Start: 12/12/24 08:09 Freq: ONCE Status: Active Protocol: Document 12/12/24 09:31 PEG (Rec: 12/12/24 09:36 PEG [id number]) Rehab OT IP Assessment Subjective History Per H&P: Corinne Martin is a 79-year-old female with a history of triple-vessel coronary disease, hypothyroidism, bifascicular block with tachybradycardia syndrome, hypertension presented for an outpatient [facility]. Patient and family previously did not want to undergo CABG for triple-vessel coronary disease, and had been planned for outpatient staged PCI . Patient was undergoing revascularization of the RCA today, had severe calcification and guidewire went subintimal creating coronary dissection. Patient became bradycardic, hypotensive but responded really well to dopamine drip. Discussed case with Dr. Chatterjee, will admit to the ICU on dopamine drip for further monitoring. He did advise that patient will have focal infarction, ST wave changes, and will become intermittently bradycardic. On my evaluation of the patient, she was having an episode of bradycardia to 20s, hypotension, with emesis. No chest pain, shortness of breath. Increased dopamine drip rate to 10 with resolution of symptoms. EKG showed sinus bradycardia with mild acute ischemia not concerning for STEMI. Initial CBC, CMP relatively unremarkable. Subjective I think I am doing a little better today. Pt supine in bed when therapy entered room and agreeable to OT eval this AM. Pt reported she lives with her in a mobile with 5 KENNETH with HRs. Pt reports she is normally IND with all functional mobility without AD use. Pt does own a RW and does have a shower seat and grab bars in shower. Pt reported no reported falls in past 30 days. Pt reports Ind in ADLs and IADLs and still drives some. Pt reports not normally on O2. Objective Patient Orientation Person,Place,Situation Right Upper WFL Extremity Gross ROM Left Upper Extremity WFL Gross ROM Bed Mobility bed mobility-scooting,bed mobility - supine/sit Assist Level Moderate x 1 (50% assist) Transfer Training Sit/Stand Transfer Assist Level Minimal x 1 (25% assist) Chair Transfer Sit to/from Ambulatory Technique Chair Transfer None Assistive Devices Decrease in Yes Endurance Rehab OT IP prob,goals,plan Problems Date of Evaluation: 11/07/25 OT IP Problems Bed Mobility,Transfers,Balance,Self care,Safety Rehab Potential Rehab Potential Good Equipment Needs Assistive Devices Rolling / Wheeled Walker Plan OT intervention Plan Bed Mobility,Transfers,Balance,Self care,Safety, Therapeutic Exercise OT Plan Frequency Daily Duration LOS Discharge Goals Bed Mobility Ability Assistance x1 Sit to Stand Chair Contact Guard/Hand Hold Transfer Ability Chair Transfer Minimal x 1 (25% assist) Ability Chair Transfer Sit to/from Ambulatory Technique Chair Transfer Rolling Walker Assistive Devices Feeding Ability Assist with Tray Set Up Commode/Toilet Raised Toilet Seat,Grab Bars Transfer Assistive Devices Decrease in No Endurance Discharge Plan OT Discharge Plan Pt most appropriate for skilled inpatient rehabilitation upon d/c from [facility] for skilled OT services and interventions to address functional limitations in occupational performance. If pt meets her acute care OT goals, pt may be appropriate to d/c home with 24/ assistance provided by and HH OT services. Pt would benefit from skilled acute care OT while at [facility] to address functional deficits. Eval Complexity Eval Charge Codes 00901 - Moderate Complexity PHYSICIAN CERTIFICATION: I certify the specified therapy services for Corinne Martin are required, authorized, and reviewed every 30 days.
--- NOTE | 2024-12-12 09:39 | SW/DCPLANNER ---
Discussed rehab with patient and . They feel like it is unnecessary and she will have 24/7 care. They wish to go home with home health unless something changes. Will continue to follow up.
[2024-12-12] MEDS: PRIMIDONE 50MG TABLET 100 MG PO (09:51)
[2024-12-12] MEDS: CLOPIDOGREL 75MG TAB 75 MG PO (09:51)
--- NOTE | 2024-12-12 11:04 | P.PN_ITS ---
Subjective *Date: 12/12/24 *Time: 14:04 Interval history: No acute respiratory events overnight. Admits improving. Pulmonology Exam Inpatient Vital signs and Labs for Last 24 Hours: Temp Pulse Resp BP Pulse Ox O2 Del Method O2 Flow Rate 97.6 F 77 26 H 160/60 H 98 Nasal Cannula 2 12/12/24 08:00 12/12/24 08:00 12/12/24 08:00 12/12/24 08:00 12/12/24 08:00 12/12/24 09:47 12/12/24 08:00 Laboratory Results - last 24 hr 12/09/24 06:01: POC Glucose 144 H 12/09/24 07:30: Crossmatch (AHG) See Detail 12/12/24 06:44: WBC 12.9 H, RBC 3.40 L, Hgb 10.6 L, Hct 30.9 L, MCV 90.9, MCH 31.2, MCHC 34.3, RDW 15.5, Plt Count 128 L D, MPV 10.4, Neut % (Auto) 73.7, Lymph % (Auto) 13.1, [place] % (Auto) 6.3, Eos % (Auto) 2.6, Baso % (Auto) 0.5, Neut # (Auto) 9.5 H, Lymph # (Auto) 1.7, [place] # (Auto) 0.8, Eos # (Auto) 0.3, Baso # (Auto) 0.1, Sodium 131 L, Potassium 3.8, Chloride 110 H, Carbon Dioxide 21 L, Anion Gap 3.8 L, BUN 12 D, Creatinine 0.70 D, Estimated Creat Clear 62, Estimated GFR 81, Est GFR ( Amer) 98 D, Glucose 92 D, Calcium 7.2 L, Magnesium 1.8 D, Total Bilirubin 0.5, AST 63 H, ALT 57, Alkaline Phosphatase 46, Total Protein 4.9 L, Albumin 2.2 L, Globulin 2.7, Albumin/Globulin Ratio 0.8 L Temp Pulse Resp BP Pulse Ox O2 Del Method O2 Flow Rate 97.6 F 75 14 112/40 L 100 Nasal Cannula 3 12/09/24 13:51 12/09/24 13:51 12/09/24 13:51 12/09/24 13:51 12/09/24 13:51 12/09/24 13:00 12/09/24 11:00 Laboratory Results - last 24 hr 12/09/24 05:23: WBC 15.6 H D, RBC 3.13 L D, Hgb 9.2 L D, Hct 28.6 L, MCV 91.4, MCH 29.7, MCHC 32.5, RDW 12.6, Plt Count 268, MPV 10.1, Neut % (Auto) 85.6 H, Lymph % (Auto) 7.9 L, [place] % (Auto) 5.7, Eos % (Auto) 0.0 L, Baso % (Auto) 0.2, Neut # (Auto) 13.4 H, Lymph # (Auto) 1.2, [place] # (Auto) 0.9, Eos # (Auto) 0.0, Baso # (Auto) 0.0, Sodium 132 L, Potassium 4.6, Chloride 101, Carbon Dioxide 27, Anion Gap 8.6, BUN 20 H, Creatinine 1.00, Estimated Creat Clear 62, Estimated GFR 54 L, Est GFR ( Amer) 65, Glucose 131 H, Calcium 7.5 L, Phosphorus 3.6 D, Magnesium 1.7 D, Total Bilirubin 0.4, AST 47 H D, ALT 22 D, Alkaline Phosphatase 45, C-Reactive Protein 31.2 H, Total Protein 5.4 L, Albumin 3.3 L D, Globulin 2.1, Albumin/Globulin Ratio 1.6, Amylase 206 H, Lipase 153, Procalcito ariel 0.118, Blood Type Confirm O Positive 12/09/24 07:10: POC Glucose 163 H 12/09/24 07:30: Blood Type O Positive, Antibody Screen Negative, Crossmatch (AHG) See Detail 12/09/24 11:58: Chlamy pneumoniae PCR Not detected, Adenovirus (PCR) Not detected, B. pertussis DNA (PCR) Not detected, Coronavirus OC43 (PCR) Not detected, Coronavirus HKU1 (PCR) Not detected, Coronavirus 229E (PCR) Not detected, SARS-CoV-2 (PCR) Not detected, Coronavirus NL63 (PCR) Not detected, Human Metapneumovir PCR Not detected, Influenza A (H1) PCR Not detected, Influ A (H1N1/09) PCR Not detected, Influenza A (H3) PCR Not detected, Influenza Type A (PCR) Not detected, Influenza Type B (PCR) Not detected, M. pneumoniae (PCR) Not detected, Parainfluenza 1 (PCR) Not detected, Parainfluenza 2 (PCR) Not detected, Parainfluenza 3 (PCR) Not detected, Parainfluenza 4 (PCR) Not detected, RSV (PCR) Not detected, Entero/Rhino (PCR) Not detected 12/09/24 13:58: Hgb 9.6 L, Hct 28.8 L 12/09/24 15:07: Urine Color Yellow, Urine Appearance Clear, Urine pH 6.0, Ur Specific [place] 1.020, Urine Protein Negative, Urine Glucose (UA) 1+, Urine Ketones Negative, Urine Blood Negative, Urine Nitrate Negative, Urine Bilirubin Negative, Urine Urobilinogen 0.2, Ur Leukocyte Esterase Negative I & O for Labs for Last 24 Hours: Intake & Output 12/09/24 12/10/24 12/11/24 12/12/24 23:59 23:59 23:59 23:59 Intake Total 5054.341 / 5054.341 5047.599 / 5047.599 3378.333 / 3378.333 1743.75 / 1743.75 Output Total 1950 / 1950 1400 / 1400 2405 / 3105 1350 / 1350 Balance 3104.341 / 3104.341 3647.599 / 3647.599 973.333 / 273.333 393.75 / 393.75 Weight 183 lb 8.204 oz 182 lb 12.211 oz 183 lb 3.266 oz Intake & Output 12/06/24 12/07/24 12/08/24 12/09/24 23:59 22:59 23:59 23:59 Intake Total 1259.639 / 4047.821 5675.583 / 3772.256 4282.444 / 5868.575 7188.283 / 2323.283 Output Total 1750 / 1750 2550 / 2550 1675 / 1675 800 / 800 Balance -490.361 / -250.361 -920.417 / -920.417 112.444 / 885.252 6350.283 / 1523.283 Weight 180 lb 12.465 oz 181 lb 3.52 oz 182 lb 12.211 oz 183 lb 8.204 oz Microbiology Reports for the Last 24 Hours: Microbiology 12/09/24 16:28 Thoracic Fluid Gram Stain - Final 12/09/24 16:28 Thoracic Fluid Body Fluid Culture - Preliminary NO GROWTH AFTER 72 HOURS 12/09/24 13:58 Blood Blood Culture - Preliminary NO GROWTH AFTER 48 HOURS 12/09/24 11:52 Blood Blood Culture - Preliminary NO GROWTH AFTER 48 HOURS Constitutional: Present severe distress Head: Present normocephalic and atraumatic ENT: Present normal exam, normal oropharynx and mucous membranes moist Neck: Present full ROM Respiratory: Present respiratory distress, distant breath sounds and diminished air movement; Absent normal respiratory effort or able to speak in complete sentences Cardiac: Present Tachycardia; Absent S1/S2 GI: Present soft and distention; Absent tenderness or guarding Rectal (female): Present deferred (female): Present deferred Skin: Present intact; Absent cyanosis or jaundice Neuro: Present alert, awake and oriented x 3 Extremities: Present normal inspection; Absent clubbing or cyanosis Psychiatric: Present normal affect Assessment and Plan *Assessment and plan (1) Pleural effusion, left: Status: Acute Category: Medical Code(s): J90 - Pleural effusion, not elsewhere classified (2) Acute respiratory failure with hypoxia: Status: Acute Category: Medical Code(s): J96.01 - Acute respiratory failure with hypoxia Plan Ms. Martin is a 79-year-old female with complicated medical history severe CAD however refused bypass status post SHANNON to LAD, RCA stenting status post dissection resulting in bradycardia hypotension followed by pacemaker placement now noted to have worsening left-sided pleural effusion concerning for left- sided hemothorax and pulmonary was called for further evaluation and management. CT chest reviewed, the noted left effusion is concerning for hemothorax at this point of time. She continue to receive full dose Lovenox along with Plavix and aspirin 81 mg. She continued to receive vancomycin and Zosyn. Blood cultures pending so far. Interval Update: Significant improvement in her chest x-ray. Hemoglobin stable. Concern for loculated effusion Aspirin and full dose Lovenox continued to remain on hold. Continue to receive Plavix Plan: One dose of tPA dornase, will follow. Continue to monitor clinically, chest tube to -20 cm H20 suction Flush chest tube every 6 hours Follow-up with chest x-ray in 6 hours and a.m. chest x-ray # Thank you for involving pulmonary in this patient care. Will continue to follow.
[2024-12-12] MEDS: DORNASE ALFA 1 MG/ML SOLUTION 5 MG IJ (11:46)
[2024-12-12] MEDS: CATHFLO 2MG VIAL 10 MG IJ (11:46)
--- NOTE | 2024-12-12 12:06 | P.PN_ITS ---
Subjective Subjective Date: 12/12/24 Time: 12:06 Principal diagnosis: bradycardia, hypotension Interval history: 79-year-old white female in the ICU in no acute distress. She still has some discomfort related to the chest tube. Overall she states she is feeling better but definitely not back to her baseline. Chest tube drainage continues but is decreasing. Telemetry shows paced atrial rhythm. Blood pressure remained stable off pressor agents. Exam Data for Last 24 hours Vital signs and Labs for Last 24 Hours: Temp Pulse Resp BP Pulse Ox O2 Del Method O2 Flow Rate 97.6 F 82 22 157/64 H 95 Nasal Cannula 2 12/12/24 08:00 12/12/24 10:00 12/12/24 10:00 12/12/24 10:00 12/12/24 10:00 12/12/24 10:00 12/12/24 10:00 Laboratory Results - last 24 hr 12/09/24 06:01: POC Glucose 144 H 12/09/24 07:30: Crossmatch (AHG) See Detail 12/12/24 06:44: WBC 12.9 H, RBC 3.40 L, Hgb 10.6 L, Hct 30.9 L, MCV 90.9, MCH 31.2, MCHC 34.3, RDW 15.5, Plt Count 128 L D, MPV 10.4, Neut % (Auto) 73.7, Lymph % (Auto) 13.1, [place] % (Auto) 6.3, Eos % (Auto) 2.6, Baso % (Auto) 0.5, Neut # (Auto) 9.5 H, Lymph # (Auto) 1.7, [place] # (Auto) 0.8, Eos # (Auto) 0.3, Baso # (Auto) 0.1, Sodium 131 L, Potassium 3.8, Chloride 110 H, Carbon Dioxide 21 L, Anion Gap 3.8 L, BUN 12 D, Creatinine 0.70 D, Estimated Creat Clear 62, Estimated GFR 81, Est GFR ( Amer) 98 D, Glucose 92 D, Calcium 7.2 L, Magnesium 1.8 D, Total Bilirubin 0.5, AST 63 H, ALT 57, Alkaline Phosphatase 46, Total Protein 4.9 L, Albumin 2.2 L, Globulin 2.7, Albumin/Globulin Ratio 0.8 L I & O for Last 24 hours: Intake & Output 11/05/25 11/06/25 11/07/25 11/08/25 11:59 11:59 11:59 11:59 Intake Total 5404.782 / 5404.782 4293.232 / 4293.232 3143.75 / 3143.75 Output Total 2150 / 2150 1770 / 1770 2585 / 2585 Balance 3254.782 / 3254.782 2523.232 / 2523.232 558.75 / 558.75 Weight 182 lb 12.211 oz 183 lb 3.266 oz Microbiology Reports for the Last 24 Hours: Microbiology 12/09/24 16:28 Thoracic Fluid Gram Stain - Final 12/09/24 16:28 Thoracic Fluid Body Fluid Culture - Preliminary NO GROWTH AFTER 72 HOURS 12/09/24 13:58 Blood Blood Culture - Preliminary NO GROWTH AFTER 48 HOURS 12/09/24 11:52 Blood Blood Culture - Preliminary NO GROWTH AFTER 48 HOURS Constitutional Constitutional: no acute distress *Routine Respiratory Exam Respiratory: Present decreased breath sounds *Routine Cardiovascular Exam Cardiovascular: Present RRR *Routine Extremities Exam Extremities: Present edema Progress Note: A&P Assessment and plan (1) Pleural effusion, left: Status: Acute (2) Acute respiratory failure with hypoxia: Status: Acute (3) Coronary artery dissection: Status: Acute (4) Coronary artery disease: Status: Acute (5) CKD (chronic kidney disease) stage 3, GFR 30-59 ml/min: Status: Chronic (6) Hypertension: Status: Chronic (7) Hypothyroidism: Status: Chronic (8) Hyperlipidemia: Status: Chronic (9) Obesity (BMI 30-39.9): Status: Acute (10) NSTEMI (non-ST elevated myocardial infarction): Status: Acute (11) CLAUDIA (acute kidney injury): Status: Acute Assessment and Plan Assessment and Plan for All Diagnoses:: 1. 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 -Off all vasopressors for 2 days now -BP stabilized since subclavian artery bleed has slowed/stopped 2. 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 CAD with recent LAD and circumflex stenting, 11/2024 -Continue Plavix -stop aspirin due to recent subclavian artery bleed 4. Hypothyroidism -On replacement 5. History of hypertension -now with intermittent nausea/vomiting/hypotensive episodes requiring vasopressor support, resolved -Previously controlled on lisinopril and amlodipine -Hypotensive episodes resolved with slowing/stopped subclavian artery bleed 6. Hyperlipidemia -On statin therapy with LDL 84 this admission 7. CKD, stage III -Baseline creatinine 1.1-1.3 with GFR 40-44 -currently 0.7 and 12, 12/12/2024 8. Anemia with hemoglobin 10.6 this a.m. -Transfuse to greater than 10 due to recent coronary issues 7. New left pleural effusion post pacemaker implantation -concern for hemothorax due to subclavian artery stick in attempt to find the vein for pacer implantation, per Dr. Chatterjee -Dr. Juarez placed thoracentesis/chest tube -drainage has slowed. -chest tube management/removal per Pulmonary BP stable. chest tube drainage slowing down with possible plans for removal today, defer to Pulmonary IV lasix 20 mg once for edema now that renal functions and BP have improved. Overall she is improving. Anticipate she will stay through the weekend.
--- NOTE | 2024-12-12 12:13 | PC.NURSE ---
medications instilled in chest tube by Dr Juarez at 1144
[2024-12-12] MEDS: FUROSEMIDE 20 MG/2 ML VIAL IV (12:53)
--- NOTE | 2024-12-12 16:55 | PC.NURSE ---
one large unmeasured void charted due to a purewick malfunction. A new purewick is in place and is working appropriately at this time.
--- NOTE | 2024-12-12 17:40 | XR_ITS ---
PROCEDURE INFORMATION: Exam: XR Chest Exam date and time: 12/12/2024 5:44 PM Age: 79 years old Clinical indication: Device placement; Chest tube; Shortness of breath; Additional info: SOA with chest tube TECHNIQUE: Imaging protocol: Radiologic exam of the chest. Views: 1 view. COMPARISON: CR XR CHEST PORTABLE 12/12/2024 9:31 AM FINDINGS: Tubes, catheters and devices: Pigtail catheter terminates in the left costophrenic angle.. Transvenous pacemaker leads in the heart. Stable left PICC line Lungs: Opacities in the left upper lobe left midlung and left base may represent multifocal pneumonia Pleural spaces: Large left pleural effusion.. Heart/Mediastinum: Stable cardiac silhouette Bones/joints: Unremarkable. IMPRESSION: 1. Pigtail catheter terminates in the left costophrenic angle.. 2. Large left pleural effusion.. 3 Opacities in the left upper lobe left midlung and left base may represent multifocal pneumonia
--- NOTE | 2024-12-12 18:51 | P.PN_ITS ---
Subjective *Date: 12/12/24 *Time: 18:51 Interval history: Patient continues to feel better today, eating more today. tPA dornase administered into chest tube, had 200 cc serosanguineous output. Exam Data for Last 24 hours Vital signs and Labs for Last 24 Hours: Temp Pulse Resp BP Pulse Ox O2 Del Method O2 Flow Rate 99.6 F 90 18 141/62 H 98 Nasal Cannula 2 12/12/24 16:00 12/12/24 18:00 12/12/24 18:00 12/12/24 18:00 12/12/24 18:00 12/12/24 18:00 12/12/24 18:00 Laboratory Results - last 24 hr 12/09/24 07:30: Crossmatch (AHG) See Detail 12/12/24 06:44: WBC 12.9 H, RBC 3.40 L, Hgb 10.6 L, Hct 30.9 L, MCV 90.9, MCH 31.2, MCHC 34.3, RDW 15.5, Plt Count 128 L D, MPV 10.4, Neut % (Auto) 73.7, Lymph % (Auto) 13.1, [place] % (Auto) 6.3, Eos % (Auto) 2.6, Baso % (Auto) 0.5, Neut # (Auto) 9.5 H, Lymph # (Auto) 1.7, [place] # (Auto) 0.8, Eos # (Auto) 0.3, Baso # (Auto) 0.1, Sodium 131 L, Potassium 3.8, Chloride 110 H, Carbon Dioxide 21 L, Anion Gap 3.8 L, BUN 12 D, Creatinine 0.70 D, Estimated Creat Clear 62, Estimated GFR 81, Est GFR ( Amer) 98 D, Glucose 92 D, Calcium 7.2 L, Magnesium 1.8 D, Total Bilirubin 0.5, AST 63 H, ALT 57, Alkaline Phosphatase 46, Total Protein 4.9 L, Albumin 2.2 L, Globulin 2.7, Albumin/Globulin Ratio 0.8 L I & O for Last 24 hours: Intake & Output 12/09/24 12/10/24 12/11/24 12/12/24 23:59 23:59 23:59 23:59 Intake Total 5054.341 / 5054.341 5047.599 / 5047.599 3378.333 / 3378.333 2211.75 / 2211.75 Output Total 1950 / 1950 1400 / 1400 2405 / 3105 2950 / 2950 Balance 3104.341 / 3104.341 3647.599 / 3647.599 973.333 / 273.333 -738.25 / - 738.25 Weight 83.24 kg 82.9 kg 83.1 kg Microbiology Reports for the Last 24 Hours: Microbiology 12/09/24 16:28 Thoracic Fluid Gram Stain - Final 12/09/24 16:28 Thoracic Fluid Body Fluid Culture - Preliminary NO GROWTH AFTER 72 HOURS 12/09/24 13:58 Blood Blood Culture - Preliminary NO GROWTH AFTER 48 HOURS Constitutional Constitutional: no acute distress and chronically ill appearing *Routine HEENT Exam Head: Present normocephalic Eye: Present EOMI and PERRL ENT: Present mucous membranes moist *Routine Neck Exam Neck: Present supple; Absent lymphadenopathy *Routine Respiratory Exam Respiratory: Present CTA bilaterally *Routine Cardiovascular Exam Cardiovascular: Present RRR *Routine Abdominal Exam Abdominal: Present soft and normoactive bowel sounds; Absent tenderness *Routine Extremities Exam Extremities: Present edema; Absent cyanosis or clubbing *Routine Skin Exam Skin: Present warm; Absent rash *Routine Neurological Exam Neurological: Present alert and oriented X3 Assessment and Plan *Assessment and plan (1) Bradycardia: Status: Acute Category: Medical Code(s): R00.1 - Bradycardia, unspecified (2) Cardiogenic shock: Status: Acute Category: Medical Code(s): R57.0 - Cardiogenic shock (3) Coronary artery dissection: Status: Acute Category: Medical Code(s): I25.42 - Coronary artery dissection (4) Coronary artery disease: Status: Acute Qualifiers: Coronary Disease-Associated Artery/Lesion type: [place] artery [place] vs. transplanted heart: [place] heart Associated angina: without angina Qualified Code(s): I25.10 - Atherosclerotic heart disease of [place] coronary artery without angina pectoris Category: Medical Code(s): I25.10 - Atherosclerotic heart disease of [place] coronary artery without angina pectoris (5) CKD (chronic kidney disease) stage 3, GFR 30-59 ml/min: Status: Chronic Qualifiers: Chronic kidney disease stage 3 subtype: stage 3a (GFR 45-59) Qualified Code(s): N18.31 - Chronic kidney disease, stage 3a Category: Medical Code(s): N18.30 - Chronic kidney disease, stage 3 unspecified (6) Hypertension: Status: Chronic Qualifiers: Hypertension type: primary hypertension Qualified Code(s): I10 - Essential (primary) hypertension Category: Medical Code(s): I10 - Essential (primary) hypertension (7) Hypertriglyceridemia: Status: Acute Category: Medical Code(s): E78.1 - Pure hyperglyceridemia (8) Hypothyroidism: Status: Chronic Qualifiers: Hypothyroidism type: acquired Qualified Code(s): E03.9 - Hyp othyroidism, unspecified Category: Medical Code(s): E03.9 - Hypothyroidism, unspecified (9) Hyperlipidemia: Status: Chronic Qualifiers: Hyperlipidemia type: mixed hyperlipidemia Qualified Code(s): E78.2 - Mixed hyperlipidemia Category: Medical Code(s): E78.5 - Hyperlipidemia, unspecified (10) Obesity (BMI 30-39.9): Status: Acute Category: Medical Code(s): E66.9 - Obesity, unspecified (11) NSTEMI (non-ST elevated myocardial infarction): Status: Acute Category: Medical Code(s): I21.4 - Non-ST elevation (NSTEMI) myocardial infarction (12) CLAUDIA (acute kidney injury): Status: Acute Category: Medical Code(s): N17.9 - Acute kidney failure, unspecified Plan Corinne Martin is a 79-year-old female with a history of triple-vessel coronary disease, hypothyroidism, bifascicular block with tachybradycardia syndrome, hypertension presented for an outpatient [facility]. Patient and family previously did not want to undergo CABG for triple-vessel coronary disease, and had been planned for outpatient staged PCI. Patient was undergoing revascularization of the RCA today, had severe calcification and guidewire went subintimal creating coronary dissection. Patient became bradycardic, hypotensive but responded really well to dopamine drip. Discussed case with Dr. Chatterjee, will admit to the ICU on dopamine drip for further monitoring. He did advise that patient will have focal infarction, ST wave changes, and will become intermittently bradycardic. On my evaluation of the patient, she was having an episode of bradycardia to 20s, hypotension, with emesis. No chest pain, shortness of breath. Admitted to ICU for further care. #Severe CAD, coronary calcification #Coronary dissection #Cardiogenic shock, resolved #Hemorrhagic shock #Left hemothorax #Sinus bradycardia, bifascicular block, resolved #Hypotension #NSTEMI type I #Suspected left lung pneumonia ? History of triple coronary artery disease, patient is not agreeable to CABG. Plan for staged outpatient PCI. ? Patient was undergoing revascularization of the RCA on 12/05/24, had severe calcification and guidewire went subintimal creating coronary dissection. Patient became bradycardic, hypotensive but responded really well to dopamine drip. ? For persistent intermittent bradycardia and bifascicular block/asystole, s/p FUNDS DEVELOPMENT DIRECTOR-P implantation on 12/08/2024. Bradycardia resolved. ? Nausea improved today after weaning off dopamine. Weaned off phenylephrine on 12/10/2024. ? Possible subclavian artery puncture during pacemaker placement, CT chest on 12/09/2024 shows large left-sided hemothorax. ? Pulmonology consulted, s/p chest tube with serosanguineous output from 2500 cc. ? Discussed with pulmonology today, administered tPA dornase and had subsequent 200 cc serosanguineous output. ? Discussed with cardiology, IV Lasix 20 mg ordered. ? Hemoglobin stable at 10.6 today. Received 6 units PRBC. ? Overall, patient continues to feel get better. Eating more today. ? Continue Zosyn 3.375 g every 6 hours for now, CXR suggestive of left-sided pneumonia. WBC improved to 12.9 today, peaked at 15.6. - Hold aspirin, continue Plavix 75 mg per cardiology. ? A1c 5.6 Repeat CBC, CMP, magnesium ordered for the morning. ? Continuous cardiac telemetry. #Hypertension: Hold home lisinopril, hydrochlorothiazide, amlodipine due to cardiogenic shock. Resume when appropriate. #Hypothyroidism: Continue home levothyroxine 137 mcg. TSH 0.35 this morning. Full code DVT prophylaxis: IPC's Home medications: Reconciled. Hold home Farxiga due to cardiogenic shock.
[2024-12-12] MEDS: HYDROCODONE/APAP 5/325 MG TABLET 1 TAB PO (19:15)
[2024-12-12] MEDS: PRAVASTATIN 40MG TAB 40 MG PO (20:24)
[2024-12-12] MEDS: PANTOPRAZOLE 40MG TABLET 40 MG PO (20:24)
[2024-12-12] MEDS: MORPHINE 4MG/ML SYRINGE 4 MG IV (22:36)
--- NOTE | 2024-12-12 22:40 | PC.NURSE ---
This RN noted pt to not have any output from chest tube. Chest tubing assessed and kink found. Tubing straightened and 370 ml sanguineous fluid immediately started to drain down chest tube. Pt complaining of very sharp sudden pain to left side at this time. No change in lung sounds from initial assessment. 4mg Morphine administered. Lizett Cormier notified and states he will recheck h/h at this time.
[2024-12-13] VITALS (17 sets, daily range): BP systolic 128–164; BP diastolic 50–75; PULSE 75–95; RESP 17–34; TEMP 36.6–37.1; O2SAT 90–98; BMI 34.2
[2024-12-13 00:19] LABS: Hematocrit 34.9 % (37.0-47.0)
[2024-12-13 00:46] LABS: Hemoglobin 12.2 g/dL (12.2-16.2)
[2024-12-13] MEDS: PIPERCILLIN/TAZO 3.375 GM in 0.9 % SODIUM CHLORIDE 50 ML IV ×4 (02:27→20:43)
--- NOTE | 2024-12-13 06:30 | XR_ITS ---
PROCEDURE INFORMATION: Exam: XR Chest Exam date and time: 12/13/2024 5:52 AM Age: 79 years old Clinical indication: Device placement; Chest tube; Additional info: Monitoring of pleural effusion/chest tube TECHNIQUE: Imaging protocol: Radiologic exam of the chest. Views: 1 view. COMPARISON: CR XR CHEST PORTABLE 12/12/2024 5:44 PM FINDINGS: Tubes, catheters and devices: Stable left-sided pleural tube. Lungs: Some patchy left-sided airspace disease is unchanged. Pleural spaces: Left sided pleural effusion appears somewhat decreased compared to prior study. Heart/Mediastinum: Unremarkable. No cardiomegaly. Bones/joints: Unremarkable. IMPRESSION: Stable left-sided pleural tube. Left sided pleural effusion appears somewhat decreased compared to prior study. Some patchy left-sided airspace disease is unchanged.
[2024-12-13] MEDS: LEVOTHYROXINE 137MCG (0.137MG) TAB 137 MCG PO (06:36)
[2024-12-13 07:43] LABS: Hematocrit 35.4 % (37.0-47.0); Immature Granulocytes % 5.0 %; Mean Corpuscular HGB Conc 30.8 g/dL (31.8-35.4); Mean Corpuscular Hemoglobin 30.4 pg (27.0-31.2); Mean Corpuscular Volume 98.6 fl (81-99); Nucleated Red Blood Cells % 0 %; Platelet Count 107 K/mm3 (142-424); Red Blood Count 3.59 M/mm3 (4.20-5.40); Red Cell Distribution Width-SD 55.8 fL; White Blood Count 13.5 K/mm3 (4.8-10.8)
[2024-12-13 08:15] LABS: Alanine Aminotransferase 50 U/L (12-78); Albumin Level 2.2 g/dl (3.5-5.0); Albumin/Globulin Ratio 0.8 (1.1-1.8); Alkaline Phosphatase 40 U/L (38-126); Anion Gap 5.4 mEq/L (5-15); Aspartate Amino Transferase 61 U/L (14-36); Bilirubin,Total 0.8 mg/dl (0.2-1.3); Blood Urea Nitrogen 12 mg/dl (7-17); Calcium 7.8 mg/dl (8.4-10.2); Carbon Dioxide 21 mmol/L (22.0-30.0); Chloride 109 mmol/L (98-107); Creatinine Clearance Estimated 59 mL/min (50-200); Creatinine,Serum 0.60 mg/dl (0.52-1.04); Estimated Glomerular Filt Rate 97 ml/min (>60); GFR (African American) 117 ML/MIN (>60); Globulin 2.7 g/dL (1.3-3.2); Glucose 103 mg/dl (74-100); Magnesium 1.7 mg/dl (1.6-2.3); Potassium 4.4 mmoL/L (3.5-5.1); Sodium 131 mmol/L (136-145); Total Protein,Serum 4.9 g/dl (6.3-8.2)
[2024-12-13] MEDS: ASPIRIN EC 81MG TABLET 81 MG PO (09:18)
[2024-12-13] MEDS: CLOPIDOGREL 75MG TAB 75 MG PO (09:18)
[2024-12-13] MEDS: PRIMIDONE 50MG TABLET 100 MG PO (09:18)
[2024-12-13 09:28] LABS: RBC Morphology Normal; Total Cells Counted 100
[2024-12-13 09:29] LABS: Hypochromasia 1+
[2024-12-13 09:33] LABS: Hemoglobin 10.9 g/dL (12.2-16.2)
[2024-12-13] MEDS: DORNASE ALFA 1 MG/ML SOLUTION 5 MG IJ ×2 (09:49→21:06)
[2024-12-13] MEDS: CATHFLO 2MG VIAL 10 MG IJ ×2 (09:50→21:07)
[2024-12-13] MEDS: FUROSEMIDE 40MG/4ML VIAL 40 MG IV (10:46)
[2024-12-13] MEDS: IPRATROPIUM/ALBUTEROL 3 ML NEB IH (11:47)
--- NOTE | 2024-12-13 15:00 | XR_ITS ---
PROCEDURE INFORMATION: Exam: XR Chest Exam date and time: 12/13/2024 3:01 PM Age: 79 years old Clinical indication: Other: Monitoring chest tube TECHNIQUE: Imaging protocol: Radiologic exam of the chest. Views: 1 view. COMPARISON: CR XR CHEST PORTABLE 12/13/2024 5:52 AM FINDINGS: Tubes, catheters and devices: Pigtail catheter in the left costophrenic angle. . Transvenous pacemaker leads in the heart. Overlying EKG wires Lungs: Opacities in the left midlung and left base may represent atelectasis or pneumonia.. Pleural spaces: Moderate left pleural effusion. Heart/Mediastinum: Stable cardiac silhouette Bones/joints: Unremarkable. IMPRESSION: 1. Pigtail catheter in the left costophrenic angle. . 2. Moderate left pleural effusion. 3. Opacities in the left midlung and left base may represent atelectasis or pneumonia..
--- NOTE | 2024-12-13 15:49 | EXP.PN ---
Subjective *Date: 12/13/24 *Time: 15:49 Interval history: Patient continues to feel well, having good output from chest tube with tPA. Continue tPA per pulmonology. Possible chest tube removal tomorrow. Exam Data for Last 24 hours Vital signs and Labs for Last 24 Hours: Temp Pulse Resp BP Pulse Ox O2 Del Method O2 Flow Rate 98.2 F 93 H 29 H 158/72 H 93 L Nasal Cannula 2 12/13/24 08:00 12/13/24 14:21 12/13/24 14:01 12/13/24 14:01 12/13/24 14:21 12/13/24 14:21 12/13/24 14:21 Laboratory Results - last 24 hr 12/13/24 00:00: Hgb 12.2 D, Hct 34.9 L 12/13/24 06:45: WBC 13.5 H, RBC 3.59 L, Hgb 10.9 L D, Hct 35.4 L, MCV 98.6, MCH 30.4, MCHC 30.8 L, RDW 15.7, Plt Count 107 L, MPV 10.7 H, Neut % (Auto) 69.0, Lymph % (Auto) 14.9, [place] % (Auto) 9.1, Eos % (Auto) 1.9, Baso % (Auto) 0.1, Neut # (Auto) 9.3 H, Lymph # (Auto) 2.0, [place] # (Auto) 1.2 H, Eos # (Auto) 0.3, Baso # (Auto) 0.0, Total Counted 100, Neutrophils % (Manual) 68, Lymphocytes % (Manual) 21, Monocytes % (Manual) 8, Eosinophils % (Manual) 2, Basophils % (Manual) 1.0, Platelet Estimate Slight decrease, RBC Morphology Normal, Hypochromasia 1+, Sodium 131 L, Potassium 4.4, Chloride 109 H, Carbon Dioxide 21 L, Anion Gap 5.4, BUN 12, Creatinine 0.60, Estimated Creat Clear 59, Estimated GFR 97, Est GFR ( Amer) 117, Glucose 103 H, Calcium 7.8 L, Magnesium 1.7, Total Bilirubin 0.8, AST 61 H, ALT 50, Alkaline Phosphatase 40, Total Protein 4.9 L, Albumin 2.2 L, Globulin 2.7, Albumin/Globulin Ratio 0.8 L I & O for Last 24 hours: Intake & Output 12/10/24 12/11/24 12/12/24 12/13/24 23:59 23:59 23:59 23:59 Intake Total 5047.599 / 5047.599 3378.333 / 3378.333 2261.75 / 2261.75 387 / 387 Output Total 1400 / 1400 2405 / 3105 3320 / 3320 2310 / 2310 Balance 3647.599 / 3647.599 973.333 / 273.333 -1058.25 / -1058.25 -1923 / -1923 Weight 82.9 kg 83.1 kg 79.1 kg Microbiology Reports for the Last 24 Hours: Microbiology 12/09/24 13:58 Blood Blood Culture - Preliminary NO GROWTH AFTER 4 DAYS 12/09/24 11:52 Blood Blood Culture - Preliminary NO GROWTH AFTER 4 DAYS 12/09/24 16:28 Thoracic Fluid Gram Stain - Final 12/09/24 16:28 Thoracic Fluid Body Fluid Culture - Preliminary NO GROWTH AFTER 4 DAYS Constitutional Constitutional: no acute distress and chronically ill appearing *Routine HEENT Exam Head: Present normocephalic Eye: Present EOMI and PERRL ENT: Present mucous membranes moist *Routine Neck Exam Neck: Present supple; Absent lymphadenopathy *Routine Respiratory Exam Respiratory: Present CTA bilaterally *Routine Cardiovascular Exam Cardiovascular: Present RRR *Routine Abdominal Exam Abdominal: Present soft and normoactive bowel sounds; Absent tenderness *Routine Extremities Exam Extremities: Present edema; Absent cyanosis or clubbing *Routine Skin Exam Skin: Present warm; Absent rash *Routine Neurological Exam Neurological: Present alert and oriented X3 Assessment and Plan *Assessment and plan (1) Bradycardia: Status: Acute Category: Medical Code(s): R00.1 - Bradycardia, unspecified (2) Cardiogenic shock: Status: Acute Category: Medical Code(s): R57.0 - Cardiogenic shock (3) Coronary artery dissection: Status: Acute Category: Medical Code(s): I25.42 - Coronary artery dissection (4) Coronary artery disease: Status: Acute Qualifiers: Coronary Disease-Associated Artery/Lesion type: [place] artery [place] vs. transplanted heart: [place] heart Associated angina: without angina Qualified Code(s): I25.10 - Atherosclerotic heart disease of [place] coronary artery without angina pectoris Category: Medical Code(s): I25.10 - Atherosclerotic heart disease of [place] coronary artery without angina pectoris (5) CKD (chronic kidney disease) stage 3, GFR 30-59 ml/min: Status: Chronic Qualifiers: Chronic kidney disease stage 3 subtype: stage 3a (GFR 45-59) Qualified Code(s): N18.31 - Chronic kidney disease, stage 3a Category: Medical Code(s): N18.30 - Chronic kidney disease, stage 3 unspecified (6) Hypertension: Status: Chronic Qualifiers: Hypertension type: primary hypertension Qualified Code(s): I10 - Essential (primary) hypertension Category: Medical Code(s): I10 - Essential (primary) hypertension (7) Hypertriglyceridemia: Status: Acute Category: Medical Code(s): E78.1 - Pure hyperglyceridemia (8) Hypothyroidism: Status: Chronic Qualifiers: Hypothyroidism type: acquired Qualified Code(s): E03.9 - Hypothyroidism, unspecified Category: Medical Code(s): E03.9 - Hypothyroidism, unspecified (9) Hyperlipidemia: Status: Chronic Qualifiers: Hyperlipidemia type: mixed hyperlipidemia Qualified Code(s): E78.2 - Mixed hyperlipidemia Category: Medical Code(s): E78.5 - Hyperlipidemia, unspecified (10) Obesity (BMI 30-39.9): Status: Acute Category: Medical Code(s): E66.9 - Obesity, unspecified (11) NSTEMI (non-ST elevated myocardial infarction): Status: Acute Category: Medical Code(s): I21.4 - Non-ST elevation (NSTEMI) myocardial infarction (12) CLAUDIA (acute kidney injury): Status: Acute Category: Medical Code(s): N17.9 - Acute kidney failure, unspecified Plan Corinne Martin is a 79-year-old female with a history of triple-vessel coronary disease, hypothyroidism, bifascicular block with tachybradycardia syndrome, hypertension presented for an outpatient [facility] [place]. Patient and family previously did not want to undergo CABG for triple-vessel coronary disease, and had been planned for outpatient staged PCI. Patient was undergoing revascularization of the RCA on 11/14/2024, had severe calcification and guidewire went subintimal creating coronary dissection. Patient became bradycardic, hypotensive but responded really well to dopamine drip. Discussed case with Dr. Chatterjee, will admit to the ICU on dopamine drip for further monitoring. He did advise that patient will have focal infarction, ST wave changes, and will become intermittently bradycardic. On my evaluation of the patient, she was having an episode of bradycardia to 20s, hypotension, with emesis. No chest pain, shortness of breath. Admitted to ICU for further care. #Severe CAD, coronary calcification #Coronary dissection #Cardiogenic shock, resolved #Hemorrhagic shock, resolved #Left hemothorax, resolving #Sinus bradycardia, bifascicular block, resolved #NSTEMI type I #Suspected left lung pneumonia ? History of triple coronary artery disease, patient was not agreeable to CABG. Plan for staged outpatient PCI. ? Patient was undergoing revascularization of the RCA on 12/05/24, had severe calcification and guidewire went subintimal creating coronary dissection. Patient became bradycardic, hypotensive but responded really well to dopamine drip. ? For persistent intermittent bradycardia and bifascicular block/asystole, s/p PATENT LAW SPECIALIST-P implantation on 12/08/2024. Bradycardia resolved. ? Nausea improved today after weaning off dopamine. Weaned off phenylephrine on 12/10/2024. ? Possible subclavian artery puncture during pacemaker placement, CT chest on 12/09/2024 showed large left-sided hemothorax. ? Pulmonology consulted, s/p chest tube with serosanguineous output from 2500 cc before tPA. ? Pulmonology ordered tPA dornase again today, has had an additional 1000 cc serosanguineous output since starting tPA on 12/12/2024. ? Ordered IV Lasix 40 mg due to anasarca from fluid resuscitation. ? Hemoglobin continues to be stable, 10.9 today. Received 6 units PRBC. ? Overall, patient continues to feel get better. ? Continue Zosyn 3.375 g every 6 hours for now, CXR suggestive of left-sided pneumonia. WBC improved to 13.5 today, peaked at 15.6. - Hold aspirin, continue Plavix 75 mg per cardiology. ? A1c 5.6 Repeat CBC, CMP, magnesium ordered for the morning. ? Continuous cardiac telemetry. #Hypertension: Restarted home hydrochlorothiazide 25 mg, lisinopril 40 mg. Hold home amlodipine for now. Resume when appropriate. #Hypothyroidism: Continue home levothyroxine 137 mcg. Follow-up TFTs. Full code DVT prophylaxis: IPC's Home medications: Reconciled.
--- NOTE | 2024-12-13 18:10 | PC.NURSE ---
Chest tube clamped and medications instilled per ZULMA orders at 1000. Chest tube unclamped at 1100. Chest Xray obtained at [address] Juarez telephone order.
[2024-12-13] MEDS: PANTOPRAZOLE 40MG TABLET 40 MG PO (20:43)
[2024-12-13] MEDS: PRAVASTATIN 40MG TAB 40 MG PO (20:43)
[2024-12-13] MEDS: MORPHINE 4MG/ML SYRINGE 4 MG IV (21:31)
[2024-12-14] VITALS (20 sets, daily range): BP systolic 105–147; BP diastolic 42–78; PULSE 71–89; RESP 15–29; TEMP 36.7–37.1; O2SAT 93–99; BMI 32.5
[2024-12-14] MEDS: PIPERCILLIN/TAZO 3.375 GM in 0.9 % SODIUM CHLORIDE 50 ML IV ×4 (02:32→20:09)
--- NOTE | 2024-12-14 06:00 | XR_ITS ---
PROCEDURE INFORMATION: Exam: XR Chest Exam date and time: 12/14/2024 6:02 AM Age: 79 years old Clinical indication: Condition or disease; Other: Monitoring chest tube/pleural effusion TECHNIQUE: Imaging protocol: Radiologic exam of the chest. Views: 1 view. COMPARISON: CR XR CHEST PORTABLE 12/13/2024 3:01 PM FINDINGS: Tubes, catheters and devices: Pigtail catheter terminates in the left costophrenic angle. Transvenous pacemaker leads in the heart Lungs: Opacities in the left base may represent atelectasis or pneumonia.. Pleural spaces: Decreasing left pleural effusion.. Heart/Mediastinum: Stable cardiomegaly Bones/joints: Unremarkable. IMPRESSION: 1. Opacities in the left base may represent atelectasis or pneumonia.. 2. Decreasing left pleural effusion..
[2024-12-14] MEDS: LEVOTHYROXINE 137MCG (0.137MG) TAB 137 MCG PO (06:06)
--- NOTE | 2024-12-14 06:32 | PC.NURSE ---
Pt a/o x4. Chest tube in place to left chest, dsg CDI. Total output for shift 380ml. Drainage sanguineous. Pt required PRN pain medication 1x for site pain. Pt was encouraged to allow turning q2h and on request. Pt had total of 250ml of measured urine output from purewick with 1 unmeasured void. Call light within reach.
[2024-12-14] MEDS: IPRATROPIUM/ALBUTEROL 3 ML NEB IH ×2 (07:03→11:33)
[2024-12-14 08:08] LABS: Hematocrit 35.5 % (37.0-47.0); Hemoglobin 11.9 g/dL (12.2-16.2); Immature Granulocytes % 4.9 %; Mean Corpuscular HGB Conc 33.5 g/dL (31.8-35.4); Mean Corpuscular Hemoglobin 30.8 pg (27.0-31.2); Mean Corpuscular Volume 92.0 fl (81-99); Nucleated Red Blood Cells % 0 %; Platelet Count 238 K/mm3 (142-424); Red Blood Count 3.86 M/mm3 (4.20-5.40); Red Cell Distribution Width-SD 50.1 fL; White Blood Count 15.7 K/mm3 (4.8-10.8)
[2024-12-14 08:29] LABS: Alanine Aminotransferase 38 U/L (12-78); Albumin Level 2.8 g/dl (3.5-5.0); Albumin/Globulin Ratio 1.0 (1.1-1.8); Alkaline Phosphatase 53 U/L (38-126); Anion Gap 5.4 mEq/L (5-15); Aspartate Amino Transferase 43 U/L (14-36); Bilirubin,Total 0.6 mg/dl (0.2-1.3); Blood Urea Nitrogen 12 mg/dl (7-17); Calcium 8.2 mg/dl (8.4-10.2); Carbon Dioxide 27 mmol/L (22.0-30.0); Chloride 102 mmol/L (98-107); Creatinine Clearance Estimated 56 mL/min (50-200); Creatinine,Serum 0.60 mg/dl (0.52-1.04); Estimated Glomerular Filt Rate 97 ml/min (>60); GFR (African American) 117 ML/MIN (>60); Globulin 2.9 g/dL (1.3-3.2); Glucose 120 mg/dl (74-100); Magnesium 1.6 mg/dl (1.6-2.3); Potassium 3.4 mmoL/L (3.5-5.1); Sodium 131 mmol/L (136-145); Total Protein,Serum 5.7 g/dl (6.3-8.2)
[2024-12-14 08:51] LABS: Total Cells Counted 100
[2024-12-14 08:52] LABS: RBC Morphology Normal
[2024-12-14] MEDS: ASPIRIN EC 81MG TABLET 81 MG PO (09:41)
[2024-12-14] MEDS: CLOPIDOGREL 75MG TAB 75 MG PO (09:41)
[2024-12-14] MEDS: LISINOPRIL 20MG TABLET 40 MG PO (09:41)
[2024-12-14] MEDS: PRIMIDONE 50MG TABLET 100 MG PO (09:41)
[2024-12-14] MEDS: DAPAGLIFLOZIN PROPANEDIOL 10 MG TABLET PO (09:41)
[2024-12-14] MEDS: LACTOBACILLUS PROBIOTIC COMB CAPSULE 1 CAP PO (10:40)
[2024-12-14] MEDS: POTASSIUM CHLORIDE 20MEQ TAB 40 MEQ PO ×2 (10:42→15:18)
[2024-12-14] MEDS: MAGNESIUM SULFATE IN WATER 2 GM/50 ML PIGGYBACK IV ×2 (11:10→12:22)
--- NOTE | 2024-12-14 15:00 | EXP.PN ---
Subjective *Date: 12/14/24 *Time: 15:00 Interval history: Patient feels better today, more euvolemic. Holding off on further tPA dornase today per pulmonology recommendations, follow-up chest tube output overnight and likely removal in the morning. Exam Data for Last 24 hours Vital signs and Labs for Last 24 Hours: Temp Pulse Resp BP Pulse Ox O2 Del Method O2 Flow Rate 98.5 F 75 16 105/42 L 99 Nasal Cannula 1 12/14/24 12:00 12/14/24 14:01 12/14/24 14:01 12/14/24 14:01 12/14/24 14:01 12/14/24 14:01 12/14/24 14:01 Laboratory Results - last 24 hr 12/14/24 07:30: WBC 15.7 H, RBC 3.86 L, Hgb 11.9 L, Hct 35.5 L, MCV 92.0, MCH 30.8, MCHC 33.5, RDW 15.2, Plt Count 238 D, MPV 10.2, Neut % (Auto) 69.4, Lymph % (Auto) 13.6, [place] % (Auto) 9.0, Eos % (Auto) 2.8, Baso % (Auto) 0.3, Neut # (Auto) 10.9 H, Lymph # (Auto) 2.1, [place] # (Auto) 1.4 H, Eos # (Auto) 0.4, Baso # (Auto) 0.0, Total Counted 100, Neutrophils % (Manual) 72, Lymphocytes % (Manual) 11, Monocytes % (Manual) 11 H, Eosinophils % (Manual) 5 H, Basophils % (Manual) 1.0, Platelet Estimate Marked decrease, RBC Morphology Normal, Sodium 131 L, Potassium 3.4 L D, Chloride 102, Carbon Dioxide 27, Anion Gap 5.4, BUN 12, Creatinine 0.60, Estimated Creat Clear 56, Estimated GFR 97, Est GFR ( Amer) 117, Glucose 120 H, Calcium 8.2 L, Magnesium 1.6, Total Bilirubin 0.6, AST 43 H D, ALT 38, Alkaline Phosphatase 53, Total Protein 5.7 L, Albumin 2.8 L D, Globulin 2.9, Albumin/Globulin Ratio 1.0 L I & O for Last 24 hours: Intake & Output 11/0612/12/24 12/13/24 12/14/24 23:59 23:59 23:59 23:59 Intake Total 3378.333 / 3378.333 2261.75 / 2261.75 1047 / 1047 792 / 792 Output Total 2405 / 3105 3320 / 3320 3305 / 3305 700 / 700 Balance 973.333 / 273.333 -1058.25 / -1058.25 -2258 / -2258 92 / 92 Weight 82.9 kg 83.1 kg 79.1 kg 75.2 kg Microbiology Reports for the Last 24 Hours: Microbiology 12/09/24 13:58 Blood Blood Culture - Final NO GROWTH AFTER 5 DAYS 12/09/24 11:52 Blood Blood Culture - Final NO GROWTH AFTER 5 DAYS 12/09/24 16:28 Thoracic Fluid Gram Stain - Final 12/09/24 16:28 Thoracic Fluid Body Fluid Culture - Final NO GROWTH AFTER 5 DAYS Constitutional Constitutional: no acute distress and chronically ill appearing *Routine HEENT Exam Head: Present normocephalic Eye: Present EOMI and PERRL ENT: Present mucous membranes moist *Routine Neck Exam Neck: Present supple; Absent lymphadenopathy *Routine Respiratory Exam Respiratory: Present CTA bilaterally *Routine Cardiovascular Exam Cardiovascular: Present RRR *Routine Abdominal Exam Abdominal: Present soft and normoactive bowel sounds; Absent tenderness *Routine Extremities Exam Extremities: Absent cyanosis, clubbing or edema *Routine Skin Exam Skin: Present warm; Absent rash *Routine Neurological Exam Neurological: Present alert and oriented X3 Assessment and Plan *Assessment and plan (1) Bradycardia: Status: Acute Category: Medical Code(s): R00.1 - Bradycardia, unspecified (2) Cardiogenic shock: Status: Acute Category: Medical Code(s): R57.0 - Cardiogenic shock (3) Coronary artery dissection: Status: Acute Category: Medical Code(s): I25.42 - Coronary artery dissection (4) Coronary artery disease: Status: Acute Qualifiers: Coronary Disease-Associated Artery/Lesion type: [place] artery [place] vs. transplanted heart: kaibab heart Associated angina: without angina Qualified Code(s): I25.10 - Atherosclerotic heart disease of [place] coronary artery without angina pectoris Category: Medical Code(s): I25.10 - Atherosclerotic heart disease of [place] coronary artery without angina pectoris (5) CKD (chronic kidney disease) stage 3, GFR 30-59 ml/min: Status: Chronic Qualifiers: Chronic kidney disease stage 3 subtype: stage 3a (GFR 45-59) Qualified Code(s): N18.31 - Chronic kidney disease, stage 3a Category: Medical Code(s): N18.30 - Chronic kidney disease, stage 3 unspecified (6) Hypertension: Status: Chronic Qualifiers: Hypertension type: primary hypertension Qualified Code(s): I10 - Essential (primary) hypertension Category: Medical Code(s): I10 - Essential (primary) hypertension (7) Hypertriglyceridemia: Status: Acute Category: Medical Code(s): E78.1 - Pure hyperglyceridemia (8) Hypothyroidism: Status: Chronic Qualifiers: Hypothyroidism type: acquired Qualified Code(s): E03.9 - Hypothyroidism, unspecified Category: Medical Code(s): E03.9 - Hypothyroidism, unspecified (9) Hyperlipidemia: Status: Chronic Qualifiers: Hyperlipidemia type: mixed hyperlipidemia Qualified Code(s): E78.2 - Mixed hyperlipidemia Category: Medical Code(s): E78.5 - Hyperlipidemia, unspecified (10) Obesity (BMI 30-39.9): Status: Acute Category: Medical Code(s): E66.9 - Obesity, unspecified (11) NSTEMI (non-ST elevated myocardial infarction): Status: Acute Category: Medical Code(s): I21.4 - Non-ST elevation (NSTEMI) myocardial infarction (12) CLAUDIA (acute kidney injury): Status: Acute Category: Medical Code(s): N17.9 - Acute kidney failure, unspecified Plan Corinne Martin is a 79-year-old female with a history of triple-vessel coronary disease, hypothyroidism, bifascicular block with tachybradycardia syndrome, hypertension presented for an outpatient [facility]. Patient and family previously did not want to undergo CABG for triple-vessel coronary disease, and had been planned for outpatient staged PCI. Patient was undergoing revascularization of the RCA on 11/14/2024, had severe calcification and guidewire went subintimal creating coronary dissection. Patient became bradycardic, hypotensive but responded really well to dopamine drip. Discussed case with Dr. Chatterjee, will admit to the ICU on dopamine drip for further monitoring. He did advise that patient will have focal infarction, ST wave changes, and will become intermittently bradycardic. On my evaluation of the patient, she was having an episode of bradycardia to 20s, hypotension, with emesis. No chest pain, shortness of breath. Admitted to ICU for further care. #Severe CAD, coronary calcification #Coronary dissection #Cardiogenic shock, resolved #Hemorrhagic shock, resolved #Left hemothorax, resolving #Sinus bradycardia, bifascicular block, resolved #NSTEMI type I #Suspected left lung pneumonia ? History of triple coronary artery disease, patient was not agreeable to CABG. Plan for staged outpatient PCI. ? Patient was undergoing LHC of the RCA on 12/05/24, had severe calcification and guidewire went subintimal creating coronary dissection. Patient became bradycardic, hypotensive but responded really well to dopamine drip. ? For persistent intermittent bradycardia and bifascicular block/asystole, s/p [employer]ER [employer]IVER-P implantation on 12/08/2024. Bradycardia resolved. ? Nausea improved after weaning off dopamine. Weaned off phenylephrine on 12/10/2024. ? Subclavian artery puncture during pacemaker placement, CT chest on 12/09/2024 showed large left-sided hemothorax. ? Pulmonology consulted, s/p chest tube with serosanguineous output from 2500 cc before tPA. ? Pulmonology started chest tube tPA dornase on 12/12/2024, has had an additional 1500 cc serosanguineous output since starting tPA on 12/12/2024. ? CXR this morning showed significant improvement of left sided effusion, pulmonology would like to hold off on tPA today and monitor chest tube output overnight. Likely chest tube removal tomorrow. ? Will hold off on further Lasix today as patient seems more euvolemic. Was volume overloaded with aggressive IV fluid resuscitation in the setting of left hemothorax. ? Hemoglobin continues to be stable, improved to 11.9 today. Had received 6 units PRBC. ? Overall, patient continues to feel get better. Monitor chest tube output overnight. ? Continue Zosyn 3.375 g every 6 hours for now, CXR suggestive of left-sided pneumonia. WBC improved to 15.7 today, peaked at 15.6. - Hold aspirin, continue Plavix 75 mg per cardiology. ? A1c 5.6 Repeat CBC, CMP, magnesium ordered for the morning. ? Continuous cardiac telemetry. #Hypertension: Continue home hydrochlorothiazide 25 mg, discontinue lisinopril 40 mg due to soft pressures. Hold home amlodipine for now. Resume when appropriate. #Hypothyroidism: Continue home levothyroxine 137 mcg. Follow-up TFTs. Full code DVT prophylaxis: IPC's Home medications: Reconciled.
--- NOTE | 2024-12-14 15:43 | PC.NURSE ---
[address] Juarez. No dose of TPA/Dornase to be administered/ordered this shift. Per MD flush pt chest tube with 20ml of NS every 6 hours.
--- NOTE | 2024-12-14 15:44 | PC.NURSE ---
1540 chest tube flushed with 20ml of NS at this time. pt tolerated well.
--- NOTE | 2024-12-14 15:53 | PC.NURSE ---
Pt has been able to rest off and on this shift. Pt has been more willing to turn/reposition in bed this shift, than previous day shift. pt is a/ox4 and denies any pain at this time. pt is voiding light chucky urine via purwick and has had numeorous loose stools this shift. has ordered for pt to have a probiotic. pt was offered to get up to the bsc to void/have BM but pt stated that those things don't ever work well for me. and stated that at this time she would prefer to continue using the purwick. pt has chest tube to left lateral/posterior chest. nad noted at this time.
--- NOTE | 2024-12-14 16:44 | PC.NURSE ---
Addendum entered by Cheyanne Tellez RN 12/14/24 17:43: 1743 pt finished with supper at this time. pt was cleaned up, purwick and brief changed, along with pressure relieving device on coccyx and placed back in bed. pt was positioned on her left side with pillow behind her back to assist in off loading pressure. Original Note: Pt sitting on side of bed at this time. call light within reach. pt at bedside.
[2024-12-14] MEDS: PANTOPRAZOLE 40MG TABLET 40 MG PO (20:09)
[2024-12-14] MEDS: PRAVASTATIN 40MG TAB 40 MG PO (20:09)
[2024-12-14] MEDS: SODIUM CHLORIDE 3% 15ML NEB 3 ML IH (20:32)
[2024-12-15] VITALS (8 sets, daily range): BP systolic 115–157; BP diastolic 50–82; PULSE 70–78; RESP 16–27; TEMP 36.6–36.8; O2SAT 93–98; BMI 32.8
[2024-12-15] MEDS: PIPERCILLIN/TAZO 3.375 GM in 0.9 % SODIUM CHLORIDE 50 ML IV ×2 (02:09→08:25)
[2024-12-15 06:06] LABS: Hematocrit 32.9 % (37.0-47.0); Hemoglobin 11.0 g/dL (12.2-16.2); Immature Granulocytes % 6.0 %; Mean Corpuscular HGB Conc 33.4 g/dL (31.8-35.4); Mean Corpuscular Hemoglobin 31.2 pg (27.0-31.2); Mean Corpuscular Volume 93.2 fl (81-99); Nucleated Red Blood Cells % 0 %; Platelet Count 278 K/mm3 (142-424); Red Blood Count 3.53 M/mm3 (4.20-5.40); Red Cell Distribution Width-SD 51.3 fL; White Blood Count 13.2 K/mm3 (4.8-10.8)
[2024-12-15 06:22] LABS: Alanine Aminotransferase 38 U/L (12-78); Albumin Level 2.6 g/dl (3.5-5.0); Albumin/Globulin Ratio 0.9 (1.1-1.8); Alkaline Phosphatase 50 U/L (38-126); Anion Gap 3.4 mEq/L (5-15); Aspartate Amino Transferase 44 U/L (14-36); Bilirubin,Total 0.5 mg/dl (0.2-1.3); Blood Urea Nitrogen 12 mg/dl (7-17); Calcium 8.1 mg/dl (8.4-10.2); Carbon Dioxide 31 mmol/L (22.0-30.0); Chloride 102 mmol/L (98-107); Creatinine Clearance Estimated 56 mL/min (50-200); Creatinine,Serum 0.70 mg/dl (0.52-1.04); Estimated Glomerular Filt Rate 81 ml/min (>60); GFR (African American) 98 ML/MIN (>60); Globulin 3.0 g/dL (1.3-3.2); Glucose 101 mg/dl (74-100); Magnesium 2.1 mg/dl (1.6-2.3); Potassium 4.4 mmoL/L (3.5-5.1); Sodium 132 mmol/L (136-145); Total Protein,Serum 5.6 g/dl (6.3-8.2)
[2024-12-15] MEDS: LEVOTHYROXINE 137MCG (0.137MG) TAB 137 MCG PO (07:30)
--- NOTE | 2024-12-15 07:42 | XR_ITS ---
FINAL REPORT TECHNIQUE: Single view chest CLINICAL HISTORY: f/u left effusion COMPARISON: 12/14/2024 FINDINGS: A single view of the chest was obtained. There is a left-sided pacemaker. The heart and mediastinum are within normal limits. A left pigtail drainage catheter is in place. There is a small left pleural effusion. Moderate left lung atelectasis is seen. There is no significant pneumothorax. IMPRESSION: Stable small left pleural effusion and moderate left lung atelectasis. Reviewed, Interpreted and Dictated by Hermelinda Mcnally MD Transcribed by Jordyn Forrester Authenticated and [facility]
[2024-12-15] MEDS: ASPIRIN EC 81MG TABLET 81 MG PO (08:25)
[2024-12-15] MEDS: DAPAGLIFLOZIN PROPANEDIOL 10 MG TABLET PO (08:25)
[2024-12-15] MEDS: CLOPIDOGREL 75MG TAB 75 MG PO (08:25)
[2024-12-15] MEDS: LACTOBACILLUS PROBIOTIC COMB CAPSULE 1 CAP PO (08:25)
[2024-12-15] MEDS: PRIMIDONE 50MG TABLET 100 MG PO (08:26)
[2024-12-15 08:29] LABS: Total Cells Counted 100
[2024-12-15 08:31] LABS: RBC Morphology Normal
--- NOTE | 2024-12-15 09:20 | PC.NURSE ---
Patient down graded from step down to med surge
[2024-12-15] MEDS: FUROSEMIDE 40MG/4ML VIAL 40 MG IV (10:00)
--- NOTE | 2024-12-15 13:30 | PC.NURSE ---
Addendum entered by Cheyanne Long RN 12/15/24 13:32: chest tube removed at 1300 Original Note: Chest tube removed by Dr. Painting, and sutures placed and covered with 4x4 and tegaderm. repeat chest xray at 1700. Get sutures removed in 7 days in the office
[2024-12-15] MEDS: AMOXICILLIN/POT CLAVULAN 500MG TABLET 1 EACH PO (13:41)
--- NOTE | 2024-12-15 13:49 | EXP.CARD.PN ---
Subjective Subjective Date: 12/15/24 Time: 10:00 Principal diagnosis: bradycardia, hypotension Interval history: This is a 79-year-old female in no apparent distress this morning. Her chest tube remains in place with minimal drainage. She denies any chest pain or pressure. She denies any shortness of breath or edema. She denies any fever, chills, nausea, vomiting, diarrhea, PND or orthopnea. She states that she feels like she is almost back to her baseline except for the chest tube being in place. She is atrial pacing today. Her vital signs remained stable. Exam Data for Last 24 hours Vital signs and Labs for Last 24 Hours: Temp Pulse Resp BP Pulse Ox O2 Del Method O2 Flow Rate 98.0 F 70 27 H 156/71 H 96 Room Air 1 12/15/24 12:00 12/15/24 12:00 12/15/24 12:00 12/15/24 12:00 12/15/24 12:00 12/15/24 13:00 12/15/24 08:00 Laboratory Results - last 24 hr 12/15/24 05:35: WBC 13.2 H, RBC 3.53 L, Hgb 11.0 L, Hct 32.9 L, MCV 93.2, MCH 31.2, MCHC 33.4, RDW 15.3, Plt Count 278, MPV 10.2, Neut % (Auto) 63.4, Lymph % (Auto) 15.7, [place] % (Auto) 8.3, Eos % (Auto) 5.8, Baso % (Auto) 0.8, Neut # (Auto) 8.4 H, Lymph # (Auto) 2.1, [place] # (Auto) 1.1 H, Eos # (Auto) 0.8 H, Baso # (Auto) 0.1, Total Counted 100, Neutrophils % (Manual) 65, Band Neutrophils % 2.0, Lymphocytes % (Manual) 16, Monocytes % (Manual) 9, Eosinophils % (Manual) 7 H, Basophils % (Manual) 1.0, Platelet Estimate Normal, RBC Morphology Normal, Sodium 132 L, Potassium 4.4 D, Chloride 102, Carbon Dioxide 31 H, Anion Gap 3.4 L, BUN 12, Creatinine 0.70, Estimated Creat Clear 56, Estimated GFR 81, Est GFR ( Amer) 98, Glucose 101 H, Calcium 8.1 L, Magnesium 2.1 D, Total Bilirubin 0.5, AST 44 H, ALT 38, Alkaline Phosphatase 50, Total Protein 5.6 L, Albumin 2.6 L, Globulin 3.0, Albumin/Globulin Ratio 0.9 L I & O for Last 24 hours: Intake & Output 12/12/24 12/13/24 12/14/24 12/15/24 23:59 23:59 23:59 23:59 Intake Total 2261.75 / 2261.75 1047 / 1047 1609 / 1609 900 / 900 Output Total 3320 / 3320 3305 / 3305 1705 / 1705 2049 / 2049 Balance -1058.25 / -1058.25 -2258 / -2258 -96 / -96 -1150 / -1150 Weight 183 lb 3.266 oz 174 lb 6.17 oz 165 lb 12.602 oz 167 lb 5.294 oz Microbiology Reports for the Last 24 Hours: Microbiology 12/09/24 13:58 Blood Blood Culture - Final NO GROWTH AFTER 5 DAYS 12/09/24 11:52 Blood Blood Culture - Final NO GROWTH AFTER 5 DAYS Constitutional Constitutional: no acute distress and obese *Routine HEENT Exam Head: Present normocephalic *Routine Neck Exam Neck: Present supple and full ROM; Absent JVD *Routine Respiratory Exam Respiratory: Present decreased breath sounds; Absent crackles *Routine Cardiovascular Exam Cardiovascular: Present RRR, Normal S1 and Normal S2 *Routine Abdominal Exam Abdominal: Present soft and normoactive bowel sounds *Routine Extremities Exam Extremities: Absent cyanosis, clubbing or edema Progress Note: A&P Assessment and plan (1) Bradycardia: Status: Acute (2) Cardiogenic shock: Status: Acute (3) Coronary artery dissection: Status: Acute (4) Coronary artery disease: Status: Acute (5) CKD (chronic kidney disease) stage 3, GFR 30-59 ml/min: Status: Chronic (6) Hypertension: Status: Chronic (7) Hypertriglyceridemia: Status: Acute (8) Hypothyroidism: Status: Chronic (9) Hyperlipidemia: Status: Chronic (10) Obesity (BMI 30-39.9): Status: Acute (11) NSTEMI (non-ST elevated myocardial infarction): Status: Acute (12) CLAUDIA (acute kidney injury): Status: Acute (13) Pleural effusion, left: Status: Acute (14) Acute respiratory failure with hypoxia: Status: Acute Assessment and Plan Assessment and Plan for All Diagnoses:: Plan: 1. The patient underwent left cardiac catheterization and status post coronary artery dissection of the right coronary artery with subsequent bradycardia and hypotension on 12/05/2024. Her coronary artery disease is likely stable at this time at this time. Continue aspirin and Plavix for dual antiplatelet therapy. 2. Her blood pressure is well-controlled. Continue hydrochlorothiazide. 3. Her LDL goal is less than 55. Her LDL is 84 on this admission. Will change her pravastatin to Lipitor 80 mg p.o. nightly. 4. Following the patient's dissection she did get bradycardic. She is status post permanent pacemaker placement with GUITAR MAKER HAND-P implant on 01/04/2025. 5. The patient did have a hemothorax/new left pleural effusion following pacemaker implant. The patient had a hemothorax due to subclavian artery stick in an attempt to find the vein for pacemaker implant. She underwent thoracentesis with a chest tube placed. Drainage has currently slowed down. Chest tube management is being followed by pulmonology. Hopeful that this will be removed today. 6. The patient does have chronic kidney disease. Her creatinine has normalized down to 0.7 today. 7. The patient's anemia is stable. Her hemoglobin is 11.0. 8. The patient is currently stable from a cardiac standpoint. Her chest tube drainage has slowed down with possible plans for chest tube removal but this will be left up to pulmonology. 9. Further recommendations will be made pending the patient's response to treatment. Thank you for the opportunity to help participate in the care of this patient. All recommendations and orders are per Dr. Siddiqui.
--- NOTE | 2024-12-15 14:31 | EXP.PULM.PN ---
Subjective *Date: 12/15/24 *Time: 14:31 Interval history: No acute respiratory vents overnight. Pulmonology Exam Inpatient Vital signs and Labs for Last 24 Hours: Temp Pulse Resp BP Pulse Ox O2 Del Method O2 Flow Rate 98.0 F 70 27 H 156/71 H 96 Room Air 1 12/15/24 12:00 12/15/24 12:00 12/15/24 12:00 12/15/24 12:00 12/15/24 12:00 12/15/24 13:00 12/15/24 08:00 Laboratory Results - last 24 hr 12/15/24 05:35: WBC 13.2 H, RBC 3.53 L, Hgb 11.0 L, Hct 32.9 L, MCV 93.2, MCH 31.2, MCHC 33.4, RDW 15.3, Plt Count 278, MPV 10.2, Neut % (Auto) 63.4, Lymph % (Auto) 15.7, [place] % (Auto) 8.3, Eos % (Auto) 5.8, Baso % (Auto) 0.8, Neut # (Auto) 8.4 H, Lymph # (Auto) 2.1, [place] # (Auto) 1.1 H, Eos # (Auto) 0.8 H, Baso # (Auto) 0.1, Total Counted 100, Neutrophils % (Manual) 65, Band Neutrophils % 2.0, Lymphocytes % (Manual) 16, Monocytes % (Manual) 9, Eosinophils % (Manual) 7 H, Basophils % (Manual) 1.0, Platelet Estimate Normal, RBC Morphology Normal, Sodium 132 L, Potassium 4.4 D, Chloride 102, Carbon Dioxide 31 H, Anion Gap 3.4 L, BUN 12, Creatinine 0.70, Estimated Creat Clear 56, Estimated GFR 81, Est GFR ( Amer) 98, Glucose 101 H, Calcium 8.1 L, Magnesium 2.1 D, Total Bilirubin 0.5, AST 44 H, ALT 38, Alkaline Phosphatase 50, Total Protein 5.6 L, Albumin 2.6 L, Globulin 3.0, Albumin/Globulin Ratio 0.9 L Temp Pulse Resp BP Pulse Ox O2 Del Method O2 Flow Rate 97.6 F 75 14 112/40 L 100 Nasal Cannula 3 12/09/24 13:51 12/09/24 13:51 12/09/24 13:51 12/09/24 13:51 12/09/24 13:51 12/09/24 13:00 12/09/24 11:00 Laboratory Results - last 24 hr 12/09/24 05:23: WBC 15.6 H D, RBC 3.13 L D, Hgb 9.2 L D, Hct 28.6 L, MCV 91.4, MCH 29.7, MCHC 32.5, RDW 12.6, Plt Count 268, MPV 10.1, Neut % (Auto) 85.6 H, Lymph % (Auto) 7.9 L, [place] % (Auto) 5.7, Eos % (Auto) 0.0 L, Baso % (Auto) 0.2, Neut # (Auto) 13.4 H, Lymph # (Auto) 1.2, [place] # (Auto) 0.9, Eos # (Auto) 0.0, Baso # (Auto) 0.0, Sodium 132 L, Potassium 4.6, Chloride 101, Carbon Dioxide 27, Anion Gap 8.6, BUN 20 H, Creatinine 1.00, Estimated Creat Clear 62, Estimated GFR 54 L, Est GFR ( Amer) 65, Glucose 131 H, Calcium 7.5 L, Phosphorus 3.6 D, Magnesium 1.7 D, Total Bilirubin 0.4, AST 47 H D, ALT 22 D, Alkaline Phosphatase 45, C-Reactive Protein 31.2 H, Total Protein 5.4 L, Albumin 3.3 L D, Globulin 2.1, Albumin/Globulin Ratio 1.6, Amylase 206 H, Lipase 153, Procalcitonin 0.118, Blood Type Confirm O Positive 12/09/24 07:10: POC Glucose 163 H 12/09/24 07:30: Blood Type O Positive, Antibody Screen Negative, Crossmatch (AHG) See Detail 12/09/24 11:58: Chlamy pneumoniae PCR Not detected, Adenovirus (PCR) Not detected, B. pertussis DNA (PCR) Not detected, Coronavirus OC43 (PCR) Not detected, Coronavirus HKU1 (PCR) Not detected, Coronavirus 229E (PCR) Not detected, SARS-CoV-2 (PCR) Not detected, Coronavirus NL63 (PCR) Not detected, Human Metapneumovir PCR Not detected, Influenza A (H1) PCR Not detected, Influ A (H1N1/09) PCR Not detected, Influenza A (H3) PCR Not detected, Influenza Type A (PCR) Not detected, Influenza Type B (PCR) Not detected, M. pneumoniae (PCR) Not detected, Parainfluenza 1 (PCR) Not detected, Parainfluenza 2 (PCR) Not detected, Parainfluenza 3 (PCR) Not detected, Parainfluenza 4 (PCR) Not detected, RSV (PCR) Not detected, Entero/Rhino (PCR) Not detected 12/09/24 13:58: Hgb 9.6 L, Hct 28.8 L 12/09/24 15:07: Urine Color Yellow, Urine Appearance Clear, Urine pH 6.0, Ur Specific [place] 1.020, Urine Protein Negative, Urine Glucose (UA) 1+, Urine Ketones Negative, Urine Blood Negative, Urine Nitrate Negative, Urine Bilirubin Negative, Urine Urobilinogen 0.2, Ur Leukocyte Esterase Negative I & O for Labs for Last 24 Hours: Intake & Output 12/12/24 12/13/24 12/14/24 12/15/24 23:59 23:59 23:59 23:59 Intake Total 2261.75 / 2261.75 1047 / 1047 1609 / 1609 900 / 900 Output Total 3320 / 3320 3305 / 3305 1705 / 1705 2049 Balance -1058.25 / -1058.25 -2258 / -2258 -96 / -96 -1150 / -1150 Weight 183 lb 3.266 oz 174 lb 6.17 oz 165 lb 12.602 oz 167 lb 5.294 oz Intake & Output 12/06/24 12/07/24 12/08/24 12/09/24 23:59 22:59 23:59 23:59 Intake Total 1259.639 / 2544.036 0288.583 / 0005.319 0582.444 / 2497.227 7707.283 / 2323.283 Output Total 1750 / 1750 2550 / 2550 1675 / 1675 800 / 800 Balance -490.361 / -250.361 -920.417 / -920.417 112.444 / 899.782 5943.283 / 1523.283 Weight 180 lb 12.465 oz 181 lb 3.52 oz 182 lb 12.211 oz 183 lb 8.204 oz Microbiology Reports for the Last 24 Hours: Microbiology 12/09/24 13:58 Blood Blood Culture - Final NO GROWTH AFTER 5 DAYS 12/09/24 11:52 Blood Blood Culture - Final NO GROWTH AFTER 5 DAYS Constitutional: Present moderate distress Head: Present normocephalic and atraumatic ENT: Present normal exam, normal oropharynx and mucous membranes moist Neck: Present full ROM Respiratory: Present respiratory distress, rhonchi and able to speak in complete sentences; Absent wheezes Cardiac: Present Tachycardia; Absent S1/S2 GI: Present soft and distention; Absent tenderness or guarding Rectal (female): Present deferred (female): Present deferred Skin: Present intact; Absent cyanosis or jaundice Neuro: Present alert, awake and oriented x 3 Extremities: Present normal inspection; Absent clubbing or cyanosis Psychiatric: Present normal affect Assessment and Plan *Assessment and plan (1) Pleural effusion, left: Status: Acute Category: Medical Code(s): J90 - Pleural effusion, not elsewhere classified (2) Acute respiratory failure with hypoxia: Status: Acute Category: Medical Code(s): J96.01 - Acute respiratory failure with hypoxia Plan Ms. Martin is a 79-year-old female with complicated medical history severe CAD however refused bypass status post SHANNON to LAD, RCA stenting status post dissection resulting in bradycardia hypotension followed by pacemaker placement now noted to have worsening left-sided pleural effusion concerning for left-sided hemothorax and pulmonary was called for further evaluation and management. CT chest reviewed, the noted left effusion is concerning for hemothorax at this point of time. She continue to receive full dose Lovenox along with Plavix and aspirin 81 mg. She continued to receive vancomycin and Zosyn. Blood cultures pending so far. Interval Update: Completed 3 doses of tPA dornase per significant improvement in chest x-ray. No significant output overnight. Hemoglobin stable. Chest tube removed today Plan: Follow-up chest x-ray in 4 hours after chest tube removal Antibiotics can be weaned to Augmentin to complete a total of 10-day course Follow in pulmonary clinic in 7 to 10 days for suture removal and repeat chest x-ray follow up. # Thank you for involving pulmonary in this patient care. Will continue to follow.
--- NOTE | 2024-12-15 16:46 | EXP.DC.SUM ---
General Admission date:: 12/05/24 HPI HPI HPI: Corinne Martin is a 79-year-old female with a history of triple-vessel coronary disease, hypothyroidism, bifascicular block with tachybradycardia syndrome, hypertension presented for an outpatient [facility]. Patient and family previously did not want to undergo CABG for triple-vessel coronary disease, and had been planned for outpatient staged PCI. Patient was undergoing revascularization of the RCA today, had severe calcification and guidewire went subintimal creating coronary dissection. Patient became bradycardic, hypotensive but responded really well to dopamine drip. Discussed case with Dr. Chatterjee, will admit to the ICU on dopamine drip for further monitoring. He did advise that patient will have focal infarction, ST wave changes, and will become intermittently bradycardic. On my evaluation of the patient, she was having an episode of bradycardia to 20s, hypotension, with emesis. No chest pain, shortness of breath. Increased dopamine drip rate to 10 with resolution of symptoms. EKG showed sinus bradycardia with mild acute ischemia not concerning for STEMI. Initial CBC, CMP relatively unremarkable. per H&P This is a 79-year-old acutely ill-appearing patient resting in bed but awake. She is oriented x 3. Family is at bedside. MAINTENANCE CONTROLLER-P implanted with rate set at 75 bpm. Patient developed large left hemothorax with mediastinal shift to the right. She is anemic status post multiple units PRBCs infused. She was struggling with bradycardia, low blood pressure and emesis that seemed to respond to dopamine dosing. Patient was weaned off dopamine this morning but remains on Cirilo-Synephrine. She also had a KUB which showed moderate amount of stool burden in the proximal bowel concerning for chronic constipation. Nursing reports patient had a large bowel movement last night and she has not had any nausea or vomiting today. Gastroenterology was consulted due to the ongoing vomiting, bradycardia and hypotensive episodes. Patient is getting MiraLAX every morning but she was unable to tolerate it this morning. She reports at home she normally has a daily bowel movement and most of the time feels like she empties. Occasionally she will have straining to have a bowel movement. She denies any nausea vomiting at home abdominal pain, bloating belching or gassiness. She believes her last colonoscopy was at 72 years old and she was told she did not need any further screenings. She denies melena hematochezia or mucus in her stool at home. On a side note she did have a mild elevation of amylase at 206. Lipase was normal. Possible cystic lesion noted near the pancreas on ultrasound but that did not bear out on CT scan. Hospital Course Hospital Course Hospital Course: Corinne Martin is a 79-year-old female with a history of triple-vessel coronary disease, hypothyroidism, bifascicular block with tachybradycardia syndrome, hypertension presented for an outpatient [facility]. Patient and family previously did not want to undergo CABG for triple-vessel coronary disease, and had been planned for outpatient staged PCI. Patient was undergoing revascularization of the RCA on 11/14/2024, had severe calcification and guidewire went subintimal creating coronary dissection. Patient became bradycardic, hypotensive but responded really well to dopamine drip. Discussed case with Dr. Chatterjee, will admit to the ICU on dopamine drip for further monitoring. He did advise that patient will have focal infarction, ST wave changes, and will become intermittently bradycardic. On my evaluation of the patient, she was having an episode of bradycardia to 20s, hypotension, with emesis. No chest pain, shortness of breath. Admitted to ICU for further care. #Severe CAD, coronary calcification #Coronary dissection #Cardiogenic shock, resolved #Hemorrhagic shock, resolved #Left hemothorax, resolving #Sinus bradycardia, bifascicular block, resolved #NSTEMI type I #Suspected left lung pneumonia ? History of triple coronary artery disease, patient was not agreeable to CABG. Plan for staged outpatient PCI. ? Patient was undergoing LHC of the RCA on 12/05/24, had severe calcification and guidewire went subintimal creating coronary dissection. Patient became bradycardic, hypotensive but responded really well to dopamine drip. ? For persistent intermittent bradycardia and bifascicular block/asystole, s/p MAINTENANCE CONTROLLER-P implantation on 12/08/2024. Bradycardia resolved. ? Nausea improved after weaning off dopamine. Weaned off phenylephrine on 12/10/2024. ? Subclavian artery puncture during pacemaker placement, CT chest on 12/09/2024 showed large left-sided hemothorax. ? Pulmonology consulted, s/p chest tube with serosanguineous output from 2500 cc before tPA. ? Pulmonology started chest tube tPA dornase on 12/12/2024, has had an additional 1500 cc serosanguineous output since starting tPA on 12/12/2024. ? Required IV Lasix diuresis due to initial IV fluid resuscitation. ? Hemoglobin continues to be stable, improved to 11.0 today. Had received 6 units PRBC. ? Overall, patient continues to feel get better. Stable for discharge. ? Treated with IV Zosyn for left-sided lung opacity suggestive of pneumonia. Discussed with pulmonology, will need to Augmentin. - Hold aspirin, continue Plavix 75 mg per cardiology until follow-up within 1 week. ? Discharged with Augmentin 500 mg 3 times daily for 3 more days. Will follow-up with pulmonology and cardiology within 1 week. #Hypertension: Continue home hydrochlorothiazide 25 mg, discontinue lisinopril 40 mg due to soft pressures. Hold home amlodipine for now. Resume when appropriate. #Hypothyroidism: Continue home levothyroxine 137 mcg. TSH low, free T4 normal. Total time spent on discharge: 32 minutes on chart review, counseling, documentation, and direct care with patient. Exam Data for Last 24 hours Vital signs and Labs for Last 24 Hours: Temp Pulse Resp BP Pulse Ox O2 Del Method O2 Flow Rate 98.0 F 70 27 H 156/71 H 96 Room Air 1 12/15/24 12:00 12/15/24 12:00 12/15/24 12:00 12/15/24 12:00 12/15/24 12:00 12/15/24 13:00 12/15/24 08:00 Laboratory Results - last 24 hr 12/15/24 05:35: WBC 13.2 H, RBC 3.53 L, Hgb 11.0 L, Hct 32.9 L, MCV 93.2, MCH 31.2, MCHC 33.4, RDW 15.3, Plt Count 278, MPV 10.2, Neut % (Auto) 63.4, Lymph % (Auto) 15.7, Crockett % (Auto) 8.3, Eos % (Auto) 5.8, Baso % (Auto) 0.8, Neut # (Auto) 8.4 H, Lymph # (Auto) 2.1, Crockett # (Auto) 1.1 H, Eos # (Auto) 0.8 H, Baso # (Auto) 0.1, Total Counted 100, Neutrophils % (Manual) 65, Band Neutrophils % 2.0, Lymphocytes % (Manual) 16, Monocytes % (Manual) 9, Eosinophils % (Manual) 7 H, Basophils % (Manual) 1.0, Platelet Estimate Normal, RBC Morphology Normal, Sodium 132 L, Potassium 4.4 D, Chloride 102, Carbon Dioxide 31 H, Anion Gap 3.4 L, BUN 12, Creatinine 0.70, Estimated Creat Clear 56, Estimated GFR 81, Est GFR ( Amer) 98, Glucose 101 H, Calcium 8.1 L, Magnesium 2.1 D, Total Bilirubin 0.5, AST 44 H, ALT 38, Alkaline Phosphatase 50, Total Protein 5.6 L, Albumin 2.6 L, Globulin 3.0, Albumin/Globulin Ratio 0.9 L I & O for Last 24 hours: Intake & Output 12/12/24 12/13/24 12/14/24 12/15/24 23:59 23:59 23:59 23:59 Intake Total 2261.75 / 2261.75 1047 / 1047 1609 / 1609 900 / 900 Output Total 3320 / 3320 3305 / 3305 1705 / 1705 2250 / 2250 Balance -1058.25 / -1058.25 -2258 / -2258 -96 / -96 -1350 / -1350 Weight 83.1 kg 79.1 kg 75.2 kg 75.9 kg Microbiology Reports for the Last 24 Hours: Microbiology 12/09/24 13:58 Blood Blood Culture - Final NO GROWTH AFTER 5 DAYS 12/09/24 11:52 Blood Blood Culture - Final NO GROWTH AFTER 5 DAYS Constitutional Constitutional: no acute distress and obese *Routine HEENT Exam Head: Present normocephalic *Routine Neck Exam Neck: Present supple and full ROM; Absent JVD *Routine Respiratory Exam Respiratory: Present decreased breath sounds; Absent crackles *Routine Cardiovascular Exam Cardiovascular: Present RRR, Normal S1 and Normal S2 *Routine Abdominal Exam Abdominal: Present soft and normoactive bowel sounds *Routine Extremities Exam Extremities: Absent cyanosis, clubbing or edema Results Data Completed and Pending Labs on day of discharge: Labs from last 24 hours 12/15/24 05:35 WBC 13.2 H RBC 3.53 L Hgb 11.0 L Hct 32.9 L MCV 93.2 MCH 31.2 MCHC 33.4 RDW 15.3 Plt Count 278 MPV 10.2 Neut % (Auto) 63.4 Lymph % (Auto) 15.7 Crockett % (Auto) 8.3 Eos % (Auto) 5.8 Baso % (Auto) 0.8 Neut # (Auto) 8.4 H Lymph # (Auto) 2.1 Crockett # (Auto) 1.1 H Eos # (Auto) 0.8 H Baso # (Auto) 0.1 Total Counted 100 Neutrophils % (Manual) 65 Band Neutrophils % 2.0 Lymphocytes % (Manual) 16 Monocytes % (Manual) 9 Eosinophils % (Manual) 7 H Basophils % (Manual) 1.0 Platelet Estimate Normal RBC Morphology Normal Sodium 132 L Potassium 4.4 D Chloride 102 Carbon Dioxide 31 H Anion Gap 3.4 L BUN 12 Creatinine 0.70 Estimated Creat Clear 56 Estimated GFR 81 Est GFR ( Amer) 98 Glucose 101 H Calcium 8.1 L Magnesium 2.1 D Total Bilirubin 0.5 AST 44 H ALT 38 Alkaline Phosphatase 50 Total Protein 5.6 L Albumin 2.6 L Globulin 3.0 Albumin/Globulin Ratio 0.9 L DS: Diagnosis Discharge Diagnosis (1) Pleural effusion, left: Status: Acute Code(s): J90 - Pleural effusion, not elsewhere classified (2) Acute respiratory failure with hypoxia: Status: Acute Code(s): J96.01 - Acute respiratory failure with hypoxia Meds Home Medications and Allergies Home Medications ?Medication ?Instructions ?Recorded ?Confirmed ?Type hydrochlorothiazide 25 mg tablet 25 mg PO DAILY #30 tabs 04/08/24 12/23/24 Rx lisinopril 40 mg tablet 40 mg PO DAILY 30 days #30 tabs 09/04/24 12/23/24 Rx Held on 12/15/24. Instructions: Resume on 12/22/24. Hold this medication until follow-up with cardiology as your blood pressures have been normal without it. aspirin 81 mg tablet 81 mg PO DAILY 30 days #30 tabs 11/14/24 12/23/24 Rx Held on 12/15/24. Instructions: Resume on 12/22/24. Follow-up with cardiology before restarting this medication due to recent bleeding around your lung. . levothyroxine 137 mcg tablet 137 mcg PO DAILY #30 tabs 11/28/24 12/23/24 Rx (Levoxyl) dapagliflozin propanediol 10 mg 10 mg PO DAILY 12/05/24 12/23/24 History tablet (Farxiga) fenofibrate 160 mg tablet 160 mg PO DAILY 12/05/24 12/23/24 History pravastatin 40 mg tablet 40 mg PO DAILY 12/05/24 12/23/24 History primidone 50 mg tablet 100 mg PO DAILY 12/05/24 12/23/24 History amlodipine 10 mg tablet 10 mg PO DAILY 12/23/24 12/23/24 History clopidogrel 75 mg tablet (Plavix) 75 mg PO DAILY 30 days #30 tabs 12/23/24 12/23/24 Rx New Prescriptions to Start Prescriptions: Allergies Allergy/AdvReac Type Severity Reaction Status Date / Time No Known Allergies Allergy Verified 12/23/24 15:00 Discharge Plan Disposition Patient Disposition: Home Health Service Condition: Fair Discharge Order Discharge Orders: Discharge Order (Routine); Ordered 12/15/24 Ordered By: Italo Cast Follow up Plan Follow up with: Del Chatterjee MD [Staff Physician, Cardiology] - 1 week Referral Note: Call for F/U in the AM Candie Juarez MD [Physician, Pulmonology] - 1 week Referral Note: Call for F/U in the AM Prescriptions/Medication Reconciliation: Continued hydrochlorothiazide 25 mg tablet 25 mg PO DAILY Qty: 30 5RF levothyroxine [Levoxyl] 137 mcg tablet 137 mcg PO DAILY Qty: 30 2RF primidone 50 mg tablet 100 mg PO DAILY pravastatin 40 mg tablet 40 mg PO DAILY fenofibrate 160 mg tablet 160 mg PO DAILY dapagliflozin propanediol [Farxiga] 10 mg tablet 10 mg PO DAILY Held lisinopril 40 mg tablet 40 mg PO DAILY 30 Days Qty: 30 5RF Hold Instructions: Resume on 12/22/24. Hold this medication until follow-up with cardiology as your blood pressures have been normal without it. aspirin 81 mg Tablet 81 mg PO DAILY 30 Days Qty: 30 6RF Hold Instructions: Resume on 12/22/24. Follow-up with cardiology before restarting this medication due to recent bleeding around your lung. . Discontinued amlodipine 10 mg tablet 10 mg PO DAILY Qty: 90 3RF No Action clopidogrel [Plavix] 75 mg tablet 75 mg PO DAILY 30 Days Qty: 30 6RF amlodipine 10 mg tablet 10 mg PO DAILY Problem Reconciliation Problems Reviewed?: Yes Patient Discharge Instructions Patient Instructions: Cardiac Catheterization, Pacemaker Insertion, Surgical Site Infection, DI for Moderate Sedation, DI for Chest Tube Insertion Print Language: Icelandic Providers Primary Care Provider: Jayme Michelle Admit Provider: Del Chatterjee Attending Provider: Italo Cast
--- NOTE | 2024-12-15 17:00 | XR_ITS ---
PROCEDURE INFORMATION: Exam: XR Chest Exam date and time: 12/15/2024 4:34 PM Age: 79 years old Clinical indication: Other: Chest tube removal TECHNIQUE: Imaging protocol: Radiologic exam of the chest. Views: 1 view. COMPARISON: CR XR CHEST PORTABLE 12/15/2024 7:47 AM FINDINGS: Tubes, catheters and devices: Left-sided pleural tube has been removed. Lungs: Stable left-sided atelectasis.. No consolidation. Pleural spaces: Unremarkable. No pleural effusion. No pneumothorax. Heart/Mediastinum: Unremarkable. No cardiomegaly. Bones/joints: Unremarkable. IMPRESSION: Stable left atelectasis. Status post left pleural tube removal.
--- NOTE | 2024-12-16 10:37 | SW/DCPLANNER ---
Addendum entered by Kristen Medina 12/16/24 12:01: [facility] is able to accept patient. Vadim Sandhu Original Note: Spoke with patient on the phone. Patient stated that she is doing well. Patient stated that she has called and scheduled her follow up appointments. 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 Patient stated that she has no concerns or questions at this time. I asked patient if she was interested in home health services and patient stated that she is and that she does not have a preference in what agency i send her information to. I stated to patient that i will send her information to [facility] and if they are able to accept i will call her back and let her know. Vadim Sandhu
== END 2024-12-15 18:45 | disposition home health service (06) | DRG 242 ==
LOC: ICU 12:59
PROVIDERS: Internal Medicine Adolescent Medicine; Internal Medicine Pulmonary Disease; Nurse Practitioner Family; Physician Assistant; Admitting Provider Internal Medicine; PCP Internal Medicine; Visit Provider Student in an Organized Health Care Education/Training Program
PROC: 4A023N7 Measurement of Cardiac Sampling and Pressure, Left Heart, Percutaneous Approach (ICD-10-PCS; CPT 93452; principal; 2024-12-05 10:00)
PROC: 02703DZ Dilation of Coronary Artery, One Artery with Intraluminal Device, Percutaneous Approach (ICD-10-PCS; CPT 92928; 2024-12-05 10:00)
PROC: 0JH606Z Insertion of Pacemaker, Dual Chamber into Chest Subcutaneous Tissue and Fascia, Open Approach (ICD-10-PCS; CPT 33208; principal; 2024-12-08 16:00)
DX: I97.88 Other intraoperative complications of the circulatory system, not elsewhere classified (principal); I21.4 Non-ST elevation (NSTEMI) myocardial infarction; I25.42 Coronary artery dissection; T81.11XA Postprocedural cardiogenic shock, initial encounter; J18.9 Pneumonia, unspecified organism; J96.01 Acute respiratory failure with hypoxia; S27.1XXA Traumatic hemothorax, initial encounter; T81.19XA Other postprocedural shock, initial encounter; S25.1 Injury of innominate or subclavian artery; N17.9 Acute kidney failure, unspecified; I45.2 Bifascicular block; I97.51 Accidental puncture and laceration of a circulatory system organ or structure during a circulatory system procedure; D62 Acute posthemorrhagic anemia; I97.120 Postprocedural cardiac arrest following cardiac surgery; I97.790 Other intraoperative cardiac functional disturbances during cardiac surgery; I95.81 Postprocedural hypotension; I25.10 Atherosclerotic heart disease of native coronary artery without angina pectoris; I12.9 Hypertensive chronic kidney disease with stage 1 through stage 4 chronic kidney disease, or unspecified chronic kidney disease; N18.31 Chronic kidney disease, stage 3a; E78.1 Pure hyperglyceridemia; E03.9 Hypothyroidism, unspecified; E78.2 Mixed hyperlipidemia; E66.9 Obesity, unspecified; K59.09 Other constipation; I49.5 Sick sinus syndrome; Y84.0 Cardiac catheterization as the cause of abnormal reaction of the patient, or of later complication, without mention of misadventure at the time of the procedure; Y92.239 Unspecified place in hospital as the place of occurrence of the external cause; Y71.3 Surgical instruments, materials and cardiovascular devices (including sutures) associated with adverse incidents; T44.995A Adverse effect of other drug primarily affecting the autonomic nervous system, initial encounter; R00.1 Bradycardia, unspecified; R11.2 Nausea with vomiting, unspecified; Z95.5 Presence of coronary angioplasty implant and graft; Z68.34 Body mass index [BMI] 34.0-34.9, adult; Z79.82 Long term (current) use of aspirin; Z79.890 Hormone replacement therapy; Z79.899 Other long term (current) drug therapy; Z79.02 Long term (current) use of antithrombotics/antiplatelets
CPT/HCPCS: 0223U; 32555; 36415; 36430; 36569; 71045; 71250; 74018; 74177; 76705; 80048; 80053; 80061; 81001; 82042; 82150; 82533; 82945; 82962; 83036; 83615; 83690; 83735; 84100; 84145; 84157; 84439; 84443; 85007; 85014; 85018; 85025; 85347; 85730; 86140; 86850; 87040; 87070; 87205; 88112; 88305; 89051; 89220; 93005; 93306; 93308; 94640; 97162; 97166; 97530; 99152; 99153; C1725; C1751; C1769; C1785; C1898; J0612; J1100; J1200; J1265; J1644; J1650; J1938; J2004; J2270; J2371; J2405; J2470; J2543; J2550; J2704; J2997; J3010; J3375; J3475; J3480; J7030; J7040; J7050; J7120; J7639; P9016; Q9957; Q9967

== ENCOUNTER 2024-12-23 15:37 | Outpatient (CLI) | payer MEDICARE, MEDICAID, SELFPAY ==
--- NOTE | 2024-12-23 15:39 | XR_ITS ---
FINAL REPORT CLINICAL HISTORY: Effusion COMPARISON: 12/15/2024 FINDINGS: 2 views of the chest were obtained . The heart is normal in size. A pacemaker is in place. The mediastinum is within normal limits. There is scarring of the left midlung. A calcified granuloma is seen at the right lung base. The lungs are otherwise clear. There is no pneumothorax. Osseous structures are unremarkable. IMPRESSION: No acute cardiopulmonary process. Reviewed, Interpreted and Dictated by Ousmane Oliver MD Transcribed by Jordyn Forrester Authenticated and [facility][1]
== END 2024-12-23 23:59 | disposition home or self-care (01) ==
LOC: RAD 15:37
PROVIDERS: PCP Internal Medicine; Visit Provider Internal Medicine Pulmonary Disease
DX: R06.02 Shortness of breath (principal)
CPT/HCPCS: 71046

== ENCOUNTER 2025-01-20 16:05 | Outpatient (CLI) | payer MEDICARE, MEDICAID, SELFPAY ==
[2025-01-20 16:23] LABS: Hematocrit 42.7 % (37.0-47.0); Hemoglobin 13.7 g/dL (12.2-16.2); Immature Granulocytes % 0.6 %; Mean Corpuscular HGB Conc 32.1 g/dL (31.8-35.4); Mean Corpuscular Hemoglobin 30.9 pg (27.0-31.2); Mean Corpuscular Volume 96.2 fl (81-99); Nucleated Red Blood Cells % 0 %; Platelet Count 366 K/mm3 (142-424); Red Blood Count 4.44 M/mm3 (4.20-5.40); Red Cell Distribution Width-SD 50.4 fL; White Blood Count 6.8 K/mm3 (4.8-10.8)
[2025-01-20 17:49] LABS: Alanine Aminotransferase 28 U/L (12-78); Albumin Level 4.7 g/dl (3.5-5.0); Alkaline Phosphatase 48 U/L (38-126); Anion Gap 14.9 mEq/L (5-15); Aspartate Amino Transferase 42 U/L (14-36); Bilirubin,Direct 0.3 mg/dl (0.0-0.4); Bilirubin,Indirect 0.2 mg/dL (0.0-0.9); Bilirubin,Total 0.5 mg/dl (0.2-1.3); Bilirubin,Unconjugated 0.1 mg/dL (0.0-1.1); Blood Urea Nitrogen 30 mg/dl (7-17); Calcium 10.5 mg/dl (8.4-10.2); Carbon Dioxide 26 mmol/L (22.0-30.0); Chloride 105 mmol/L (98-107); Cholesterol 187 mg/dl (140-200); Creatinine,Serum 1.10 mg/dl (0.52-1.04); Estimated Glomerular Filt Rate 48 ml/min (>60); GFR (African American) 58 ML/MIN (>60); Glucose 90 mg/dl (74-100); HDL Cholesterol 57 mg/dl (40-60); Magnesium 2.1 mg/dl (1.6-2.3); Potassium 4.9 mmoL/L (3.5-5.1); Sodium 141 mmol/L (136-145); Total Protein,Serum 7.6 g/dl (6.3-8.2); Triglycerides 187 mg/dl (30-150)
[2025-01-20 18:06] LABS: Free T4 (Free Thyroxine) 1.21 ng/dl (0.78-2.19)
[2025-01-20 18:18] LABS: Thyroid Stimulating Hormone 2.51 uIU/mL (0.465-4.68)
--- OUTSIDE RECORDS SUMMARY | 2025-02-14 19:00 | XMS_ITS | Clinical Summary ---
Author Organization Unknown Care Team Providers Care Media Analytics Manager Name Role Phone CHAPIS SANDOVAL MD Unavailable Unavailable ADITI PT, BOY Unavailable Unavailable AARON VICE PRESIDENT RESEARCH, MANAN Unavailable Unavailable Payers Payer Name Policy Type Policy Number Effective Date Expira tion Date CHUNAUTH [id number] Problems Condition Name Condition Details Condition Category Status Onset Date Resolution Date Last Treatment Date Treating Clinician Comments ENCNTR FOR SURGICAL AFTCR FOLLOWING SURGERY ON THE CIRC SYS Active 2024-02 00:00: 00 ATHSCL HEART DISEASE OF [place] CORONARY ARTERY W/O ANG PCTRS Active 2024-02 00:00: 00 CORONARY ARTERY DISSECTION Active 2024-02 00:00: 00 NON-ST ELEVATION (NSTEMI) MYOCARDIAL INFARCTION Active 2024-02 00:00: 00 HYPERTENSIVE CHRONIC KIDNEY DISEASE W 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/UNSP CHR KDNY Active 2024-02 00:00: 00 CHRONIC KIDNEY DISEASE, STAGE 3A Active 2024-02 00:00: 00 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 KIDNEY DISEASE Active 02-05 00:00: 00 HYPERLIPIDEM IA, UNSPECIFIED Active 2024-02 00:00: 00 HYPOTHYROIDI SM, UNSPECIFIED Active 2024-02 00:00: 00 DVRTCLOS OF INTEST, PART UNSP, W/O PERF OR ABSCESS W/O BLEED Active 02-05 00:00: 00 UNSPECIFIED HEARING LOSS, UNSPECIFIED EAR Active 02-05 00:00: 00 BRADYCARDIA, UNSPECIFIED Active 2024-02 00:00: 00 OBESITY, UNSPECIFIED Active 02-05 00:00: 00 BODY MASS INDEX [BMI] 33.0-33.9, ADULT Active 1- 00:00: 00 PRESENCE OF CARDIAC PACEMAKER Active 2024-02 1-03 00:00: 00 PRESENCE OF CORONARY ANGIOPLASTY IMPLANT AND GRAFT Active 2024-02 0- 00:00: 00 INTERMEDIATE (CURRENT) USE OF ANTITHROMBOT ICS/ANTIPLAT ELETS Active 2024-02 0-31 00:00: 00 INTERMEDIATE (CURRENT) USE OF ORAL HYPOGLYCEMIC DRUGS Active 02-05 00:00: 00 Allergies, Adverse Reactions, Alerts Allergy Name Allergy Type Status Severity Reaction(s) Onset Date Inactive Date Treating Clinician Comments NO KNOWN ALLERGIES Propensity to adverse reactions Active 2024-02 14:13: 13 Medications Ordered Medication Name Filled Medication Name Start Date Stop Date Current Medication? Ordering Clinician Indication Dosage Frequency Signature (SIG) Comments Components amoxicillin 500 mg-potassiu m clavulanate 125 mg tablet 2024-02 00:00: 00 12-18 00:00 :00 No [id number] Per instruc tions Per instructio ns (route: oral) Med Classific ation: Anti-Infe ctive Agents levothyroxi ne 137 mcg tablet 2023-02 0 00:00: 00 Yes [id number] THYROID 1 tablet ONCE DAILY 1 tablet ONCE DAILY (route: oral) Med Classific ation: Endocrine lisinopril 40 mg tablet 2022-02 0-04 00:00: 00 12-18 00:00 :00 No [id number] BLOOD PRESSURE 1 tablet DAILY 1 tablet DAILY (route: oral) Med Classific ation: Cardiovas cular Therapy Agents clopidogrel 75 mg tablet 2024-02 1- 00:00: 00 Yes [id number] BLOOD THINNER 1 tablet DAILY 1 tablet DAILY (route: oral) Med Classific ation: Hematolog ical Agents dapaglifloz in propanediol 10 mg tablet 2023-02 00:00: 00 Yes [id number] HEART 1 tablet DAILY 1 tablet DAILY (route: oral) Med Classific ation: Endocrine fenofibrate 160 mg tablet 2023-02 1- 00:00: 00 Yes [id number] CHOLESTEROL 1 tablet DAILY 1 tablet DAILY (route: oral) Med Classific ation: Cardiovas cular Therapy Agents pravastatin 40 mg tablet 2023-02 00:00: 00 Yes [id number] CHOLESTEROL 1 tablet DAILY 1 tablet DAILY (route: oral) Med Classific ation: Cardiovas cular Therapy Agents primidone 50 mg tablet 2023-02 00:00: 00 Yes [id number] SEIZURES 1 tablet DAILY 1 tablet DAILY (route: oral) Med Classific ation: Central Nervous System Agents Immunizations Ordered Immunization Name Filled Immunization Name Date Status Comments Refusal Reason INFLUENZA, TIV (INACTIVATED) 2024-11-19 00:00:00 PNEUMOCOCCAL (PPV), PPV 2022-12-21 00:00:00 SINGLE DOSE REGIMEN, COVID-19 VACCINE 2020-12-30 00:00:00 Vital Signs Vital Name Observation Time Observation Value Commen ts Temperature 2025-01-08 16:38:00.000 98.6 [degF] Temperature 2024-12-18 13:35:00.000 97.6 [degF] BMI (%) 2024-12-18 13:35:00.000 33 kg/m2 Height 2024-12-18 13:35:00.000 59 [in_us] Pulse 2025-01-08 16:38:00.000 75 /min Pulse 2024-12-18 13:35:00.000 75 /min O2 Saturation (%) 2024-12-18 13:35:00.000 97 % Respirations 2025-01-08 16:38:00.000 18 /min Respirations 2024-12-18 13:35:00.000 18 /min Weight (lbs) 2024-12-18 13:35:00.000 167 [lb_av] Systolic Blood Pressure 2025-01-08 16:38:00.000 132 mm [Hg] Systolic Blood Pressure 2024-12-18 13:35:00.000 108 mm [Hg] Diastolic Blood Pressure 2025-01-08 16:38:00.000 63 mm [Hg] Diastolic Blood Pressure 2024-12-18 13:35:00.000 88 mm [Hg] Plan of Treatment Planned Activity Planned Date Details Comments Future Scheduled Test AGENCY MAY PERFORM A RESUMPTION OF CARE VISIT FOLLOWING ANY HOSPITAL ADMISSION. PT TO EVALUATE, OBSERVE / ASSESS, AND MONITOR, VICE PRESIDENT RESEARCH TO OBSERVE AND MONITOR, PROVIDE SKILLED THERAPEUTIC INTERVENTION, ACTIVITY, EDUCATION, AND TRAINING TO ADDRESS; [code = AGENCY MAY PERFORM A RESUMPTION OF CARE VISIT FOLLOWING ANY HOSPITAL ADMISSION. PT TO EVALUATE, OBSERVE / ASSESS, AND MONITOR, VICE PRESIDENT RESEARCH TO OBSERVE AND MONITOR, PROVIDE SKILLED THERAPEUTIC INTERVENTION, ACTIVITY, EDUCATION, AND TRAINING TO ADDRESS;] Future Scheduled Test PT/VICE PRESIDENT RESEARCH TO PROVIDE GAIT TRAINING FOR IMPROVED MOBILITY AND /OR TO NORMALIZE GAIT PATTERN [code = PT/VICE PRESIDENT RESEARCH TO PROVIDE GAIT TRAINING FOR IMPROVED MOBILITY AND /OR TO NORMALIZE GAIT PATTERN] Future Scheduled Test THERAPEUTI C EXERCISES AND ESTABLISHING A HOME EXERCISE PROGRAM (PT/VICE PRESIDENT RESEARCH) [code = THERAPEUTIC EXERCISES AND ESTABLISHING A HOME EXERCISE PROGRAM (PT/VICE PRESIDENT RESEARCH)] Future Scheduled Test NEUROMUSCU LAR RE-EDUCATION / BALANCE / POSTURAL CONTROL (PT) [code = NEUROMUSCULAR RE-EDUCATION / BALANCE / POSTURAL CONTROL (PT)] Future Scheduled Test PT/VICE PRESIDENT RESEARCH TO IDENTIFY FALL RISK FACTORS; EDUCATE THE PATIENT/CAREGIVER ON WAYS TO REDUCE FALL RISK FACTORS AND ESTABLISH HOME EXERCISE PROGRAM TO MINIMIZE FALL RISK. MAY TEACH THE PATIENT FLOOR RECOVERY WHEN CLINICALLY APPROPRIATE [code = PT/VICE PRESIDENT RESEARCH TO IDENTIFY FALL RISK FACTORS; EDUCATE THE PATIENT/CAREGIVER ON WAYS TO REDUCE FALL RISK FACTORS AND ESTABLISH HOME EXERCISE PROGRAM TO MINIMIZE FALL RISK. MAY TEACH THE PATIENT FLOOR RECOVERY WHEN CLINICALLY APPROPRIATE] Future Scheduled Test PT / VICE PRESIDENT RESEARCH T O EDUCATE ON SKIN AND WOUND SELF-MANAGEMENT [code = PT / VICE PRESIDENT RESEARCH TO EDUCATE ON SKIN AND WOUND SELF-MANAGEMENT] Future Scheduled Test PT / VICE PRESIDENT RESEARCH T O EDUCATE ON PACEMAKER SELF-MANAGEMENT [code = PT / VICE PRESIDENT RESEARCH TO EDUCATE ON PACEMAKER SELF-MANAGEMENT] Future Scheduled Test PT / VICE PRESIDENT RESEARCH T O EDUCATE ON MYOCARDIAL INFARCT SELF-MANAGEMENT [code = PT / VICE PRESIDENT RESEARCH TO EDUCATE ON MYOCARDIAL INFARCT SELF-MANAGEMENT] Future Scheduled Test PT / VICE PRESIDENT RESEARCH T O MONITOR AND EDUCATE ON OXYGEN SATURATION DURING ADLS/IADLS, NOTIFY PHYSICIAN AND/OR THE RN CLINICAL PYTHON ARCHITECT FOR PHYSICIAN NOTIFICATION AND IF O2 SATS BELOW PHYSICIAN ORDERED PARAMETERS AFTER 10 MIN OF REST [code = PT / VICE PRESIDENT RESEARCH TO MONITOR AND EDUCATE ON OXYGEN SATURATION DURING ADLS/IADLS, NOTIFY PHYSICIAN AND/OR THE RN CLINICAL PYTHON ARCHITECT FOR PHYSICIAN NOTIFICATION AND IF O2 SATS BELOW PHYSICIAN ORDERED PARAMETERS AFTER 10 MIN OF REST] Future Scheduled Test PT / VICE PRESIDENT RESEARCH M AY EDUCATE ON PAIN MANAGEMENT CLINICALLY INDICATED, INCLUDING NON-PHARMACOLOGICAL PAIN REDUCTION TECHNIQUES AND USE OF CRYOTHERAPY OR HEAT UP TO 20 MIN AT A TIME FOR PAIN MANAGEMENT 3 TIMES PER DAY TO PAINFUL JOINTS [code = PT / VICE PRESIDENT RESEARCH MAY EDUCATE ON PAIN MANAGEMENT CLINICALLY INDICATED, INCLUDING NON-PHARMACOLOGICAL PAIN REDUCTION TECHNIQUES AND USE OF CRYOTHERAPY OR HEAT UP TO 20 MIN AT A TIME FOR PAIN MANAGEMENT 3 TIMES PER DAY TO PAINFUL JOINTS] Goal Patient Goal - RETURN TO IND EPENDENCE Goal Provider Goal - AGENCY MAY PERFORM A RESUMPTION OF CARE VISIT FOLLOWING ANY HOSPITAL ADMISSION. PT TO EVALUATE, OBSERVE / ASSESS, AND MONITOR, VICE PRESIDENT RESEARCH TO OBSERVE AND MONITOR, PROVIDE SKILLED THERAPEUTIC INTERVENTION, ACTIVITY, EDUCATION, AND TRAINING TO ADDRESS; Goal Provider Goal - PT LTG: PATIENT WILL DEMONSTRATE REDUCED GAIT DEVIATIONS TO REDUCE THE RISK FOR FALLING AND MINIMIZE STRAIN ON KNEES/HIPS AND BACK EVIDENCED BY IMPROVED HEEL STRIKE / STANCE PHASE / SWING PHASE USING NO ASSISTIVE DEVICE TO WALK 500 FEET WITH NO ASSISTANCE IN ORDER TO ACCESS ENTIRE HOME WITHIN 8WEEKS Goal Provider Goal - PT LTG: PATIENT WILL DEMONSTRATE IMPROVED FUNCTIONAL STRENGTH EVIDENCED BY FIVE TIMES SIT TO STAND TEST (CUT SCORE >12 SECONDS INDICATES AN INCREASED FALL RISK) IMPROVING FROM 19 TO 16 WITHIN 8WEEKS IN ORDER TO STAND INDEPENDENTLY PT LTG: PATIENT WILL DEMONSTRATE INCREASED STRENGTH OF BILATERAL LOWER EXTREMITIES FROM 3+ TO 4+ WITHIN 8WEEKS IN ORDER TO STAND INDEPENDENTLY Goal Provider Goal - PT LTG: PATIENT WILL DEMONSTRATE REDUCED FALL RISK EVIDENCED BY TUG TEST (CUT SCORE >11 SECONDS INDICATES INCREASED FALL RISK) IMPROVING FROM 18 TO 15 WITHIN 8WEEKS Goal Provider Goal - PT LTG: PATIENT/CAREGIVER WILL DEMONSTRATE ADHERENCE TO FALL REDUCTION SELF-MANAGEMENT AND REDUCING FALL RISK FACTORS TO MINIMIZE FALL RISK BY END OF EPISODE. PT LTG: PATIENT WILL BE INDEPENDENT WITH IMPLEMENTATION OF HEP WITHIN 8WEEKS Goal Provider Goal - PT GOAL: PATIENT/CAREGIVER WILL BE ABLE TO VERBALIZE UNDERSTANDING OF SKIN AND WOUND EDUCATION, SIGNS/SYMPTOMS TO REPORT, WELL SELF-MANAGEMENT AND LIFE-STYLE CHANGES TO IMPROVE QUALITY OF LIFE AND REDUCE CAREGIVER BURDEN BY END OF EPISODE. Goal Provider Goal - PT GOAL: PATIENT/CAREGIVER WILL BE ABLE TO VERBALIZE UNDERSTANDING OF A PACEMAKER, SIGNS/SYMPTOMS TO REPORT, WELL SELF-MANAGEMENT AND LIFE-STYLE CHANGES TO IMPROVE QUALITY OF LIFE AND REDUCE CAREGIVER BURDEN BY END OF EPISODE. Goal Provider Goal - PT GOAL: PATIENT/CAREGIVER WILL BE ABLE TO IDENTIFY SIGNS OF MYOCARDIAL INFARCT AND VERBALIZE/DEMONSTRATE AN ABILITY TO ADHERE TO MYOCARDIAL INFARCT SELF-MANAGEMENT AND LIFE-STYLE CHANGES BY END OF EPISODE. Goal Provider Goal - PT LTG: PATIENT WILL MAINTAIN OXYGEN SATURATION WITHIN PHYSICIAN ORDERED PARAMETERS THROUGHOUT EPISODE OF CARE. Goal Provider Goal - PT GOAL: PATIENT WILL DEMONSTRATE UNDERSTANDING OF PAIN MANAGEMENT TECHNIQUES EVIDENCED BY REDUCED PAIN FROM 6 TO 1 WITHIN 8WEEKS Encounters Start Date/Time End Date/Time Encounter Type Admission Type [facility] Department Encounter ID Discharge Date Discharge Status Discharge Condition Discharge Reason Percent Goals Met 2024-12-18 00:00:00 2025-02-15 00:00:00 Outpatient NEW ADMISSION [facility] [id number] 0.00
--- OUTSIDE RECORDS SUMMARY | 2025-02-14 19:00 | XMS_ITS | Clinical Summary ---
Author Organization Unknown Care Team Providers Care Spreader Operator Automatic Name Role Phone CHAPIS SANDOVAL MD Unavailable Unavailable ADITI PT, BOY Unavailable Unavailable AARON RIB CHOPPER, MANAN Unavailable Unavailable Payers Payer Name Policy Type Policy Number Effective Date Expira tion Date CHUNAUTH [id number] Problems Condition Name Condition Details Condition Category Status Onset Date Resolution Date Last Treatment Date Treating Clinician Comments ENCNTR FOR SURGICAL AFTCR FOLLOWING SURGERY ON THE CIRC SYS Active 2024-02 00:00: 00 ATHSCL HEART DISEASE OF [place] CORONARY ARTERY W/O ANG PCTRS Active 2024-02 [...] AND GRAFT Active 2024-02 0- 00:00: 00 SENIOR LIVING (CURRENT) USE OF ANTITHROMBOT ICS/ANTIPLAT ELETS Active 2024-02 0-31 00:00: 00 SENIOR LIVING (CURRENT) USE OF ORAL HYPOGLYCEMIC DRUGS Active [...] 2024-02 00:00: 00 12-18 00:00 :00 No [id number] Per instruc tions Per instructio ns (route: oral) Med Classific ation: Anti-Infe ctive Agents levothyroxi ne 137 mcg tablet 2023-02 0 00:00: 00 Yes [id number] THYROID 1 tablet ONCE DAILY 1 tablet ONCE DAILY (route: oral) Med Classific ation: Endocrine lisinopril 40 mg tablet 2022-02 0-04 00:00: 00 12-18 00:00 :00 No [id number] BLOOD PRESSURE 1 tablet DAILY 1 tablet DAILY (route: oral) Med Classific ation: Cardiovas cular Therapy Agents clopidogrel 75 mg tablet 2024-02 1- 00:00: 00 Yes [id number] BLOOD THINNER 1 tablet DAILY 1 tablet DAILY (route: oral) Med Classific ation: Hematolog ical Agents dapaglifloz in propanediol 10 mg tablet 2023-02 00:00: 00 Yes [id number] HEART 1 tablet DAILY 1 tablet DAILY (route: oral) Med Classific ation: Endocrine fenofibrate 160 mg tablet 2023-02 1- 00:00: 00 Yes [id number] CHOLESTEROL 1 tablet DAILY 1 tablet DAILY (route: oral) Med Classific ation: Cardiovas cular Therapy Agents pravastatin 40 mg tablet 2023-02 00:00: 00 Yes [id number] CHOLESTEROL 1 tablet DAILY 1 tablet DAILY (route: oral) Med Classific ation: Cardiovas cular Therapy Agents primidone 50 mg tablet 2023-02 00:00: 00 Yes [id number] SEIZURES 1 tablet DAILY 1 tablet DAILY [...] TO EVALUATE, OBSERVE / ASSESS, AND MONITOR, RIB CHOPPER TO OBSERVE AND MONITOR, PROVIDE SKILLED THERAPEUTIC INTERVENTION, ACTIVITY, EDUCATION, AND TRAINING TO ADDRESS; [code = AGENCY MAY PERFORM A RESUMPTION OF CARE VISIT FOLLOWING ANY HOSPITAL ADMISSION. PT TO EVALUATE, OBSERVE / ASSESS, AND MONITOR, RIB CHOPPER TO OBSERVE AND MONITOR, PROVIDE SKILLED THERAPEUTIC INTERVENTION, ACTIVITY, EDUCATION, AND TRAINING TO ADDRESS;] Future Scheduled Test PT/RIB CHOPPER TO PROVIDE GAIT TRAINING FOR IMPROVED MOBILITY AND /OR TO NORMALIZE GAIT PATTERN [code = PT/RIB CHOPPER TO PROVIDE GAIT TRAINING FOR IMPROVED MOBILITY AND /OR TO NORMALIZE GAIT PATTERN] Future Scheduled Test THERAPEUTI C EXERCISES AND ESTABLISHING A HOME EXERCISE PROGRAM (PT/RIB CHOPPER) [code = THERAPEUTIC EXERCISES AND ESTABLISHING A HOME EXERCISE PROGRAM (PT/RIB CHOPPER)] Future Scheduled Test NEUROMUSCU LAR RE-EDUCATION / BALANCE / POSTURAL CONTROL (PT) [code = NEUROMUSCULAR RE-EDUCATION / BALANCE / POSTURAL CONTROL (PT)] Future Scheduled Test PT/RIB CHOPPER TO IDENTIFY FALL RISK FACTORS; EDUCATE THE PATIENT/CAREGIVER ON WAYS TO REDUCE FALL RISK FACTORS AND ESTABLISH HOME EXERCISE PROGRAM TO MINIMIZE FALL RISK. MAY TEACH THE PATIENT FLOOR RECOVERY WHEN CLINICALLY APPROPRIATE [code = PT/RIB CHOPPER TO IDENTIFY FALL RISK FACTORS; EDUCATE THE PATIENT/CAREGIVER ON WAYS TO REDUCE FALL RISK FACTORS AND ESTABLISH HOME EXERCISE PROGRAM TO MINIMIZE FALL RISK. MAY TEACH THE PATIENT FLOOR RECOVERY WHEN CLINICALLY APPROPRIATE] Future Scheduled Test PT / RIB CHOPPER T O EDUCATE ON SKIN AND WOUND SELF-MANAGEMENT [code = PT / RIB CHOPPER TO EDUCATE ON SKIN AND WOUND SELF-MANAGEMENT] Future Scheduled Test PT / RIB CHOPPER T O EDUCATE ON PACEMAKER SELF-MANAGEMENT [code = PT / RIB CHOPPER TO EDUCATE ON PACEMAKER SELF-MANAGEMENT] Future Scheduled Test PT / RIB CHOPPER T O EDUCATE ON MYOCARDIAL INFARCT SELF-MANAGEMENT [code = PT / RIB CHOPPER TO EDUCATE ON MYOCARDIAL INFARCT SELF-MANAGEMENT] Future Scheduled Test PT / RIB CHOPPER T O MONITOR AND EDUCATE ON OXYGEN SATURATION DURING ADLS/IADLS, NOTIFY PHYSICIAN AND/OR THE RN CLINICAL SOUND ART INSTRUCTOR FOR PHYSICIAN NOTIFICATION AND IF O2 SATS BELOW PHYSICIAN ORDERED PARAMETERS AFTER 10 MIN OF REST [code = PT / RIB CHOPPER TO MONITOR AND EDUCATE ON OXYGEN SATURATION DURING ADLS/IADLS, NOTIFY PHYSICIAN AND/OR THE RN CLINICAL SOUND ART INSTRUCTOR FOR PHYSICIAN NOTIFICATION AND IF O2 SATS BELOW PHYSICIAN ORDERED PARAMETERS AFTER 10 MIN OF REST] Future Scheduled Test PT / RIB CHOPPER M AY EDUCATE ON PAIN MANAGEMENT CLINICALLY INDICATED, INCLUDING NON-PHARMACOLOGICAL PAIN REDUCTION TECHNIQUES AND USE OF CRYOTHERAPY OR HEAT UP TO 20 MIN AT A TIME FOR PAIN MANAGEMENT 3 TIMES PER DAY TO PAINFUL JOINTS [code = PT / RIB CHOPPER MAY EDUCATE ON PAIN MANAGEMENT CLINICALLY INDICATED, [...] TO EVALUATE, OBSERVE / ASSESS, AND MONITOR, RIB CHOPPER TO OBSERVE AND MONITOR, PROVIDE SKILLED THERAPEUTIC [...] End Date/Time Encounter Type Admission Type Attending [facility] Care Department Encounter ID Discharge Date Discharge Status Discharge Condition Discharge Reason Percent Goals Met 2024-12-18 00:00:00 2025-02-15 00:00:00 Outpatient NEW ADMISSION [facility] [id number] 0.00
== END 2025-01-20 23:59 | disposition home or self-care (01) ==
LOC: LAB 16:06
PROVIDERS: PCP Internal Medicine; Visit Provider Internal Medicine
DX: I25.10 Atherosclerotic heart disease of native coronary artery without angina pectoris (principal); I10 Essential (primary) hypertension; E03.9 Hypothyroidism, unspecified; E78.2 Mixed hyperlipidemia
CPT/HCPCS: 36415; 80048; 80061; 80076; 83735; 84439; 84443; 85025